=== PATIENT | male | born 1930 | race Caucasian/White ===

== ENCOUNTER → 2016-09-12 | Outpatient (CLI) | payer OTHER ==
[~2016-09-12] MED LIST: ALBU1AER9 INH; AMLO2.5T PO; AMOX500C3 PO; ASPI81TA28 PO; ATV/1 PO; AZEL30SP NAE; CILO100T PO; COLE1TAB PO; CRS10 PO; DOCU100C31 PO; ESCI10TA17 PO; FERR1TAB13 PO; FINA5TAB PO; FLUT0.15 NAE; FRRG PO; FURO-85 PO; GABA-113 PO; GABA1CAP4 PO; GUAI1TAB69 PO; GUAI1TAB75 PO; HYDR-5688 PO; INSDGI SC; ISOS120T5 PO; LACTCAP3 PO; LOSA1TAB PO; LOSA50TA6 PO; METO50TA7 PO; MONT1TAB3 PO; NRN300 PO; NTRGSL/4 UT; NVLGI SC; NXM/40 PO; NYSS/ PO; NYST100098 TOP; OMEG10007 PO; OXYC-57 PO; PANC6000 PO; PANT40TA PO; PLV75 PO; POLY335019 PO; POTA10CA28 PO; PSYL55.43 PO; RIVA1DIS4 TOP; RNXER500 PO; ROSU40TA PO; RQP25 PO; RXC5 PO; SENN-61 PO; SILO4CAP PO; TACR0.1O18 TOP; TAMS0.4C38 PO; TIOT1AER INH; ZNT150 PO
--- NOTE | 2016-09-13 06:18 | PAP/PSG TECHNICIAN REPORT ---
[facility] Filtering Machine Tender Polysomnogram Report Study name: None Report date: 09/13/2016 Study date: 09/12/2016 Referring Physician: Beto MEDINA M.D. Name: CODIE BENJAMIN Interpreting Physician: Bernadine Medina M.D. Date of : 1930 Filtering Machine Tender: Eris Cox RPSGT. Sex: Male Age: 85 StudyType: PSG PAP Weight: 211 lbs Height: 85 years, Height 5' 7" BMI: 33.04 Medications: LEXAPRO 10 MG, LANTUS SOLOSTAR 100 UNIT/ML, LASIX 20 MG, POTASSIUM CHLORIDE ER 10 MEQ, PLAVIX 75 MG, NORVASC 2.5 MG, PROTOPIC, CREON 90091 UNITS, REQUIP 0.25 MG, FLOMAX 0.4 MG, SINGULAIR 10 MG, ISOSORBIDE MONOITRATE ER 120 MG, TOPROL XL 50 MG, PROVENTIL HFA 108 90 BASE, MIRALAX, BIOTIN 5000 MCG, NEXIUM 40 MG, NEURONTIN 300 MG, EXELON, ASTELIN, NOVOLOG, PLETAL 100 MG, CRESTOR 40 MG, PROSCAR 5 MG, NYSTATIN 370906, NITROSTAT 0.4MG, NASONEX 50 MCG, Patient History PATIENT RECENTLY HAD A SLEEP STUDY DONE IN 2014 AND WAS TREATED WITH BIPAP AT 28/07. CURRENTLY, THE PATIENT FEELS FATIGUE AND NEEDS TO TAKE NAPS DURING THE DAY. HE STATES THAT HE HASN'T WORN OXYGEN IN A COUPLE OF YEARS. HE IS HERE TODAY FOR AN UPDATE ON HIS PRESSURE. ESS = 15 RM 7 Parameters Monitored NPSG: E1-M2, E2-M1, Fp1-M2, Fp2-M1, F3-M2, F4-M2, F4-M1, C3-M2, C4-M2, C4-M1, O1-M2, O2-M2, O2-M1, T3-M2, T4-M1, P3-M2, P4-M1, CHIN1, CHIN2, HR, EKG, Legs, PFLOW, SNOR, FLOW, CFLOW, Tidal Volume, THOR, ABDO, SpO2, PLTH, CPRESS, ETCO2 Wave, ETCO2, pH Sleep Architecture Sleep Stages Time at Lights Off 10:26:50 PM STAGES Time (min.) TST (%) Time at Lights On 5:30:20 AM Wake 35.0 -- Total Recording Time (TRT) 424.00 min. N1 19.5 5 Total Sleep Period (TSP) 421.0 min. N2 276.0 71 Total Sleep Time (TST) 388.5min. N3 25.0 6 Awake Time 35.0 min. REM 68.0 18 Wake after Sleep Onset 32.5 min. Sleep Efficiency (SE) 92 % Sleep Onset Latency (ELIZ) 2.5 min. Number of Stage 1 Shifts None Awakenings 22 Stage Changes 92 Number of REM periods 3 REM 68.0 18 REM Latency 128.0 min. NREM 320.5 82 Body Position Analysis Supine Right Left Side Prone Vertical Total Sleep Time (min.) 375.9 0.0 38.3 38.29 0.0 0.0 Total Sleep Time (%) 90% 0% 10% 10 0% N/A% Total Sleep Time REM (min.) 68.0 0.0 0.0 None 0.0 0.0 Total Sleep Time NREM (min.) 282.2 0.0 38.3 None 0.0 0.0 Intermittent Wake (min.) 25.7 0.0 9.3 None 0.0 0.0 Total Sleep Period (%) 89% None None None None None Arousals Myoclonus (PLM) * Events Count Index Events Count Index Spontaneous 22 3 Events Awake (PLMW) 75 128.6 Respiratory 2 0.3 Events Asleep w/ Arousal (PLMA) 38 5.9 PLM 36 6 Events Asleep w/o Arousal (PLMS) 719 111.0 Snoring 7 1 Total Asleep 757 116.9 Total 66 10 Total 832 118 Respiratory Analysis * CA OA MA CH H RERA Total Count 16 0 0 0 18 1 34 Index 2.5 0.0 0.0 0 2.8 0 5.4 Mean Duration 19.2 0.0 0.0 0.00 23.2 18.9 21.2 Longest Duration 23.3 0.0 0.0 0.00 0.0 18.9 33.5 Respiratory Event Summary Total Supine ~Supine Right Left Prone REM NREM Apneas Count 16 16 0 N/A 0 N/A 0 16 Index 2.5 3 0 N/A 0.0 N/A 0 3 Hypopneas (4% Desat) Count 18 18 0 N/A 0 N/A 0 18 Index 2.8 3.1 0 N/A 0.0 N/A 0.0 3.4 Apneas & All Hypopneas Count 34 34 0 N/A 0 N/A 0 34 Index 5.3 6 0 N/A 0 N/A 0.0 6.4 Respiratory Events (Roof Fitter+All Hyp+RERA) Count 34 35 0 N/A 0 N/A 0 34 Index 5.4 6 0 N/A 0.0 N/A 0.0 6.6 Respiratory Related Arousal Count 2 35 0 N/A 0 N/A 0 2 Index 0.3 0 0 N/A 0 N/A 0 0 Snoring Analysis Supine Right Left Prone REM NREM Total Snore duration 15.4 min Snores count 284 N/A 94 N/A 32 346 378 Snore mean duration 2.5 Sec Snores index 49 N/A 147 N/A 28.2 64.8 58.4 TST with snoring (%) 4.0% Desaturation Event Summary: Minimum %SpO2 Event Count Mean/Min/Max Duration(sec.) Desaturation Index % Time In Bed > 90 30 26.1 / 13.3 / 49.0 4.3 99.6 86 - 90 0 N/A 0.0 0.2 81 - 85 0 N/A 0.0 0.2 76 - 80 0 N/A 0.0 0.0 71 - 75 0 N/A 0.0 0.0 66 - 70 0 N/A 0.0 0.0 61 - 65 0 N/A 0.0 0.0 56 - 60 0 N/A 0.0 0.0 51 - 55 0 N/A 0.0 0.0 < 50 0 N/A 0.0 0.0 Total REM NREM Awake <50% 0.0 min. 0.0 min. 0.0 min. 0.0 min. 51 - 60% 0.0 min. 0.0 min. 0.0 min. 0.0 min. 61 - 70% 0.0 min. 0.0 min. 0.0 min. 0.0 min. 71 - 80% 0.0 min. 0.0 min. 0.0 min. 0.0 min. 81 - 90% 1.6 min. 0.0 min. 0.8 min. 0.8 min. 91 - 100% 417.4 min. 67.8 min. 318.0 min. 31.7 min. Average 95 94 95 95 Minimum SpO2 82 91 82 85 Desaturation Event Index 4.3 0.0 5.6 0.0 # Desat. Events below 89% N/A N/A N/A N/A Time(%) with Saturation below 89% 0.3 0.0 0.2 0.1 Time(min.) with Saturation below 89% 1.2 0.0 0.8 0.4 Time (mins) REM (mins) NREM (mins) % of TST SpO2 Below 90% N/A N/A NN/A 0.2 SpO2 Below 88% 0 0 0 0 Heart Rate Analysis Min (bpm) Max (bpm) Average (bpm) Awake 49 127 61 NREM 45 73 54 REM 49 60 54 Overall 45 73 54 Supplemental O2 Values Minimum O2 level: None Value Start Time End Time Filtering Machine Tender Comments Mr. Benjamin slept in the supine and left positions. PVC's and PAC's noted. Leg movements noted. No bruxism noted. PAP initiated at an IPAP of +17 CMH2O and an EPAP of +12 CMH2O up-titrated to an optimal level of: IPAP +19 CMH2O, EPAP + [id number] with a rate of 12 BPM, which nearly eliminated all respiratory events and snoring. A Resmed Mirage FX nasal mask was used during titration Mr. Benjamin awoke to use the restroom 0 times during the night. Mr. Benjamin stated I did not sleep as well as I do when I am in my own bed. At 2:49 am, I started a rate of 12 due to continued central apneas seen in stage 2 sleep. The final report will be interpreted and signed by a sleep physician. The completed physician report will then be placed in the patient medical record. Therapy Event: Therapy (cm H20) 28/07 Total Time at Pressure (min.) 270.8 11.8 140.9 TST at Pressure (min.) 245.8 10.8 131.9 # Periods 1 1 1 Sleep Onset (min.) 2.5 0.0 0.0 REM Onset (min.) 130.5 N/A N/A Sleep Efficiency % 90 91 93 Wakefulness (%) 9.2 8.5 6.4 Wakefulness (min.) 25.0 1.0 9.0 NREM 1 (%) 4.7 2.5 4.6 NREM 1 (min.) 12.8 0.3 6.4 NREM 2 (%) 57.2 29.7 83.4 NREM 2 (min.) 155.0 3.5 117.5 NREM 3 (%) 3.7 59.4 5.7 NREM 3 (min.) 10.0 7.0 8.0 REM (%) 25.1 0.0 0.0 REM (min.) 68.0 0.0 0.0 # Arousals 41 2 23 Arousal Index 10.0 11.1 10.5 # Snore 264 2 112 Snore Index 64.5 11.1 50.9 AHI 5.9 50.0 0.5 AHI Supine 6.9 50.0 0.5 AHI Non-Supine 0.0 N/A N/A NREM AHI 8.1 50.0 0.5 REM AHI 0.0 N/A N/A RDI 5.9 50.0 0.9 # Obstructive 0 0 0 # Central Ap 16 0 0 # Mixed 0 0 0 # Hypopneas 8 9 1 RERAS 0 0 1 Total Respiratory Events 24 9 2 Time Below SpO2 89.00% (min.) 0.0 0.0 0.8 Mean NREM SpO2 (%) 95 96 95 Mean REM SpO2 (%) 94 N/A N/A Mean Sleep SpO2 (%) 94 96 95 Min NREM SpO2 (%) 92 92 82 Min REM SpO2 (%) 91 N/A N/A Position Supine (min.) 207.5 10.8 131.9 Position Non-supine (min.) 38.3 0.0 0.0 LM Index Sleep 138.4 33.4 83.7 LM Index NREM 158.6 33.4 83.7 LM Index REM 85.6 N/A N/A Mean Heart Rate (bpm) 56 51 51 Min Heart Rate (bpm) 45 48 47
--- NOTE | 2016-09-18 08:33 | POLYSOMNOGRAPH REPORT ---
CPAP TITRATION STUDY REFERRING PERSON: Dr. Frankie Medina. PUBLIC WELFARE WORKER: Eris Cox. Mr. Benjamin has been using BiPAP at 17 at home. He feels fatigued despite this and needs to take naps during the day. He is sent to the sleep lab to determine his pressure needs for 2017. [place] Sleepiness Scale score on the evening of this study is 15, BMI is 33.04. Following the technical and digital specifications of the [place] [employer] (AASM) a standard diagnostic polysomnogram was performed monitoring EEG, EOG, EMG (chin and leg deviations), oxygen saturation, body position, digital video, respiratory effort and airflow. The sleep Stage and event scoring was based on the AASM Manual for the Scoring of Sleep and Associated Events 2007 edition. Apneas are defined as a drop in the peak thermal sensor excursion by >90% of baseline for at least 10 seconds. Hypopneas were scored using the 4% oxygen desaturation rule (4A-Medicare) and a decrease in the nasal pressure excursions by >30% of baseline for at least 10 seconds. Respiratory effort-related arousal (RERA's) is defined as a sequence of breaths lasting at least 10 seconds characterized by increasing respiratory effort or flattening of the nasal pressure waveform leading to an arousal from sleep when the sequence of breaths does not meet criteria for an apnea or hypopnea. Apnea Hypopnea index (AHI) is defined as the number of apneas and hypopneas occurring in an hour of sleep. Respiratory disturbance index (RDI) is defined as the number of apneas, hypopneas, and RERA's occurring in an hour of sleep. Mr. Goncalves total sleep period time was 421 minutes. Total sleep time was 388.5 minutes. Sleep efficiency was 92%. Latency to sleep onset was short at 2.5 minutes and wake after sleep onset was 32.5 minutes. Total non-REM sleep time was 320.5 minutes. He spent 5% of that time in N1 sleep, 71% in N2 sleep and 6% in N3 sleep. REM latency was 128 minutes. Total REM sleep time was 68 minutes or 18% of total sleep time. There were 66 cortical arousals from sleep. 22 of these arousals were spontaneous, 2 were due to respiratory events, 36 due to periodic limb movements, and 7 were due to snoring. There were 757 periodic limb movements noted on this test. Limb movement index was 116.9. Limb movement with arousal index was 5.9. There were 16 central apneas, no obstructive and no mixed apneas on this test. There were 18 hypopnea and 1 RERA. Apnea-hypopnea index was 5.3. 378 snoring events were recorded. Total sleep time with snoring was 4%. Mean saturation was 95% with desaturations less than 89% for only 1.2 minutes during this titration. PVCs and PACs were noted on EKG monitoring. Heart rates ranged from a low of 45 beats per minute to a high of 73 beats per minute during sleep. As stated above, this was a titration study. He used a ResMed Mirage FX nasal mask for his titration. This titration was started on his home pressure of 17/12. Around 2:00 a.m., this patient began to have central apneas in N2 sleep. These abated with the addition of a backup rate of 12. However, hypopneas continued, and inspiratory and expiratory pressures were slightly increased over the remainder of the night. He was observed on BiPAP S/T at 19/13 with a backup rate of 12 for 131.9 minutes of sleep time. AHI and RDI on this pressure were 0.5 and 0.9 respectively. Saturations were less than 89% for 0.8 minutes of sleep time. All sleep time on this pressure was spent supine. IMPRESSION AND PLAN: Mr. 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 He does well on BiPAP S/T at 19/13 with a backup rate of 12.
== END | disposition home or self-care (01) ==
LOC: C.NEUR 20:00
PROVIDERS: ATTEND Family Medicine
DX: G47.34 Idiopathic sleep related nonobstructive alveolar hypoventilation (principal); G47.10 Hypersomnia, unspecified

== ENCOUNTER 2016-11-13 06:56 | Day surgery (SDC) | payer OTHER ==
[2016-10-26 11:09] VITALS: BMI 33.0
--- NOTE | 2016-10-26 11:50 | PAT Medication Instructions ---
Service Date Oct 26, 2016. Current Home Medication List Albuterol Sulfate (Proair Hfa), 2 PUFFS INH Q4H PRN for Wheezing Amlodipine (Norvasc), 2.5 MG PO HS Amoxicillin (Amoxil), 500 MG PO HS Aspirin (Aspirin Ec), 81 MG PO QPM Azelastine Hcl-Fluticasone Pro (Dymista), 1 SPRY BRANDIE QAM Cilostazol (Pletal), 100 MG PO BID Clopidogrel Bisulfate (Clopidogrel), 75 MG PO QPM Docusate Sodium (Docusate Sodium), 100 MG PO BID PRN for Constipation Escitalopram (Lexapro), 10 MG PO QAM Esomeprazole Magnesium (Nexium), 1 CAP PO QAM Ferrous Sulfate (Kp Ferrous Sulfate), 1 TAB PO 3XWEEK Fish Oil ([place]-3), 1 CAP PO BID Furosemide (Lasix), 20 MG PO QAM Gabapentin (Neurontin), 300 MG PO TID Guaifenesin (Mucinex Maximum Strength), 1 TAB PO HS Insulin Aspart (Novolog), 11 UNITS SC TIDM Insulin Glargine (Lantus), 56 UNITS SC HS Isosorbide Mononitrate Ext Rel (Imdur Ext Rel), 120 MG PO QAM Losartan Potassium (Cozaar), 25 MG PO QAM Metoprolol Succ (Toprol Xl) (Toprol-Xl), 75 MG PO BID Montelukast Sodium (Singulair), 1 TAB PO HS Nitroglycerin (Nitrostat), 0.4 MG UT UD PRN for Chest Pain Nystatin (Nystatin Suspension), 1 DOSE PO QID PRN for THRUSH Pancrelipase (Lipase-Protease- (Creon), 1 CAP PO TID Polyethylene Glycol 3350 (Miralax), 17 GM PO BID PRN for Constipation Potassium Chloride (Micro-K Ext Rel), 10 MEQ PO M,T,W,TH,F Rivastigmine (Rivastigmine Transdermal), 9.5 MG TOP QAM Ropinirole HCl (Ropinirole HCl), 0.25 MG PO HS Rosuvastatin Calcium (Crestor), 40 MG PO HS Tacrolimus (Topical) (Protopic), 1 APPLN TOP BID PRN for LEGS Tamsulosin Hcl (Flomax), 0.4 MG PO HS Tiotropium Eros-Olodaterol (Stiolto Respimat 2.5-2.5 Mcg/Act), 2 PUFFS INH BID Medication Instructions For Your Scheduled Surgery -Continue as directed: Nitroglycerin (Nitrostat), 0.4 MG UT UD PRN for Chest Pain Rivastigmine (Rivastigmine Transdermal), 9.5 MG TOP QAM - Hold the following medications 2 weeks prior to surgery : Fish Oil ([place]-3), 1 CAP PO BID - Hold the following medications 5 days prior to surgery per surgeon's instructions: Clopidogrel Bisulfate (Plavix), 75 MG PO QPM - Hold the following medications 24 hours prior to surgery: Ropinirole HCl (Ropinirole HCl), 0.25 MG PO HS Tacrolimus (Topical) (Protopic), 1 APPLN TOP BID PRN for LEGS - Hold the following medications the morning of surgery: Docusate Sodium (Docusate Sodium), 100 MG PO BID PRN for Constipation Furosemide (Lasix), 20 MG PO QAM Insulin Aspart (Novolog), 11 UNITS SC TIDM Losartan Potassium (Cozaar), 25 MG PO QAM Potassium Chloride (Micro-K Ext Rel), 10 MEQ PO M,T,W,TH,F Polyethylene Glycol 3350 (Miralax), 17 GM PO BID PRN Pancrelipase (Lipase-Protease- (Creon), 1 CAP PO TID Nystatin (Nystatin Suspension), 1 DOSE PO QID PRN for THRUSH Ferrous Sulfate (Kp Ferrous Sulfate), 1 TAB PO 3XWEEK - Take the following medications the morning of surgery with a sip of water OTHERWISE NOTHING TO EAT OR DRINK AFTER MIDNIGHT: Albuterol Sulfate (Proair Hfa), 2 PUFFS INH Q4H PRN for Wheezing (use if needed ; BRING TO HOSPITAL) Cilostazol (Pletal), 100 MG PO BID (okay to continue per surgeon) Gabapentin (Neurontin), 300 MG PO TID Metoprolol Succ (Toprol Xl) (Toprol-Xl), 75 MG PO BID Isosorbide Mononitrate Ext Rel (Imdur Ext Rel), 120 MG PO QAM Tiotropium Eros-Olodaterol (Stiolto Respimat 2.5-2.5 Mcg/Act), 2 PUFFS INH BID Escitalopram (Lexapro), 10 MG PO QAM Esomeprazole Magnesium (Nexium), 1 CAP PO QAM - Take the following medications as scheduled the night before surgery: Albuterol Sulfate (Proair Hfa), 2 PUFFS INH Q4H PRN for Wheezing Amlodipine (Norvasc), 2.5 MG PO HS Amoxicillin (Amoxil), 500 MG PO HS Aspirin (Aspirin Ec), 81 MG PO QPM (okay to continue per surgeon) Cilostazol (Pletal), 100 MG PO BID (okay to continue per surgeon) Azelastine Hcl-Fluticasone Pro (Dymista), 1 SPRY BRANDIE QAM Docusate Sodium (Docusate Sodium), 100 MG PO BID PRN for Constipation Insulin Glargine (Lantus), 56 UNITS SC HS Gabapentin (Neurontin), 300 MG PO TID Insulin Aspart (Novolog), 11 UNITS SC TIDM Tamsulosin Hcl (Flomax), 0.4 MG PO HS Rosuvastatin Calcium (Crestor), 40 MG PO HS Montelukast Sodium (Singulair), 1 TAB PO HS Metoprolol Succ (Toprol Xl) (Toprol-Xl), 75 MG PO BID Guaifenesin (Mucinex Maximum Strength), 1 TAB PO HS Polyethylene Glycol 3350 (Miralax), 17 GM PO BID PRN Pancrelipase (Lipase-Protease- (Creon), 1 CAP PO TID Nystatin (Nystatin Suspension), 1 DOSE PO QID PRN for THRUSH Tiotropium Eros-Olodaterol (Stiolto Respimat 2.5-2.5 Mcg/Act), 2 PUFFS INH BID If you have any questions please call us at [phone] or [phone] or [phone]
[2016-10-26 12:19] LABS: HEMATOCRIT 39.3 % (42-52); MEAN CELL VOLUME 86.2 fL (80-100); MEAN CORPUSCULAR HEMOGLOBIN 29.8 pg (25-34); MEAN CORPUSCULAR HGB CONC 34.6 g/dl (32-36); MEAN PLATELET VOLUME 9.8 fL (7.4-10.4); PLATELET COUNT 239 K/uL (130-400); RED BLOOD COUNT 4.56 M/uL (4.7-6.1); WHITE BLOOD COUNT 6.14 K/uL (4.8-10.8)
[2016-10-26 12:46] LABS: BUN/CREATININE RATIO 12.8 (10-20); CALCIUM 8.6 mg/dl (8.5-10.1); CREATININE 1.2 mg/dl (0.60-1.40); POTASSIUM 4.2 mmol/L (3.5-5.1)
[~2016-11-13] VITALS: Ht 170.2 cm; Wt 95.7 kg
[~2016-11-13 06:56] MED LIST changes: -ATV/1 PO; +CEFAZOLIN 2000 MG/60 ML D5W IV SCH; +CLINDAMYCIN 600 MG/54 ML D5W IV SCH; -COLE1TAB PO; -CRS10 PO; -FINA5TAB PO; -FLUT0.15 NAE; -FRRG PO; -GABA1CAP4 PO; -GUAI1TAB75 PO; -HYDR-5688 PO; +LACTATED RINGER'S 1000ML 1,000 ML IV SCH; -LACTCAP3 PO; -LOSA50TA6 PO; -NRN300 PO; -NYST100098 TOP; -OXYC-57 PO; -PANT40TA PO; -PSYL55.43 PO; -RNXER500 PO; -RXC5 PO; -SENN-61 PO; -SILO4CAP PO; +TACR0.1O TOP; -TACR0.1O18 TOP; -ZNT150 PO; +[UNRECOGNIZED DRUG - REMARK] SCH
[2016-11-13] MEDS ORDERED: NEOSTIGMINE METHYLSULFATE 5 MG/5 ML SYR ONE ×2 (06:59→07:45)
[2016-11-13 07:38] VITALS: BP 109/59; PULSE 77; TEMP 36.8; O2SAT 94; Ht 170.2 cm; Wt 95.7 kg
[2016-11-13] MEDS ORDERED: FENTANYL CITRATE INJ 50 MCG/1 ML 2 ML VIAL ONE ×2 (07:45→09:02)
[2016-11-13] MEDS ORDERED: ONDANSETRON INJ 2 MG/ML 2 ML VIAL ONE (07:45)
[2016-11-13] MEDS ORDERED: ROCURONIUM BROMIDE 10 MG/ML 5 ML VIAL ONE (07:45)
[2016-11-13] MEDS ORDERED: DEXAMETHASONE SOD INJ 4 MG/ML VIAL ONE (07:45)
[2016-11-13] MEDS ORDERED: PROPOFOL IV EMULSION 10 MG/ML 20 ML VIAL IV ONE (07:45)
[2016-11-13] MEDS ORDERED: GLYCOPYRROLATE INJ 0.2 MG/ML VIAL ONE (07:45)
[2016-11-13] MEDS ORDERED: LIDOCAINE HCL 2% 2 ML VIAL (20MG/ML) ONE (07:45)
--- NOTE | 2016-11-13 08:05 | History & Physical Bridge Note ---
H&P Re-Evaluation Bridge Note: I have examined the patient, reviewed the History & Physical and in the interval since the performance of the History & Physical I have noted the following changes of clinical significance: No changes noted
[2016-11-13] MEDS ORDERED: HYDROmorphone INJ 1 MG/ML SYR IV PRN (08:15)
[2016-11-13] MEDS ORDERED: ATROPINE SULFATE 0.1 MG/ML 5ML SYR IV PRN (08:15)
[2016-11-13] MEDS ORDERED: ALBUT/IPRATROP 3MG/0.5MG NEB 3 ML VIAL INH PRN (08:15)
[2016-11-13] MEDS ORDERED: ONDANSETRON INJ 2 MG/ML 2 ML VIAL IV PRN (08:15)
[2016-11-13] MEDS ORDERED: FENTANYL CITRATE INJ 50 MCG/1 ML 2 ML VIAL IV PRN (08:15)
[2016-11-13] MEDS ORDERED: EpHEDrine SULFATE INJ 50 MG/ML AMP IV PRN (08:15)
[2016-11-13] MEDS ORDERED: MEPERIDINE HCL 25 MG/ML CARP IV PRN (08:15)
[2016-11-13] MEDS ORDERED: LIDOCAINE HCL 1% 20 ML VIAL ONE (08:16)
[2016-11-13] MEDS ORDERED: BACITRACIN OINT 15 GM TUBE ONE (08:16)
[2016-11-13] MEDS ORDERED: BUPIVACAINE 0.5 % 5 MG/1 ML MPF 30ML VIAL ONE (08:16)
[2016-11-13] MEDS ORDERED: EpHEDrine SULFATE 50MG/5ML SYR ONE (09:32)
[2016-11-13] MEDS ORDERED: PHENYLEPHRINE 100MCG/ML 5ML SYR ONE (09:32)
--- NOTE | 2016-11-13 09:47 | [facility] Post Operative Brief Note ---
Immediate Operative Summary Operative Date Nov 13, 2016. Pre-Operative Diagnosis chronic cholelithiasis Post-Operative Diagnosis same as preop Procedure(s) Performed laproscopic cholecystectomy Surgeon Dr. Lee Branch Account Manager Surgeon(s) Diane Weeks PA-C Estimated Blood Loss 20 ml Findings chronic cholecystitis Specimens A: gallbladder Drains none Anesthesia general Complication(s) None Disposition Recovery Room / PACU
[2016-11-13] MEDS ORDERED: OXYC-57 PO (10:04)
--- NOTE | 2016-11-13 10:08 | Discharge Instructions ---
Discharge Instructions Date of Service Nov 13, 2016. Admission Reason for Admission: Symptomatic Cholelithiasis Discharge Discharge Diagnosis / Problem: Status post laparoscopic cholecystectomy Discharge Goals Goal(s): Decrease discomfort Activity Recommendations Activity Limitations: as noted below No heavy lifting over 20 pounds for 2-3 weeks Walking is encouraged to prevent blood clots No driving while taking narcotic pain medication No strenuous activity until cleared by surgeon . Instructions / Follow-Up Instructions / Follow-Up You may remove dressing in 3 days and then shower, sponge bath in meantime You do not need to keep incision covered, steri strips may be removed in 7 days , if they fall off before that is okay No submerging incisions underwater for 2 weeks Follow-up with Dr. Lee in 1 week, call office at [phone] to make an appointment if you do not already have one Current Hospital Diet Patient's current hospital diet: Discharge Diet Recommended Diet: Regular Diet Procedures Procedures Performed: laproscopic cholecystectomy Pending Studies Studies pending at discharge: no Medical Emergencies . Who to Call and When: Medical Emergencies: If at any time you feel your situation is an emergency, please call 911 immediately. . Non-Emergent Contact Non-Emergency issues call your: Primary Care Provider, Surgeon Call Non-Emergent contact if: you have a fever, temperature is above 101.5, your pain is not controlled, your pain is worsening, wound has increased drainage, wound has increased redness, wound has increased pain . "Provider Documentation" section prepared by Diane Weeks. VTE Core Measure Inpt VTE Proph given/why not?: SCD's [place] Drug Monitoring Program Search Results: patient reviewed within database, no issues identified
[2016-11-13] MEDS ORDERED: NURSING VERBAL MED ORDER ONE ×2 (11:15→11:30)
--- NOTE | 2016-11-13 11:43 | Anesthesiology Progress Note ---
Anesthesia Post Op Note Date & Time Nov 13, 2016 at 11:43 Vital Signs Pain Intensity: 0 Vital Signs Past 12 Hours Date Time Temp Pulse Resp B/P Pulse Ox O2 Delivery O2 Flow Rate FiO2 11/13/16 11:40 72 16 101/64 95 Nasal Cannula 3 11/13/16 11:35 68 16 107/71 96 Nasal Cannula 3 11/13/16 11:30 71 16 93/63 96 Nasal Cannula 3 11/13/16 11:25 68 16 104/65 96 Nasal Cannula 3 11/13/16 11:20 36.4 68 16 94/66 96 Nasal Cannula 3 11/13/16 11:10 70 16 95/55 95 Nasal Cannula 3 11/13/16 11:00 73 16 93/56 95 Nasal Cannula 3 11/13/16 10:50 73 16 91/50 96 Nasal Cannula 3 11/13/16 10:40 74 16 90/53 96 Nasal Cannula 3 11/13/16 10:30 76 16 96/52 96 Mask 5 Arterial Line 11/13/16 10:20 77 16 104/55 96 Mask 10 11/13/16 10:10 82 16 119/54 96 Mask 10 11/13/16 10:05 36.0 88 16 134/51 97 Mask 10 NIBP 11/13/16 07:38 36.8 77 20 109/59 94 Room Air Notes Mental Status: alert / awake / arousable, participated in evaluation Pt Amnestic to Procedure: Yes Nausea / Vomiting: adequately controlled Pain: adequately controlled Airway Patency, RR, SpO2: stable & adequate BP & HR: stable & adequate Hydration State: stable & adequate Anesthetic Complications: no major complications apparent mild hypotn postop resopnsive to IVF bolus [id number]. Back to baseline BP. Sent to ASU1 post.
[2016-11-13 11:55] VITALS: BP 93/51; PULSE 70; TEMP 36.4; O2SAT 93
[2016-11-13] MEDS ORDERED: LACTATED RINGER'S 1000ML 250 ML IV SCH (12:00)
--- NOTE | 2016-11-13 12:16 | OPERATIVE REPORT ---
DATE OF OPERATION: 11/13/2016 PREOPERATIVE DIAGNOSIS: Chronic cholecystitis. POSTOPERATIVE DIAGNOSIS: Same. PROCEDURE: Laparoscopic cholecystectomy. SURGEON: Pollo Lee M.D. DEMURRAGE AGENT: Diane Weeks PA-C. ANESTHESIA: General. ESTIMATED BLOOD LOSS: About 20 mL. FINDINGS: Chronic cholecystitis. COMPLICATIONS: None. IV FLUIDS: 1 liter, 1,000 mL. INDICATIONS FOR THE PROCEDURE: This is an 86-year-old gentleman who presents with chronic cholecystitis. The patient will be required to do laparoscopic cholecystectomy. I did talk to the patient about the benefit and risk, alternate procedure. I indicated the risks may include but not limited such as bleeding, infection, injury to common bile duct, injury to bowel, may need ERCP, myocardial infarction, stroke, DVT, even . The patient understands. He signed informed consent and I answered all questions. DETAILS OF PROCEDURE: We brought the patient to the OR, put the patient in the supine position. The patient received SCD on bilateral legs to prevent DVT. Also, the patient received 600 mg of clindamycin IV for prophylactic antibiotic. The patient received general anesthesia without difficulty. Also, the patient had A-line monitor blood pressure by the anesthesiology. Then, the patient's abdomen was prepped and draped in the routine sterile fashion. After a timeout, I injected local anesthesia by using 1% lidocaine mixed with 0.25% Marcaine just above umbilical, made a small incision, opened fascia, opened peritoneum under direct vision. I put a Ghislaine trocar in, connected to CO2 to create pneumoperitoneum. Flow rate 6 liter per minute. Pressure not more than 14 mmHg. Once we got a nice pneumoperitoneum then I put a 10 mm camera in to take look at abdomen shows no more findings on the stomach, small bowel, large bowel and liver. However, there was some omentum covering the gallbladder showing chronic cholecystitis. The gallbladder with some thickening. Then, we put another 3.5 mm trocar on the right upper quadrant and put grasper in to hold the base of the gallbladder, put direction to the diaphragm and put another grasper in to hold the pouch over the gallbladder, put latter to expose the triangle of Calot. The cystic duct was identified and mobilized. Then I put two 5 mm metal clips on the proximal cystic duct, 1 on the distal cystic duct then I used scissor transection the cystic duct. Then the cystic artery was identified and mobilized. Then I put two 5 mm metal clips on the proximal cystic artery, 1 on the distal cystic artery. Then I used scissor to transection the cystic artery. Then I used Bovie to take down the gallbladder through the liver bed. Rechecked no active bleeding, no bile leak. Then we pulled out the gallbladder through the catch bag then I reinserted Ghislaine trocar in, connect to CO2 to create pneumoperitoneum. Again to look around the abdomen showing no more finding, no active bleeding, no bile leak on the liver bed and no injury to bowel. Then we removed all trocars under direct vision. No active bleeding from trocar sites. Then, the pneumoperitoneum was released. Then I closed the umbilical fascial layer by using #1 Vicryl [id number] x2, closed subcutaneous layer by using 2-0 Vicryl interrupted and closed skin by using 4-0 Vicryl. Another 3.5 mm trocar site closed skin by using 4-0 Vicryl only. Then, we put the dressing on. The patient tolerated the procedure well. After procedure I did talk to the patient family member about the OR finding and procedure we did, they understand. All the instrument, needle and sponge count correct x2 at the end of case. The patient transferred to recovery room in stable condition. I attest to the content of the Intraoperative Record and any orders documented therein. Any exceptions are noted below. JOSEPH
[2016-11-13 12:25] VITALS: BP 96/56; PULSE 60; O2SAT 98
[2016-11-13 13:15] VITALS: BP 98/47; PULSE 64; O2SAT 92
[2016-11-14] MEDS ORDERED: CLINDAMYCIN 600 MG/54 ML D5W IV ONE (06:00)
[2017-04-14] MEDS ORDERED: PANT40TA PO (11:47)
[2017-04-14] MEDS ORDERED: ZNT150 PO (11:47)
[2017-04-14] MEDS ORDERED: RNXER500 PO (11:47)
== END 2016-11-13 14:00 | disposition home or self-care (01) ==
LOC: C.ACU 06:56
PROVIDERS: ATTEND Surgery
DX: K80.11 Calculus of gallbladder with chronic cholecystitis with obstruction (principal); K86.1 Other chronic pancreatitis; I70.219 Atherosclerosis of native arteries of extremities with intermittent claudication, unspecified extremity; E78.5 Hyperlipidemia, unspecified; J44.9 Chronic obstructive pulmonary disease, unspecified; E11.42 Type 2 diabetes mellitus with diabetic polyneuropathy; N40.0 Benign prostatic hyperplasia without lower urinary tract symptoms; G47.30 Sleep apnea, unspecified

== ENCOUNTER 2017-04-12 21:58 | Inpatient (IN) | payer OTHER ==
[~2017-04-12] VITALS: Ht 170.2 cm; Wt 95.7 kg
[~2017-04-12 21:58] MED LIST changes: -CEFAZOLIN 2000 MG/60 ML D5W IV SCH; -CLINDAMYCIN 600 MG/54 ML D5W IV SCH; -LACTATED RINGER'S 1000ML 1,000 ML IV SCH; +OXYC-57 PO; -RIVA1DIS4 TOP; -TACR0.1O TOP; +TACR0.1O18 TOP; -[UNRECOGNIZED DRUG - REMARK] SCH
[2017-04-12] MEDS ORDERED: SILO4CAP PO (22:17)
[2017-04-12] MEDS ORDERED: COLE1TAB PO (22:17)
[2017-04-12] MEDS ORDERED: PANT40TA PO (22:17)
[2017-04-12] MEDS ORDERED: ASPIRIN 81 MG CHEW PO STA (22:20)
--- NOTE | 2017-04-12 22:45 | DIAGNOSTIC IMAGING REPORT ---
CHEST ONE VIEW PORTABLE HISTORY: Atypical Chest Pain COMPARISON: Chest 05/13/2016. FINDINGS: Cervical spinal fusion hardware is again noted. The lungs are clear. The heart is top normal in size. No pleural effusions. No pneumothorax. IMPRESSION: No acute process. Electronically signed by: Navid Mota M.D. 04/12/2017 10:43 PM Dictated Date/Time: 04/12/2017 10:42 PM
[2017-04-12 23:05] LABS: BASO % 0.2 %; BASO ABS # 0.02 K/uL (0-0.2); COMPLETE YES; EOS % 0.2 %; IG% 0.3 %; LYMPH % 16.2 %; LYMPH ABS # 1.67 K/uL (1.2-3.4); MEAN CELL VOLUME 90.3 fL (80-100); MEAN CORPUSCULAR HEMOGLOBIN 30.9 pg (25-34); MEAN CORPUSCULAR HGB CONC 34.3 g/dl (32-36); MEAN PLATELET VOLUME 10.1 fL (7.4-10.4); MONO % 7.4 %; NEUT % 75.7 %; PLATELET COUNT 272 K/uL (130-400); RED BLOOD COUNT 4.43 M/uL (4.7-6.1); WHITE BLOOD COUNT 10.32 K/uL (4.8-10.8)
--- NOTE | 2017-04-12 23:31 | EMERGENCY ROOM VISIT NOTE ---
History Report prepared by Mariannaibmary: Sarina Topete Under the Supervision of: Dr. Son Elise D.O. First contact with patient: 22:09 Chief Complaint: CHEST PAIN Stated Complaint: CHEST PAIN Nursing Triage Summary: refer to triage note History of Present Illness The patient is an 86 year old male who presents to the Emergency Room with complaints of intermittent chest pain for the past 3 days. The pain radiates into his arms. He reports the pain occurs only at night, and usually 30 minutes after he has eaten dinner. He's been taking Nitro with good relief. He is currently pain free here in the ED. The patient has a history of 3 previous NY' s and has undergone 3 previous cardiac catheterizations. He has 3 cardiac stents and the most recent one was placed in 2004. He states his current symptoms feel like his previous NY's. The patient complains of shortness of breath, but states he is "always" short of breath. He admits to increased "gas and belching". His last BM was this morning and normal. The patient denies headache, change in vision, fevers, nausea, vomiting, diarrhea, pain with urination, and melena. Source of History: patient Onset: 3 days PERINATAL NURSE Position: chest Symptom Intensity: Timing: intermittent Modifying Factors (Worsening): eating Associated Symptoms: + SOB, No fevers, No headache, No nausea, No vomiting, No melena, No diarrhea, No urinary symptoms Review of Systems See HPI for pertinent positives & negatives. A total of 10 systems reviewed and were otherwise negative. Past Medical & Surgical Medical Problems: (1) BPH (benign prostatic hyperplasia) (2) CAD (coronary artery disease) (3) Chest pain (4) Chronic pancreatitis (5) COPD (chronic obstructive pulmonary disease) (6) Depression (7) Diabetes mellitus (8) Diabetic neuropathy (9) DM (diabetes mellitus), type 2, uncontrolled (10) Dyslipidemia (11) HTN (hypertension) (12) Hyperglycemia (13) VIC on CPAP (14) Pancreatitis (15) Peptic ulcer (16) PVD (peripheral vascular disease) (17) Sepsis Surgical Problems: (1) H/O rotator cuff surgery (2) History of carpal tunnel surgery (3) History of fusion of cervical spine (4) S/P right knee arthroscopy (5) S/P tonsillectomy and adenoidectomy (6) S/P TURP Family History Diabetes mellitus Social History Smoking Status: Former Smoker Alcohol Use: none Drug Use: none Marital Status: Housing Status: lives with family Occupation Status: retired Current/Historical Medications Scheduled Amlodipine (Norvasc), 2.5 MG PO HS Amoxicillin (Amoxil), 500 MG PO HS Aspirin (Aspirin Ec), 81 MG PO QPM Azelastine Hcl-Fluticasone Pro (Dymista), 1 SPRY BRANDIE QAM Cilostazol (Pletal), 100 MG PO BID Clopidogrel Bisulfate (Clopidogrel), 75 MG PO QPM Colestipol Hcl (Colestid), 1 GM PO DAILY Escitalopram (Lexapro), 10 MG PO QAM Fish Oil ([place]-3), 1 CAP PO BID Furosemide (Lasix), 20 MG PO QAM Gabapentin (Neurontin), 300 MG PO QID Guaifenesin (Mucinex Maximum Strength), 1 TAB PO HS Insulin Aspart (Novolog), 10 UNITS SC TIDM Insulin Glargine (Lantus), 56 UNITS SC HS Isosorbide Mononitrate Ext Rel (Imdur Ext Rel), 120 MG PO QAM Losartan Potassium (Cozaar), 25 MG PO QAM Metoprolol Succ (Toprol Xl) (Toprol-Xl), 150 MG PO TID Montelukast Sodium (Singulair), 1 TAB PO HS Pancrelipase (Lipase-Protease- (Creon), 1 CAP PO TID Pantoprazole (Protonix), 40 MG PO DAILY Potassium Chloride (Micro-K Ext Rel), 10 MEQ PO M,T,W,TH,F Ropinirole HCl (Ropinirole HCl), 0.25 MG PO HS Rosuvastatin Calcium (Crestor), 40 MG PO HS Silodosin (Rapaflo), 4 MG PO DAILY Tamsulosin Hcl (Flomax), 0.4 MG PO HS Tiotropium Orrick-Olodaterol (Stiolto Respimat 2.5-2.5 Mcg/Act), 2 PUFFS INH BID Scheduled PRN Albuterol Sulfate (Proair Hfa), 2 PUFFS INH Q4H PRN for Wheezing Nitroglycerin (Nitrostat), 0.4 MG UT UD PRN for Chest Pain Nystatin (Nystatin Suspension), 1 DOSE PO QID PRN for THRUSH Oxycodone/Acetaminophen 5MG/325MG (Percocet 5MG/325MG), 1 TABLET PO Q4H PRN for Pain Tacrolimus (Topical) (Protopic), 1 APPLN TOP BID PRN for LEGS Allergies Coded Allergies: Clavulanic Acid (Verified Allergy, Intermediate, HIVES TO "BETA-LACTAMASE INHIBITORS", 04/12/17) Sulbactam (Verified Allergy, Intermediate, HIVES TO "BETA-LACTAMASE INHIBITORS", 04/12/17) Cilastatin (Verified Allergy, Mild, HIVES, 04/12/17) Imipenem (Verified Allergy, Mild, HIVES, 04/12/17) HAS HAD PENICILLIN W/O PROBLEM Adhesives (Verified Allergy, Unknown, BANDAIDS- SORE SKIN, 04/12/17) Cephalosporins (Verified Allergy, Unknown, HIVES, 04/12/17) Lovastatin (Verified Allergy, Unknown, hives, 04/12/17) Penicillins (Verified Allergy, Unknown, hives, 04/12/17) Morphine (Verified Adverse Reaction, Unknown, CONFUSED, 04/12/17) Physical Exam Vital Signs Date Time Temp Pulse Resp B/P (MAP) Pulse Ox O2 Delivery O2 Flow Rate FiO2 04/13/17 00:30 75 18 128/90 93 Room Air 04/12/17 23:30 82 20 141/94 92 Room Air 04/12/17 22:30 79 18 126/86 Room Air 04/12/17 22:12 81 04/12/17 22:08 92 Room Air 04/12/17 22:01 36.9 82 20 148/85 94 Room Air Physical Exam GENERAL: Patient is sitting up in bed, alert, chronically ill appearing, disheveled, no distress, non-toxic EYE EXAM: normal conjunctiva OROPHARYNX: no exudate, no erythema, lips, buccal mucosa, and tongue normal and mucous membranes are moist NECK: supple, no nuchal rigidity, no adenopathy, non-tender LUNGS: Clear to auscultation. Normal chest wall mechanics HEART: no murmurs, S1 normal and S2 normal ABDOMEN: abdomen soft, non-tender, abdomen is distended, normo-active bowel sounds, no masses, no rebound or guarding. BACK: Back is symmetrical on inspection and there is no deformity, no midline tenderness, no CVA tenderness. SKIN: no rashes and no bruising UPPER EXTREMITIES: upper extremities are grossly normal. LOWER EXTREMITIES: No pitting edema. NEURO EXAM: Normal sensorium, cranial nerves II-XII grossly intact, normal speech, no gross weakness of arms, no gross weakness of legs. Gross sensation intact. Medical Decision & Procedures ER Provider Diagnostic Interpretation: Radiology results as stated below per my review and the radiologist's interpretation: CHEST ONE VIEW PORTABLE HISTORY: Atypical Chest Pain COMPARISON: Chest 05/13/2016. FINDINGS: Cervical spinal fusion hardware is again noted. The lungs are clear. The heart is top normal in size. No pleural effusions. No pneumothorax. IMPRESSION: No acute process. Electronically signed by: Navid Mota M.D. 04/12/2017 10:43 PM Laboratory Results 04/12/17 21:32 Red Blood Count 4.43, Mean Corpuscular Volume 90.3, Mean Corpuscular Hemoglobin 30.9, Mean Corpuscular Hemoglobin Concent 34.3, Mean Platelet Volume 10.1, Neutrophils (%) (Auto) 75.7, Lymphocytes (%) (Auto) 16.2, Monocytes (%) (Auto) 7.4, Eosinophils (%) (Auto) 0.2, Basophils (%) (Auto) 0.2, Neutrophils # (Auto) 7.82, Lymphocytes # (Auto) 1.67, Monocytes # (Auto) 0.76, Eosinophils # (Auto) 0.02, Basophils # (Auto) 0.02 04/12/17 21:32 Test 04/12/17 21:32 White Blood Count 10.32 K/uL (4.8-10.8) Red Blood Count 4.43 M/uL (4.7-6.1) Hemoglobin 13.7 g/dL (14.0-18.0) Hematocrit 40.0 % (42-52) Mean Corpuscular Volume 90.3 fL (80-100) Mean Corpuscular Hemoglobin 30.9 pg (25-34) Mean Corpuscular Hemoglobin Concent 34.3 g/dl (32-36) Platelet Count 272 K/uL (130-400) Mean Platelet Volume 10.1 fL (7.4-10.4) Neutrophils (%) (Auto) 75.7 % Lymphocytes (%) (Auto) 16.2 % Monocytes (%) (Auto) 7.4 % Eosinophils (%) (Auto) 0.2 % Basophils (%) (Auto) 0.2 % Neutrophils # (Auto) 7.82 K/uL (1.4-6.5) Lymphocytes # (Auto) 1.67 K/uL (1.2-3.4) Monocytes # (Auto) 0.76 K/uL (0.11-0.59) Eosinophils # (Auto) 0.02 K/uL (0-0.5) Basophils # (Auto) 0.02 K/uL (0-0.2) RDW Standard Deviation 45.6 fL (36.4-46.3) RDW Coefficient of Variation 13.8 % (11.5-14.5) Immature Granulocyte % (Auto) 0.3 % Immature Granulocyte # (Auto) 0.03 K/uL (0.00-0.02) Activated Partial Thromboplast Time 23.6 SECONDS (21.0-31.0) Partial Thromboplastin Ratio 0.9 Anion Gap 7.0 mmol/L (3-11) Est Creatinine Clear Calc Drug Dose 37.5 ml/min Estimated GFR () 44.9 Estimated GFR (Non- 38.7 BUN/Creatinine Ratio 14.3 (10-20) Calcium Level 8.7 mg/dl (8.5-10.1) Magnesium Level 1.7 mg/dl (1.8-2.4) Total Bilirubin 0.4 mg/dl (0.2-1) Direct Bilirubin < 0.1 mg/dl (0-0.2) Aspartate Amino Transf (AST/SGOT) 16 U/L (15-37) Alanine Aminotransferase (ALT/SGPT) 32 U/L (12-78) Alkaline Phosphatase 74 U/L (45-117) Total Creatine Kinase 188 U/L (39-308) Creatine Kinase MB 4.0 ng/ml (0.5-3.6) Creatine Kinase MB Ratio 2.1 (0-3.0) Troponin I < 0.015 ng/ml (0-0.045) Total Protein 7.4 gm/dl (6.4-8.2) Albumin 3.7 gm/dl (3.4-5.0) Lipase 207 U/L (73-393) Beta-Hydroxybutyric Acid 0.89 mg/dL (0.2-2.81) Laboratory results per my review. Medications Administered Medications (Trade) Dose Ordered Sig/Francine Route Start Time Stop Time Status Last Admin Dose Admin Aspirin (Aspirin Chew) 324 mg NOW STAT PO 04/12/17 22:20 04/12/17 22:22 DC 04/12/17 22:36 324 MG Insulin Human Regular (novoLIN-R U-100 PER UNIT) 5 units NOW STAT SC 04/13/17 00:00 04/13/17 00:01 DC 04/13/17 00:26 5 UNITS Insulin Glargine (Lantus Solostar Pen) 40 units ONE STAT SC 04/13/17 00:44 04/13/17 00:45 DC 04/13/17 01:46 40 UNITS ECG Indication: chest pain Rate (beats per minute): 83 Rhythm: sinus rhythm Findings: Q waves (Inferior), no ectopy ED Course ED COURSE: Vital signs were reviewed and showed the patient is hypertensive. The patients medical record was reviewed The above diagnostic studies were performed and reviewed. ED treatments and interventions as stated above. 2213: The patient was evaluated in room A12. A complete history and physical examination was performed. 2220: Aspirin 324 mg PO. 2359: I discussed the patients case with Dr. Javier, [place] Hospitalist. The patient will be further evaluated. 0005: Upon reevaluation, the patient is resting comfortably and feeling well. I discussed my findings with the patient and he understands and agrees with the treatment plan. Based on the patients age, coexisting illnesses, exam and lab findings the decision to treat as an inpatient was made. The patient remained stable while under my care. The patient will be evaluated for further management. Medical Decision Differential diagnoses includes but is not limited to acute coronary syndrome, myocardial infarction, pericarditis, pulmonary embolus, aortic dissection, pneumonia, pneumothorax, musculoskeletal, shingles, esophageal. Patient is an 86-year-old male that presents to the ER for precordial chest tightness/pressure. He notes this feels exactly like his previous MIs. He does have a previous stent placed. Patient notices pain has been relieved on 3 separate occasions with nitroglycerin. He notes this generally occurs following dinner. He notes that this pain in the middle of his chest radiating down to both elbows feels exactly like his previous MIs. CBC BMP was unremarkable with the exception of hyperglycemia. Bilirubin normal with LFTs and troponin was negative. He is given subcutaneous insulin. Patient was pain free while in the ER. He was given aspirin. His minutes internal medicine for a chest pain rule out although I favor this likely GI in nature. Medication Reconcilliation Current Medication List: was personally reviewed by me Blood Pressure Screening Patient's blood pressure: Elevated blood pressure Blood pressure disposition: Elevated BP felt to be situational Consults Time Called: [phone] Consulting Physician: Jeremias Dasilva Hospitalist Returned Call: [phone] I discussed the patients case [facility] The patient will be further evaluated. Impression Primary Impression: Precordial chest pain Additional Impression: Hyperglycemia Scribe Attestation The scribe's documentation has been prepared under my direction and personally reviewed by me in its entirety. I confirm that the note above accurately reflects all work, treatment, procedures, and medical decision making performed by me. Departure Information Dispostion Being Evaluated By Hospitalist Referrals Gen Tavera D.O. (PCP) Patient Instructions My [facility] Problem Qualifiers
[2017-04-12 23:38] LABS: ALKALINE PHOSPHATASE 74 U/L (45-117); ALT/SGPT 32 U/L (12-78); AST/SGOT 16 U/L (15-37); BLOOD UREA NITROGEN 23 mg/dl (7-18); BUN/CREATININE RATIO 14.3 (10-20); CALCIUM 8.7 mg/dl (8.5-10.1); CARBON DIOXIDE 26 mmol/L (21-32); CHLORIDE 103 mmol/L (98-107); CKMB/CK RATIO 2.1 (0-3.0); POTASSIUM 4.2 mmol/L (3.5-5.1); SODIUM 136 mmol/L (136-145)
[2017-04-12 23:56] LABS: GLUCOSE 386 mg/dl (70-99)
[2017-04-13] VITALS (7 sets, daily range): BP systolic 95–162; BP diastolic 58–90; PULSE 51–89; TEMP 36.5–37; O2SAT 94–99; Ht 170.2 cm; Wt 95.7 kg
[2017-04-13] MEDS ORDERED: NovoLIN-R INSULIN PER UNIT CHARGE SC STA
[2017-04-13 00:09] LABS: BETA-HYDROXYBUTYRATE 0.89 mg/dL (0.2-2.81)
[2017-04-13] MEDS ORDERED: SODIUM CHLORIDE 0.9% 1000ML 1,000 ML IV SCH (00:30)
[2017-04-13] MEDS ORDERED: INSULIN GLARGINE SOLOSTAR 100 UNITS/ML 3 ML PEN SC STA (00:44)
[2017-04-13 01:02] LABS: MAGNESIUM 1.7 mg/dl (1.8-2.4)
[2017-04-13] MEDS ORDERED: ACETAMINOPHEN 325 MG TAB PO PRN (02:15)
[2017-04-13] MEDS ORDERED: NITROGLYCERIN 0.4 MG SL PER TAB CHARGE SL PRN (02:15)
[2017-04-13] MEDS ORDERED: GLUCOSE 40% GEL 15 GM TUBE PO PRN (02:15)
[2017-04-13] MEDS ORDERED: OXYCODONE/ACETAMINOPHEN 5-325 TAB PO PRN (02:15)
[2017-04-13] MEDS ORDERED: ONDANSETRON INJ 2 MG/ML 2 ML VIAL IV PRN (02:15)
[2017-04-13] MEDS ORDERED: HYDROmorphone INJ 0.5 MG/0.5 ML SYR IV PRN (02:15)
[2017-04-13] MEDS ORDERED: DEXTROSE 50% 50 ML SYR IV PRN (02:15)
[2017-04-13] MEDS ORDERED: GLUCAGON FOR INJ 1 MG VIAL SQ PRN (02:15)
[2017-04-13] MEDS ORDERED: GLUCOSE 10 TABS/TUBE PO PRN (02:15)
[2017-04-13] MEDS ORDERED: ALBUT/IPRATROP 3MG/0.5MG NEB 3 ML VIAL INH PRN (02:15)
[2017-04-13] MEDS ORDERED: IV FLUIDS COMPLETED PRN (02:30)
[2017-04-13 02:35] LABS: PARTIAL THROMBOPLASTIN RATIO 0.9
[2017-04-13] MEDS ORDERED: CILOSTAZOL 100 MG TAB PO ONE (03:00)
[2017-04-13] MEDS ORDERED: GABAPENTIN 300 MG CAP PO ONE (03:00)
[2017-04-13] MEDS ORDERED: ROPINIROLE HCL 0.25 MG TAB PO ONE (03:00)
[2017-04-13] MEDS ORDERED: MAGNESIUM SULFATE 1GM / D5W 1 GM in PREMIXED IN D5W 100 ML IV ONE (03:00)
[2017-04-13] MEDS ORDERED: AMLODIPINE BESYLATE 5 MG TAB PO ONE (03:00)
[2017-04-13] MEDS ORDERED: SODIUM CHLORIDE 0.9% 1000ML 1,000 ML IV ONE (03:00)
[2017-04-13] MEDS ORDERED: METOPROLOL SUCC 50MG EXT REL TAB PO ONE (03:00)
[2017-04-13] MEDS ORDERED: TAMSULOSIN HCL 0.4 MG CAP PO ONE (03:00)
[2017-04-13] MEDS ORDERED: CLOPIDOGREL BISULFATE 75 MG TAB PO ONE (03:00)
[2017-04-13] MEDS ORDERED: MONTELUKAST SOD 10 MG TAB PO ONE (03:00)
[2017-04-13] MEDS ORDERED: AMOXICILLIN 500 MG CAP PO ONE (03:00)
[2017-04-13] MEDS ORDERED: INSULIN ASPART 100 UNITS/ML 3 ML PEN SC ONE ×2 (03:00→07:22)
[2017-04-13] MEDS ORDERED: [UNRECOGNIZED DRUG - OTHER] PRN (03:30)
[2017-04-13] MEDS: RAPAFLO~ORDER AWAITING ACTION SCH ×3 (03:45→13:44)
[2017-04-13 04:03] LABS: PROTHROMBIN TIME (PATIENT) 10.7 SECONDS (9.0-12.0)
[2017-04-13 05:41] LABS: BASO % 0.2 %; BASO ABS # 0.02 K/uL (0-0.2); COMPLETE YES; EOS % 0.8 %; HEMATOCRIT 39.3 % (42-52); IG% 0.4 %; LYMPH % 20.4 %; LYMPH ABS # 1.82 K/uL (1.2-3.4); MEAN CELL VOLUME 89.9 fL (80-100); MEAN CORPUSCULAR HEMOGLOBIN 29.3 pg (25-34); MEAN CORPUSCULAR HGB CONC 32.6 g/dl (32-36); MEAN PLATELET VOLUME 9.6 fL (7.4-10.4); MONO % 5.4 %; NEUT % 72.8 %; PLATELET COUNT 238 K/uL (130-400); RED BLOOD COUNT 4.37 M/uL (4.7-6.1); WHITE BLOOD COUNT 8.92 K/uL (4.8-10.8)
[2017-04-13] MEDS ORDERED: HEPARIN SOD 5000 UNIT/0.5 ML CARP SQ SCH (06:00)
[2017-04-13 06:28] LABS: BUN/CREATININE RATIO 17.1 (10-20); CALCIUM 8.7 mg/dl (8.5-10.1); CREATININE 1.3 mg/dl (0.60-1.40); MAGNESIUM 2.1 mg/dl (1.8-2.4); POTASSIUM 3.5 mmol/L (3.5-5.1)
[2017-04-13] MEDS ORDERED: HEPARIN IV LOW DOSE NO BOLUS STA (06:48)
[2017-04-13 06:58] LABS: URINE APPEARANCE CLEAR (CLEAR); URINE BILIRUBIN NEG (NEG); URINE COLOR YELLOW; URINE NITRITE NEG (NEG); URINE PH 6.5 (4.5-7.5); URINE SPECIFIC GRAVITY 1.015 (1.000-1.030); UROBILINOGEN NEG (NEG); ZZUR CULT IF INDIC CLEAN CATCH NO
[2017-04-13] MEDS ORDERED: INSULIN ASPART 100 UNITS/ML 3 ML PEN SC SCH (07:00)
[2017-04-13 07:14] LABS: MANUAL MICROSCOPIC REQUIRED? NO; REVIEW REQ? NO
[2017-04-13] MEDS ORDERED: INSULIN GLARGINE SOLOSTAR 100 UNITS/ML 3 ML PEN SC ONE (07:22)
[2017-04-13] MEDS: STIOLTO~ORDER AWAITING ACTION SCH ×2 (07:41→13:44)
--- NOTE | 2017-04-13 07:43 | HISTORY & PHYSICAL EXAMINATION ---
DATE OF ADMISSION: 04/13/2017 PRIMARY CARE DOCTOR: Dr. Vern Helms. CHIEF COMPLAINT: Chest pain. HISTORY OF PRESENT ILLNESS: History obtained from patient and records. 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 He underwent coronary angiography which showed heavy calcified coronary system, obstructive coronary artery disease involving 50% proximal LAD, 40% mid LAD, 100% proximal occluded right RCA, RCA supplied by left to right collaterals, normal LV function, EF 60%. No intervention done. Patient seen at [facility] last 04/08/2017. Recommendations were increase furosemide and potassium daily to aid the mild volume overload. Resting echo in 2018 for followup of aortic valve disease. Patient had a steroid injection in his right shoulder as an outpatient at Orthopedic doctor's office a few days ago. Last few days noted intermittent chest discomfort, indigestion-like, going to both arms, relieved by nitro, similar to anginal attacks in the past. Different from heartburn as per patient. Usual junky cough, SOB on exertion related to COPD as per patient. Patient brought to the Emergency Room. BSG upon arrival at the ER was 386. MEDICAL HISTORY: As above. 2D echo from 09/2016 showed mild concentric LVH, normal LV chamber size, EF 60%, moderate aortic valve stenosis. SURGERIES: Tonsillectomy, neck surgery, sinus surgery, carpal tunnel, cataract surgery, knee surgery, back surgery, cholecystectomy, TURP. HOME MEDICATIONS: Include Amoxil, ProAir, aspirin, azelastine, Norvasc, Pletal, Colestid, Plavix, Lexapro, Lasix, Mucinex, Neurontin, omega, NovoLog, Lantus, Imdur ER, losartan, Singulair, metoprolol, Nitrostat, nystatin, Creon, Protonix, Micro-K, Crestor, ropinirole, Rapaflo, Protopic, Flomax, ALLERGIES: TO ADHESIVE, CLAVULANIC ACID, IMIPENEM, CILASTATIN, LOVASTATIN, SULBACTAM, PENICILLIN. FAMILY HISTORY: Heart disease, diabetes. PERSONAL AND SOCIAL HISTORY: Past tobacco abuse. No chronic intake of alcoholic beverages. 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 REVIEW OF SYSTEMS: As per HPI, all other ROS negative. PHYSICAL EXAMINATION: VITAL SIGNS: Blood pressure was 141/94, pulse rate 82, RR 20, temperature 36.9, sats 94 on room air. GENERAL: Noted to be obese, no respiratory distress. Looks younger for stated age. SKIN: Normal color. HEENT: Pale palpebral conjunctivae, dry mucosa. NECK: Short neck. LUNGS: Decreased breath sounds. HEART: Regular rate and rhythm, systolic murmur. ABDOMEN: Some distention, nontender. EXTREMITIES: Minimal LE edema. No tenderness. NEUROLOGIC: No gross focality except for involuntary movement in the lower extremities from restless legs. LABORATORY DATA: Hemoglobin is 13.7, hematocrit 40, white cell count 10.32, platelets 272. Sodium noted to be 136, potassium 4.2, chloride 103, CO2 of 26, BUN 23, creatinine 1.6, glucose 286. Troponin was noted to be 0.015. Hemoglobin A1c from 03/2017 was 7.7. EKG as per my interpretation, normal sinus rhythm, first-degree AV block, incomplete right bundle-branch block. no ischemia Chest x-ray showed no acute process. ASSESSMENT: 1. Unstable angina history of coronary artery disease status post stenting. 2. Hypertension, slightly elevated. 3. Hyperlipidemia on statin therapy. 4. Valvular heart disease, moderate aortic valve stenosis on recent TTE 09/2016. 5. DM2, insulin requiring. Reasonable control as of recent outpatient hemoglobin A1c Patient notably hyperglycemic following recent outpatient joint steroid injection. 6. Acute renal failure possibly from Lasix recently started as an outpatient for signs of volume overload. 7. Chronic prosthetic joint infection, R knee on chronic Amoxicillin rx as per ID 8. COPD, past tobacco abuse. Usual exertional dyspnea symptoms. PLAN: Observation PCU. Follow cardiac markers. 2D echo if with troponin elevation Continue antiplatelet, beta jane, statin meds; nitro p.r.n. Cardiology consult RE unstable angina, px known to GMG. Basal insulin, ISS BG goal 140-180. add carb count coverage baseline UA, monitor creatinine response to IV fluids Hold home ARB, Lasix until creatinine baseline. DVT prophylaxis, Heparin subcu. Full code. MTDD
[2017-04-13] MEDS ORDERED: PERFLUTREN LIPID MICROSPHERE (DEFINITY) IV ONE (07:46)
[2017-04-13] MEDS: PANCREAZE (LIPASE 10,500U) CAP PO SCH ×3 (07:58→16:53)
[2017-04-13] MEDS: GABAPENTIN 300 MG CAP PO SCH ×3 (07:59→21:09)
[2017-04-13] MEDS: ESCITALOPRAM OXALATE 10 MG TAB PO SCH (07:59)
[2017-04-13] MEDS: COLESTIPOL HCL 1 GM TAB PO SCH (08:00)
[2017-04-13] MEDS: ISOSORBIDE MONONITRATE 60 MG TABCR PO SCH (08:00)
[2017-04-13] MEDS: CILOSTAZOL 100 MG TAB PO SCH ×2 (08:00→21:08)
[2017-04-13 08:18] LABS: PARTIAL THROMBOPLASTIN RATIO 0.9; PROTHROMBIN TIME (PATIENT) 10.8 SECONDS (9.0-12.0)
[2017-04-13] MEDS: HEPARIN 25,000 UNIT/500ML D5W 500 ML IV PRN ×2 (08:26→15:45)
[2017-04-13] MEDS ORDERED: INSULIN GLARGINE SOLOSTAR 100 UNITS/ML 3 ML PEN SC SCH (09:00)
[2017-04-13] MEDS ORDERED: METOPROLOL SUCC 50MG EXT REL TAB PO SCH (09:00)
[2017-04-13] MEDS ORDERED: PANTOprazole SOD 40 MG TAB PO SCH (09:00)
--- NOTE | 2017-04-13 09:06 | ECHOCARDIOGRAM REPORT ---
*NOTICE TO RECEIVING LIBERTARIAN AGENCY This information is strictly Confidential and protected under [place] law. [place] law prohibits you from making any further disclosure of this information unless further disclosure is expressly permitted by the written consent of the person to whom it pertains or is authorized by law. A general authorization for the release of medical or other information is not sufficient for this purpose. Hospital accepts no responsibility if the information is made available to any other person, INCLUDING THE PATIENT. Interpretation Summary * Name: CODIE DUMONT Study Date: 04/13/2017 07:05 AM BP: 144/73 mmHg * Patient Location: C.2T\S\E220\S\1 HR: 72 * : 1930 (M/d/yyyy) Gender: Male Height: 67 in * Age: 86 yrs Ethnicity: CA Weight: 212 lb * Ordering Physician: Olvin Javier * Performed By: Val Mitchell * * Reason For Study: AMI * BSA: 2.1 m2 * -- Conclusions -- * Normal LV chamber size with mild concentric LVH. * Normal LV systolic function, EF 65-70%. * No segmental left ventricular wall motion abnormalities are noted. * Grade I diastolic dysfunction. * Heavily calcified aortic valve with moderate aortic stenosis, no regurgitation. * Mild left atrial enlargement. Procedure Details * A complete two-dimensional transthoracic echocardiogram was performed (2D, M-mode, Doppler and color flow Doppler). * The study was technically difficult. * There were technical limitations due to patient'sinability to cooperate * A contrast injection of Definity was performed to improve assessment of LV function. * Contrast was injected into an intravenous site in the left arm. * One vial of Definity ultrasound contrast was diluted in normal saline to a total volume of 10 ml. A total of '4' ml of solution was administered during imaging. * Lot # [id number] of Definity utilized for procedure. * Expiration date 05/29. * The attending nurse who injected the contrast agent was GIGI HOFFMAN RN. Left Ventricle * The left ventricle is normal in size. * There is mild concentric left ventricular hypertrophy. * Ejection Fraction = 65-70%. * Left ventricular systolic function is normal. * No segmental left ventricular wall motion abnormalities are noted. * The left ventricular wall motion is normal. Right Ventricle * The right ventricular cavity size is normal (basal dimension <4.2 cm in right ventricular apical 4-chamber view). * The right ventricular systolic function is normal as assessed by tricuspid annular plane systolic excursion (TAPSE) (normal >1.5 cm). Atria * The left atrium is mildly dilated. * Right atrial size is normal. * No ASD detected; PFO is not assessed. Mitral Valve * The mitral valve is normal in structure and function. Tricuspid Valve * The tricuspid valve is normal in structure and function. Aortic Valve * Heavily calcified aortic valve with moderate aortic stenosis, no regurgitation. Pulmonic Valve * The pulmonary valve is not well seen, but the Doppler examination is normal without significant regurgitation or stenosis. Great Vessels * The aortic root and proximal ascending aorta are normal sized. Pericardium/Pleural * There is no pericardial effusion. Left Ventricular Diastolic Function * Grade I diastolic dysfunction, (abnormal relaxation pattern). MMode 2D Measurements and Calculations IVSd 1.8 cm IVSs 2.5 cm LVIDd 4.5 cm LVIDs 2.8 cm LVPWd 1.6 cm LVPWs 1.8 cm IVS/LVPW 1.1 FS 37.0 % EDV(Teich) 91.3 ml ESV(Teich) 30.1 ml EF(Teich) 67.1 % EDV(cubed) 89.7 ml ESV(cubed) 22.4 ml EF(cubed) 75.0 % % IVS thick 44.6 % % LVPW thick 15.5 % LV mass(C)d 325.9 grams LV mass(C)dI 157.2 grams/m\S\2 LV mass(C)s 293.7 grams LV mass(C)sI 141.7 grams/m\S\2 CO(Teich) 4.1 l/min CI(Teich) 2.0 l/min/m\S\2 SV(Teich) 61.3 ml SI(Teich) 29.6 ml/m\S\2 CO(cubed) 4.5 l/min CI(cubed) 2.2 l/min/m\S\2 SV(cubed) 67.3 ml SI(cubed) 32.5 ml/m\S\2 ACS 0.71 cm LA dimension 4.5 cm asc Aorta Diam 3.1 cm LVOT diam 2.0 cm LVOT area 3.0 cm\S\2 LVAd ap4 25.0 cm\S\2 LVLd ap4 7.8 cm EDV(MOD-sp4) 65.3 ml LVAs ap4 11.8 cm\S\2 LVLs ap4 6.3 cm ESV(MOD-sp4) 19.8 ml EF(MOD-sp4) 69.7 % LVAd ap2 23.1 cm\S\2 LVLd ap2 7.7 cm EDV(MOD-sp2) 58.3 ml LVAs ap2 12.1 cm\S\2 LVLs ap2 6.8 cm ESV(MOD-sp2) 18.5 ml EF(MOD-sp2) 68.3 % CO(MOD-sp4) 3.0 l/min CI(MOD-sp4) 1.5 l/min/m\S\2 SV(MOD-sp4) 45.5 ml SI(MOD-sp4) 22.0 ml/m\S\2 CO(MOD-sp2) 2.7 l/min CI(MOD-sp2) 1.3 l/min/m\S\2 SV(MOD-sp2) 39.8 ml SI(MOD-sp2) 19.2 ml/m\S\2 Doppler Measurements and Calculations MV E max live 87.8 cm/sec MV A max live 101.4 cm/sec MV E/A 0.87 MV dec time 0.21 sec Ao V2 max 300.8 cm/sec Ao max PG 36.2 mmHg Ao max PG (full) 34.2 mmHg Ao V2 mean 225.5 cm/sec Ao mean PG 21.9 mmHg Ao V2 VTI 77.0 cm GABINO(V,A) 0.72 cm\S\2 GABINO(V,D) 0.72 cm\S\2 LV V1 max PG 2.1 mmHg LV V1 max 71.8 cm/sec MR max live 378.9 cm/sec MR max PG 57.4 mmHg PA V2 max 88.3 cm/sec PA max PG 3.1 mmHg
[2017-04-13] MEDS ORDERED: RANITIDINE HCL 150 MG TAB PO ONE (10:00)
[2017-04-13] MEDS: RANOLAZINE 500 MG ER TAB PO SCH ×2 (11:08→21:08)
[2017-04-13] MEDS: METOPROLOL SUCC 50MG EXT REL TAB PO SCH (11:09)
[2017-04-13] MEDS: INSULIN ASPART 100 UNITS/ML 3 ML PEN SC SCH ×3 (11:55→21:00)
[2017-04-13 14:47] LABS: PARTIAL THROMBOPLASTIN RATIO 1.1
--- NOTE | 2017-04-13 15:05 | Progress Note ---
Subjective Date of Service: Apr 13, 2017. Subjective Pt evaluation today including: conversation w/ patient, physical exam, lab review, review of studies, review of inpatient medication list Saw/examined the patient in room 220 Chest pain improving today; states that it was an epigastric pain that radiating to both arms Problem List Medical Problems: (1) Bacteremia Status: Acute (2) Cellulitis Status: Acute (3) Constipation Status: Acute (4) Hyponatremia Status: Acute (5) Knee pain Status: Acute (6) Precordial chest pain Status: Acute (7) Septic joint Status: Acute Review of Systems Constitutional: No fever, No chills Respiratory: No cough, No sputum, No shortness of breath (resolved) Cardiac: + chest pain (improved), No edema, No palpitations Abdomen: No pain, No nausea, No vomiting, No diarrhea Medications Current Inpatient Medications Medications (Trade) Dose Ordered Sig/Francine Route Start Time Stop Time Status Last Admin Dose Admin Sodium Chloride 1,000 ml @ 75 mls/hr [id number] ONCE IV 04/13/17 03:00 04/13/17 16:19 04/13/17 03:14 75 MLS/HR Acetaminophen (Tylenol Tab) 650 mg Q4H PRN PO 04/13/17 02:15 05/13/17 02:14 Nitroglycerin (Nitrostat Tab) 0.4 mg UD PRN SL 04/13/17 02:15 05/13/17 02:14 Glucose (Glucose 40% Gel) 15-30 GRAMS 15 GRAMS... UD PRN PO 04/13/17 02:15 05/13/17 02:14 Glucose (Glucose Chew Tab) 4-8 Tablets 4 Tabl... UD PRN PO 04/13/17 02:15 05/13/17 02:14 Dextrose (Dextrose 50% 50ML Syringe) 25-50ML OF 50% DW IV FOR... UD PRN IV 04/13/17 02:15 05/13/17 02:14 Glucagon (Glucagon Inj) 1 mg UD PRN SQ 04/13/17 02:15 05/13/17 02:14 Hydromorphone HCl (Dilaudid Inj) 0.5 mg Q3H PRN IV 04/13/17 02:15 04/27/17 02:14 Ondansetron HCl (Zofran Inj) 4 mg Q6H PRN IV 04/13/17 02:15 05/13/17 02:14 Amlodipine Besylate (Norvasc Tab) 2.5 mg HS PO 04/13/17 21:00 05/13/17 20:59 Aspirin (Ecotrin Tab) 81 mg QPM PO 04/13/17 21:00 05/13/17 20:59 Cilostazol (Pletal Tab) 100 mg BID PO 04/13/17 09:00 05/13/17 08:59 04/13/17 08:00 100 MG Clopidogrel Bisulfate (plAVix TAB) 75 mg QPM PO 04/13/17 21:00 05/13/17 20:59 Colestipol HCl (Colestid Tab) 1 gm DAILY PO 04/13/17 09:00 05/13/17 08:59 04/13/17 08:00 1 GM Escitalopram Oxalate (Lexapro Tab) 10 mg QAM PO 04/13/17 09:00 05/13/17 08:59 04/13/17 07:59 10 MG Gabapentin (Neurontin Cap) 300 mg TID PO 04/13/17 09:00 05/13/17 08:59 04/13/17 13:43 300 MG Isosorbide Mononitrate (Imdur Ext Rel Tab) 120 mg QAM PO 04/13/17 09:00 05/13/17 08:59 04/13/17 08:00 120 MG Montelukast Sodium (Singulair Tab) 10 mg HS PO 04/13/17 21:00 05/13/17 20:59 Oxycodone/ Acetaminophen (Percocet 5-325mg Tab) 1 tab Q4H PRN PO 04/13/17 02:15 04/27/17 02:14 Ropinirole HCl (Requip Tab) 0.25 mg HS PO 04/13/17 21:00 05/13/17 20:59 Rosuvastatin Calcium (Crestor Tab) 40 mg HS PO 04/13/17 21:00 05/13/17 20:59 Tamsulosin HCl (Flomax Cap) 0.4 mg HS PO 04/13/17 21:00 05/13/17 20:59 Guaifenesin (Mucinex Contr Rel Tab) 1,200 mg HS PO 04/13/17 21:00 05/13/17 20:59 Amylase/Lipase/ Protease (Pancreaze (Lipase 10,500U) Cap) 2 cap TIDM PO 04/13/17 07:30 05/13/17 07:29 04/13/17 11:55 2 CAP Miscellaneous Information (Order Awaiting Action) 1 ea QS N/A 04/13/17 03:45 05/13/17 03:44 Miscellaneous Information (Order Awaiting Action) 1 ea QS N/A 04/13/17 08:00 05/13/17 07:59 Miscellaneous Information (Order Awaiting Action) 1 ea QS N/A 04/13/17 08:00 05/13/17 07:59 Albuterol/ Ipratropium (Duoneb) 3 ml Q2H PRN INH 04/13/17 02:15 05/13/17 02:14 Miscellaneous (Iv Fluids Completed) 1 ea PRN PRN N/A 04/13/17 02:30 04/13/18 02:29 Metoprolol Succinate (Toprol Xl Tab) 150 mg DAILY PO 04/13/17 09:00 05/13/17 08:59 04/13/17 11:09 150 MG Miscellaneous Information 1 ea UD PRN N/A 04/13/17 03:30 05/13/17 03:29 Amoxicillin (Amoxil Cap) 500 mg HS PO 04/13/17 21:00 05/13/17 20:59 Heparin Sodium/ Dextrose 500 ml @ 19 mls/hr Q24H PRN IV 04/13/17 07:15 05/13/17 07:14 04/13/17 08:26 19 MLS/HR Insulin Aspart (novoLOG ASPART) SLIDING SCALE If C... ACHS SC 04/13/17 11:00 05/13/17 06:59 04/13/17 11:55 3 UNITS Insulin Glargine (Lantus Solostar Pen) 30 units BID SC 04/13/17 21:00 05/13/17 08:59 Pantoprazole Sodium (Protonix Tab) 40 mg BID PO 04/13/17 21:00 05/13/17 08:59 Ranolazine (Ranexa ER Tab) 500 mg BID PO 04/13/17 10:15 05/13/17 10:14 04/13/17 11:08 500 MG Ranitidine HCl (zANTac TAB) 150 mg BID PO 04/13/17 21:00 05/13/17 20:59 Objective Vital Signs Date Time Temp Pulse Resp B/P (MAP) Pulse Ox O2 Delivery O2 Flow Rate FiO2 04/13/17 12:00 Room Air 04/13/17 11:16 37.0 89 18 131/68 (89) 99 04/13/17 08:19 36.9 88 18 138/67 (90) 95 04/13/17 08:00 Room Air 04/13/17 04:31 72 95 04/13/17 04:00 Room Air 04/13/17 03:43 36.6 84 18 144/73 (96) 95 Room Air 04/13/17 02:30 Room Air 04/13/17 02:30 36.5 60 20 162/90 94 Room Air 04/13/17 02:00 157 20 157/88 92 Room Air 04/13/17 00:30 75 18 128/90 93 Room Air 04/12/17 23:30 82 20 141/94 92 Room Air 04/12/17 22:30 79 18 126/86 Room Air 04/12/17 22:12 81 04/12/17 22:08 92 Room Air 04/12/17 22:01 36.9 82 20 148/85 94 Room Air Physical Exam General Appearance: no apparent distress Respiratory/Chest: chest non-tender, lungs clear, normal breath sounds, no respiratory distress, no accessory muscle use Cardiovascular: regular rate, rhythm, no edema, + systolic murmur Abdomen: normal bowel sounds, non tender, soft Extremities: normal inspection, no pedal edema Laboratory Results Last 24 Hours Test 04/12/17 21:32 04/12/17 22:59 04/13/17 01:39 04/13/17 02:46 White Blood Count 10.32 K/uL Red Blood Count 4.43 M/uL Hemoglobin 13.7 g/dL Hematocrit 40.0 % Mean Corpuscular Volume 90.3 fL Mean Corpuscular Hemoglobin 30.9 pg Mean Corpuscular Hemoglobin Concent 34.3 g/dl Platelet Count 272 K/uL Mean Platelet Volume 10.1 fL Neutrophils (%) (Auto) 75.7 % Lymphocytes (%) (Auto) 16.2 % Monocytes (%) (Auto) 7.4 % Eosinophils (%) (Auto) 0.2 % Basophils (%) (Auto) 0.2 % Neutrophils # (Auto) 7.82 K/uL Lymphocytes # (Auto) 1.67 K/uL Monocytes # (Auto) 0.76 K/uL Eosinophils # (Auto) 0.02 K/uL Basophils # (Auto) 0.02 K/uL RDW Standard Deviation 45.6 fL RDW Coefficient of Variation 13.8 % Immature Granulocyte % (Auto) 0.3 % Immature Granulocyte # (Auto) 0.03 K/uL Activated Partial Thromboplast Time 23.6 SECONDS Partial Thromboplastin Ratio 0.9 Sodium Level 136 mmol/L Potassium Level 4.2 mmol/L Chloride Level 103 mmol/L Carbon Dioxide Level 26 mmol/L Anion Gap 7.0 mmol/L Blood Urea Nitrogen 23 mg/dl Creatinine 1.60 mg/dl Est Creatinine Clear Calc Drug Dose 37.5 ml/min Estimated GFR () 44.9 Estimated GFR (Non- 38.7 BUN/Creatinine Ratio 14.3 Random Glucose 386 mg/dl Calcium Level 8.7 mg/dl Magnesium Level 1.7 mg/dl Total Bilirubin 0.4 mg/dl Direct Bilirubin < 0.1 mg/dl Aspartate Amino Transf (AST/SGOT) 16 U/L Alanine Aminotransferase (ALT/SGPT) 32 U/L Alkaline Phosphatase 74 U/L Total Creatine Kinase 188 U/L Creatine Kinase MB 4.0 ng/ml Creatine Kinase MB Ratio 2.1 Troponin I < 0.015 ng/ml Total Protein 7.4 gm/dl Albumin 3.7 gm/dl Lipase 207 U/L Beta-Hydroxybutyric Acid 0.89 mg/dL Prothrombin Time 10.7 SECONDS Prothromb Time International Ratio 1.0 Bedside Glucose 301 mg/dl 242 mg/dl Test 04/13/17 05:21 04/13/17 05:45 04/13/17 06:37 04/13/17 07:49 White Blood Count 8.92 K/uL Red Blood Count 4.37 M/uL Hemoglobin 12.8 g/dL Hematocrit 39.3 % Mean Corpuscular Volume 89.9 fL Mean Corpuscular Hemoglobin 29.3 pg Mean Corpuscular Hemoglobin Concent 32.6 g/dl Platelet Count 238 K/uL Mean Platelet Volume 9.6 fL Neutrophils (%) (Auto) 72.8 % Lymphocytes (%) (Auto) 20.4 % Monocytes (%) (Auto) 5.4 % Eosinophils (%) (Auto) 0.8 % Basophils (%) (Auto) 0.2 % Neutrophils # (Auto) 6.49 K/uL Lymphocytes # (Auto) 1.82 K/uL Monocytes # (Auto) 0.48 K/uL Eosinophils # (Auto) 0.07 K/uL Basophils # (Auto) 0.02 K/uL RDW Standard Deviation 45.4 fL RDW Coefficient of Variation 13.8 % Immature Granulocyte % (Auto) 0.4 % Immature Granulocyte # (Auto) 0.04 K/uL Sodium Level 138 mmol/L Potassium Level 3.5 mmol/L Chloride Level 104 mmol/L Carbon Dioxide Level 28 mmol/L Anion Gap 6.0 mmol/L Blood Urea Nitrogen 22 mg/dl Creatinine 1.30 mg/dl Est Creatinine Clear Calc Drug Dose 46.0 ml/min Estimated GFR () 57.7 Estimated GFR (Non- 49.8 BUN/Creatinine Ratio 17.1 Random Glucose 274 mg/dl Calcium Level 8.7 mg/dl Magnesium Level 2.1 mg/dl Troponin I 0.060 ng/ml Urine Color YELLOW Urine Appearance CLEAR Urine pH 6.5 Urine Specific [place] 1.015 Urine Protein NEG Urine Glucose (UA) 2+ Urine Ketones NEG Urine Occult Blood NEG Urine Nitrite NEG Urine Bilirubin NEG Urine Urobilinogen NEG Urine Leukocyte Esterase NEG Bedside Glucose 244 mg/dl Prothrombin Time 10.8 SECONDS Prothromb Time International Ratio 1.0 Activated Partial Thromboplast Time 23.8 SECONDS Partial Thromboplastin Ratio 0.9 Test 04/13/17 10:51 04/13/17 12:00 04/13/17 14:30 Bedside Glucose 193 mg/dl Troponin I 0.076 ng/ml Activated Partial Thromboplast Time 28.3 SECONDS Partial Thromboplastin Ratio 1.1 Assessment and Plan This is an 86 year old male with a PMH of CAD s/p stenting, HTN, HLD, COPD, chronic osteomyelitis of the R knee on chronic antibiotics, insulin dependent DM2 presents for chest pain/shortness of breath Chest Pain r/o ACS in the setting of CAD patient is coronary artery disease; has a stent put in [place] [facility] [place] showed some blockage: 50% proximal LAD, 40% mid LAD, 100%, proximal occluded right RCA, RCA supplied by left to right collaterals - no intervention done at that time recently had Lasix dose increased mild elevation of troponin; started on IV heparin appreciate cardiology input; started on Protonix and Zantac for possible GERD related chest pain continue aspirin, Plavix, statin, Imdur, and b-jane Ranexa added for anginal pain Chronic Osteomyelitis of R Knee continue amoxicillin HTN continue b-jane and amlodipine dose Insulin Dependent DM2 continue Lantus continue sliding scale BSGs improving COPD Singulair and duonebs PRN DVT ppx IV heparin FULL CODE
[2017-04-13] MEDS ORDERED: HEPARIN IV BOLUS 4,500 UNIT in SYRINGE 0 ML IV ONE ×2 (15:15→23:45)
[2017-04-13] MEDS ORDERED: MONTELUKAST SOD 10 MG TAB PO SCH (21:00)
[2017-04-13] MEDS ORDERED: GUAIFENESIN 600 MG TABCR PO SCH (21:00)
[2017-04-13] MEDS ORDERED: AMLODIPINE BESYLATE 5 MG TAB PO SCH (21:00)
[2017-04-13] MEDS ORDERED: AMOXICILLIN 500 MG CAP PO SCH (21:00)
[2017-04-13] MEDS ORDERED: TAMSULOSIN HCL 0.4 MG CAP PO SCH (21:00)
[2017-04-13] MEDS ORDERED: CLOPIDOGREL BISULFATE 75 MG TAB PO SCH (21:00)
[2017-04-13] MEDS ORDERED: ROSUVASTATIN CALCIUM 20 MG TAB PO SCH (21:00)
[2017-04-13] MEDS ORDERED: ROPINIROLE HCL 0.25 MG TAB PO SCH (21:00)
[2017-04-13] MEDS ORDERED: ASPIRIN 81 MG ECTAB PO SCH (21:00)
[2017-04-13] MEDS: PANTOprazole SOD 40 MG TAB PO SCH (21:09)
[2017-04-13] MEDS: RANITIDINE HCL 150 MG TAB PO SCH (21:09)
[2017-04-13] MEDS: INSULIN GLARGINE SOLOSTAR 100 UNITS/ML 3 ML PEN SC SCH (21:22)
[2017-04-13 22:53] LABS: PARTIAL THROMBOPLASTIN RATIO 1.3
[2017-04-14] VITALS: BP 113/65; PULSE 60; TEMP 36.7; O2SAT 95
--- NOTE | 2017-04-14 00:05 | CARDIOLOGY CONSULTATION ---
DATE OF CONSULTATION: 04/13/2017 CONSULTATION REQUESTED BY: Dr. Javier. REASON FOR CONSULTATION: Chest pain. HISTORY OF PRESENT ILLNESS: Mr. Benjamin is a very pleasant 86-year-old gentleman who normally follows with Karsten Martinez of our cardiology practice. He presented to [facility] on late evening of 04/12/2017 with a complaint of chest pain. The patient states that for the last 3 days every night after dinner, he developed some substernal chest pressure. He described the pain as a substernal pressure sensation with radiation across his precordium and down both arms to the elbow. He states that this is exactly similar to the pain he had prior to his coronary interventions in the past. However, upon further questioning, again he states that was happened about a half hour after he would finish eating and it would be associated with significant belching and his discomfort would be relieved with belching. He has been taking nitroglycerin with some benefit over the last 3 days, but the pain would not always be completely resolved with it. He has not tried taking any antacids or any other medications either. Around the same time, he has noticed for the last few days that he has been a little bit more dyspneic than normal, stating that whenever he would walk out to the mailbox, he knows himself become a little bit more short of breath than he normally would, but he did deny any exertional chest discomfort. On the evening of 04/12/2017, again after eating dinner, he developed the discomfort and came into the Emergency Department. Upon presentation, his EKG was unremarkable as were his initial troponins and he was admitted to telemetry. A second troponin was slightly elevated and heparin was started. The patient states that since admission he has been feeling okay, has not had any recurrences of the chest discomfort. PAST SURGICAL HISTORY: 1. PCI with proximal LAD stenosis in 2005. 2. Repeat cardiac catheterization May 2016, which showed moderate nonobstructive coronary artery disease including 50% distal circumflex lesion, 30% proximal LAD stenosis, 60% mid LAD stenosis after the takeoff of the second diagonal and known 100% proximal RCA total occlusion with left to left collaterals. 3. Knee incision and drainage. 4. Knee arthroplasty. 5. Multiple colonoscopies. 6. Upper endoscopies. 7. Cataract surgery. 8. Lumbar spinal fusion. 9. TURP. 10. Cholecystectomy. 11. Tonsillectomy. MEDICAL ILLNESSES: 1. Coronary artery disease. 2. History of septic joint. 3. Peripheral vascular disease with bilateral mid superficial femoral artery occlusions with good PFA collateralization. 4. Carotid occlusive disease. 5. Diabetes. 6. Chronic pancreatitis. 7. Peptic ulcer disease. 8. COPD. 9. Severe obstructive sleep apnea, nocturnal CPAP. 10. Hypertension. 11. Hyperlipidemia. FAMILY HISTORY: Noncontributory. SOCIAL HISTORY: The patient is a previous heavy smoker, quit in 1982; prior heavy alcohol consumption, now only occasional. 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 He is and lives at home with his . REVIEW OF SYSTEMS: As per HPI, all other review of systems reviewed and negative at this time. ALLERGIES: 1. CEPHALOSPORIN. 2. MEVACOR. MEDICATIONS AN OUTPATIENT: 1. Imdur 120 mg daily. 2. Toprol-XL 150 mg daily. 3. Pletal 100 mg b.i.d. 4. Plavix 75 mg daily. 5. Requip 0.25 mg daily. 6. Losartan 25 mg daily. 7. Amlodipine 2.5 mg daily. 8. Aspirin 81 mg daily. 9. Crestor 40 mg daily. 10. Insulin as directed. 11. Flomax 3 days a week. 12. Lexapro daily. 13. Protonix 40 mg daily. 14. Lasix and potassium 5 days a week. PHYSICAL EXAMINATION: VITALS: Temperature 37, pulse 89, respiratory rate 12, blood pressure 131/68. GENERAL: Awake, alert, oriented x3 in no acute distress. HEENT: Normocephalic, atraumatic. Pupils equal, round, and reactive to light and accommodation. Extraocular muscles intact. Anicteric sclerae. Moist mucous membranes. NECK: No JVD, no bruit. CARDIOVASCULAR: Regular. Positive S4. Normal S1 and S2, no S3. A harsh 4/6 mid to late systolic ejection murmur greatest at the right sternal border second intercostal space with radiation to the bilateral carotids. No rubs. PULMONARY: Clear to auscultation bilaterally. No rales, rhonchi, or wheezing. ABDOMEN: Bowel sounds x4, soft. No rebound, guarding, tenderness. No organomegaly. EXTREMITIES: No clubbing, cyanosis or edema. +2 pedal pulses bilaterally. SKIN: Warm and dry. TEST RESULTS: 2D echocardiogram was read as normal LV chamber size with mild concentric LVH, normal LV systolic function, EF 65-70%, no segmental left ventricular wall motion abnormalities were noted, grade 1 diastolic dysfunction, heavily calcified aortic valve with moderate aortic stenosis, no regurgitation, mild left atrial enlargement. EKG upon presentation in the Emergency Department independently reviewed at this time shows sinus rhythm at 83 beats per minute with first degree AV block, incomplete right bundle branch block, no signs of active ischemia. IMPRESSION: 1. Chronic stable angina. 2. Worsening gastroesophageal reflux disease. 3. Diffuse underlying coronary artery disease, mostly nonobstructive by cardiac catheterization, May 2016. 4. Peripheral vascular disease. RECOMMENDATIONS: It was my pleasure to see Mr. Benjamin in consultation today. At this point, I believe he is suffering from a combination of both chronic stable angina and active GERD symptoms. ____ for his chronic stable angina, he is already on Toprol-XL 150 mg daily, amlodipine daily, max dose Imdur daily. So, I believe the only option left for chronic stable angina at this point will be adding Ranexa 500 mg b.i.d. At the same time, I have no doubt that there is a component of GERD here, so I will increase the Protonix to 40 mg b.i.d., start him on ranitidine 150 mg b.i.d. as well and would recommend possible GI evaluation. Otherwise, his troponin to be trended and once starts to trend down, his heparin can be discontinued. I would like to monitor him overnight to see how he responds to the above medications. Thank you very much for allowing me to participate in the care of your patient.
[2017-04-14 04:00] VITALS: BP 137/65; PULSE 59; TEMP 36.8; O2SAT 96
[2017-04-14 05:56] LABS: BASO % 0.6 %; BASO ABS # 0.05 K/uL (0-0.2); COMPLETE YES; EOS % 2.7 %; HEMATOCRIT 39.8 % (42-52); IG% 0.2 %; LYMPH % 32.3 %; LYMPH ABS # 2.62 K/uL (1.2-3.4); MEAN CORPUSCULAR HEMOGLOBIN 30.4 pg (25-34); MEAN CORPUSCULAR HGB CONC 34.2 g/dl (32-36); MEAN PLATELET VOLUME 9.9 fL (7.4-10.4); NEUT % 53.2 %; PLATELET COUNT 229 K/uL (130-400); RED BLOOD COUNT 4.47 M/uL (4.7-6.1); WHITE BLOOD COUNT 8.11 K/uL (4.8-10.8)
[2017-04-14 06:03] LABS: PARTIAL THROMBOPLASTIN RATIO 1.6
[2017-04-14 06:27] LABS: BUN/CREATININE RATIO 14.4 (10-20); CALCIUM 8.7 mg/dl (8.5-10.1); CREATININE 1.3 mg/dl (0.60-1.40); POTASSIUM 3.6 mmol/L (3.5-5.1)
[2017-04-14] MEDS: INSULIN ASPART 100 UNITS/ML 3 ML PEN SC SCH ×2 (07:00→11:00)
[2017-04-14 07:03] VITALS: BP 168/79; PULSE 65; TEMP 36.6; O2SAT 97
[2017-04-14] MEDS ORDERED: HEPARIN IV BOLUS 3,000 UNIT in SYRINGE 0 ML IV ONE (07:45)
[2017-04-14] MEDS: PANCREAZE (LIPASE 10,500U) CAP PO SCH ×2 (08:22→12:00)
[2017-04-14] MEDS: STIOLTO~ORDER AWAITING ACTION SCH ×2 (08:23)
[2017-04-14] MEDS: RAPAFLO~ORDER AWAITING ACTION SCH ×2 (08:23)
[2017-04-14] MEDS: ISOSORBIDE MONONITRATE 60 MG TABCR PO SCH (08:29)
[2017-04-14] MEDS: COLESTIPOL HCL 1 GM TAB PO SCH (08:29)
[2017-04-14] MEDS: RANOLAZINE 500 MG ER TAB PO SCH (08:30)
[2017-04-14] MEDS: METOPROLOL SUCC 50MG EXT REL TAB PO SCH (08:30)
[2017-04-14] MEDS: GABAPENTIN 300 MG CAP PO SCH (08:30)
[2017-04-14] MEDS: PANTOprazole SOD 40 MG TAB PO SCH (08:30)
[2017-04-14] MEDS: ESCITALOPRAM OXALATE 10 MG TAB PO SCH (08:30)
[2017-04-14] MEDS: CILOSTAZOL 100 MG TAB PO SCH (08:31)
[2017-04-14] MEDS: RANITIDINE HCL 150 MG TAB PO SCH (08:32)
[2017-04-14] MEDS: INSULIN GLARGINE SOLOSTAR 100 UNITS/ML 3 ML PEN SC SCH (08:36)
[2017-04-14] MEDS: HEPARIN 25,000 UNIT/500ML D5W 500 ML IV PRN (08:37)
[2017-04-14] MEDS ORDERED: METOPROLOL SUCC 50MG EXT REL TAB PO SCH (09:00)
--- NOTE | 2017-04-14 10:24 | Progress Note ---
Subjective Date of Service: Apr 14, 2017. Subjective Pt evaluation today including: conversation w/ patient, physical exam, lab review, review of studies, review of inpatient medication list Saw/examined the patient in room 220 He's doing well today; denies chest pain or shortness of breath today Seated in a chair Eager to go home today Problem List Medical Problems: (1) Bacteremia Status: Acute (2) Cellulitis Status: Acute (3) Constipation Status: Acute (4) Hyponatremia Status: Acute (5) Knee pain Status: Acute (6) Precordial chest pain Status: Acute (7) Septic joint Status: Acute Review of Systems Constitutional: No fever, No chills Respiratory: No shortness of breath Cardiac: No chest pain Abdomen: No pain, No nausea, No vomiting, No diarrhea Heme: No abnormal bleeding/bruising Medications Current Inpatient Medications Medications (Trade) Dose Ordered Sig/Francine Route Start Time Stop Time Status Last Admin Dose Admin Acetaminophen (Tylenol Tab) 650 mg Q4H PRN PO 04/13/17 02:15 05/13/17 02:14 Nitroglycerin (Nitrostat Tab) 0.4 mg UD PRN SL 04/13/17 02:15 05/13/17 02:14 Glucose (Glucose 40% Gel) 15-30 GRAMS 15 GRAMS... UD PRN PO 04/13/17 02:15 05/13/17 02:14 Glucose (Glucose Chew Tab) 4-8 Tablets 4 Tabl... UD PRN PO 04/13/17 02:15 05/13/17 02:14 Dextrose (Dextrose 50% 50ML Syringe) 25-50ML OF 50% DW IV FOR... UD PRN IV 04/13/17 02:15 05/13/17 02:14 Glucagon (Glucagon Inj) 1 mg UD PRN SQ 04/13/17 02:15 05/13/17 02:14 Hydromorphone HCl (Dilaudid Inj) 0.5 mg Q3H PRN IV 04/13/17 02:15 04/27/17 02:14 Ondansetron HCl (Zofran Inj) 4 mg Q6H PRN IV 04/13/17 02:15 05/13/17 02:14 Amlodipine Besylate (Norvasc Tab) 2.5 mg HS PO 04/13/17 21:00 05/13/17 20:59 04/13/17 21:10 2.5 MG Aspirin (Ecotrin Tab) 81 mg QPM PO 04/13/17 21:00 05/13/17 20:59 04/13/17 21:10 81 MG Cilostazol (Pletal Tab) 100 mg BID PO 04/13/17 09:00 05/13/17 08:59 04/14/17 08:31 100 MG Clopidogrel Bisulfate (plAVix TAB) 75 mg QPM PO 04/13/17 21:00 05/13/17 20:59 04/13/17 21:10 75 MG Colestipol HCl (Colestid Tab) 1 gm DAILY PO 04/13/17 09:00 05/13/17 08:59 04/14/17 08:29 1 GM Escitalopram Oxalate (Lexapro Tab) 10 mg QAM PO 04/13/17 09:00 05/13/17 08:59 04/14/17 08:30 10 MG Gabapentin (Neurontin Cap) 300 mg TID PO 04/13/17 09:00 05/13/17 08:59 04/14/17 08:30 300 MG Isosorbide Mononitrate (Imdur Ext Rel Tab) 120 mg QAM PO 04/13/17 09:00 05/13/17 08:59 04/14/17 08:29 120 MG Montelukast Sodium (Singulair Tab) 10 mg HS PO 04/13/17 21:00 05/13/17 20:59 04/13/17 21:11 10 MG Oxycodone/ Acetaminophen (Percocet 5-325mg Tab) 1 tab Q4H PRN PO 04/13/17 02:15 04/27/17 02:14 Ropinirole HCl (Requip Tab) 0.25 mg HS PO 04/13/17 21:00 05/13/17 20:59 04/13/17 21:07 0.25 MG Rosuvastatin Calcium (Crestor Tab) 40 mg HS PO 04/13/17 21:00 05/13/17 20:59 04/13/17 21:08 40 MG Tamsulosin HCl (Flomax Cap) 0.4 mg HS PO 04/13/17 21:00 05/13/17 20:59 04/13/17 21:09 0.4 MG Guaifenesin (Mucinex Contr Rel Tab) 1,200 mg HS PO 04/13/17 21:00 05/13/17 20:59 04/13/17 21:11 1,200 MG Amylase/Lipase/ Protease (Pancreaze (Lipase 10,500U) Cap) 2 cap TIDM PO 04/13/17 07:30 05/13/17 07:29 04/14/17 08:22 2 CAP Miscellaneous Information (Order Awaiting Action) 1 ea QS N/A 04/13/17 03:45 05/13/17 03:44 04/14/17 08:23 1 EA Miscellaneous Information (Order Awaiting Action) 1 ea QS N/A 04/13/17 08:00 05/13/17 07:59 04/14/17 08:23 1 EA Miscellaneous Information (Order Awaiting Action) 1 ea QS N/A 04/13/17 08:00 05/13/17 07:59 04/14/17 08:23 1 EA Albuterol/ Ipratropium (Duoneb) 3 ml Q2H PRN INH 04/13/17 02:15 05/13/17 02:14 Miscellaneous (Iv Fluids Completed) 1 ea PRN PRN N/A 04/13/17 02:30 04/13/18 02:29 Metoprolol Succinate (Toprol Xl Tab) 150 mg DAILY PO 04/13/17 09:00 05/13/17 08:59 04/14/17 08:30 150 MG Miscellaneous Information 1 ea UD PRN N/A 04/13/17 03:30 05/13/17 03:29 Amoxicillin (Amoxil Cap) 500 mg HS PO 04/13/17 21:00 05/13/17 20:59 04/13/17 21:07 500 MG Heparin Sodium/ Dextrose 500 ml @ 27 mls/hr [id number] PRN IV 04/13/17 07:15 05/13/17 07:14 04/14/17 08:37 27 MLS/HR Insulin Aspart (novoLOG ASPART) SLIDING SCALE If C... ACHS SC 04/13/17 11:00 05/13/17 06:59 04/13/17 16:57 3 UNITS Insulin Glargine (Lantus Solostar Pen) 30 units BID SC 04/13/17 21:00 05/13/17 08:59 04/14/17 08:36 30 UNITS Pantoprazole Sodium (Protonix Tab) 40 mg BID PO 04/13/17 21:00 05/13/17 08:59 04/14/17 08:30 40 MG Ranolazine (Ranexa ER Tab) 500 mg BID PO 04/13/17 10:15 05/13/17 10:14 04/14/17 08:30 500 MG Ranitidine HCl (zANTac TAB) 150 mg BID PO 04/13/17 21:00 05/13/17 20:59 04/14/17 08:32 150 MG Objective Vital Signs Date Time Temp Pulse Resp B/P (MAP) Pulse Ox O2 Delivery O2 Flow Rate FiO2 04/14/17 07:03 36.6 65 18 168/79 (108) 97 Room Air 04/14/17 04:00 Room Air 04/14/17 04:00 36.8 59 17 137/65 (89) 96 Room Air 04/14/17 00:00 36.7 60 18 113/65 (81) 95 Room Air 04/13/17 23:59 Room Air 04/13/17 20:00 Room Air 04/13/17 19:30 36.5 57 22 119/70 (86) 96 Room Air 04/13/17 16:14 36.6 51 20 95/58 (70) 95 Room Air 04/13/17 16:00 Room Air 04/13/17 12:00 Room Air 04/13/17 11:16 37.0 89 18 131/68 (89) 99 Physical Exam General Appearance: no apparent distress Respiratory/Chest: lungs clear, normal breath sounds, no respiratory distress, no accessory muscle use Cardiovascular: regular rate, rhythm, + systolic murmur Extremities: normal inspection, no pedal edema Neurologic/Psychiatric: no motor/sensory deficits, alert, normal mood/affect Laboratory Results Last 24 Hours Test 04/13/17 10:51 04/13/17 12:00 04/13/17 14:30 04/13/17 16:28 Bedside Glucose 193 mg/dl 154 mg/dl Troponin I 0.076 ng/ml Activated Partial Thromboplast Time 28.3 SECONDS Partial Thromboplastin Ratio 1.1 Test 04/13/17 20:35 04/13/17 22:12 04/14/17 05:29 04/14/17 08:00 Bedside Glucose 151 mg/dl Activated Partial Thromboplast Time 33.9 SECONDS 41.4 SECONDS Partial Thromboplastin Ratio 1.3 1.6 White Blood Count 8.11 K/uL Red Blood Count 4.47 M/uL Hemoglobin 13.6 g/dL Hematocrit 39.8 % Mean Corpuscular Volume 89.0 fL Mean Corpuscular Hemoglobin 30.4 pg Mean Corpuscular Hemoglobin Concent 34.2 g/dl Platelet Count 229 K/uL Mean Platelet Volume 9.9 fL Neutrophils (%) (Auto) 53.2 % Lymphocytes (%) (Auto) 32.3 % Monocytes (%) (Auto) 11.0 % Eosinophils (%) (Auto) 2.7 % Basophils (%) (Auto) 0.6 % Neutrophils # (Auto) 4.31 K/uL Lymphocytes # (Auto) 2.62 K/uL Monocytes # (Auto) 0.89 K/uL Eosinophils # (Auto) 0.22 K/uL Basophils # (Auto) 0.05 K/uL RDW Standard Deviation 45.5 fL RDW Coefficient of Variation 13.9 % Immature Granulocyte % (Auto) 0.2 % Immature Granulocyte # (Auto) 0.02 K/uL Sodium Level 140 mmol/L Potassium Level 3.6 mmol/L Chloride Level 109 mmol/L Carbon Dioxide Level 28 mmol/L Anion Gap 3.0 mmol/L Blood Urea Nitrogen 19 mg/dl Creatinine 1.30 mg/dl Est Creatinine Clear Calc Drug Dose 45.8 ml/min Estimated GFR () 57.7 Estimated GFR (Non- 49.8 BUN/Creatinine Ratio 14.4 Random Glucose 83 mg/dl Calcium Level 8.7 mg/dl Total Creatine Kinase 102 U/L Creatine Kinase MB 3.1 ng/ml Creatine Kinase MB Ratio 3.0 Troponin I 0.030 ng/ml Test 04/14/17 08:03 Bedside Glucose 125 mg/dl Assessment and Plan This is an 86 year old male with a PMH of CAD s/p stenting, HTN, HLD, COPD, chronic osteomyelitis of the R knee on chronic antibiotics, insulin dependent DM2 presents for chest pain/shortness of breath Chest Pain r/o ACS in the setting of CAD 04/14 stopped IV heparin as troponin trending down pain much improved Ranexa started, continue Imdur, b-jane, aspirin, Plavix, statin continue Zantac and twice daily dosing of Protonix as it seems to have helped his pain 04/13 patient is coronary artery disease; has a stent put in had a cardiac catheterization in 2015 at [facility] [place]; showed some blockage: 50% proximal LAD, 40% mid LAD, 100%, proximal occluded right RCA, RCA supplied by left to right collaterals - no intervention done at that time recently had Lasix dose increased mild elevation of troponin; started on IV heparin appreciate cardiology input; started on Protonix and Zantac for possible GERD related chest pain continue aspirin, Plavix, statin, Imdur, and b-jane Ranexa added for anginal pain Chronic Osteomyelitis of R Knee continue amoxicillin HTN continue b-jane and amlodipine dose Insulin Dependent DM2 continue Lantus continue sliding scale BSGs improving COPD Singulair and duonebs PRN DVT ppx IV heparin FULL CODE
--- NOTE | 2017-04-14 10:29 | Cardiology Follow-Up ---
Subjective Subjective Date of Service: Apr 14, 2017. Pt evaluation today including: conversation w/ patient, physical exam, chart review, lab review, review of studies, review of inpatient medication list Additional Details: Pt seen and examined, states that he feels great. Has not had any recurrence of pain since being started on new meds yesterday. Denies sob, palpitations, lightheadedness or dizziness. Tele reviewed: sinus rhythm/destini, no arrhythmias or significant ectopy. Problem List Medical Problems: (1) Bacteremia Status: Acute (2) Cellulitis Status: Acute (3) Constipation Status: Acute (4) Hyponatremia Status: Acute (5) Knee pain Status: Acute (6) Precordial chest pain Status: Acute (7) Septic joint Status: Acute Review of Systems Constitutional: No fever, No chills Respiratory: No cough, No sputum, No shortness of breath (resolved) Cardiac: + chest pain (improved), No see HPI, No orthopnea, No PND, No edema, No claudication, No palpitations, No problem reported Abdomen: No pain, No nausea, No vomiting, No diarrhea Objective Vital Signs Last Vital Signs Documentation Date Time Temp Pulse Resp B/P (MAP) Pulse Ox O2 Delivery O2 Flow Rate FiO2 04/14/17 07:30 Room Air 04/14/17 07:03 36.6 65 18 168/79 (108) 97 Physical Exam: General Appearance: WD/WN, no apparent distress Eyes: bilateral eyes normal inspection, bilateral eyes PERRL, bilateral eyes EOMI ENT: normal ENT inspection, hearing grossly normal, pharynx normal Neck: supple, no adenopathy, thyroid normal, no JVD, no carotid bruits, trachea midline Respiratory/Chest: chest non-tender, lungs clear, normal breath sounds, no respiratory distress, no accessory muscle use Cardiovascular: regular rate, rhythm, no edema, no JVD, + systolic murmur, + gallop/S4 Abdomen: normal bowel sounds, non tender, soft, no organomegaly Extremities: normal range of motion, non-tender, normal inspection, no pedal edema, no calf tenderness Neurologic/Psychiatric: metal sorter II-XII nml as tested, no motor/sensory deficits, alert, normal mood/affect, oriented x 3 Skin: normal color, warm/dry, no rash Lymphatic: no adenopathy Assessment and Plan 1. chest pain unclear stable angina vs. gerd started on treatment for both now pain free cardiac titus would d/c to home on ranexa 500mg bid in addition to all previous meds; metoprolol, imdur, asa, amlodipine, etc will need cardiac f/u with Karsten Martinez PA-C in 1-2 weeks would also recommend outpatient GI eval ok to d/c to home from cardiac standpoint
[2017-04-14 11:30] VITALS: BP 130/72; PULSE 54; TEMP 36.6; O2SAT 96
[2017-04-14] MEDS ORDERED: ZNT150 PO (11:47)
[2017-04-14] MEDS ORDERED: RNXER500 PO (11:47)
[2017-04-14] MEDS ORDERED: PANT40TA PO (11:47)
--- NOTE | 2017-04-14 11:50 | Discharge Instructions ---
Discharge Instructions Date of Service Apr 14, 2017. Admission Reason for Admission: Chest Pain Discharge Discharge Diagnosis / Problem: Chest pain, chronic angina, GERD (reflux) Discharge Goals Goal(s): Decrease discomfort, Improve function, Diagnostic testing, Therapeutic intervention Activity Recommendations Activity Limitations: resume your previous activity . Instructions / Follow-Up Instructions / Follow-Up Please follow-up with Dr. Tavera - you will get a call with a date/time Please follow-up with Karsten Martinez in 1-2 weeks You will be on Ranexa twice daily, Protonix twice a day and Zantac twice daily Current Hospital Diet Patient's current hospital diet: Diabetes Type 2 Diet, AHA Diet (Heart Healthy) Discharge Diet Recommended Diet: AHA Diet (Heart Healthy), Diabetes Type 2 Diet Pending Studies Studies pending at discharge: no Medical Emergencies . Who to Call and When: Medical Emergencies: If at any time you feel your situation is an emergency, please call 911 immediately. . Non-Emergent Contact Non-Emergency issues call your: Primary Care Provider, Cloth Sander . . "Provider Documentation" section prepared by Vern Helms. . VTE Core Measure Inpt VTE Proph given/why not?: Other Anticoagulation (IV heparin)
--- NOTE | 2017-04-14 11:55 | Discharge Summary ---
Discharge Summary Date of Service Apr 14, 2017. Discharge Summary Admission Date: Apr 13, 2017 at 06:51 Discharge Date: Apr 14, 2017 Discharge Disposition: Home Principal Diagnosis: CAD Chronic Angina GERD Medication Reconciliation New Medications: Ranitidine HCl (Ranitidine HCl) 150 Mg Tab 150 MG PO BID for 15 Days, #30 TAB Ranolazine (Ranexa) 500 Mg Tabcr 500 MG PO BID for 30 Days, #60 TAB Changed Medications: Pantoprazole (Protonix) 40 Mg Tab 40 MG PO BID for 30 Days, #60 TAB (Changed from: DAILY; 30) Continued Medications: Albuterol Sulfate (Proair Hfa) 108 Mcg/ Aer 2 PUFFS INH Q4H PRN for Wheezing Amlodipine (Norvasc) 2.5 Mg Tab 2.5 MG PO HS, TAB Amoxicillin (Amoxil) 500 Mg Cap 500 MG PO HS for 42 Days, CAP COMPLEX CARE NURSE PRACTITIONER DUE TO INFECTION IN KNEE Aspirin (Aspirin Ec) 81 Mg Tab 81 MG PO QPM Azelastine Hcl-Fluticasone Pro (Dymista) 1 Spr Spr 1 SPRY BRANDIE QAM, #23 GM 3 Refills Cilostazol (Pletal) 100 Mg Tab 100 MG PO BID Clopidogrel Bisulfate (Clopidogrel) 75 Mg Tab 75 MG PO QPM Colestipol Hcl (Colestid) 1 Gm Tab 1 GM PO DAILY, TAB Escitalopram (Lexapro) 10 Mg Tab 10 MG PO QAM Fish Oil (Easley-3) 1 Ea Cap 1 CAP PO BID, CAP Furosemide (Lasix) 20 Mg Tab 20 MG PO QAM, TAB Gabapentin (Neurontin) 300 Mg Cap 300 MG PO QID, CAP TAKE 300 MG WITH BREAKFAST AND SUPPER AND BEDTIME Guaifenesin (Mucinex Maximum Strength) 1,200 Mg Tab 1 TAB PO HS, TAB Insulin Aspart (Novolog) Inj 10 UNITS SC TIDM, BTL Insulin Glargine (Lantus) Vial 56 UNITS SC HS Isosorbide Mononitrate Ext Rel (Imdur Ext Rel) 120 Mg Ertab 120 MG PO QAM, TAB Losartan Potassium (Cozaar) 25 Mg Tab 25 MG PO QAM, TAB Metoprolol Succ (Toprol Xl) (Toprol-Xl) 50 Mg Tabcr 150 MG PO TID, #30 TAB Montelukast Sodium (Singulair) 10 Mg Tab 1 TAB PO HS for 90 Days, TAB 1 Refill Nitroglycerin (Nitrostat) 0.4 Mg Tab 0.4 MG UT UD PRN for Chest Pain For pancreatitis symptoms Nystatin (Nystatin Suspension) 1 Ml Susp 1 DOSE PO QID PRN for THRUSH Oxycodone/Acetaminophen 5MG/325MG (Percocet 5MG/325MG) Tab 1 TABLET PO Q4H PRN for Pain, #18 TAB Pancrelipase (Lipase-Protease- (Creon) 1 Cap Cap 1 CAP PO TID TAKE ONE CAP THREE TIMES A DAY WITH BREAKFAST AND SUPPER AND ONE CAP AT BEDTIME Potassium Chloride (Micro-K Ext Rel) 10 Meq Capcr 10 MEQ PO M,T,W,TH,F, CAP Ropinirole HCl (Ropinirole HCl) 0.25 Mg Tab 0.25 MG PO HS Rosuvastatin Calcium (Crestor) 40 Mg Tab 40 MG PO HS, TAB Silodosin (Rapaflo) 4 Mg Cap 4 MG PO DAILY Tacrolimus (Topical) (Protopic) 0.1 % Oin 1 APPLN TOP BID PRN for LEGS for 30 Days, #60 GM Tamsulosin Hcl (Flomax) 0.4 Mg Cap 0.4 MG PO HS, CAP Tiotropium [place]-Olodaterol (Stiolto Respimat 2.5-2.5 Mcg/Act) 1 Aer Aer 2 PUFFS INH BID Admission Information Physical Exam (per Admitting): DATE OF ADMISSION: 04/13/2017 PRIMARY CARE DOCTOR: Dr. Vern Helms. CHIEF COMPLAINT: Chest pain. HISTORY OF PRESENT ILLNESS: History obtained from patient and records. 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 He underwent coronary angiography which showed heavy calcified coronary system, obstructive coronary artery disease involving 50% proximal LAD, 40% mid LAD, 100% proximal occluded right RCA, RCA supplied by left to right collaterals, normal LV function, EF 60%. No intervention done. Patient seen at [facility] Cardiology office last 04/08/2017. Recommendations were increase furosemide and potassium daily to aid the mild volume overload. Resting echo in 2018 for followup of aortic valve disease. Patient had a steroid injection in his right shoulder as an outpatient at Orthopedic doctor's office a few days ago. Last few days noted intermittent chest discomfort, indigestion-like, going to both arms, relieved by nitro, similar to anginal attacks in the past. Different from heartburn as per patient. Usual junky cough, SOB on exertion related to COPD as per patient. Patient brought to the Emergency Room. BSG upon arrival at the ER was 386. MEDICAL HISTORY: As above. 2D echo from 09/2016 showed mild concentric LVH, normal LV chamber size, EF 60%, moderate aortic valve stenosis. SURGERIES: Tonsillectomy, neck surgery, sinus surgery, carpal tunnel, cataract surgery, knee surgery, back surgery, cholecystectomy, TURP. HOME MEDICATIONS: Include Amoxil, ProAir, aspirin, azelastine, Norvasc, Pletal, Colestid, Plavix, Lexapro, Lasix, Mucinex, Neurontin, omega, NovoLog, Lantus, Imdur ER, losartan, Singulair, metoprolol, Nitrostat, nystatin, Creon, Protonix, Micro-K, Crestor, ropinirole, Rapaflo, Protopic, Flomax, ALLERGIES: TO ADHESIVE, CLAVULANIC ACID, IMIPENEM, CILASTATIN, LOVASTATIN, SULBACTAM, PENICILLIN. FAMILY HISTORY: Heart disease, diabetes. PERSONAL AND SOCIAL HISTORY: Past tobacco abuse. No chronic intake of alcoholic beverages. 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 REVIEW OF SYSTEMS: As per HPI, all other ROS negative. PHYSICAL EXAMINATION: VITAL SIGNS: Blood pressure was 141/94, pulse rate 82, RR 20, temperature 36.9, sats 94 on room air. GENERAL: Noted to be obese, no respiratory distress. Looks younger for stated age. SKIN: Normal color. HEENT: Pale palpebral conjunctivae, dry mucosa. NECK: Short neck. LUNGS: Decreased breath sounds. HEART: Regular rate and rhythm, systolic murmur. ABDOMEN: Some distention, nontender. EXTREMITIES: Minimal LE edema. No tenderness. NEUROLOGIC: No gross focality except for involuntary movement in the lower extremities from restless legs. LABORATORY DATA: Hemoglobin is 13.7, hematocrit 40, white cell count 10.32, platelets 272. Sodium noted to be 136, potassium 4.2, chloride 103, CO2 of 26, BUN 23, creatinine 1.6, glucose 286. Troponin was noted to be 0.015. Hemoglobin A1c from 03/2017 was 7.7. EKG as per my interpretation, normal sinus rhythm, first-degree AV block, incomplete right bundle-branch block. no ischemia Chest x-ray showed no acute process. ASSESSMENT: 1. Unstable angina history of coronary artery disease status post stenting. 2. Hypertension, slightly elevated. 3. Hyperlipidemia on statin therapy. 4. Valvular heart disease, moderate aortic valve stenosis on recent TTE 09/2016. 5. DM2, insulin requiring. Reasonable control as of recent outpatient hemoglobin A1c Patient notably hyperglycemic following recent outpatient joint steroid injection. 6. Acute renal failure possibly from Lasix recently started as an outpatient for signs of volume overload. 7. Chronic prosthetic joint infection, R knee on chronic Amoxicillin rx as per ID 8. COPD, past tobacco abuse. Usual exertional dyspnea symptoms. PLAN: Observation PCU. Follow cardiac markers. 2D echo if with troponin elevation Continue antiplatelet, beta jane, statin meds; nitro p.r.n. Cardiology consult RE unstable angina, px known to [facility]. Basal insulin, ISS BG goal 140-180. add carb count coverage baseline UA, monitor creatinine response to IV fluids Hold home ARB, Lasix until creatinine baseline. DVT prophylaxis, Heparin subcu. Full code. Hospital Course This is an 86 year old male with a PMH of CAD s/p stenting, HTN, HLD, COPD, chronic osteomyelitis of the R knee on chronic antibiotics, insulin dependent DM2 presents for chest pain/shortness of breath Chest Pain r/o ACS in the setting of CAD 04/14 stopped IV heparin as troponin trending down pain much improved Ranexa started, continue Imdur, b-jane, aspirin, Plavix, statin continue Zantac and twice daily dosing of Protonix as it seems to have helped his pain 04/13 patient is coronary artery disease; has a stent put in had a cardiac catheterization in 2016 at [facility] [place]; showed some blockage: 50% proximal LAD, 40% mid LAD, 100%, proximal occluded right RCA, RCA supplied by left to right collaterals - no intervention done at that time recently had Lasix dose increased mild elevation of troponin; started on IV heparin appreciate cardiology input; started on Protonix and Zantac for possible GERD related chest pain continue aspirin, Plavix, statin, Imdur, and b-jane Ranexa added for anginal pain Chronic Osteomyelitis of R Knee continue amoxicillin HTN continue b-jane and amlodipine dose Insulin Dependent DM2 continue Lantus continue sliding scale BSGs improving COPD Singulair and duonebs PRN DVT ppx IV heparin FULL CODE Total time spent on discharge = 35 minutes This includes examination of the patient, discharge planning, medication reconciliation, and communication with other providers. Discharge Instructions Please follow-up with Dr. Tavera - you will get a call with a date/time Please follow-up with Karsten Martinez in 1-2 weeks You will be on Ranexa twice daily, Protonix twice a day and Zantac twice daily
[2017-04-14 12:15] VITALS: BP 130/72; PULSE 54; TEMP 36.6; O2SAT 96
== END 2017-04-14 13:12 | disposition home or self-care (01) | DRG 303 ==
LOC: EDBD 21:58 → C.EDA 21:59 → C.2T 04-13 01:51 → ENRESERV 04-13 02:06 → CMPBEDREQ 04-13 02:41 → OBSVTOIN 04-13 06:51
PROVIDERS: ADMIT Family Medicine; ATTEND Family Medicine
DX: I25.119 Atherosclerotic heart disease of native coronary artery with unspecified angina pectoris (principal); K86.1 Other chronic pancreatitis; M86.68 Other chronic osteomyelitis, other site; K21.9 Gastro-esophageal reflux disease without esophagitis; E11.65 Type 2 diabetes mellitus with hyperglycemia; I25.2 Old myocardial infarction; G47.33 Obstructive sleep apnea (adult) (pediatric); E11.40 Type 2 diabetes mellitus with diabetic neuropathy, unspecified; I35.0 Nonrheumatic aortic (valve) stenosis; J44.9 Chronic obstructive pulmonary disease, unspecified; N40.0 Benign prostatic hyperplasia without lower urinary tract symptoms; E78.5 Hyperlipidemia, unspecified; I11.9 Hypertensive heart disease without heart failure; F32.9 Major depressive disorder, single episode, unspecified; E66.9 Obesity, unspecified; Z51.81 Encounter for therapeutic drug level monitoring; Z79.899 Other long term (current) drug therapy; Z79.4 Long term (current) use of insulin; Z79.82 Long term (current) use of aspirin; Z95.5 Presence of coronary angioplasty implant and graft; Z96.651 Presence of right artificial knee joint; Z68.33 Body mass index [BMI] 33.0-33.9, adult; Z87.891 Personal history of nicotine dependence; Z83.3 Family history of diabetes mellitus

== ENCOUNTER → 2017-07-01 | Outpatient (CLI) | payer OTHER ==
[~2017-07-01] MED LIST changes: +COLE1TAB PO; -DOCU100C31 PO; -FERR1TAB13 PO; -NXM/40 PO; -OXYC-57 PO; +PANT40TA PO; -POLY335019 PO; +RNXER500 PO; +SILO4CAP PO; +TACR0.1O TOP; -TACR0.1O18 TOP; +ZNT150 PO
[2017-07-01 12:11] LABS: BASO % 1.3 %; BASO ABS # 0.08 K/uL (0-0.2); COMPLETE YES; EOS % 5.2 %; HEMATOCRIT 39.6 % (42-52); IG% 0.2 %; LYMPH % 33.8 %; LYMPH ABS # 2.08 K/uL (1.2-3.4); MEAN CELL VOLUME 88.8 fL (80-100); MEAN CORPUSCULAR HGB CONC 33.8 g/dl (32-36); MEAN PLATELET VOLUME 9.9 fL (7.4-10.4); MONO % 8.6 %; NEUT % 50.9 %; PLATELET COUNT 247 K/uL (130-400); RED BLOOD COUNT 4.46 M/uL (4.7-6.1); WHITE BLOOD COUNT 6.16 K/uL (4.8-10.8)
[2017-07-01 12:31] LABS: GLUCOSE 166 mg/dl (70-99)
[2017-07-01 12:32] LABS: ALB/GLOB RATIO 0.9 (0.9-2); ALKALINE PHOSPHATASE 74 U/L (45-117); ALT/SGPT 26 U/L (12-78); AST/SGOT 19 U/L (15-37); BLOOD UREA NITROGEN 16 mg/dl (7-18); BUN/CREATININE RATIO 12.1 (10-20); C-REACTIVE PROTEIN 0.38 mg/dl (0-0.29); CALCIUM 8.8 mg/dl (8.5-10.1); CARBON DIOXIDE 24 mmol/L (21-32); CHLORIDE 104 mmol/L (98-107); CREATININE 1.36 mg/dl (0.60-1.40); POTASSIUM 3.5 mmol/L (3.5-5.1); SODIUM 137 mmol/L (136-145)
== END | disposition home or self-care (01) ==
LOC: C.LAB1850 10:29
PROVIDERS: ATTEND Internal Medicine Infectious Disease
DX: M00.261 Other streptococcal arthritis, right knee (principal)

== ENCOUNTER → 2017-10-14 | Outpatient (CLI) | payer OTHER ==
[~2017-10-14] MED LIST changes: -METO50TA7 PO; +METO50TA8 PO
[2017-10-14 12:19] LABS: BASO % 0.7 %; BASO ABS # 0.05 K/uL (0-0.2); EOS % 5.4 %; EOS ABS # 0.37 K/uL (0-0.5); HEMATOCRIT 40.6 % (42-52); HEMOGLOBIN 14.1 g/dL (14.0-18.0); IG# 0.02 K/uL (0.00-0.02); LYMPH % 23.1 %; LYMPH ABS # 1.59 K/uL (1.2-3.4); MEAN CELL VOLUME 87.7 fL (80-100); MEAN CORPUSCULAR HEMOGLOBIN 30.5 pg (25-34); MEAN CORPUSCULAR HGB CONC 34.7 g/dl (32-36); MONO % 8.9 %; MONO ABS # 0.61 K/uL (0.11-0.59); NEUT % 61.6 %; NEUT ABS # 4.23 K/uL (1.4-6.5); PLATELET COUNT 192 K/uL (130-400); RED CELL DISTRIBUTION WIDTH CV 14.7 % (11.5-14.5); RED CELL DISTRIBUTION WIDTH SD 47.3 fL (36.4-46.3); WHITE BLOOD COUNT 6.87 K/uL (4.8-10.8)
== END | disposition home or self-care (01) ==
LOC: C.LAB 10:52
PROVIDERS: ATTEND Internal Medicine Infectious Disease
DX: M00.261 Other streptococcal arthritis, right knee (principal)

== ENCOUNTER → 2017-11-22 | Outpatient (CLI) | payer OTHER ==
[~2017-11-22] MED LIST changes: +CYCL0.052 OP; +EXLP95 TOP; +FINA5TAB PO; +NVLGI/PEN INJ; +OPTIRAY 320 IV PRN; +OXYC-57 PO; +RANO500T PO; +VNTHFA/IN INH
--- NOTE | 2017-11-22 13:31 | DIAGNOSTIC IMAGING REPORT ---
CT SCAN OF THE NECK WITH IV CONTRAST CLINICAL HISTORY: Neck and jaw swelling. COMPARISON STUDY: Radiographs of the cervical spine dated 10/10/2014. TECHNIQUE: Following the IV administration of 94 cc of Optiray 320, CT scan of the soft tissues of the neck was performed from the skull base to the upper chest. Images are reviewed in the axial, sagittal, and coronal planes. IV contrast was administered without complication. A dose lowering technique was utilized adhering to the principles of ALARA. CT DOSE: 471.54 mGycm FINDINGS: Pharynx: The nasopharynx, oropharynx, and laryngeal pharynx are normal in appearance. The pharyngeal airway is widely patent. There is no evidence of mass lesion. The vocal cords are symmetric. The parapharyngeal fat is well maintained. The prevertebral/retropharyngeal soft tissues are within normal limits. The epiglottis is normal. Lymphadenopathy: There is bulky mediastinal lymphadenopathy. Mediastinal nodes measure up to 2.4 x 1.9 cm. There are enlarged left subpectoral lymph nodes. These measure up to 2.3 x 1.3 cm. Bilateral cervical and submandibular adenopathy is identified. The largest node is seen on image #120 and measures 2.3 x 1.5 cm. A node in the right lower cervical chain on image #149 measuring 1.2 cm and a right axillary node on image #244 appear to be centrally necrotic. Thyroid: Normal in size and attenuation. Salivary glands: Intraparotid lymph nodes measure up to 1.9 x 1.3 cm. The parotid and submandibular glands are otherwise normal in appearance. Brain parenchyma: The visualized brain parenchyma at the skull base is normal in appearance. Vascular structures: The carotid arteries and jugular veins are patent. Atherosclerotic plaque is noted in the carotid bulbs. Skeletal structures: The skeletal structures are osteopenic. Imaged portions of the calvarium at the skull base are within normal limits. The cervical spine appears intact noting spondylotic and postoperative change. No lytic or blastic lesion is seen. Sinuses and mastoids: There is mild mucosal thickening and air-fluid level seen in the left maxillary antrum. Trace mucosal thickening is seen in the frontal sinuses. There is evidence of previous paranasal sinus surgery. The mastoid air cells are well pneumatized. Orbits: The bony orbits appear intact. Orbital contents are normal as visualized noting bilateral ocular lens implants. Lung apices: Visualized apical lung parenchyma is clear. IMPRESSION: 1. No acute abnormality is identified. 2. There is bulky cervical, mediastinal, and left subpectoral lymphadenopathy. At least 2 of the nodes appear to be centrally necrotic. The appearance is highly concerning for a lymphoproliferative disorder. Neoplasm is the diagnosis of exclusion. Electronically signed by: Axel Grider M.D. 11/22/2017 1:29 PM Dictated Date/Time: 11/22/2017 1:06 PM
== END | disposition home or self-care (01) ==
LOC: C.CTS 12:23
PROVIDERS: ATTEND Nurse Practitioner
DX: R59.1 Generalized enlarged lymph nodes (principal)

== ENCOUNTER → 2017-12-03 | Day surgery (SDC) | payer OTHER ==
[2017-11-28 13:27] VITALS: Ht 170.2 cm; Wt 95.9 kg
[~2017-12-03] VITALS: Ht 170.2 cm; Wt 95.9 kg
[~2017-12-03] MED LIST changes: -ALBU1AER9 INH; +ATROPINE SULFATE 0.1 MG/ML 5ML SYR IV PRN; +BACITRACIN OINT 15 GM TUBE ONE; +BUPIVACAINE 0.5 % 5 MG/1 ML MPF 30ML VIAL ONE; +CLINDAMYCIN 600 MG/54 ML D5W IV SCH; +CLINDAMYCIN IV 600 MG in DEXTROSE 5% 50ML 50 ML IV ONE; +EpHEDrine SULFATE INJ 50 MG/ML AMP IV PRN; +FENTANYL CITRATE INJ 50 MCG/1 ML 2 ML VIAL ONE; +LACTATED RINGER'S 1000ML 1,000 ML IV SCH; +LIDOCAINE HCL 1% 20 ML VIAL ONE; +LIDOCAINE HCL 2% 2 ML VIAL (20MG/ML) ONE; +MIDAZOLAM HCL 1 MG/ML 2ML VIAL ONE; -NVLGI SC; -OMEG10007 PO; +ONDANSETRON INJ 2 MG/ML 2 ML VIAL IV PRN; -OPTIRAY 320 IV PRN; +OXYCODONE/ACETAMINOPHEN 5-325 TAB PO PRN; +PROPOFOL IV EMULSION 10 MG/ML 20 ML VIAL IV ONE; -RNXER500 PO; +SODIUM CHLORIDE 0.9% 1000ML 1,000 ML IV SCH; -ZNT150 PO
[2017-12-03 10:47] VITALS: BP 113/68; PULSE 78; TEMP 36.7; O2SAT 97
--- NOTE | 2017-12-03 12:42 | [facility] Post Operative Brief Note ---
Immediate Operative Summary Operative Date Dec 03, 2017. Pre-Operative Diagnosis Enlarged lymph node, right neck Post-Operative Diagnosis Enlarged lymph node, right neck Procedure(s) Performed Biopsy Right Neck Lymph Node Under Sedation and Local Anesthesia Surgeon Dr. Pollo Lee Line Out Man Surgeon(s) None Estimated Blood Loss 5ml Findings Consistent with Post-Op Diagnosis Fluids (cc crystalloids) 700ml Specimens Fresh specimens A: Right side neck lymph node Anesthesia Type MAC Complication(s) none Disposition Accompanied Pt To Recover: yes Disposition: Recovery Room / PACU
[2017-12-03 13:24] VITALS: BP 95/50; PULSE 67; TEMP 36.9; O2SAT 92
--- NOTE | 2017-12-03 13:53 | Anesthesiology Progress Note ---
Anesthesia Post Op Note Date & Time Dec 03, 2017 at 13:53 Vital Signs Pain Intensity: 0 Vital Signs Past 12 Hours Date Time Temp Pulse Resp B/P (MAP) Pulse Ox O2 Delivery O2 Flow Rate FiO2 12/03/17 13:15 70 18 96/55 93 Room Air 12/03/17 13:05 36.4 69 13 102/63 94 Room Air 12/03/17 12:55 74 12 108/58 95 Oxymask 10 12/03/17 12:45 36.5 76 16 110/65 97 Oxymask 10 12/03/17 10:47 36.7 78 20 113/68 (83) 97 Room Air Notes Mental Status: alert / awake / arousable, participated in evaluation Pt Amnestic to Procedure: Yes Nausea / Vomiting: adequately controlled Pain: adequately controlled Airway Patency, RR, SpO2: stable & adequate BP & HR: stable & adequate Hydration State: stable & adequate Anesthetic Complications: no major complications apparent
[2017-12-03 13:54] VITALS: BP 95/48; PULSE 65; TEMP 36.9; O2SAT 93
--- NOTE | 2017-12-03 14:05 | Discharge Instructions ---
Discharge Instructions Date of Service Dec 03, 2017. Visit Reason for Visit: Lymphadenopathy Discharge Discharge Diagnosis / Problem: S/P biopsy lymph node on right neck Discharge Goals Goal(s): Decrease discomfort, Improve function Activity Recommendations Activity Limitations: per Instructions/Follow-up section Lifting Limitations: none Exercise/Sports Limitations: rest today May Resume Sexual Activity: when tolerated Shower/Bathe: may shower/bathe in 3 days Driving or Machine Use: resume 3 days after discharge Anesthesia . Post Anesthesia Instructions: If you have had General Anesthesia or IV Sedation: * Do not drive today. * Resume driving when surgeon permits. * Do not make important decisions or sign legal documents today. * Call surgeon for: 1. Temperature elevations greater than 101 degrees F. 2. Uncontrollable pain. 3. Excessive bleeding. 4. Persistent nausea and vomiting. 5. Medication intolerance (nausea, vomiting or rash). * For nausea and vomiting use only clear liquids such as: tea, soda, bouillon until nausea subsides, then gradually increase diet as tolerated. * If you have any concerns or questions, call your surgeon's office. If physician is unavailable and it is an emergency, call 911 or go to the nearest emergency room. . Instructions / Follow-Up Instructions / Follow-Up keep the dresssing on for 4 days, he can take a shower on 12/07/17, no driving while taking pain medicine, follow up me in 1 week, Diet Recommendations Recommended Home Diet: resume previous diet Procedures Procedures Performed: Biopsy Right Neck Lymph Node Under Sedation and Local Anesthesia Pending Studies Studies pending at discharge: no Medical Emergencies . Who to Call and When: Medical Emergencies: If at any time you feel your situation is an emergency, please call 911 immediately. . Non-Emergent Contact Non-Emergency issues call your: Surgeon Call Non-Emergent contact if: you have a fever, temperature is above 100.5, your pain is not controlled, your pain is worsening, wound has increased drainage, wound has increased redness . . "Provider Documentation" section prepared by Pollo Lee. . [place] Drug Monitoring Program Search Results: no issues identified
[2017-12-03 14:24] VITALS: BP 103/54; PULSE 60; TEMP 36.9; O2SAT 94
--- NOTE | 2017-12-03 14:28 | OPERATIVE REPORT ---
DATE OF OPERATION: 12/03/2017 PREOPERATIVE DIAGNOSIS: Enlarged lymph node on the right neck. POSTOPERATIVE DIAGNOSIS: Same. OPERATION: Biopsy lymph node on the right neck. SURGEON: Dr. Pollo Lee. ANESTHESIA: Conscious sedation plus local. ESTIMATED BLOOD LOSS: About 5 mL. FINDINGS: Enlarged lymph node. COMPLICATIONS: None. INDICATIONS FOR THE PROCEDURE: This is an 87-year-old gentleman who presented with enlarged lymph node on the right side neck and the patient will be required to do a biopsy of lymph node on the right side neck. I did talk to the patient and the patient's family member about the benefit, the risk, alternate procedure. I indicated the risks may include but not limited such as bleeding, infection, injury to other organs tissue, they understand. The patient signed informed consent and I answered all questions. DETAILS OF PROCEDURE: We brought the patient to the OR, put the patient in the supine position. The patient received SCD on bilateral legs to prevent DVT. Also, the patient received 600 mg clindamycin IV for prophylactic antibiotics. The patient received conscious sedation by the anesthesiology. The patient's right side neck was prepped and draped in routine sterile fashion. After timeout, I injected the local anesthesia by using 1% lidocaine mixed with 0.5% Marcaine on the right side of neck, then made about 2 cm incision on the right side of neck and dissection deep to the fascial layer in open fashion. There was 1 enlarged lymph node, size about 1 x 1 cm and we removed the lymph node. Hemostasis obtained. By using 3-0 Vicryl, closed the fascial layer and used 2-0 Vicryl to close subcutaneous layer, interrupted and closed skin by using 4-0 Vicryl x continuous running. We put the dressing on. The patient tolerated the procedure well. All the instrument, needle, and sponge count were correct x2 at the end of case. The specimens fresh sent to pathology. After procedure, I did talk to the patient and family member about the OR finding and procedure we did, they understand that. I attest to the content of the Intraoperative Record and any orders documented therein. Any exception s are noted below.
== END | disposition home or self-care (01) ==
LOC: C.ACU 09:55
PROVIDERS: ATTEND Surgery
DX: R59.0 Localized enlarged lymph nodes (principal); I25.10 Atherosclerotic heart disease of native coronary artery without angina pectoris; I10 Essential (primary) hypertension; I25.2 Old myocardial infarction; J41.1 Mucopurulent chronic bronchitis; E11.42 Type 2 diabetes mellitus with diabetic polyneuropathy; N40.0 Benign prostatic hyperplasia without lower urinary tract symptoms; I70.219 Atherosclerosis of native arteries of extremities with intermittent claudication, unspecified extremity; E78.5 Hyperlipidemia, unspecified; G47.30 Sleep apnea, unspecified; M19.90 Unspecified osteoarthritis, unspecified site; J31.0 Chronic rhinitis; F32.9 Major depressive disorder, single episode, unspecified; M15.9 Polyosteoarthritis, unspecified; M81.0 Age-related osteoporosis without current pathological fracture; E66.9 Obesity, unspecified; I12.9 Hypertensive chronic kidney disease with stage 1 through stage 4 chronic kidney disease, or unspecified chronic kidney disease; N18.3 Chronic kidney disease, stage 3 (moderate); E11.22 Type 2 diabetes mellitus with diabetic chronic kidney disease; Z79.4 Long term (current) use of insulin; Z96.651 Presence of right artificial knee joint; Z95.5 Presence of coronary angioplasty implant and graft; Z82.49 Family history of ischemic heart disease and other diseases of the circulatory system; Z87.891 Personal history of nicotine dependence; Z79.82 Long term (current) use of aspirin; Z88.1 Allergy status to other antibiotic agents

== ENCOUNTER 2017-12-17 21:40 | Inpatient (IN) | payer OTHER ==
[~2017-12-17] VITALS: Ht 170.2 cm; Wt 88.0 kg
[~2017-12-17 21:40] MED LIST changes: -ATROPINE SULFATE 0.1 MG/ML 5ML SYR IV PRN; -BACITRACIN OINT 15 GM TUBE ONE; -BUPIVACAINE 0.5 % 5 MG/1 ML MPF 30ML VIAL ONE; -CLINDAMYCIN 600 MG/54 ML D5W IV SCH; -CLINDAMYCIN IV 600 MG in DEXTROSE 5% 50ML 50 ML IV ONE; -EpHEDrine SULFATE INJ 50 MG/ML AMP IV PRN; -FENTANYL CITRATE INJ 50 MCG/1 ML 2 ML VIAL ONE; -LACTATED RINGER'S 1000ML 1,000 ML IV SCH; -LIDOCAINE HCL 1% 20 ML VIAL ONE; -LIDOCAINE HCL 2% 2 ML VIAL (20MG/ML) ONE; -MIDAZOLAM HCL 1 MG/ML 2ML VIAL ONE; -ONDANSETRON INJ 2 MG/ML 2 ML VIAL IV PRN; -OXYC-57 PO; -OXYCODONE/ACETAMINOPHEN 5-325 TAB PO PRN; -PROPOFOL IV EMULSION 10 MG/ML 20 ML VIAL IV ONE; -SODIUM CHLORIDE 0.9% 1000ML 1,000 ML IV SCH
[2017-12-17] MEDS ORDERED: NITROGLYCERIN 2% OINTMENT 30GM TUBE EXT ONE ×2 (22:00)
[2017-12-17 22:10] LABS: HEMATOCRIT 38.3 % (42-52); HEMOGLOBIN 12.9 g/dL (14.0-18.0); MEAN CELL VOLUME 88.5 fL (80-100); MEAN CORPUSCULAR HEMOGLOBIN 29.8 pg (25-34); MEAN CORPUSCULAR HGB CONC 33.7 g/dl (32-36); MEAN PLATELET VOLUME 9.9 fL (7.4-10.4); PLATELET COUNT 150 K/uL (130-400); RED CELL DISTRIBUTION WIDTH CV 15.4 % (11.5-14.5); RED CELL DISTRIBUTION WIDTH SD 49.9 fL (36.4-46.3); WHITE BLOOD COUNT 6.11 K/uL (4.8-10.8)
[2017-12-17 22:17] LABS: INR 1.3 (0.9-1.1); PTT PATIENT 35.7 SECONDS (21.0-31.0)
[2017-12-17] MEDS ORDERED: METOPROLOL TARTRATE 1 MG/ML VIAL IV STA ×2 (22:19→22:38)
[2017-12-17] MEDS ORDERED: METOPROLOL TARTRATE 1 MG/ML VIAL ONE (22:21)
[2017-12-17] MEDS ORDERED: NITROGLYCERIN 0.4 MG SL PER TAB CHARGE SL STA (22:31)
--- NOTE | 2017-12-17 22:40 | DIAGNOSTIC IMAGING REPORT ---
CHEST ONE VIEW PORTABLE CLINICAL HISTORY: Atypical chest pain COMPARISON STUDY: 04/12/2017 FINDINGS: The heart remains enlarged. There is mediastinal widening. There is no lobar consolidation. Mild pulmonary vascular congestion is suspected. There are no significant pleural effusions. There are postsurgical changes within the cervical spine.[ IMPRESSION: 1. Mild cardiomegaly 2. Mediastinal widening suspicious for adenopathy 3. No evidence of focal pulmonary consolidation 4. Suspected mild pulmonary vascular congestion Electronically signed by: Gonzalo Rivera M.D. 12/17/2017 10:39 PM Dictated Date/Time: 12/17/2017 10:33 PM
[2017-12-17 22:47] LABS: ALBUMIN 3.3 gm/dl (3.4-5.0); ALKALINE PHOSPHATASE 80 U/L (45-117); ALT/SGPT 20 U/L (12-78); AST/SGOT 29 U/L (15-37); BLOOD UREA NITROGEN 19 mg/dl (7-18); CALCIUM 8.7 mg/dl (8.5-10.1); CARBON DIOXIDE 23 mmol/L (21-32); CREATININE 1.39 mg/dl (0.60-1.40); SODIUM 134 mmol/L (136-145); TOTAL PROTEIN 7.5 gm/dl (6.4-8.2)
[2017-12-17 22:51] LABS: GLUCOSE 345 mg/dl (70-99)
[2017-12-17] MEDS ORDERED: MIDAZOLAM HCL 1 MG/ML 2ML VIAL ONE ×2 (22:52→23:33)
[2017-12-17] MEDS ORDERED: NITROGLYCERIN/D5W 100MCG/ML 20ML SYR ONE (22:53)
[2017-12-17] MEDS ORDERED: HEPARIN SOD (PORCINE) 1000 UNIT/ML 10 ML VIAL ONE (22:53)
[2017-12-17] MEDS ORDERED: FENTANYL CITRATE INJ 50 MCG/1 ML 2 ML VIAL ONE ×2 (22:53→23:33)
[2017-12-17] MEDS ORDERED: NiCARDipine HCL INJ 2.5 MG/ML 10 ML AMP ONE (22:53)
[2017-12-17] MEDS ORDERED: SILO8CAP PO (23:13)
[2017-12-17 23:15] LABS: ISTAT CREATININE 1.2 mg/dl (0.6-1.3); ISTAT IONIZED CALCIUM 1.12 mmol/l (1.12-1.32); ISTAT POTASSIUM 4.1 mEq/L (3.3-5.0)
[2017-12-17] MEDS ORDERED: SPIR25TA PO (23:15)
[2017-12-17] MEDS ORDERED: CYCL0.052 OP (23:18)
--- NOTE | 2017-12-17 23:44 | EMERGENCY ROOM VISIT NOTE ---
History Report prepared by [place]: Jose Galvez Under the Supervision of: Dr. Axel Moreno M.D. First contact with patient: 21:50 Chief Complaint: CHEST PAIN Stated Complaint: CHEST PAIN History of Present Illness The patient is an 87 year old male who presents to the Emergency Room with complaints of worsening shortness of breath beginning 6 weeks ago. The patient states his symptoms started 6 weeks ago and activity worsens his shortness of breath. He reports he has been using his inhalers, and they have not been working. The patient notes his symptoms worsened 3 weeks ago, and today was the worst of the three weeks. He states today he could not walk 25 feet without being extremely short of breath. The patient reports during this episode he experienced 10/10 chest pain in severity, and it spread down his arms. He notes he took four nitroglycerin tablets within 20 minutes, and it relieved his symptoms for about five minutes. The patient states this episode happened four hours ago, and he did not take more nitroglycerin until the ambulance arrived. The patient notes he was given four baby aspirin and one spray of nitroglycerin on his tongue when the ambulance arrived. The patient reports he has a history of 4 MIs and one stent placement. He notes he follow up with [facility]. The patient states he was evaluated by his consultant teacher last week and told he had to go to [facility] for aortic valve surgery. The patient notes he wears BIPAP at home to sleep. 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 The patient denies fevers, congestion, nausea, vomiting, and diarrhea. Source of History: patient Onset: 6 weeks ago Symptom Intensity: 10/10 Quality: other (SOB) Timing: worsening Modifying Factors (Worsening): other (activity) Modifying Factors (Relieving): other (nitroglycerin) Associated Symptoms: + chest pain, No fevers, No nausea, No vomiting, No diarrhea Note: Associated symptoms: arm pain, sweating, abdominal gas Denies: congestion Review of Systems See HPI for pertinent positives & negatives. A total of 10 systems reviewed and were otherwise negative. Past Medical & Surgical Medical Problems: (1) ACS (acute coronary syndrome) (2) BPH (benign prostatic hyperplasia) (3) CAD (coronary artery disease) (4) Chest pain (5) Chronic pancreatitis (6) COPD (chronic obstructive pulmonary disease) (7) Depression (8) Diabetes mellitus (9) Diabetic neuropathy (10) DM (diabetes mellitus), type 2, uncontrolled (11) Dyslipidemia (12) HTN (hypertension) (13) Hyperglycemia (14) VIC on CPAP (15) Pancreatitis (16) Peptic ulcer (17) PVD (peripheral vascular disease) (18) Sepsis Surgical Problems: (1) H/O rotator cuff surgery (2) History of carpal tunnel surgery (3) History of fusion of cervical spine (4) S/P right knee arthroscopy (5) S/P tonsillectomy and adenoidectomy (6) S/P TURP Family History Diabetes mellitus Social History Smoking Status: Former Smoker Alcohol Use: none Drug Use: none Marital Status: Housing Status: lives with family Occupation Status: retired Current/Historical Medications Scheduled Amlodipine (Norvasc), 2.5 MG PO HS Amoxicillin (Amoxil), 500 MG PO HS Aspirin (Aspirin Ec), 81 MG PO QPM Azelastine Hcl-Fluticasone Pro (Dymista), 1 SPRY BRANDIE QAM Cilostazol (Pletal), 100 MG PO BID Clopidogrel Bisulfate (Clopidogrel), 75 MG PO QPM Colestipol Hcl (Colestid), 1 GM PO QAM Cyclosporine (Ophth) (Restasis), 1 DROPS OP BID Escitalopram (Lexapro), 10 MG PO QAM Finasteride (Proscar), 5 MG PO QPM Furosemide (Lasix), 20 MG PO QAM Gabapentin (Neurontin), 300 MG PO QID Insulin Aspart (Novolog Flexpen), INJ TIDM Insulin Glargine (Lantus), 56 UNITS SC HS Isosorbide Mononitrate Ext Rel (Imdur Ext Rel), 120 MG PO QAM Losartan Potassium (Cozaar), 25 MG PO QAM Metoprolol Succ (Toprol Xl) (Toprol-Xl), 75 MG PO QPM Montelukast Sodium (Singulair), 1 TAB PO HS Pancrelipase (Lipase-Protease- (Creon), 1 CAP PO TID Pantoprazole (Protonix), 40 MG PO QAM Potassium Chloride (Micro-K Ext Rel), 10 MEQ PO QPM Ranolazine (Ranexa), 1 TAB PO BID Rivastigmine Tartrate (Exelon), 1 PATCH TOP QAM Ropinirole HCl (Ropinirole HCl), 0.25 MG PO HS Rosuvastatin Calcium (Crestor), 40 MG PO HS Silodosin (Rapaflo), 4 MG PO QPM Spironolactone (Aldactone), 25 MG PO DAILY Tamsulosin Hcl (Flomax), 0.4 MG PO 3XWEEK Tiotropium Allen-Olodaterol (Stiolto Respimat 2.5-2.5 Mcg/Act), 2 PUFFS INH QAM Scheduled PRN Albuterol Hfa (Ventolin Hfa), 2 PUFFS INH Q6H PRN for PRN Nitroglycerin (Nitrostat), 0.4 MG UT UD PRN for Chest Pain Tacrolimus (Topical) (Protopic), 1 APPLN TOP BID PRN for LEGS Allergies Coded Allergies: Clavulanic Acid (Verified Allergy, Intermediate, HIVES TO "BETA-LACTAMASE INHIBITORS", 12/17/17) Sulbactam (Verified Allergy, Intermediate, HIVES TO "BETA-LACTAMASE INHIBITORS", 12/17/17) Cilastatin (Verified Allergy, Mild, HIVES, 12/17/17) Imipenem (Verified Allergy, Mild, HIVES, 12/17/17) HAS HAD PENICILLIN W/O PROBLEM Adhesives (Verified Allergy, Unknown, BANDAIDS- SORE SKIN, 12/17/17) Cephalosporins (Verified Allergy, Unknown, HIVES, 12/17/17) Lovastatin (Verified Allergy, Unknown, hives, 12/17/17) Penicillins (Verified Allergy, Unknown, hives, 12/17/17) Morphine (Verified Adverse Reaction, Unknown, CONFUSED, 12/17/17) Physical Exam Vital Signs Date Time Temp Pulse Resp B/P (MAP) Pulse Ox O2 Delivery O2 Flow Rate FiO2 12/17/17 22:55 125/69 96 Room Air 12/17/17 22:50 118/73 12/17/17 22:46 139/75 12/17/17 22:45 97 26 95 Room Air 12/17/17 22:38 98 151/83 12/17/17 22:19 101 135/73 12/17/17 21:58 94 Room Air 12/17/17 21:55 103 12/17/17 21:51 94 Room Air 12/17/17 21:51 36.8 103 25 135/73 94 Room Air Physical Exam GENERAL: Patient is in no acute distress. HEENT: No acute trauma, normocephalic atraumatic, mucous membranes moist, no nasal congestion, no scleral icterus. NECK: No stridor, no adenopathy, no meningismus, trachea is midline. LUNGS: Clear to auscultation bilaterally, no wheeze, no rhonchi, breath sounds equal. HEART: 3/6 systolic murmur with a mildly tachycardic rate and regular rhythm. ABDOMEN: Soft, nontender, bowel sounds positive, no hernias, no peritonitis. EXTREMITIES: No cyanosis. Moderate bilateral pedal edema, full range of motion of all the joints without pain or difficulty, no signs for acute trauma. NEUROLOGIC: Oriented x 3, no acute motor or sensory deficits, no focal weakness. SKIN: No rash, no jaundice, no diaphoresis. Medical Decision & Procedures ER Provider Diagnostic Interpretation: X-ray results as stated below per interpretation by me and the radiologist: CHEST ONE VIEW PORTABLE CLINICAL HISTORY: Atypical chest pain COMPARISON STUDY: 04/12/2017 FINDINGS: The heart remains enlarged. There is mediastinal widening. There is no lobar consolidation. Mild pulmonary vascular congestion is suspected. There are no significant pleural effusions. There are postsurgical changes within the cervical spine.[ IMPRESSION: 1. Mild cardiomegaly 2. Mediastinal widening suspicious for adenopathy 3. No evidence of focal pulmonary consolidation 4. Suspected mild pulmonary vascular congestion Electronically signed by: Gonzalo Rivera M.D. 12/17/2017 10:39 PM Dictated Date/Time: 12/17/2017 10:33 PM Laboratory Results 12/17/17 21:50 12/17/17 21:50 Test 12/17/17 21:50 12/17/17 23:04 Red Blood Count 4.33 M/uL (4.7-6.1) Mean Corpuscular Volume 88.5 fL (80-100) Mean Corpuscular Hemoglobin 29.8 pg (25-34) Mean Corpuscular Hemoglobin Concent 33.7 g/dl (32-36) RDW Standard Deviation 49.9 fL (36.4-46.3) RDW Coefficient of Variation 15.4 % (11.5-14.5) Mean Platelet Volume 9.9 fL (7.4-10.4) Prothrombin Time 13.9 SECONDS (9.0-12.0) Prothromb Time International Ratio 1.3 (0.9-1.1) Activated Partial Thromboplast Time 35.7 SECONDS (21.0-31.0) Partial Thromboplastin Ratio 1.4 Est Creatinine Clear Calc Drug Dose 42.7 ml/min Estimated GFR () 52.8 Estimated GFR (Non- 45.6 BUN/Creatinine Ratio 13.7 (10-20) Calcium Level 8.7 mg/dl (8.5-10.1) Magnesium Level 1.7 mg/dl (1.8-2.4) Total Bilirubin 0.6 mg/dl (0.2-1) Aspartate Amino Transf (AST/SGOT) 29 U/L (15-37) Alanine Aminotransferase (ALT/SGPT) 20 U/L (12-78) Alkaline Phosphatase 80 U/L (45-117) Troponin I < 0.015 ng/ml (0-0.045) Total Protein 7.5 gm/dl (6.4-8.2) Albumin 3.3 gm/dl (3.4-5.0) Globulin 4.2 gm/dl (2.5-4.0) Albumin/Globulin Ratio 0.8 (0.9-2) Beta-Hydroxybutyric Acid 2.02 mg/dL (0.2-2.81) Bedside Hemoglobin 11.9 g/dl (14.0-18.0) Bedside Hematocrit 35 % (42-52) Bedside Sodium 137 mEq/L (135-144) Bedside Potassium 4.1 mEq/L (3.3-5.0) Bedside Chloride 100 mEq/L (101-112) Bedside Total CO2 22 mEq/l (24-31) Anion Gap 20.0 mmol/L (16-25) Bedside Blood Urea Nitrogen 22 mg/dl (7-18) Bedside Creatinine 1.2 mg/dl (0.6-1.3) Bedside Glucose (other) 391 mg/dl (70-99) Bedside Ionized Calcium (Roger) 1.12 mmol/l (1.12-1.32) Laboratory results reviewed by me. Medications Administered Medications (Trade) Dose Ordered Sig/Francine Route Start Time Stop Time Status Last Admin Dose Admin Nitroglycerin (Nitroglycerin 2% Oint) 2 inch NOW ONCE EXT 12/17/17 22:00 12/17/17 22:01 DC 12/17/17 22:04 2 INCH Metoprolol Tartrate (Lopressor Iv) 5 mg NOW STAT IV 12/17/17 22:19 12/17/17 22:20 DC 12/17/17 22:19 5 MG Nitroglycerin (Nitrostat Tab) 0.4 mg 2231 STAT SL 12/17/17 22:31 12/17/17 22:32 DC 12/17/17 22:31 0.4 MG Metoprolol Tartrate (Lopressor Iv) 2.5 mg NOW STAT IV 12/17/17 22:38 12/17/17 22:39 DC 12/17/17 22:38 2.5 MG Midazolam HCl (Versed Inj) 2 mg STK-MED ONCE .ROUTE 12/17/17 22:52 12/17/17 22:53 DC 12/17/17 22:52 3 MG Fentanyl Citrate (Fentanyl Inj) 100 mcg STK-MED ONCE .ROUTE 12/17/17 22:53 12/17/17 22:54 DC 12/17/17 22:53 125 MCG Heparin Sodium (Porcine) (Heparin Iv Bolus) 10,000 unit STK-MED ONCE .ROUTE 12/17/17 22:53 12/17/17 22:54 DC 12/17/17 22:53 8,000 UNIT Naloxone HCl (Narcan Inj) 0.4 mg STK-MED ONCE .ROUTE 12/17/17 23:45 12/17/17 23:46 DC 12/17/17 23:45 0.4 MG Furosemide (Lasix Inj) 40 mg STK-MED ONCE .ROUTE 12/17/17 23:47 12/17/17 23:48 DC 12/17/17 23:47 40 MG Nitroglycerin/ Dextrose (Nitroglycerin/ D5w 100 Mcg/Ml) 25 mg STK-MED ONCE .ROUTE 12/17/17 23:50 12/17/17 23:51 DC 12/17/17 23:50 25 MG ECG Per My Interpretation Indication: chest pain Rate (beats per minute): 103 Findings: ST depression (Primarily in the Lateral leads), other (No ST elevation or PVCs.) Comparison ECG Date: 04/13/17 Change: Change when compared to previous: ST depression is new and the rate has increased. Repeat EKG in the same visit because the patient was complaining of chest pain: Sinus tachycardia with a rate of 101. The ST depression in the lateral leads is slightly worse than the previous EKG this visit. No ST elevation or PVCs noted. ED Course 2151: The patient was evaluated in room C05. A complete history and physical exam was performed. 2199: Ordered Nitroglycerin 2 inch EXT 221: I received a call from the nurse. The patient was complaining of more chest pain. Another EKG was obtained. 2218: Ordered Lopressor 5mg IV 222: I discussed the patient's case with Dr. Otero, Cardiology. He states he will evaluate the patient and requested I call a HEART alert. 2226: A HEART alert was called. 2230: Ordered Nitroglycerin 0.4mg SL 223: Ordered Lopressor 2.5mg IV 2250: Dr. Otero is here and evaluating the patient. 230: The patient is on his way to the catheterization lab. 2305: I [facility] the [facility] The patient will be evaluated for further management and care. Medical Decision The patient is an 87 year old male who presents to the ED with complaints of worsening shortness of breath. Differential diagnoses considered include valvular heart disease, angina, IN, anemia, electrolyte imbalance, dysrhythmia, pneumonia or CHF. There is no leukocytosis. A mild anemia was noted. Renal panel testing shows a somewhat low magnesium at 1.7. No kidney failure. Sugar was elevated at around 350-this may be a stress reaction. No worrisome coagulopathy. Chest film showed some mediastinal fullness thought secondary to adenopathy. No pneumonia seen, no pneumothorax. EKG showed a sinus tachycardia with ST depressions laterally which were new. No evidence for acute ST elevation. A second EKG performed during the patient's stay showed worsening of the ST depression. Cardiac troponin did return normal, this was somewhat reassuring. As I was talking with the patient, he began developing worsening chest pain. He was given Nitropaste, 2 inches. He received IV Lopressor 5 mg and then 2.5 mg IV. He was eventually given a nitroglycerin sublingual. With the above treatment, his pain began to subside and he was feeling better. I discussed the case with the on-call consultant teacher. A heart alert was then called. Dr. Otero did evaluate the patient at the bedside. I discussed my findings and concerns with the family. I did speak with case management. [facility] Patient is on his way to the cardiac catheterization laboratory. He is suffering from an acute coronary syndrome. Medication Reconcilliation Current Medication List: was personally reviewed by me Blood Pressure Screening Patient's blood pressure: Elevated blood pressure Monitored by hospitalist. Consults Time Called: 2223 Consulting Physician: Dr. Otero, Cardiology Returned Call: 2225 I discussed the patient's case with Dr. Otero, Cardiology. He states he will evaluate the patient and requested I call a HEART alert. Additional Consults: Time Called: 2300 [facility] Return[facility] Call: [phone] Additional Comments: I discussed the patient's case with Jeremias Newsome. The patient will be evaluated for further management and care. Impression Primary Impression: ACS (acute coronary syndrome) Additional Impression: Precordial chest pain Critical Care I have personally spent greater than 45 minutes of critical care time in the direct management of this patient. This includes bedside care, interpretation of diagnostic studies, and testing, discussion with consultants, patient, and family members, and other required patient management activities. This 45 minutes is in excess of all separately billable procedures. Scribe Attestation The scribe's documentation has been prepared under my direction and personally reviewed by me in its entirety. I confirm that the note above accurately reflects all work, treatment, procedures, and medical decision making performed by me. Departure Information Dispostion Being Evaluated By Hospitalist Patient Instructions My [facility] Problem Qualifiers
[2017-12-17] MEDS ORDERED: NALOXONE HCL 0.4 MG/1 ML VIAL/CARP ONE (23:45)
[2017-12-17] MEDS ORDERED: FUROSEMIDE 40 MG/4 ML VIAL ONE (23:47)
[2017-12-17] MEDS ORDERED: NITROGLYCERIN/D5W 100 MCG/ML BTL ONE (23:50)
[2017-12-18] VITALS (35 sets, daily range): BP systolic 73–120; BP diastolic 47–69; PULSE 74–103; TEMP 36.3–36.8; O2SAT 88–98; Ht 170.2 cm; Wt 88.0 kg
[2017-12-18] MEDS ORDERED: NITROGLYCERIN/D5W 100 MCG/ML 250 ML IV SCH (00:15)
[2017-12-18] MEDS ORDERED: ICU PROTOCOL FOR HYPERGLYCEMIA PRN (00:15)
--- NOTE | 2017-12-18 00:21 | Critical Care Consultation ---
Critical Care Consultation Date of Consultation: December 18, 2017. Attending Physician: Dr. sAh Reason for Consultation: S/P Cardiac Catheterization History of Present Illness Sukh Benjamin is an 87yo male with significant past medical hx including COPD, CAD 1 DARYL to LAD, DM2 on insulin, recent diagnosis with Large B Cell Lymphoma with plans to tx with Rituxan and chemo. Pt presents to the hospital today secondary to acute worsening of shortness of breath and 10 out of 10 chest pain that radiated down both arms. Patient did attempt both his breathing regimen as well as for nitroglycerin. His chest pain resolved after about 5 minutes however shortness of breath has not improved. Patient arrived approximately 4 hours after this episode to the emergency department. He states that for the past 6 weeks his shortness of breath has been worsening and his COPD regimen has not relieved symptoms. Symptoms have worsened over the last 3 weeks. Patient was treated by his PCP 12/17 with azithromycin and prednisone taper. Patient was brought in via EMS at which point he did take 4 baby aspirin and nitroglycerin spray. Upon examination in the emergency room patient was found to have lateral lead ST depression with a negative troponin and was taken to the cardiac Feed Research Technician. Per discussion with Dr. Otero patient did have 2 lesions with approximately 80- 90% occlusion (prox circumflex and OM2) however; he felt that both vessels had good flow and no intervention was made. His findings were consistent with possible heart failure exacerbation. In addition to this patient did not tolerate the procedure laying flat and began to have increasing trouble breathing secondary to probable fluid overload. Hypoxia was noted with a saturation of 80% and was placed on 15 L of oxygen. Patient did receive IV Lasix, Narcan, IV nitroglycerin which did demonstrate improvement of oxygenation. Patient did undergo a right radial approach TR band remains in place. Oncology: Patient underwent lymph node biopsy on December 03 with diagnosis of stage III large B-cell lymphoma. He is currently following with Dr. Libia Ashley. Routine testing in preparation for Rituxan and chemotherapy came back with abnormalities to the hepatitis a and B panel. At this time further evaluation is outstanding to rule out active versus old infection. 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 He is thought to have a prior exposure to hep B and has developed immunity. Patient also appears to have immunity to hepatitis A without active infection. Multiple hepatitis serologies are still outstanding. Cardiology: Patient is followed by [facility] cardiology and typically sees Karsten Martinze. 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 In April 2006 he underwent stenting of the left anterior descending artery. Patient is also followed for hypertension and dyslipidemia. During his most recent appointment on 12/13 patient's Lasix was increased from 20 mg to 40 mg daily. Potassium chloride was discontinued and in its place patient was placed on a low dose spironolactone. Patient is thought to suffer from severe aortic valvular stenosis with prior echocardiogram demonstrating calcification. Cardiology had planned for patient to be seen by [facility] interventional list for consideration of transcatheter aortic valvular replacement. However there are concerns whether he is a candidate based on prosthetic joint infection requiring chronic antibiotic suppression. There is also future concern for whether the patient will continue to tolerate dual antiplatelet therapy during treatment for B-cell lymphoma. Most recent echocardiogram results are not available however echocardiography on April 13, 2017 showed normal LV chamber size with mild concentric LVH. LV systolic function was normal, EF 65 to 70%. There were no segmental left ventricular wall motion abnormalities. The aortic valve was described as heavily calcified with moderate aortic stenosis, without aortic regurgitation. Left atrium was noted to be mildly dilated. There was grade 1 diastolic dysfunction. Musculoskeletal/vascular: Patient was diagnosed in March 2016 here at [facility] with a septic right knee prosthetic. Since that point he has been on chronic suppressive therapy with amoxicillin. Patient also suffers from peripheral arterial disease with bilateral mid superficial femoral artery occlusion with good collateralization. Neurology Patient is followed by Whit Awan for mild Alzheimer's disease. Taking Requip and Exelon patch. She reports that he has difficulty with short-term memory and word finding. Last appointment was January 2017. The patient denies weight loss, fever, dizziness, headache, muscle weakness, numbness, change in vision, sore throat, chest pain, palpitations, awareness of tachyarrhythmias, shortness of breath, cough, nausea, vomiting, bloody stools, diarrhea, constipation, abdominal pain, other changes in urine or bowel habits. Past Medical/Surgical History Medical Problems: (1) ACS (acute coronary syndrome) (2) BPH (benign prostatic hyperplasia) (3) CAD (coronary artery disease) (4) Chest pain (5) Chronic pancreatitis (6) COPD (chronic obstructive pulmonary disease) (7) Depression (8) Diabetes mellitus (9) Diabetic neuropathy (10) DM (diabetes mellitus), type 2, uncontrolled (11) Dyslipidemia (12) HTN (hypertension) (13) Hyperglycemia (14) VIC on CPAP (15) Pancreatitis (16) Peptic ulcer (17) PVD (peripheral vascular disease) (18) Sepsis Surgical Problems: (1) H/O rotator cuff surgery (2) History of carpal tunnel surgery (3) History of fusion of cervical spine (4) S/P right knee arthroscopy (5) S/P tonsillectomy and adenoidectomy (6) S/P TURP Family History Diabetes mellitus Social History Smoking Status: Former Smoker (Spelled 4 packs per day for 30-40 years. Quit 1982) Alcohol Use: occasionally (Per patient prior heavy alcohol use one younger, now only occasional beer) Drug Use: none Marital Status: Housing Status: lives with family Occupation Status: retired Allergies Coded Allergies: Clavulanic Acid (Verified Allergy, Intermediate, HIVES TO "BETA-LACTAMASE INHIBITORS", 12/17/17) Sulbactam (Verified Allergy, Intermediate, HIVES TO "BETA-LACTAMASE INHIBITORS", 12/17/17) Cilastatin (Verified Allergy, Mild, HIVES, 12/17/17) Imipenem (Verified Allergy, Mild, HIVES, 12/17/17) HAS HAD PENICILLIN W/O PROBLEM Adhesives (Verified Allergy, Unknown, BANDAIDS- SORE SKIN, 12/17/17) Cephalosporins (Verified Allergy, Unknown, HIVES, 12/17/17) Lovastatin (Verified Allergy, Unknown, hives, 12/17/17) Penicillins (Verified Allergy, Unknown, hives, 12/17/17) Morphine (Verified Adverse Reaction, Unknown, CONFUSED, 12/17/17) Home Medications Scheduled Amlodipine (Norvasc), 2.5 MG PO HS Amoxicillin (Amoxil), 500 MG PO HS Aspirin (Aspirin Ec), 81 MG PO QPM Azelastine Hcl-Fluticasone Pro (Dymista), 1 SPRY BRANDIE QAM Cilostazol (Pletal), 100 MG PO BID Clopidogrel Bisulfate (Clopidogrel), 75 MG PO QPM Colestipol Hcl (Colestid), 1 GM PO QAM Cyclosporine (Ophth) (Restasis), 1 DROPS OP BID Escitalopram (Lexapro), 10 MG PO QAM Finasteride (Proscar), 5 MG PO QPM Furosemide (Lasix), 20 MG PO QAM Gabapentin (Neurontin), 300 MG PO QID Insulin Aspart (Novolog Flexpen), INJ TIDM Insulin Glargine (Lantus), 56 UNITS SC HS Isosorbide Mononitrate Ext Rel (Imdur Ext Rel), 120 MG PO QAM Losartan Potassium (Cozaar), 25 MG PO QAM Metoprolol Succ (Toprol Xl) (Toprol-Xl), 75 MG PO QPM Montelukast Sodium (Singulair), 1 TAB PO HS Pancrelipase (Lipase-Protease- (Creon), 1 CAP PO TID Pantoprazole (Protonix), 40 MG PO QAM Potassium Chloride (Micro-K Ext Rel), 10 MEQ PO QPM Ranolazine (Ranexa), 1 TAB PO BID Rivastigmine Tartrate (Exelon), 1 PATCH TOP QAM Ropinirole HCl (Ropinirole HCl), 0.25 MG PO HS Rosuvastatin Calcium (Crestor), 40 MG PO HS Silodosin (Rapaflo), 4 MG PO QPM Spironolactone (Aldactone), 25 MG PO DAILY Tamsulosin Hcl (Flomax), 0.4 MG PO 3XWEEK Tiotropium [place]-Olodaterol (Stiolto Respimat 2.5-2.5 Mcg/Act), 2 PUFFS INH QAM Scheduled PRN Albuterol Hfa (Ventolin Hfa), 2 PUFFS INH Q6H PRN for PRN Nitroglycerin (Nitrostat), 0.4 MG UT UD PRN for Chest Pain Tacrolimus (Topical) (Protopic), 1 APPLN TOP BID PRN for LEGS Review of Systems 12 systems reviewed and negative other than previously mentioned in the HPI. Physical Exam Date Time Temp Pulse Resp B/P (MAP) Pulse Ox O2 Delivery O2 Flow Rate FiO2 12/17/17 22:55 125/69 96 Room Air 12/17/17 22:50 118/73 12/17/17 22:46 139/75 12/17/17 22:45 97 26 95 Room Air 12/17/17 22:38 98 151/83 12/17/17 22:19 101 135/73 12/17/17 21:58 94 Room Air 12/17/17 21:55 103 12/17/17 21:51 94 Room Air 12/17/17 21:51 36.8 103 25 135/73 94 Room Air Vital Signs - as noted Laboratory Data - as noted Physical Exam: General - NAD, Bipap in place Eyes - PERRL, EOMI No icterus, gaze conjugate ENT - Mucosa dry, no lesions or candidiasis, dentures in place Neck - Supple, trachea midline, no masses or lymphadenopathy, no JVD Lungs - No paradoxical chest wall movement, Coarse bilaterally with diffuse rales, no wheezes or rhonchi Heart - Reg rate and rhythm, No murmur, rubs, clicks, or gallops appreciated Abdomen - BS present, no bruits noted, tympanic to percussion, soft, nontender, nondistended, no organomegaly Extremities -bilateral lower extremity edema right greater than left, pedal pulses intact Neuro - A&O x 4 Strength extremities equal and appropriate bilaterally Reflexes: Bicep, brachioradialis, patellar, and plantar normal and equal CN:PERRL, EOMI, no facial asymmetry, uvula/tongue midline Laboratory Results Last 24 Hours Test 12/17/17 21:50 12/17/17 23:04 White Blood Count 6.11 K/uL Red Blood Count 4.33 M/uL Hemoglobin 12.9 g/dL Hematocrit 38.3 % Mean Corpuscular Volume 88.5 fL Mean Corpuscular Hemoglobin 29.8 pg Mean Corpuscular Hemoglobin Concent 33.7 g/dl RDW Standard Deviation 49.9 fL RDW Coefficient of Variation 15.4 % Platelet Count 150 K/uL Mean Platelet Volume 9.9 fL Prothrombin Time 13.9 SECONDS Prothromb Time International Ratio 1.3 Activated Partial Thromboplast Time 35.7 SECONDS Partial Thromboplastin Ratio 1.4 Sodium Level 134 mmol/L Potassium Level 4.0 mmol/L Chloride Level 102 mmol/L Carbon Dioxide Level 23 mmol/L Anion Gap 9.0 mmol/L 20.0 mmol/L Blood Urea Nitrogen 19 mg/dl Creatinine 1.39 mg/dl Est Creatinine Clear Calc Drug Dose 42.7 ml/min Estimated GFR () 52.8 Estimated GFR (Non- 45.6 BUN/Creatinine Ratio 13.7 Random Glucose 345 mg/dl Calcium Level 8.7 mg/dl Magnesium Level 1.7 mg/dl Total Bilirubin 0.6 mg/dl Aspartate Amino Transf (AST/SGOT) 29 U/L Alanine Aminotransferase (ALT/SGPT) 20 U/L Alkaline Phosphatase 80 U/L Troponin I < 0.015 ng/ml Total Protein 7.5 gm/dl Albumin 3.3 gm/dl Globulin 4.2 gm/dl Albumin/Globulin Ratio 0.8 Beta-Hydroxybutyric Acid 2.02 mg/dL Bedside Hemoglobin 11.9 g/dl Bedside Hematocrit 35 % Bedside Sodium 137 mEq/L Bedside Potassium 4.1 mEq/L Bedside Chloride 100 mEq/L Bedside Total CO2 22 mEq/l Bedside Blood Urea Nitrogen 22 mg/dl Bedside Creatinine 1.2 mg/dl Bedside Glucose (other) 391 mg/dl Bedside Ionized Calcium (Roger) 1.12 mmol/l Diagnostic Results CHEST ONE VIEW PORTABLE CLINICAL HISTORY: Atypical chest pain COMPARISON STUDY: 04/12/2017 FINDINGS: The heart remains enlarged. There is mediastinal widening. There is no lobar consolidation. Mild pulmonary vascular congestion is suspected. There are no significant pleural effusions. There are postsurgical changes within the cervical spine.[ IMPRESSION: 1. Mild cardiomegaly 2. Mediastinal widening suspicious for adenopathy 3. No evidence of focal pulmonary consolidation 4. Suspected mild pulmonary vascular congestion Electronically signed by: Gonzalo Rivera M.D. 12/17/2017 10:39 PM Dictated Date/Time: 12/17/2017 10:33 PM Assessment & Plan (1) Chest pain (2) DM (diabetes mellitus), type 2, uncontrolled (3) Hyperglycemia (4) ACS (acute coronary syndrome) (5) COPD (chronic obstructive pulmonary disease) (6) Peptic ulcer (7) Diabetic neuropathy (8) BPH (benign prostatic hyperplasia) (9) Dyslipidemia (10) Chronic pancreatitis (11) HTN (hypertension) (12) Depression (13) PVD (peripheral vascular disease) (14) VIC on CPAP (15) CAD (coronary artery disease) PLAN: Neuro: * Dementia/mild Alzheimer's * Continue home medications * Disease stable per Neuro * Diabetic neuropathy * Continue gabapentin * Depression * Continue Lexapro * Patient may utilize his Exelon patches 1 patch daily Resp: * Respiratory insufficiency noted secondary to presumed acute heart failure * Patient currently on BiPAP settings 10/5 & 40% * COPD patient: Goal saturation greater than 88% * Respiratory regimen: DuoNeb order in place * Attempt to titrate off BiPAP * Chest x-ray if not tolerated * VIC: CPAP at home; encouraged to bring in home nasal CPAP CV: * Heart failure versus CAD * Will need to obtain echocardiogram results from earlier in the week * Continue on CPAP: Pressures of 8 * Continue home Lasix with increased dosage of 40 mg in addition to spironolactone * Will check cardiac enzymes including BNP * Trend troponin until it peaks * Titrate nitro glycerin infusion per contractor field hauling's recommendations * Adult weight-based heparin infusion when TR band is removed * Continue home medications including statin, Toprol XL, losartan, dual antiplatelet therapy (as blood pressure allows) * Monitor on telemetry * Full code in event of cardiac arrest Fluids/Renal: * Chronic kidney disease stage III * Creatinine currently appears to be at baseline * Daily PRP * Diez in place with adequate urinary output * Recent lasix administration * BPH * Continue home regimen ID: * Currently no indication for broad-spectrum antibiotics * Continue suppressive amoxicillin as documented in HPI for prior right knee septic prosthetic * Patient is afebrile, without leukocytosis, negative lactic acid and negative pro-calcitonin. * Monitor for signs of infection GI/Nutrition: * Chronic pancreatitis * Continue home regimen * Reviewed gastroenterology notes from December 23, 2009, was on Creon at that time , unclear of specific etiology of chronic pancreatitis however this appears to be long-standing * Gastric ulcers * Continue home Protonix * Recent abnormal hepatitis serologies * Appear to demonstrate immunity not active infection * Encourage patient to follow up on pending serologies Heme: * H&H: 12.9/38.3 * Check with daily labs * Coags per heparin infusion protocol * DVT prophylaxis: On heparin infusion Endocrine: * Type 2 diabetes on outpatient insulin hyperglycemic with glucose greater than 399 * Insulin infusion started * A1c pending * Per hospitalist note last A1c 7.5 * Check TSH with a.m. labs * Added random cortisol * , Report of recent steroid use however we cannot find conclusive evidence of this in the patient's medical record or prescription history Lymphoma: * Patient currently followed with Dr. Ahsley * No active treatment at this moment * Patient is concerned missing scheduled outpatient PET scan that is at 8:30 AM this morning. * We have contacted the cancer care center, patient will need to reschedule PET scan, placed routine consult for Dr. Ashley Access: Maintain at a minimum 2 peripheral IVs CCT: 80 Minutes; this includes chart review, discussion with providers, family and patient. This time is exclusive of all separately billable procedures. Thank you for involving us in the care of this patient. Please refer to Dr. Dougherty addendum for further recommendations. I have personally evaluated and examined this patient. I agree with assessment and plan of Marianela Smyth PA-C. Additions made to chart above, patient critically ill due acute exacerbation of ischemic heart disease with new lesion found on coronary angiography. Patient was discussed on multidisciplinary rounds as well as coordinating care with Dr. oRman of cardiology I have personally spent 30 minutes of critical care time in the direct management of this patient. This is a life/limb threatening event. This includes time spent evaluating patient, direct bedside care, chart review, placing orders, interpretation of diagnostic studies, discussion with consultants, patient, and/or family members regarding treatment decisions, as well as other required patient management activities. This time is exclusive of all separately billable procedures, and teaching time and separate from and in addition to any other critical care service time.
--- NOTE | 2017-12-18 00:21 | Pre Sedation Assessment ---
Pre Sedation Assessment General Date of Sedation: December 18, 2017. Vital Signs Past 12 Hours Date Time Temp Pulse Resp B/P (MAP) Pulse Ox O2 Delivery O2 Flow Rate FiO2 12/17/17 22:55 125/69 96 Room Air 12/17/17 22:50 118/73 12/17/17 22:46 139/75 12/17/17 22:45 97 26 95 Room Air 12/17/17 22:38 98 151/83 12/17/17 22:19 101 135/73 12/17/17 21:58 94 Room Air 12/17/17 21:55 103 12/17/17 21:51 94 Room Air 12/17/17 21:51 36.8 103 25 135/73 94 Room Air Review Cardiovascular: regular rate, rhythm, no edema Pre-Sedation Airway Assessment Smoking Status: Former Smoker Hx of Sleep Apnea: No Hx of difficult intubation: No Short Thick Neck: No Thyro-mental Distance: > 3 Finger Breadths Oral Cavity: WNL Mallampati Classification: Class III ASA Classification: Class IV Procedure Planning Contraindications for Sedation: None Current Medications Reviewed: Yes Notes The planned sedation has been discussed with the patient. Informed Consent was obtained. I have identified the patient, determined the appropriateness of sedation and have assessed the patient immediately prior to the procedure. All medicine(s) and interventions are by my order.
--- NOTE | 2017-12-18 00:21 | Post Sedation Assessment ---
Post Sedation Assessment General Date of Sedation December 18, 2017. Vital Signs: Vital Signs Past 12 Hours Date Time Temp Pulse Resp B/P (MAP) Pulse Ox O2 Delivery O2 Flow Rate FiO2 12/17/17 22:55 125/69 96 Room Air 12/17/17 22:50 118/73 12/17/17 22:46 139/75 12/17/17 22:45 97 26 95 Room Air 12/17/17 22:38 98 151/83 12/17/17 22:19 101 135/73 12/17/17 21:58 94 Room Air 12/17/17 21:55 103 12/17/17 21:51 94 Room Air 12/17/17 21:51 36.8 103 25 135/73 94 Room Air Post Procedure Recovery Score Activity: (2) Moves 4 extremities * Respiration: (2) Deep breath/cough Circulation: (2) +/-20% PreAnes Value Consciousness: (2) Fully Awake Oxygen Saturation: (2) > 92% On Room Air Post Anesthesia Score: 10 Discharge Sedation Level of Care: Fast Track Phase II Post Sedation Plan On clinical assessment, the patient appears to have tolerated the sedation without complications. Patient is recovering as anticipated. Patient will continue to be monitored by nursing and may be discharged when sedation discharge criteria are met per below protocol. Upon Completions of procedure and additional 15 minutes continue every 5 minute vital signs and the P.A.R. score; then discharge to a Phase I or Fast Track to Phase II per the following guidelines: * Discharge Patient to appropriate Phase II area if PAR is 8 or greater or return to pre- procedure baseline. The post - procedure orders will be as directed. * If PAR score is less than 8 or not return to pre-procedure baseline then patient will follow Phase I monitoring till PAR is reached for Phase II. The Phase I may be done in procedure room or may call to secure a Phase I area. * If naloxone or flumazenil are used for reversal, hold in Phase I for an additional 60 -120 minutes before discharge to Phase II. Please call the Sedation Physician to re-evaluate and complete post-note for discharge to Phase II area. Do NOT discharge from procedure sedation or Phase 1 until post- sedation evaluation note is complete by procedure /sedation MD Sedation Discharge Instructions to be given to the patient at discharge to home.
--- NOTE | 2017-12-18 00:30 | [facility] Post Operative Brief Note ---
Preliminary Procedure Note Procedure Date December 18, 2017. Pre-Procedure Diagnosis Acute Coronary Syndrome AUC Score 7 Post-Procedure Diagnosis Severe CAD, Elevated Intracardiac Pressures Procedure(s) Performed Coronary Angiography, Left Heart Cath Disease Case Manager Branden Desk Operator(s) Glunt Estimated Blood Loss 10 Medication(s) Fentanyl, Heparin, Nicardipine, Nitroglycerin, Versed, Adenosine Lasix, Narcan Preliminary Findings RCA FIRE SUPPRESSION CAPTAIN LAD moderate to severe disease Circumflex 80-90% proximal stenosis; 80% mid OM2 Elevated LVEDP 31 Peak to peak AV gradient 25 mmHg. Recommendations Medical therapy and/or Counseling Specimens None Drains None Anesthesia Moderate Procedural Complication(s) Respiratory failure requiring diuretics, nitro drip, narcan Disposition ICU
--- NOTE | 2017-12-18 01:02 | Cardiac Catheterization ---
Procedure Note Procedure Date December 18, 2017. Pre-Procedure Diagnosis Acute Coronary Syndrome AUC Score 8 Post-Procedure Diagnosis Severe CAD, Elevated Intracardiac Pressures Procedure(s) Performed Coronary Angiography, Left Heart Cath [employer] Branden Renal Social Worker(s) tomast Estimated Blood Loss 15 Medication(s) Fentanyl, Heparin, Nicardipine, Nitroglycerin, Versed, Lidocaine 1% Lasix, Narcan Summary of Findings Indication: Mr. Benjamin is an 87-year-old man with known coronary artery disease including chronically occluded RCA, prior stent to LAD in 2005 nonobstructive moderate disease in LAD/circumflex in 2016, moderate to severe aortic stenosis with weeks of progressive exertional dyspnea. Today developed persistent substernal chest pain for approximately 4 hours prior to presentation not relieved with sublingual nitroglycerin. Treated in the ED with topical nitrates, beta- blockers with continued to stuttering chest pain and new lateral ST depressions for which heart alert was activated. Access: 6 FR right radial artery Catheters: Jovanny, Bruno; JL 3 5 guide Findings: LM - short, calcified, 20-30 percent diffuse disease LAD - calcified, 30 percent ostial, 40 percent diffuse proximal disease, 50-60 percent focal mid segment disease, distal luminal irregularities as wraps around apex. Very small 1st diagonal with 90 percent proximal disease. Small 2nd diagonal with 70 percent ostial disease Circumflex - moderate caliber vessel, calcified, 80 90 percent focal proximal stenosis prior to takeoff of small diffusely diseased OM 1, 30 percent diffuse mid segment disease, moderate caliber OM2 with hazy 80 percent stenosis RCA - known to be occluded; fills to distal RCA via [id number] collaterals LVEDP - 31 Aortic valve peak to peak gradient 25 mmHg Arterial Closure: TR band Intra procedure patient became increasingly agitated requiring increasing sedation. Eventually became increasingly hypoxic with O2 sats in the low 80s on 15 liters of O2 and appeared to be an acute heart failure. Treated with IV Lasix, IV nitroglycerin, Narcan with improvement in oxygenation. Summary: 1. Severe multivessel coronary artery disease - LCX 80-90 percent proximal, 80 percent OM2 - LAD 50-60 percent mid - RCA with chronic total occlusion and distal vessel filling via left to right collaterals 2. Elevated intracardiac filling pressure. LVEDP 31 3. Moderate aortic stenosis. Aortic valve peak to peak gradient 25 mmHg Recommendations: Patient with severe new circumflex disease in comparison to previously described disease from cardiac catheterization in 2016. At present has CARLYN 3 flow in both LAD and circumflex, chest pain free and no indication for emergent PCI. In the setting of acute heart failure along with patient's complex medical history and comorbidities recommend medical management at this time. PCI of circumflex could be considered later in hospitalization when better compensated from a heart failure standpoint. For now patient to be transferred to ICU for continued monitoring. Trend troponin until peaks. Echo obtained as an outpatient earlier this week. Continue IV diuresis, IV nitroglycerin and BiPAP as needed for respiratory insufficiency Resume heparin infusion following removal of TR band Continue home aspirin/Plavix, antihypertensives and statin Further cardiac recommendations per [employer] cardiology in the a.m.. Hemodynamics Rest Ao: 117/64/89 Final Ao: 106/71/88 LV: 134/31 Recommendations Medical therapy and/or Counseling Specimens None Radiation Exposure (mGy) 812 Contrast (mls) 90 Fluids (cc crystalloids) 47 Drains None Anesthesia Moderate Procedural Complication(s) Respiratory failure requiring diuretics, nitro drip, narcan Disposition ICU ACC Data Cardiac Status Clinical evaluation leading to the procedure CAD Presntation: Non STEMI Anginal Classification: CCS IV Heart Failure: Yes, NYHA Class: CCS IV Cardiogenic Shock w/in 24Hrs: No Cardiac Arrest w/in 24Hrs: No Imaging studies past 6 months: Yes Stress studies past 6 months: No Closure Device Percutaneous Entry Location: Radial Closure Device: Radial Band Recommendations: Medical therapy and/or Counseling Intraprocedure Events Significant Dissection: No Perforation: No
[2017-12-18] MEDS ORDERED: INSULIN IV INFUSION PROTOCOL STA (01:32)
[2017-12-18 01:39] LABS: BLOOD UREA NITROGEN 22 mg/dl (7-18); CALCIUM 8.1 mg/dl (8.5-10.1); CARBON DIOXIDE 23 mmol/L (21-32); CREATININE 1.42 mg/dl (0.60-1.40); GLUCOSE 394 mg/dl (70-99); POTASSIUM 4.3 mmol/L (3.5-5.1); SODIUM 134 mmol/L (136-145)
[2017-12-18] MEDS ORDERED: INSULIN PROTOCOL GOAL RANGE ONE (01:45)
[2017-12-18] MEDS ORDERED: CARBOHYDRATES FOR HYPOGLYCEMIA PO PRN (01:45)
[2017-12-18] MEDS ORDERED: GLUCAGON FOR INJ 1 MG VIAL IM PRN (01:45)
[2017-12-18] MEDS ORDERED: DEXTROSE 50% 50 ML SYR IV PRN (01:45)
[2017-12-18] MEDS ORDERED: GLUCOSE 10 TABS/TUBE PO PRN (01:45)
[2017-12-18] MEDS ORDERED: GLUCOSE 40% GEL 15 GM TUBE PO PRN (01:45)
[2017-12-18] MEDS ORDERED: MODERATE STRESS LEVEL ONE (01:45)
[2017-12-18] MEDS ORDERED: ALBUTEROL HFA 8 GM INHALER INH PRN (02:00)
[2017-12-18] MEDS ORDERED: INSULIN REGULAR 250 UNITS in SODIUM CHLORIDE 0.9% 250ML 250 ML IV SCH (02:00)
[2017-12-18] MEDS ORDERED: NovoLIN R BOLUS FROM BAG IV ONE (02:00)
[2017-12-18 02:07] LABS: CKMB 6.8 ng/ml (0.5-3.6)
[2017-12-18] MEDS: HEPARIN 25,000 UNIT/500ML D5W 500 ML IV SCH ×2 (02:09→20:00)
--- NOTE | 2017-12-18 02:28 | History and Physical ---
History & Physical Date & Time of Service: December 18, 2017 at 01:15 Chief Complaint: ACS Primary Care Physician: Gen Tavera D.O. History of Present Illness Source: patient, family, clinic records, hospital records 87 year old male with PMH CAD, Dyslipidemia, type 2 DM, CKD stage 3, Aortic Valve stenosis, COPD, BPH, Stage 3 lymphoma presents to the Emergency Room with complaints of with substernal chest pain. Pt said that chest pain started few hours before coming to the ER. Described pain as a pressure like, 10/10 on severity and radiating to both shoulder. Received nitro in the ER with minimal help. Pt saw at his PCP office today for persistent cough associated with exertional SOB yesterday. He was given Azithromax and prednisone. He saw cardiology last week for worsening SOB. EKG in the ER showed new lateral ST depression. Heart alert was called and had urgent cardiac cath by Dr. Otero. During cardiac cath pt SOB got worst and was placed on 15L oxygen and lasix was given. Currently pt is in the ICU and denies any chest pain, palpitation, dizziness, fever. Past Medical/Surgical History Medical Problems: (1) ACS (acute coronary syndrome) (2) Bacteremia (3) BPH (benign prostatic hyperplasia) (4) CAD (coronary artery disease) (5) Cellulitis (6) Chest pain (7) Chronic pancreatitis (8) Constipation (9) COPD (chronic obstructive pulmonary disease) (10) Depression (11) Diabetes mellitus (12) Diabetic neuropathy (13) DM (diabetes mellitus), type 2, uncontrolled (14) Dyslipidemia (15) HTN (hypertension) (16) Hyperglycemia (17) Hyponatremia (18) Knee pain (19) VIC on CPAP (20) Pancreatitis (21) Peptic ulcer (22) Precordial chest pain (23) PVD (peripheral vascular disease) (24) Sepsis (25) Septic joint Surgical Problems: (1) H/O rotator cuff surgery (2) History of carpal tunnel surgery (3) History of fusion of cervical spine (4) S/P right knee arthroscopy (5) S/P tonsillectomy and adenoidectomy (6) S/P TURP Family History Diabetes mellitus Social History Smoking Status: Former Smoker Drug Use: none Marital Status: Housing status: lives with family Occupational Status: retired Immunizations History of Influenza Vaccine: Yes History of Tetanus Vaccine?: Yes History of Pneumococcal: Yes History of Hepatitis B Vaccine: No Allergies Coded Allergies: Clavulanic Acid (Verified Allergy, Intermediate, HIVES TO "BETA-LACTAMASE INHIBITORS", 12/17/17) Sulbactam (Verified Allergy, Intermediate, HIVES TO "BETA-LACTAMASE INHIBITORS", 12/17/17) Cilastatin (Verified Allergy, Mild, HIVES, 12/17/17) Imipenem (Verified Allergy, Mild, HIVES, 12/17/17) HAS HAD PENICILLIN W/O PROBLEM Adhesives (Verified Allergy, Unknown, BANDAIDS- SORE SKIN, 12/17/17) Cephalosporins (Verified Allergy, Unknown, HIVES, 12/17/17) Lovastatin (Verified Allergy, Unknown, hives, 12/17/17) Penicillins (Verified Allergy, Unknown, hives, 12/17/17) Morphine (Verified Adverse Reaction, Unknown, CONFUSED, 12/17/17) Home Medications Scheduled Amlodipine (Norvasc), 2.5 MG PO HS Amoxicillin (Amoxil), 500 MG PO HS Aspirin (Aspirin Ec), 81 MG PO QPM Azelastine Hcl-Fluticasone Pro (Dymista), 1 SPRY BRANDIE QAM Cilostazol (Pletal), 100 MG PO BID Clopidogrel Bisulfate (Clopidogrel), 75 MG PO QPM Colestipol Hcl (Colestid), 1 GM PO QAM Cyclosporine (Ophth) (Restasis), 1 DROPS OP BID Escitalopram (Lexapro), 10 MG PO QAM Finasteride (Proscar), 5 MG PO QPM Furosemide (Lasix), 20 MG PO QAM Gabapentin (Neurontin), 300 MG PO QID Insulin Aspart (Novolog Flexpen), INJ TIDM Insulin Glargine (Lantus), 56 UNITS SC HS Isosorbide Mononitrate Ext Rel (Imdur Ext Rel), 120 MG PO QAM Losartan Potassium (Cozaar), 25 MG PO QAM Metoprolol Succ (Toprol Xl) (Toprol-Xl), 75 MG PO QPM Montelukast Sodium (Singulair), 1 TAB PO HS Pancrelipase (Lipase-Protease- (Creon), 1 CAP PO TID Pantoprazole (Protonix), 40 MG PO QAM Potassium Chloride (Micro-K Ext Rel), 10 MEQ PO QPM Ranolazine (Ranexa), 1 TAB PO BID Rivastigmine Tartrate (Exelon), 1 PATCH TOP QAM Ropinirole HCl (Ropinirole HCl), 0.25 MG PO HS Rosuvastatin Calcium (Crestor), 40 MG PO HS Silodosin (Rapaflo), 4 MG PO QPM Spironolactone (Aldactone), 25 MG PO DAILY Tamsulosin Hcl (Flomax), 0.4 MG PO 3XWEEK Tiotropium Silas-Olodaterol (Stiolto Respimat 2.5-2.5 Mcg/Act), 2 PUFFS INH QAM Scheduled PRN Albuterol Hfa (Ventolin Hfa), 2 PUFFS INH Q6H PRN for PRN Nitroglycerin (Nitrostat), 0.4 MG UT UD PRN for Chest Pain Tacrolimus (Topical) (Protopic), 1 APPLN TOP BID PRN for LEGS Review of Systems Constitutional: No fever, No chills Eyes: No eye pain, No discharge ENT: No sore throat, No trouble swallowing Respiratory: + cough, + dyspnea on exertion Cardiovascular: + chest pain, No claudication, No palpitations Abdomen: No pain, No vomiting, No diarrhea Musculoskeletal: No calf pain Genitourinary - Male: + urinary retention Neurologic: No memory loss, No vertigo Psychiatric: No substance abuse Endocrine: No excessive thirst Hematologic / Lymphatic: No abnormal bleeding/bruising Integumentary: No rash, No itch Physical Exam Vital Signs Date Time Temp Pulse Resp B/P (MAP) Pulse Ox O2 Delivery O2 Flow Rate FiO2 12/18/17 00:40 102 94 40 12/17/17 23:55 99 20 120/67 (84) 93 Oxymask 10 12/17/17 23:50 101 20 137/79 (98) 91 Oxymask 15 12/17/17 23:45 106 20 112/63 (79) 91 Oxymask 15 12/17/17 22:55 125/69 96 Room Air 12/17/17 22:50 118/73 12/17/17 22:46 139/75 12/17/17 22:45 97 26 95 Room Air 12/17/17 22:38 98 151/83 12/17/17 22:19 101 135/73 12/17/17 21:58 94 Room Air 12/17/17 21:55 103 12/17/17 21:51 94 Room Air 12/17/17 21:51 36.8 103 25 135/73 94 Room Air General Appearance: + mild distress Head: normocephalic, atraumatic Eyes: normal inspection, EOMI ENT: hearing grossly normal Neck: no JVD, trachea midline Respiratory/Chest: no accessory muscle use, + pertinent finding (coarse BS) Cardiovascular: regular rate, rhythm, no JVD, + systolic murmur Abdomen/GI: normal bowel sounds, non tender Back: no CVA tenderness Extremities/Musculoskelatal: no calf tenderness, + swelling Neurologic/Psych: alert, normal mood/affect, oriented x 3 Skin: no rash Diagnostics Laboratory Results Results Past 24 Hours Test 12/17/17 21:50 12/17/17 23:04 12/18/17 00:49 12/18/17 01:01 Range/Units White Blood Count 6.11 4.8-10.8 K/uL Red Blood Count 4.33 4.7-6.1 M/uL Hemoglobin 12.9 14.0-18.0 g/dL Hematocrit 38.3 42-52 % Mean Corpuscular Volume 88.5 80-100 fL Mean Corpuscular Hemoglobin 29.8 25-34 pg Mean Corpuscular Hemoglobin Concent 33.7 32-36 g/dl RDW Standard Deviation 49.9 36.4-46.3 fL RDW Coefficient of Variation 15.4 11.5-14.5 % Platelet Count 150 130-400 K/uL Mean Platelet Volume 9.9 7.4-10.4 fL Prothrombin Time 13.9 9.0-12.0 SECONDS Prothromb Time International Ratio 1.3 0.9-1.1 Activated Partial Thromboplast Time 35.7 21.0-31.0 SECONDS Partial Thromboplastin Ratio 1.4 Sodium Level 134 136-145 mmol/L Potassium Level 4.0 3.5-5.1 mmol/L Chloride Level 102 98-107 mmol/L Carbon Dioxide Level 23 21-32 mmol/L Anion Gap 9.0 20.0 16-25 mmol/L Blood Urea Nitrogen 19 7-18 mg/dl Creatinine 1.39 0.60-1.40 mg/dl Est Creatinine Clear Calc Drug Dose 42.7 ml/min Estimated GFR () 52.8 Estimated GFR (Non- 45.6 BUN/Creatinine Ratio 13.7 10-20 Random Glucose 345 70-99 mg/dl Calcium Level 8.7 8.5-10.1 mg/dl Magnesium Level 1.7 1.8-2.4 mg/dl Total Bilirubin 0.6 0.2-1 mg/dl Aspartate Amino Transf (AST/SGOT) 29 15-37 U/L Alanine Aminotransferase (ALT/SGPT) 20 12-78 U/L Alkaline Phosphatase 80 45-117 U/L Troponin I < 0.015 0-0.045 ng/ml Total Protein 7.5 6.4-8.2 gm/dl Albumin 3.3 3.4-5.0 gm/dl Globulin 4.2 2.5-4.0 gm/dl Albumin/Globulin Ratio 0.8 0.9-2 Beta-Hydroxybutyric Acid 2.02 0.2-2.81 mg/dL Bedside Hemoglobin 11.9 14.0-18.0 g/dl Bedside Hematocrit 35 42-52 % Bedside Sodium 137 135-144 mEq/L Bedside Potassium 4.1 3.3-5.0 mEq/L Bedside Chloride 100 101-112 mEq/L Bedside Total CO2 22 24-31 mEq/l Bedside Blood Urea Nitrogen 22 7-18 mg/dl Bedside Creatinine 1.2 0.6-1.3 mg/dl Bedside Glucose (other) 391 70-99 mg/dl Bedside Ionized Calcium (Roger) 1.12 1.12-1.32 mmol/l Bedside Glucose 405 70-99 mg/dl Diagnostic Radiology CHEST ONE VIEW PORTABLE CLINICAL HISTORY: Atypical chest pain COMPARISON STUDY: 04/12/2017 FINDINGS: The heart remains enlarged. There is mediastinal widening. There is no lobar consolidation. Mild pulmonary vascular congestion is suspected. There are no significant pleural effusions. There are postsurgical changes within the cervical spine.[ IMPRESSION: 1. Mild cardiomegaly 2. Mediastinal widening suspicious for adenopathy 3. No evidence of focal pulmonary consolidation 4. Suspected mild pulmonary vascular congestion Electronically signed by: Gonzalo Rivera M.D. 12/17/2017 10:39 PM Dictated Date/Time: 12/17/2017 10:33 PM Impression Assessment and Plan Chest pain EKG on admission showed ST depression Troponin negative on admission Received IV nitro S/p urgent cardiac cath performed by Dr. Otero No emergent PCI Cardiac cath showed - Severe multivessel coronary artery disease - LCX 80-90 percent proximal, 80 percent OM2 - LAD 50-60 percent mid - RCA with chronic total occlusion and distal vessel filling via left to right collateral Recently had an echo done last week Case discussed with Dr. Otero recommended to continue IV nitro Starting heparin drip after the removal TR band Continue home aspirin/Plavix,, beta jane and statin check troponin and repeat EKG Consult cardiology Continue monitor in the ICU for now ECHO on 12/16/17 The examination is adequate to evaluate the referral indication. The qualitative LV ejection fraction is 6569% (normal). The LV wall thickness is mildly increased (concentric). The left ventricular diastolic function is mildly abnormal (grade I). The aortic valve is moderately calcified. Moderate aortic valve stenosis is present. Mild mitral regurgitation is present. Compared to prior study of 09/30/2017, there is no significant change. Moderate Aortic Stenosis Plan to see interventional cardio at [facility] for eval DM type 2 Most recent Hba1c 7.5 On lantus 56 unit daily at home Will put on insulin sliding scale Monitor BS closely CKD stage 3 Creatine stable BPH Continue flomax and proscar Cough COPD Seen PCP yesterday Was starting on Zithromax and prednisone Will hold prednisone for now due to ACS Will start on duoneb SOB Possible related to acute CHF Received IV lasix Continue lasix for now and Bipap HTN BP in the low side Monitor BP closely If BP stays low, will hold HTN med such as amlodipine and losartan B Cell Lymphoma Recently diagnosed Follow with oncology Dr. Dion Su Continue Lexapro Stable DVT px on Heparin drip CODE Status Full code Disposition Monitor in the ICU Resuscitation Status VTE Prophylaxis Will order VTE Prophylaxis: Yes
[2017-12-18 06:27] LABS: HEMOGLOBIN A1C 7.4 % (4.5-5.6)
[2017-12-18] MEDS: PANCREAZE (LIPASE 10,500U) CAP PO SCH ×3 (07:46→16:33)
[2017-12-18] MEDS: SPIRONOLACTONE 25 MG TAB PO SCH (07:46)
[2017-12-18] MEDS: LOSARTAN POTASSIUM 25 MG TAB PO SCH (07:47)
[2017-12-18] MEDS: ESCITALOPRAM OXALATE 10 MG TAB PO SCH (07:47)
[2017-12-18] MEDS: PANTOprazole SOD 40 MG TAB PO SCH (07:47)
[2017-12-18] MEDS: GABAPENTIN 300 MG CAP PO SCH ×4 (07:47→20:53)
[2017-12-18] MEDS: FUROSEMIDE 40 MG TAB PO SCH (07:47)
[2017-12-18] MEDS: INSULIN ASPART 100 UNITS/ML 3 ML PEN SC SCH ×5 (08:00→23:36)
[2017-12-18] MEDS ORDERED: FUROSEMIDE 20 MG TAB PO SCH (09:00)
[2017-12-18 09:03] LABS: PTT PATIENT 53.8 SECONDS (21.0-31.0)
[2017-12-18] MEDS: COLESTIPOL HCL 1 GM TAB PO SCH (10:15)
[2017-12-18] MEDS ORDERED: PHARMACY GLYCEMIC MGMT CONSULT PRN (10:45)
--- NOTE | 2017-12-18 11:22 | ECHOCARDIOGRAM REPORT ---
*NOTICE TO RECEIVING CONSTITUTION PARTY AGENCY This information is strictly Confidential and protected under [place] law. [place] law prohibits you from making any further disclosure of this information unless further disclosure is expressly permitted by the written consent of the person to whom it pertains or is authorized by law. A general authorization for the release of medical or other information is not sufficient for this purpose. Hospital accepts no responsibility if the information is made available to any other person, INCLUDING THE PATIENT. Interpretation Summary * Name: CODIE DUMONT Study Date: 12/18/2017 09:46 AM BP: 106/58 mmHg * Patient Location: .MSICU\S\E104\S\1 HR: 77 * : 1930 (M/d/yyyy) Gender: Male Height: 67 in * Age: 87 yrs Ethnicity: [place] Weight: 205 lb * Ordering Physician: Raleigh Roman * Referring Physician: Self, Referred * Performed By: Jaqueline Reid [facility] * * Reason For Study: ASSESS WALL FUNCTION * BSA: 2.0 m2 * -- Conclusions -- * No significant change in wall motion or systolic function compared to previous studies. * Normal LV chamber size with moderate concentric LVH. * Normal LV systolic function, EF 60-65%. * No segmental left ventricular wall motion abnormalities are noted. Procedure Details * Limited views were obtained. Left Ventricle * The left ventricle is normal in size. * There is moderate concentric left ventricular hypertrophy. * Left ventricular systolic function is normal. * No segmental left ventricular wall motion abnormalities are noted. * Ejection Fraction = 60-65%. MMode 2D Measurements and Calculations IVSd 1.5 cm IVSs 1.7 cm LVIDd 4.4 cm LVIDs 3.4 cm LVPWd 1.5 cm LVPWs 1.7 cm IVS/LVPW 1.0 FS 23.3 % EDV(Teich) 87.1 ml ESV(Teich) 46.3 ml EF(Teich) 46.8 % EDV(cubed) 84.4 ml ESV(cubed) 38.2 ml EF(cubed) 54.8 % % IVS thick 12.3 % % LVPW thick 16.0 % LV mass(C)d 258.1 grams LV mass(C)dI 126.3 grams/m\S\2 LV mass(C)s 222.0 grams LV mass(C)sI 108.7 grams/m\S\2 SV(Teich) 40.8 ml SI(Teich) 19.9 ml/m\S\2 SV(cubed) 46.3 ml SI(cubed) 22.6 ml/m\S\2 LA dimension 3.5 cm LVOT diam 2.0 cm LVOT area 3.1 cm\S\2
[2017-12-18] MEDS ORDERED: INSULIN GLARGINE SOLOSTAR 100 UNITS/ML 3 ML PEN SC ONE ×3 (11:30→21:00)
--- NOTE | 2017-12-18 11:45 | Pharmacy Progress Note ---
Glycemic Control Intl Consult Date of Service December 18, 2017. Scope Glycemic Pharmacist consulted by Dr Dougherty on 12/18 for glycemic control and to write orders per [facility] inpatient glycemic control protocol Objective Weight (Kilograms): 93.000 Accuchecks BSG (last 24hrs): Test 12/17/17 21:50 12/18/17 00:49 12/18/17 01:01 12/18/17 03:02 Random Glucose 345 mg/dl (70-99) 394 mg/dl (70-99) Bedside Glucose 405 mg/dl (70-99) 345 mg/dl (70-99) Test 12/18/17 03:57 12/18/17 05:16 12/18/17 05:56 12/18/17 06:56 Bedside Glucose 326 mg/dl (70-99) 317 mg/dl (70-99) 284 mg/dl (70-99) 274 mg/dl (70-99) Test 12/18/17 07:53 12/18/17 09:02 12/18/17 10:01 Bedside Glucose 222 mg/dl (70-99) 228 mg/dl (70-99) 186 mg/dl (70-99) Laboratory Data (last 24hrs) Test 12/17/17 21:50 12/17/17 23:04 12/18/17 01:01 12/18/17 04:10 Anion Gap 9.0 mmol/L 20.0 mmol/L 8.0 mmol/L BUN/Creatinine Ratio 13.7 15.8 Blood Urea Nitrogen 19 mg/dl 22 mg/dl Creatinine 1.39 mg/dl 1.42 mg/dl Potassium Level 4.0 mmol/L 4.3 mmol/L Sodium Level 134 mmol/L 134 mmol/L White Blood Count 6.11 K/uL Hemoglobin A1c 7.4 % HbA1c Test 12/18/17 04:10 Hemoglobin A1c 7.4 % (4.5-5.6) H Recent Pertinent Medications Outpatient Anti-diabetic Regimen: * Lantus 56 units SC HS * Novolog TIDM (per patient, takes 11 units with meals and does not count CHO) * A1c = 7.4 % on 12/18/17 The patient is currently receiving: * Insulin drip - was titrating up since initiation last night 2.8, 3.1, 4.1, 5.9 , 7.1, then 9.9 units/hr. BSG's now responded, last ~120 mg/dL. Holding x30 minutes per protocol. Risk Factors for Insulin Resistance: * Infection: chronic knee infection (?prophylaxis) - on amoxicillin as outpatient * Recent Surgery: Cardiac catheterization overnight 12/17 to 12/18 * Diet: T2DM Assessment & Plan ASSESSMENT: * 87 yo M admitted 2nd ACS s/p cardiac cath overnight last night, currently in ICU. * Insulin drip initiated last night for BSG > 400 mg/dL. BSG's have trended down, but insulin drip was most recently running at 9.9 units/hr. Anticipate insulin sensitivity to increase and do not anticipate drip will remain at close to 10 units/hr (especially as plan to increase goal range) * Spoke with patient while family present - confirmed home dose of Lantus was 56 units HS. Patient also reports he takes Novolog 11 units TIDM (does not CHO count). He notes he did not take his PM Lantus yesterday before arrival * Lantus dose: moderate stress of total daily outpatient dose recommended 58 units Lantus. However, will increase this dose 2nd the following: * This dose is only 2 units above outpatient dose (and patient with increased physiologic stress) * Missed Lantus dose last night thus increased basal deficiency * Insulin drip most recently running at 9.9 units/hr (prior was 5.9 units/hr) * Selected Lantus dose of 70 units (this is 14 units less than severe stress of total daily outpatient dose which is appropriate for a patient not on steroids) * Unclear if this dose of Lantus will be enough to transition patient off of insulin drip * Parameters for discontinuation of insulin drip * Minimum of 4 hour overlap * Drip running at less than 2 units/hr * BSG less than 180 mg/dL x2 * Anticipate insulin drip will likely be able to be discontinued later today as rates have been trending down nicely after Lantus administration * Will initiate Novolog at slightly tighter than weight-based stress of 2 ( slightly tighter 2nd significant outpatient insulin doses), and add in 2 overnight BSG checks PLAN FOR INPATIENT GLYCEMIC CONTROL: * Continue IV insulin infusion per moderate/severe stress protocol - likely to discontinue today by 1600 * Increase Goal Range 120 - 180 mg/dl * In the critical care setting, continuous IV insulin infusion has been shown to be the best method for achieving glycemic targets. * Basal insulin with LANTUS 70 units SQ x1 (administered at 1115) then * Additional 10 units tonight for BSG 140-180 mg/dL or 15 units for BSG greater than 180 mg/dL * Ongoing Lantus to be determined based on trend in BSG's overnight * NOVOLOG ACHS with 2 overnight checks, starting @ 1600 tonight (assuming insulin drip has been stopped) * Goal range 120-160 mg/dL * Correction factor: 20 mg/dL/unit * Carb ratio: 1 unit for every 7 g CHO consumed * Please note that the plan above was derived based on current level of insulin resistance and hospital stress. These recommendations are appropriate for inpatient admission only. Plan of care upon discharge will need to be reassessed to avoid potential outpatient hypo/hyperglycemia. Thank you.
--- NOTE | 2017-12-18 12:22 | CARDIOLOGY CONSULTATION ---
DATE OF CONSULTATION: 12/18/2017 CONSULTATION REQUESTED BY: Dr. Ash REASON FOR CONSULTATION: Non-ST segment elevation myocardial infarction. HISTORY OF PRESENT ILLNESS: Mr. Benjamin is a very pleasant, yet very medically complex, 87-year-old gentleman who normally follows with [facility] practice including myself, Dr. Lemus, and Karsten Martinez PA-C. He presented to [facility] late in the evening of 12/17/2017 with a complaint of chest pain and shortness of breath. The patient states he was in his normal state of health yesterday and had dinner around 6:00 at night. Afterwards, he went to the restroom as per his usual routine. He do not have a bowel movement, but he notes that when he was sitting on the toilet, he became very lightheaded and became short of breath at rest. He then walked from the restroom to his recliner and was significantly short of breath and once he sat down, he noticed he was developing chest discomfort. He described it as a severe pressure sensation that started in his mid substernal area and radiated across his precordium and down both arms to both elbows. He notes that these are the exact same symptoms he had prior to his LAD stent several years ago. At that time, he took 2 sublingual nitroglycerin with some benefit. He notes that the chest discomfort improved, but the shortness of breath was unchanged. Then after several moments more, the chest discomfort came back, he took 2 more nitro, and again had the same reaction. He then states that he just sat there until approximately 9:00 at night, trying to tough out his symptoms, however at that point, he was unable to tolerate them anymore and EMS was called. He was given nitro and 4 baby aspirin en route. Upon arrival to the Emergency Department, he was found to have significant lateral ST segment depressions. The case was discussed with Dr. Otero of interventional cardiology, a heart alert was called. The patient received IV Lopressor totalling 7.5 mg IV in the ER and he was taken to the cardiac catheterization lab. In the laboratory worker, the patient was found to have a new circumflex and OM2 lesion. Unfortunately, during the catheterization, the patient also became significantly short of breath and developed respiratory distress. He was given nitro and Lasix. His symptoms resolved, but intervention was aborted and was transported to the intensive care unit. The patient states that since arriving to the intensive care unit, he has been feeling great. He has had no more chest discomfort, no more shortness of breath, and actually slept well last night. Currently, he is resting without complaint. Of note, the patient's recent clinical course includes being diagnosed with B-cell lymphoma for which he was seen by oncology and treatment was initiated. He has also been seen closely in our office and was seen by Dr. Lemus on 12/13/2017, at which time his most recent echocardiogram was reviewed and deemed that his aortic stenosis was likely severe and that correlated with the symptoms he was having of ongoing dyspnea with exertion. At that time, a plan was placed to refer him to our valve clinic for possible TAVR evaluation, but obviously that evaluation has not taken place yet. PAST SURGICAL HISTORY: 1. PCI to the LAD in 2005. 2. Most recent cardiac catheterization in May 2016 in the setting of chest discomfort and non-ST segment elevation MA, revealed moderate nonobstructive CAD including 50% circumflex, 50-60% mid LAD, and chronic 100% proximal RCA. Medical management was undertaken at that time. 3. 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 4. Prostate biopsy. 5. Colonoscopy. 6. Upper endoscopy. 7. TURP. 8. Lumbar spinal fusion. 9. Cholecystectomy. 10. Carpal tunnel surgery. 11. Cataract surgery. 12. Sinus surgery. MEDICAL ILLNESSES: 1. Coronary artery disease. 2. Diastolic dysfunction with normal LV systolic function. 3. Possibly severe aortic stenosis. 4. Recently diagnosed B-cell lymphoma. 5. Peripheral arterial disease with bilateral mid superficial femoral artery occlusions with good collateralizations, on conservative management. 6. Carotid occlusive disease. 7. Severe obstructive sleep apnea, on nocturnal BiPAP. 8. Hypertension. 9. Diabetes. 10. Diabetic neuropathy. 11. Stage III chronic kidney disease. 12. COPD. 13. Alzheimer's-type dementia. FAMILY HISTORY: Noncontributory. SOCIAL HISTORY: The patient has a remote tobacco use history, quit in 1982. Denies any alcohol or recreational drug use. He is and lives at home with his . 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 REVIEW OF SYSTEMS: As per HPI. All review of systems reviewed and negative at this time. ALLERGIES: 1. CEPHALOSPORINS. 2. MEVACOR. MEDICATIONS AN OUTPATIENT: 1. Aspirin 81 mg daily. 2. Plavix 75 mg daily. 3. Pletal 100 mg b.i.d. 4. Lasix 40 mg daily. 5. Imdur 120 mg daily. 6. Losartan 25 mg daily. 7. Ranexa 500 mg daily. 8. Toprol-XL 150 mg daily. 9. Flomax Saturday, Saturday, Fridays. 10. Spironolactone 12.5 mg daily. 11. Crestor 40 mg daily. 12. Requip daily. 13. Recent prescription for prednisone. 14. Recent prescription for azithromycin. 15. Amoxicillin 500 mg daily. 16. Lexapro daily. 17. Exelon patch. 18. Neurontin. 19. Insulin as directed. PHYSICAL EXAMINATION: VITALS: Temperature 36.5, pulse 82, respiratory rate 12, blood pressure 106/58, currently saturating 92% on 4 L nasal cannula. GENERAL: Awake, alert, oriented x3, in no acute distress. HEENT: Normocephalic, atraumatic. Pupils equal, round, reactive to light and accommodation. Extraocular muscles intact. Anicteric sclerae. Moist mucous membranes. NECK: No JVD, no bruit. CARDIOVASCULAR: Regular. Positive S4. Normal S1, S2 is not present. Soft 3/6 mid to late systolic ejection murmur at the right sternal border, second intercostal space with radiation to bilateral carotids. Unable to appreciate any left apex musical murmurs, no rubs. PULMONARY: Diffuse rhonchi. No rales or wheezing. ABDOMEN: Bowel sounds x4, soft. No rebound, guarding, or tenderness. No organomegaly. EXTREMITIES: No clubbing, cyanosis, or edema. +2 pedal pulses bilaterally. SKIN: Warm and dry. TEST RESULTS: Cardiac catheterization showed severe multivessel coronary artery disease with the circumflex 80-90% proximal lesion and 80% OM2 lesion, LAD 50-60%, mid RCA with chronic total occlusion and distal filling via left to right collaterals, elevated intracardiac filling pressure with an LVEDP of 31, moderate aortic stenosis with an aortic valve [id number] gradient of 25 mmHg. Chest x-ray performed on 12/17/2017 read as mild cardiomegaly and mediastinal widening, suspicious for adenopathy, no evidence of focal pulmonary consolidation, suspected mild pulmonary vascular congestion. LABORATORY STUDIES OF SIGNIFICANCE: Sodium 134, potassium 4.3, BUN 22, creatinine 1.4, random glucose of 394. Troponin initially negative. A repeat at 4:00 a.m. was 3.1. IMPRESSION: 1. Non-ST segment elevation myocardial infarction including de sharri lesions of the circumflex and OM2. 2. Chronic coronary artery disease including [employer] of the RCA filled via collaterals and a mid 50-60% LAD lesion. 3. Aortic stenosis. 4. Recently diagnosed B-cell lymphoma, initiating treatment. 5. Diastolic dysfunction with normal LV systolic function. 6. Stage III chronic kidney disease. RECOMMENDATIONS: It was my pleasure to see Mr. Benjamin in consultation today. Given the current clinical context, I believe the most immediate issue is the patient's new lesions of his circumflex and possibly OM2. Given the acute symptoms that the patient experienced along with his new EKG changes and troponin elevation, I do believe that our primary goal should be intervention to these lesions and then we can continue further workup of his chronic condition including his lymphoma and aortic stenosis down the road. So at this time, the patient has already been started on heparin drip. His aspirin, Plavix, and all other outpatient medications have been continued, which I agree with and we will try to hold his losartan to follow his renal function. He has been given p.o. Lasix this morning, and I will reevaluate him clinically this afternoon to see if another dose is necessary in order to medically optimize him for possible planned intervention tomorrow. The above plan was discussed with the patient at great lengths. He states he understands and agrees with the plan and wishes to proceed. Further discussion will be had with his family once they are available at the bedside. The patient will remain in the intensive care unit.
--- NOTE | 2017-12-18 12:24 | Progress Note ---
Internal Med Progress Note Date of Service: December 18, 2017. Provider Documentation: SUBJECTIVE: Seen and examined at bedside Chest pain resolved Currently off NTG ggt, BP better Reports dry cough Dyspnea is improving Also denies dizziness, nausea, abd pain OBJECTIVE: Vital Signs-as noted below Physical Exam: Vitals signs as noted above General Appearance:Moderately built and nourished, no apparent distress Head: normocephalic, Atraumatic Eyes: normal inspection, EOMI, PERRL Neck: supple, Trachea midline Respiratory/Chest: coarse breath sounds, +Rhonchi Cardiovascular: S1, S2, +systolic murmur Abdomen/GI:Soft, Non tender, Bowel sounds present Extremities/Musculoskelatal:normal inspection, Trace b/l pedal edema Neurologic/Psych:AAOX3, grossly no focal neurological deficits Skin: normal color, warm Lab data as noted below. ASSESSMENT & PLAN: NSTEMI: Moderate Aortic Stenosis: S/P cardiac cath: Severe multivessel disease Plan for possible PCI of lesions of the circumflex and OM2. Off Nitro ggt Continue Heparin ggt Continue Aspirin, Plavix, Statins, Metoprolol, Imdur Appreciate Cardiology Input ECHO as below Diuretics as able for pulmonary vascular congestion DM II Most recent Hba1c 7.5 Continue Insulin ggt Monitor BGs Pharmacy consulted for Glycemic management CKD III: hold Losartan monitor renal function Avoid Nephrotoxic agents as able BPH Continue flomax, proscar COPD Cough likely secondary to pulmonary vascular congestion CXR: no signs of consolidation Hold Zithromax and prednisone started by PCP recently DuoNeb, diuretics as able monitor HTN stable continue current meds monitor B Cell Lymphoma Recently diagnosed Follow with oncology Dr. Ashley Depression Continue Lexapro Stable DVT px: on Heparin drip CODE Status: Full code Disposition Monitor in the ICU PROCEDURES: ECHO: No significant change in wall motion or systolic function compared to previous studies. * Normal LV chamber size with moderate concentric LVH. * Normal LV systolic function, EF 60-65%. * No segmental left ventricular wall motion abnormalities are noted. Cardiac Cath: Summary: 1. Severe multivessel coronary artery disease - LCX 80-90 percent proximal, 80 percent OM2 - LAD 50-60 percent mid - RCA with chronic total occlusion and distal vessel filling via left to right collaterals 2. Elevated intracardiac filling pressure. LVEDP 31 3. Moderate aortic stenosis. Aortic valve peak to peak gradient 25 mmHg Recommendations: Patient with severe new circumflex disease in comparison to previously described disease from cardiac catheterization in 2016. At present has CARLYN 3 flow in both LAD and circumflex, chest pain free and no indication for emergent PCI. In the setting of acute heart failure along with patient's complex medical history and comorbidities recommend medical management at this time. PCI of circumflex could be considered later in hospitalization when better compensated from a heart failure standpoint. For now patient to be transferred to ICU for continued monitoring. Trend troponin until peaks. Echo obtained as an outpatient earlier this week. Continue IV diuresis, IV nitroglycerin and BiPAP as needed for respiratory insufficiency Resume heparin infusion following removal of TR band Continue home aspirin/Plavix, antihypertensives and statin Vital Signs: Date Time Temp Pulse Resp B/P (MAP) Pulse Ox O2 Delivery O2 Flow Rate FiO2 12/19/17 06:00 73 19 100/53 (69) 93 12/19/17 05:00 69 19 107/66 (83) 92 12/19/17 04:00 64 21 106/56 (75) 94 12/19/17 04:00 92 CPAP 4.0 12/19/17 04:00 36.4 12/19/17 03:01 69 17 96/47 (64) 92 12/19/17 02:00 68 20 98/56 (78) 95 12/19/17 01:00 73 21 97/54 (73) 92 12/19/17 00:01 36.9 12/19/17 00:00 75 21 101/49 (59) 91 12/18/17 23:59 91 CPAP 4.0 12/18/17 23:03 85 21 92/58 (72) 88 12/18/17 22:05 80 24 89/48 (61) 88 12/18/17 21:00 85 18 98/54 (71) 92 12/18/17 20:00 93 Nasal Cannula 3.0 Humidified Oxygen 12/18/17 20:00 36.8 12/18/17 20:00 87 23 112/54 (60) 93 12/18/17 19:27 85 20 117/67 (80) 92 12/18/17 19:06 83 19 107/65 (79) 98 12/18/17 18:00 85 18 105/47 (66) 95 Nasal Cannula 4.0 12/18/17 16:00 93 Nasal Cannula 4.0 12/18/17 16:00 36.7 74 20 106/55 (72) 93 Nasal Cannula 4.0 12/18/17 14:00 78 20 91/52 (65) 95 Nasal Cannula 4.0 12/18/17 12:00 36.5 75 18 87/50 (62) 95 Nasal Cannula 4.0 12/18/17 12:00 95 Nasal Cannula 4.0 12/18/17 10:00 80 18 89/59 (69) 93 Nasal Cannula 4.0 Lab Results: Results Past 24 Hours Test 12/18/17 09:02 12/18/17 10:01 12/18/17 10:45 12/18/17 10:57 Range/Units Bedside Glucose 228 186 126 70-99 mg/dl Random Cortisol 8.88 mcg/dl Test 12/18/17 11:58 12/18/17 12:55 12/18/17 13:59 12/18/17 15:04 Range/Units Bedside Glucose 102 208 152 157 70-99 mg/dl Test 12/18/17 15:49 12/18/17 16:03 12/18/17 20:47 12/18/17 23:33 Range/Units Bedside Glucose 142 123 138 70-99 mg/dl Troponin I 1.470 0-0.045 ng/ml Test 12/19/17 03:36 12/19/17 04:06 12/19/17 06:37 Range/Units Bedside Glucose 99 97 70-99 mg/dl White Blood Count 9.68 4.8-10.8 K/uL Red Blood Count 4.07 4.7-6.1 M/uL Hemoglobin 11.7 14.0-18.0 g/dL Hematocrit 35.5 42-52 % Mean Corpuscular Volume 87.2 80-100 fL Mean Corpuscular Hemoglobin 28.7 25-34 pg Mean Corpuscular Hemoglobin Concent 33.0 32-36 g/dl Platelet Count 142 130-400 K/uL Mean Platelet Volume 10.1 7.4-10.4 fL Neutrophils (%) (Auto) 69.6 % Lymphocytes (%) (Auto) 19.7 % Monocytes (%) (Auto) 7.6 % Eosinophils (%) (Auto) 2.3 % Basophils (%) (Auto) 0.5 % Neutrophils # (Auto) 6.73 1.4-6.5 K/uL Lymphocytes # (Auto) 1.91 1.2-3.4 K/uL Monocytes # (Auto) 0.74 0.11-0.59 K/uL Eosinophils # (Auto) 0.22 0-0.5 K/uL Basophils # (Auto) 0.05 0-0.2 K/uL RDW Standard Deviation 48.5 36.4-46.3 fL RDW Coefficient of Variation 15.2 11.5-14.5 % Immature Granulocyte % (Auto) 0.3 % Immature Granulocyte # (Auto) 0.03 0.00-0.02 K/uL Activated Partial Thromboplast Time 49.9 21.0-31.0 SECONDS Partial Thromboplastin Ratio 1.9 Sodium Level 139 136-145 mmol/L Potassium Level 3.5 3.5-5.1 mmol/L Chloride Level 106 98-107 mmol/L Carbon Dioxide Level 26 21-32 mmol/L Anion Gap 7.0 3-11 mmol/L Blood Urea Nitrogen 19 7-18 mg/dl Creatinine 1.27 0.60-1.40 mg/dl Est Creatinine Clear Calc Drug Dose 45.4 ml/min Estimated GFR () 58.9 Estimated GFR (Non- 50.8 BUN/Creatinine Ratio 14.9 10-20 Random Glucose 99 70-99 mg/dl Calcium Level 7.9 8.5-10.1 mg/dl Phosphorus Level 3.2 2.5-4.9 mg/dl Magnesium Level 1.8 1.8-2.4 mg/dl
--- NOTE | 2017-12-18 12:56 | Medical Consult ---
Consultation Date of Consultation: December 18, 2017. Attending Physician: Kwabena Murphy MD Reason for Consultation: New diagnosis of DLBCL and patient was due for PET CT today, now hospitalized with NSTEMI History of Present Illness Mr. Benjamin is known to the consulting Hematology service, he recently established care with Dr. Ashley in outpatient setting. He had a right posterior cervical biopsy on 12/03/17 that was c/w DLBCL. Initially,a CT of the neck was was obtained for cervical adenopathy noted by patient which revealed bilateral cervical and partially imaged mediastinal adenopathy. A CT of the chest/abdomen/ pelvis was obtained on 11/25/17 which revealed diffuse adenopathy above and below the diaphragm. Patient met with Dr. Ashley last week on 12/12. She had recommended staging PET CT which was ordered for today. She also ordered echocardiogram in preparation for chemotherapy on 12/16/17. Moderate aortic valve stenosis seen, LVEF preserved. He came to the ER last evening for sudden onset of dyspnea. Cardiac work up ensued when ST segment depressions were noted. Initial troponins were negative. He had emergent cardiac catheterization last evening by Dr. Otero, no stents placed. He was placed on heparin and NTG gtts. [facility] cardiology saw the patient today- patient diagnosed with "Non-ST segment elevation myocardial infarction including de sharri lesions of the circumflex and OM2. Chronic coronary artery disease including PUBLIC DEFENDER of the RCA filled via collaterals and a mid 50-60% LAD lesion." Repeat cardiac catheterization is planned for tomorrow. Additional history obtained from the patient at bedside. He states he feels mildly short of breath at rest on supplemental O2 today, no further chest pain. He states his neck adenopathy continues to fluctuate and thinks has decreased in relation to his lymphoma. He denies fever, sweats. He states his adenopathy started about 4-5 weeks prior to diagnosis. He states his appetite is somewhat decreased but no weight loss. He denies N/V, abdominal pain. Past Medical/Surgical History Medical Problems: (1) Bacteremia Status: Acute (2) Cellulitis Status: Acute (3) Constipation Status: Acute (4) Hyponatremia Status: Acute (5) Knee pain Status: Acute (6) Precordial chest pain Status: Acute (7) Precordial chest pain Status: Acute (8) Septic joint Status: Acute Family History Diabetes mellitus Social History Smoking Status: Former Smoker (Spelled 4 packs per day for 30-40 years. Quit 1982) Alcohol Use: occasionally (Per patient prior heavy alcohol use one younger, now only occasional beer) Drug Use: none Marital Status: Housing Status: lives with family Occupation Status: retired Allergies Coded Allergies: Clavulanic Acid (Verified Allergy, Intermediate, HIVES TO "BETA-LACTAMASE INHIBITORS", 12/17/17) Sulbactam (Verified Allergy, Intermediate, HIVES TO "BETA-LACTAMASE INHIBITORS", 12/17/17) Cilastatin (Verified Allergy, Mild, HIVES, 12/17/17) Imipenem (Verified Allergy, Mild, HIVES, 12/17/17) HAS HAD PENICILLIN W/O PROBLEM Adhesives (Verified Allergy, Unknown, BANDAIDS- SORE SKIN, 12/17/17) Cephalosporins (Verified Allergy, Unknown, HIVES, 12/17/17) Lovastatin (Verified Allergy, Unknown, hives, 12/17/17) Penicillins (Verified Allergy, Unknown, hives, 12/17/17) Morphine (Verified Adverse Reaction, Unknown, CONFUSED, 12/17/17) Current Inpatient Medications Current Inpatient Medications Medications (Trade) Dose Ordered Sig/Francine Route Start Time Stop Time Status Last Admin Dose Admin Nitroglycerin/ Dextrose 250 ml @ 0 mls/hr Q0M IV 12/18/17 00:15 01/17/18 00:14 Insulin Aspart (novoLOG ASPART) [facility] 12/18/17 08:00 01/17/18 07:59 12/18/17 12:04 9 UNITS Insulin Human Regular 250 units/ Sodium Chloride 252.5 ml @ 0 mls/hr Q24H IV 12/18/17 02:00 01/17/18 01:59 12/18/17 02:01 2.3 MLS/HR Glucose (Glucose 40% Gel) 15-30 GRAMS 15 GRAMS... UD PRN PO 12/18/17 01:45 01/17/18 01:44 Glucose (Glucose Chew Tab) 4-8 Tablets 4 Tabl... UD PRN PO 12/18/17 01:45 01/17/18 01:44 Dextrose (Dextrose 50% 50ML Syringe) 25-50ML 25ML FOR ... UD PRN IV 5/9/18 01:45 01/17/18 01:44 Glucagon (Glucagon Inj) 1 mg UD PRN IM 12/18/17 01:45 01/17/18 01:44 Carbohydrates (Carbohydrates For Hypoglycemia) 15-30 GRAMS 15 grams if BSG 54-69... UD PRN PO 12/18/17 01:45 01/17/18 01:44 Heparin Sodium/ Dextrose 500 ml @ 28 mls/hr [id number] IV 12/18/17 02:00 01/17/18 01:59 12/18/17 02:09 28 MLS/HR Albuterol (Ventolin Hfa Inhaler) 2 puffs Q6H PRN INH 12/18/17 02:00 01/17/18 01:59 Amlodipine Besylate (Norvasc Tab) 2.5 mg HS PO 12/18/17 21:00 01/17/18 20:59 Aspirin (Ecotrin Tab) 81 mg QPM PO 12/18/17 21:00 01/17/18 20:59 Clopidogrel Bisulfate (plAVix TAB) 75 mg QPM PO 12/18/17 21:00 01/17/18 20:59 Colestipol HCl (Colestid Tab) 1 gm DAILY@1000 PO 12/18/17 10:00 01/17/18 09:59 12/18/17 10:15 1 GM Escitalopram Oxalate (Lexapro Tab) 10 mg QAM PO 12/18/17 09:00 01/17/18 08:59 12/18/17 07:47 10 MG Finasteride (Proscar Tab) 5 mg QPM PO 12/18/17 21:00 01/17/18 20:59 Gabapentin (Neurontin Cap) 300 mg QID PO 12/18/17 09:00 01/17/18 08:59 12/18/17 12:25 300 MG Losartan Potassium (coZAAR TAB) 25 mg QAM PO 12/18/17 09:00 01/17/18 08:59 Future Hold 12/18/17 07:47 25 MG Metoprolol Succinate (Toprol Xl Tab) 75 mg QPM PO 12/18/17 21:00 01/17/18 20:59 Pantoprazole Sodium (Protonix Tab) 40 mg QAM PO 12/18/17 09:00 01/17/18 08:59 12/18/17 07:47 40 MG Potassium Chloride (Klor-Con M10) 10 meq QPM PO 12/18/17 21:00 01/17/18 20:59 Ropinirole HCl (Requip Tab) 0.25 mg HS PO 12/18/17 21:00 01/17/18 20:59 Rosuvastatin Calcium (Crestor Tab) 40 mg HS PO 12/18/17 21:00 01/17/18 20:59 Spironolactone (Aldactone Tab) 25 mg DAILY PO 12/18/17 09:00 01/17/18 08:59 12/18/17 07:46 25 MG Tamsulosin HCl (Flomax Cap) 0.4 mg MoWeFr@2100 PO 12/18/17 21:00 01/17/18 20:59 Amylase/Lipase/ Protease (Pancreaze (Lipase 10,500U) Cap) 2 cap TIDM PO 12/18/17 07:15 01/17/18 07:14 12/18/17 11:13 2 CAP Amoxicillin (Amoxil Cap) 500 mg HS PO 12/18/17 21:00 01/29/18 20:59 Furosemide (Lasix Tab) 40 mg QAM PO 12/18/17 09:00 01/17/18 08:59 12/18/17 07:47 40 MG Miscellaneous Information (Order Awaiting Action) 1 ea QS N/A 12/18/17 10:37 01/17/18 10:36 12/18/17 11:03 1 EA Miscellaneous Information (Consult Glycemic Management Pharmacy) 1 ea UD PRN N/A 12/18/17 10:45 01/17/18 10:44 Review of Systems Constitutional: + fatigue, No fever, No chills Respiratory: + shortness of breath, No cough Cardiovascular: No chest pain Abdomen: No pain, No nausea, No vomiting Hematologic / Lymphatic: + swollen lymph nodes Physical Exam Date Time Temp Pulse Resp B/P (MAP) Pulse Ox O2 Delivery O2 Flow Rate FiO2 12/18/17 12:00 36.5 75 18 87/50 (62) 95 Nasal Cannula 4.0 12/18/17 12:00 95 Nasal Cannula 4.0 12/18/17 10:00 80 18 89/59 (69) 93 Nasal Cannula 4.0 12/18/17 08:00 91 Nasal Cannula 4.0 12/18/17 08:00 36.5 82 18 106/58 (74) 91 Nasal Cannula 4.0 12/18/17 08:00 Nasal Cannula BiPAP 12/18/17 06:00 78 99/60 (73) 94 BiPAP 40 12/18/17 05:45 83 120/63 (82) 96 12/18/17 05:30 79 102/62 (75) 92 BiPAP 40 12/18/17 05:22 77 94 40 12/18/17 05:15 81 115/69 (84) 95 BiPAP 40 12/18/17 05:00 78 94/56 (69) 94 BiPAP 40 12/18/17 04:45 80 90/57 (68) 94 BiPAP 40 12/18/17 04:30 81 90/57 (68) 94 BiPAP 40 12/18/17 04:00 36.3 87 95/49 (64) 95 BiPAP 40 12/18/17 04:00 95 BiPAP 10.0 40 12/18/17 03:30 84 88/61 (70) 93 BiPAP 40 12/18/17 03:00 84 95/56 (69) 92 BiPAP 40 12/18/17 02:30 91 88/52 (64) 94 BiPAP 40 12/18/17 02:15 94 93/57 (69) 94 BiPAP 40 12/18/17 02:00 96 83/59 (67) 93 BiPAP 40 12/18/17 01:46 96 73/58 (63) 95 BiPAP 40 12/18/17 01:42 95 96 40 12/18/17 01:30 98 105/63 (77) 94 BiPAP 40 12/18/17 01:24 92/63 (73) 96 BiPAP 12/18/17 01:00 103 85/64 (71) 91 12/18/17 00:43 36.7 101 22 94/60 BiPAP 12/18/17 00:40 102 94 40 12/18/17 00:28 20 94/60 (71) 90 Oxymask 12/17/17 23:55 99 20 120/67 (84) 93 Oxymask 10 12/17/17 23:50 101 20 137/79 (98) 91 Oxymask 15 12/17/17 23:45 106 20 112/63 (79) 91 Oxymask 15 12/17/17 22:55 125/69 96 Room Air 12/17/17 22:50 118/73 12/17/17 22:46 139/75 12/17/17 22:45 97 26 95 Room Air 12/17/17 22:38 98 151/83 12/17/17 22:19 101 135/73 12/17/17 21:58 94 Room Air 12/17/17 21:55 103 12/17/17 21:51 94 Room Air 12/17/17 21:51 36.8 103 25 135/73 94 Room Air General Appearance: WD/WN, no apparent distress ENT: hearing grossly normal Neck: supple, + adenopathy present (shotty bilateral) Respiratory/Chest: lungs clear, no respiratory distress Cardiovascular: + pertinent finding (distant heart tones) Abdomen/GI: normal bowel sounds, soft, no organomegaly Neurologic/Psych: alert, oriented x 3 Lymphatic: + axillary node abnormality (left sided) Laboratory Results 12/17/17 21:50 12/17/17 21:50 12/18/17 01:01 Test 12/17/17 21:50 12/17/17 23:04 12/18/17 00:49 12/18/17 01:01 Red Blood Count 4.33 M/uL (4.7-6.1) Mean Corpuscular Volume 88.5 fL (80-100) Mean Corpuscular Hemoglobin 29.8 pg (25-34) Mean Corpuscular Hemoglobin Concent 33.7 g/dl (32-36) RDW Standard Deviation 49.9 fL (36.4-46.3) RDW Coefficient of Variation 15.4 % (11.5-14.5) Mean Platelet Volume 9.9 fL (7.4-10.4) Prothrombin Time 13.9 SECONDS (9.0-12.0) Prothromb Time International Ratio 1.3 (0.9-1.1) Activated Partial Thromboplast Time 35.7 SECONDS (21.0-31.0) Partial Thromboplastin Ratio 1.4 Anion Gap 9.0 mmol/L (3-11) 20.0 mmol/L (16-25) 8.0 mmol/L (3-11) Est Creatinine Clear Calc Drug Dose 42.7 ml/min 40.6 ml/min Estimated GFR () 52.8 51.5 Estimated GFR (Non- 45.6 44.4 BUN/Creatinine Ratio 13.7 (10-20) 15.8 (10-20) Calcium Level 8.7 mg/dl (8.5-10.1) 8.1 mg/dl (8.5-10.1) Magnesium Level 1.7 mg/dl (1.8-2.4) 1.8 mg/dl (1.8-2.4) Total Bilirubin 0.6 mg/dl (0.2-1) Aspartate Amino Transf (AST/SGOT) 29 U/L (15-37) Alanine Aminotransferase (ALT/SGPT) 20 U/L (12-78) Alkaline Phosphatase 80 U/L (45-117) Troponin I < 0.015 ng/ml (0-0.045) Total Protein 7.5 gm/dl (6.4-8.2) Albumin 3.3 gm/dl (3.4-5.0) Globulin 4.2 gm/dl (2.5-4.0) Albumin/Globulin Ratio 0.8 (0.9-2) Beta-Hydroxybutyric Acid 2.02 mg/dL (0.2-2.81) 2.01 mg/dL (0.2-2.81) Bedside Hemoglobin 11.9 g/dl (14.0-18.0) Bedside Hematocrit 35 % (42-52) Bedside Sodium 137 mEq/L (135-144) Bedside Potassium 4.1 mEq/L (3.3-5.0) Bedside Chloride 100 mEq/L (101-112) Bedside Total CO2 22 mEq/l (24-31) Bedside Blood Urea Nitrogen 22 mg/dl (7-18) Bedside Creatinine 1.2 mg/dl (0.6-1.3) Bedside Glucose (other) 391 mg/dl (70-99) Bedside Ionized Calcium (Roger) 1.12 mmol/l (1.12-1.32) Bedside Glucose 405 mg/dl (70-99) Lactic Acid Level 1.6 mmol/L (0.4-2.0) Creatine Kinase MB 6.8 ng/ml (0.5-3.6) Creatine Kinase MB Ratio (0-3.0) Pro-B-Type Natriuretic Peptide 440 pg/ml (0-1800) Procalcitonin < 0.05 ng/ml (0-0.5) Test 12/18/17 03:02 12/18/17 03:57 12/18/17 04:10 12/18/17 05:16 Bedside Glucose 345 mg/dl (70-99) 326 mg/dl (70-99) 317 mg/dl (70-99) Estimated Average Glucose 166 mg/dl Hemoglobin A1c 7.4 % (4.5-5.6) Troponin I 3.130 ng/ml (0-0.045) Thyroid Stimulating Hormone (TSH) 0.741 uIu/ml (0.300-4.500) Test 12/18/17 05:56 12/18/17 06:56 12/18/17 07:53 12/18/17 08:22 Bedside Glucose 284 mg/dl (70-99) 274 mg/dl (70-99) 222 mg/dl (70-99) Activated Partial Thromboplast Time 53.8 SECONDS (21.0-31.0) Partial Thromboplastin Ratio 2.1 Test 12/18/17 08:23 12/18/17 09:02 12/18/17 10:01 12/18/17 10:45 Troponin I 3.000 ng/ml (0-0.045) Bedside Glucose 228 mg/dl (70-99) 186 mg/dl (70-99) Random Cortisol 8.88 mcg/dl Test 12/18/17 10:57 Bedside Glucose 126 mg/dl (70-99) Date/Time Source Procedure Growth Status 12/18/17 00:00 Nasal MRSA DNA Surveillance Screen - Final Specimen Negative for MRSA by DNA Probe Complete CXR from 12/17/17: 1. Mild cardiomegaly 2. Mediastinal widening suspicious for adenopathy 3. No evidence of focal pulmonary consolidation 4. Suspected mild pulmonary vascular congestion Assessment & Plan 1. Acute NSTEMI with significant CAD 2. DLBCL, at least Stage III 3. History of Hep B infection, no active per GI * Advised the patient that he needs to undergo all necessary testing and procedures in relation to his [place] and CAD, this needs to be stabilized * His lymphoma will be staged in the outpatient setting, counseled PET CT would not be appropriate to obtain given his acute issues and PET CT are not covered when ordered inpatient, no further staging evaluation necessary for lymphoma during hospitalization Thanks for the consult. Hematology to sign off at this time. Please see attending MD addendum. Attending note I discussed the patient and management with Gladys Sandoval PA-C and agree with the note Patient seen and examined and I confirmed the findings on the history and exam Patient admitted with chest pain and dyspnea and admitted with acute NSTEMI He had an outpatient Hep B screen that is suggestive of past exposure I discussed with the patient and he understands that his current acute cardiac issue and poor performance status (current 3 to 4) precludes safe administration of the necessary intensive chemotherapy required for DLBCL. PET- CT scan can be obtained outpatient and follow up outpatient to discuss any further treatment for lymphoma after cardiac issues have improved and when he is ambulatory. Also discussed with him that since rituxan can cause reactivation of hep B he will need to follow up with GI Patient verbalized understanding and agrees with the above follow up in the office upon discharge will sign off please call us as needed
[2017-12-18] MEDS ORDERED: INSULIN DRIP STOP ORDER ONE ×2 (15:00→16:00)
[2017-12-18] MEDS: NITROGLYCERIN 0.4 MG SL PER TAB CHARGE SL PRN (20:00)
[2017-12-18] MEDS: METOPROLOL SUCC 25MG EXT REL TAB PO SCH (20:52)
[2017-12-18] MEDS: TAMSULOSIN HCL 0.4 MG CAP PO SCH (20:53)
[2017-12-18] MEDS: ROPINIROLE HCL 0.25 MG TAB PO SCH (20:53)
[2017-12-18] MEDS: FINASTERIDE 5 MG TAB PO SCH (20:53)
[2017-12-18] MEDS: CLOPIDOGREL BISULFATE 75 MG TAB PO SCH (20:53)
[2017-12-18] MEDS: ASPIRIN 81 MG ECTAB PO SCH (20:54)
[2017-12-18] MEDS: ROSUVASTATIN CALCIUM 20 MG TAB PO SCH (20:54)
[2017-12-18] MEDS: AMOXICILLIN 500 MG CAP PO SCH (20:54)
[2017-12-18] MEDS: POTASSIUM CHLORIDE 10 MEQ TABCR PO SCH (20:54)
[2017-12-18] MEDS ORDERED: AMLODIPINE BESYLATE 5 MG TAB PO SCH (21:00)
[2017-12-19] VITALS (37 sets, daily range): BP systolic 84–132; BP diastolic 44–77; PULSE 64–99; TEMP 36.4–37.8; O2SAT 80–100
[2017-12-19] MEDS: INSULIN ASPART 100 UNITS/ML 3 ML PEN SC SCH ×6 (03:51→23:56)
[2017-12-19 04:35] LABS: BASO % 0.5 %; BASO ABS # 0.05 K/uL (0-0.2); EOS % 2.3 %; EOS ABS # 0.22 K/uL (0-0.5); HEMATOCRIT 35.5 % (42-52); HEMOGLOBIN 11.7 g/dL (14.0-18.0); IG# 0.03 K/uL (0.00-0.02); LYMPH % 19.7 %; LYMPH ABS # 1.91 K/uL (1.2-3.4); MEAN CELL VOLUME 87.2 fL (80-100); MEAN CORPUSCULAR HEMOGLOBIN 28.7 pg (25-34); MEAN PLATELET VOLUME 10.1 fL (7.4-10.4); MONO % 7.6 %; MONO ABS # 0.74 K/uL (0.11-0.59); NEUT % 69.6 %; NEUT ABS # 6.73 K/uL (1.4-6.5); PLATELET COUNT 142 K/uL (130-400); RED CELL DISTRIBUTION WIDTH CV 15.2 % (11.5-14.5); RED CELL DISTRIBUTION WIDTH SD 48.5 fL (36.4-46.3); WHITE BLOOD COUNT 9.68 K/uL (4.8-10.8)
[2017-12-19 05:03] LABS: CALCIUM 7.9 mg/dl (8.5-10.1); CREATININE 1.27 mg/dl (0.60-1.40); PHOSPHORUS 3.2 mg/dl (2.5-4.9); POTASSIUM 3.5 mmol/L (3.5-5.1)
[2017-12-19 05:05] LABS: PTT PATIENT 49.9 SECONDS (21.0-31.0)
[2017-12-19] MEDS ORDERED: POTASSIUM CHLORIDE 20 MEQ TABCR PO STA (06:02)
[2017-12-19] MEDS: MAGNESIUM OXIDE 400 MG TAB PO SCH ×2 (06:29→10:33)
[2017-12-19] MEDS: PANCREAZE (LIPASE 10,500U) CAP PO SCH ×3 (06:58→17:21)
--- NOTE | 2017-12-19 07:27 | Clinical Documentation Query ---
CLINICAL DOCUMENTATION QUERY QUERY 1 OF 2 87 yo male admitted for NSTEMI. Echo showed moderate left ventricular hypertrophy and EF = 60-65%. Patient was treated with IV Lasix and takes PO Lasix at home. In your clinical opinion is this patient being managed for: ( ) Acute on chronic diastolic CHF ( X) Not Agree ( ) Other explanation of clinical findings (Please Explain; If no explanation given, this is considered a no response.) ( ) Unable to determine ( ) Need to Discuss (Please call CDS via extension or [employer]. If no interaction occurs, this is considered a no response.) The medical record reflects the following clinical findings, treatment, and risk factors. Clinical Indicators: As above Treatment: As above, echo, Cardiology consult, O2 Risk Factors: CKD, HTN, NSTEMI QUERY 2 OF 2 Patient is documented as having an episode of hypoxic O2 sat of 80% and difficulty breathing during catheterization and is on CPAP at home. Patient has a history of COPD, CHF, and MIs. In your clinical opinion is this patient being managed for: ( X) Acute and chronic respiratory failure with hypoxia ( ) Not Agree ( ) Other explanation of clinical findings (Please Explain; If no explanation given, this is considered a no response.) ( ) Unable to determine ( ) Need to Discuss (Please call CDS via extension or [employer]. If no interaction occurs, this is considered a no response.) The medical record reflects the following clinical findings, treatment, and risk factors. Clinical Indicators: As above Treatment: O2 via NRB, BiPAP, IV Lasix, telemetry Risk Factors: NSTEMI, hx [place], COPD, CHF Please clarify and document your clinical opinion in the progress notes and discharge summary. Terms such as "probable", "suspected", "likely", "questionable", "possible", or "still to be ruled out" are acceptable. IF IN AGREEMENT, YOU MUST DOCUMENT ABOVE DIAGNOSTIC STATEMENT IN DAILY PROGRESS NOTES AND DISCHARGE SUMMARY. This document is not part of the patient's record. Thank You, Mandy Llamas RN [phone]
[2017-12-19] MEDS: GABAPENTIN 300 MG CAP PO SCH ×4 (08:19→21:37)
[2017-12-19] MEDS: ESCITALOPRAM OXALATE 10 MG TAB PO SCH (08:20)
[2017-12-19] MEDS: PANTOprazole SOD 40 MG TAB PO SCH (08:20)
[2017-12-19] MEDS: SPIRONOLACTONE 25 MG TAB PO SCH (08:20)
[2017-12-19] MEDS: FUROSEMIDE 40 MG TAB PO SCH (08:26)
--- NOTE | 2017-12-19 08:27 | Progress Note ---
Internal Med Progress Note Date of Service: December 19, 2017. Provider Documentation: SUBJECTIVE: Seen and examined at bedside Feels better today Denies chest pain, dizziness, nausea, abd pain Reports hemoptysis intermittently Dyspnea better Planned for PCI today On Heparin ggt OBJECTIVE: Vital Signs-as noted below Physical Exam: Vitals signs as noted above General Appearance:Moderately built and nourished, no apparent distress Head: normocephalic, Atraumatic Eyes: normal inspection, EOMI, PERRL Neck: supple, Trachea midline Respiratory/Chest: coarse breath sounds, minimal rales Cardiovascular: S1, S2, +systolic murmur Abdomen/GI:Soft, Non tender, Bowel sounds present Extremities/Musculoskelatal:normal inspection, Trace b/l pedal edema Neurologic/Psych:AAOX3, grossly no focal neurological deficits Skin: normal color, warm Lab data as noted below. ASSESSMENT & PLAN: NSTEMI: Moderate Aortic Stenosis: S/P cardiac cath: Severe multivessel disease Plan for possible PCI of lesions of the circumflex and OM2 today Off Nitro ggt On Heparin ggt Continue Aspirin, Plavix, Statins, Metoprolol, Imdur Appreciate Cardiology Input ECHO as below Continue diuretics: Lasix increased to 40mg, spironolactone Cardiology, Traveling Secretary following Hemoptysis: On Aspirin, plavix, Heparin ggt Monitor Hb May need CT chest for further evaluation DM II Most recent Hba1c 7.5 Continue ISS, basal Insulin Monitor BGs Pharmacy consulted for Glycemic management CKD III: hold Losartan Cr at baseline monitor renal function Avoid Nephrotoxic agents as able BPH Continue flomax, proscar Acute on Chronic respiratory failure COPD Cough likely secondary to pulmonary vascular congestion CXR: no signs of consolidation Hold Zithromax and prednisone which were started by PCP recently DuoNeb, diuretics as able BiPAP PRN monitor HTN stable continue current meds monitor B Cell Lymphoma Recently diagnosed Follow with oncology Dr. Ashley further work up as outpatient Appreciate Oncology Input Depression Continue Lexapro Stable VIC: CPAP QHS DVT px: on Heparin drip CODE Status: Full code Disposition Monitor in the ICU PROCEDURES: ECHO: No significant change in wall motion or systolic function compared to previous studies. * Normal LV chamber size with moderate concentric LVH. * Normal LV systolic function, EF 60-65%. * No segmental left ventricular wall motion abnormalities are noted. Cardiac Cath: Summary: 1. Severe multivessel coronary artery disease - LCX 80-90 percent proximal, 80 percent OM2 - LAD 50-60 percent mid - RCA with chronic total occlusion and distal vessel filling via left to right collaterals 2. Elevated intracardiac filling pressure. LVEDP 31 3. Moderate aortic stenosis. Aortic valve peak to peak gradient 25 mmHg Recommendations: Patient with severe new circumflex disease in comparison to previously described disease from cardiac catheterization in 2016. At present has CARLYN 3 flow in both LAD and circumflex, chest pain free and no indication for emergent PCI. In the setting of acute heart failure along with patient's complex medical history and comorbidities recommend medical management at this time. PCI of circumflex could be considered later in hospitalization when better compensated from a heart failure standpoint. For now patient to be transferred to ICU for continued monitoring. Trend troponin until peaks. Echo obtained as an outpatient earlier this week. Continue IV diuresis, IV nitroglycerin and BiPAP as needed for respiratory insufficiency Resume heparin infusion following removal of TR band Continue home aspirin/Plavix, antihypertensives and statin Vital Signs: Date Time Temp Pulse Resp B/P (MAP) Pulse Ox O2 Delivery O2 Flow Rate FiO2 12/19/17 18:00 86 28 93/44 (60) 92 Nasal Cannula 4.0 12/19/17 17:00 92 27 103/60 (74) 93 Nasal Cannula 4.0 12/19/17 16:30 91 26 101/53 (69) 92 Nasal Cannula 4.0 12/19/17 16:00 92 Nasal Cannula 4.0 12/19/17 16:00 37.0 89 27 111/63 (79) 94 BiPAP 40 12/19/17 15:45 87 23 102/59 (73) 94 BiPAP 40 12/19/17 15:30 88 24 110/69 (83) 94 BiPAP 40 12/19/17 15:15 88 22 102/62 (75) 96 BiPAP 12/19/17 15:10 85 95 55 12/19/17 15:00 88 23 108/57 (74) 96 BiPAP 50 12/19/17 14:51 86 20 102/77 (85) 94 60 12/19/17 14:43 86 95 60 12/19/17 14:30 86 40 90/52 (65) 80 BiPAP 60 12/19/17 14:21 86 22 107/71 (83) 99 BiPAP 80 12/19/17 14:06 82 20 99/60 (73) 98 12/19/17 13:51 81 25 131/67 (88) 100 12/19/17 13:36 36.9 83 23 116/70 (85) 96 BiPAP 100 12/19/17 13:35 100 BiPAP 100 12/19/17 12:57 88 18 129/76 (93) 95 BiPAP 15 12/19/17 12:52 90 18 135/75 (95) 93 BiPAP 15 12/19/17 12:47 91 22 126/79 (95) 93 BiPAP 15 12/19/17 12:40 94 22 133/71 (91) 92 BiPAP 15 12/19/17 12:37 103 22 136/75 (95) 92 BiPAP 15 12/19/17 12:34 99 92 100 12/19/17 12:32 114 22 134/80 (98) 92 Non-Rebreather 15 12/19/17 12:27 132 18 112/64 (80) 92 Non-Rebreather 15 12/19/17 10:00 70 20 123/59 (80) 95 Nasal Cannula 2.0 12/19/17 08:00 Nasal Cannula 2.0 12/19/17 08:00 Nasal Cannula BiPAP 12/19/17 08:00 36.8 74 18 114/60 (78) 95 Nasal Cannula 2.0 12/19/17 06:00 73 19 100/53 (69) 93 12/19/17 05:00 69 19 107/66 (83) 92 12/19/17 04:00 64 21 106/56 (75) 94 12/19/17 04:00 92 CPAP 4.0 12/19/17 04:00 36.4 12/19/17 03:01 69 17 96/47 (64) 92 12/19/17 02:00 68 20 98/56 (78) 95 12/19/17 01:00 73 21 97/54 (73) 92 12/19/17 00:01 36.9 12/19/17 00:00 75 21 101/49 (59) 91 12/18/17 23:59 91 CPAP 4.0 12/18/17 23:03 85 21 92/58 (72) 88 12/18/17 22:05 80 24 89/48 (61) 88 12/18/17 21:00 85 18 98/54 (71) 92 12/18/17 20:00 93 Nasal Cannula 3.0 Humidified Oxygen 12/18/17 20:00 36.8 12/18/17 20:00 87 23 112/54 (60) 93 12/18/17 19:27 85 20 117/67 (80) 92 12/18/17 19:06 83 19 107/65 (79) 98 Lab Results: Results Past 24 Hours Test 12/18/17 20:47 12/18/17 23:33 12/19/17 03:36 12/19/17 04:06 Range/Units Bedside Glucose 123 138 99 70-99 mg/dl White Blood Count 9.68 4.8-10.8 K/uL Red Blood Count 4.07 4.7-6.1 M/uL Hemoglobin 11.7 14.0-18.0 g/dL Hematocrit 35.5 42-52 % Mean Corpuscular Volume 87.2 80-100 fL Mean Corpuscular Hemoglobin 28.7 25-34 pg Mean Corpuscular Hemoglobin Concent 33.0 32-36 g/dl Platelet Count 142 130-400 K/uL Mean Platelet Volume 10.1 7.4-10.4 fL Neutrophils (%) (Auto) 69.6 % Lymphocytes (%) (Auto) 19.7 % Monocytes (%) (Auto) 7.6 % Eosinophils (%) (Auto) 2.3 % Basophils (%) (Auto) 0.5 % Neutrophils # (Auto) 6.73 1.4-6.5 K/uL Lymphocytes # (Auto) 1.91 1.2-3.4 K/uL Monocytes # (Auto) 0.74 0.11-0.59 K/uL Eosinophils # (Auto) 0.22 0-0.5 K/uL Basophils # (Auto) 0.05 0-0.2 K/uL RDW Standard Deviation 48.5 36.4-46.3 fL RDW Coefficient of Variation 15.2 11.5-14.5 % Immature Granulocyte % (Auto) 0.3 % Immature Granulocyte # (Auto) 0.03 0.00-0.02 K/uL Activated Partial Thromboplast Time 49.9 21.0-31.0 SECONDS Partial Thromboplastin Ratio 1.9 Sodium Level 139 136-145 mmol/L Potassium Level 3.5 3.5-5.1 mmol/L Chloride Level 106 98-107 mmol/L Carbon Dioxide Level 26 21-32 mmol/L Anion Gap 7.0 3-11 mmol/L Blood Urea Nitrogen 19 7-18 mg/dl Creatinine 1.27 0.60-1.40 mg/dl Est Creatinine Clear Calc Drug Dose 45.4 ml/min Estimated GFR () 58.9 Estimated GFR (Non- 50.8 BUN/Creatinine Ratio 14.9 10-20 Random Glucose 99 70-99 mg/dl Calcium Level 7.9 8.5-10.1 mg/dl Phosphorus Level 3.2 2.5-4.9 mg/dl Magnesium Level 1.8 1.8-2.4 mg/dl Test 12/19/17 06:37 12/19/17 10:55 12/19/17 10:57 12/19/17 11:59 Range/Units Bedside Glucose 97 69 72 65 70-99 mg/dl Test 12/19/17 12:32 12/19/17 12:45 12/19/17 13:29 12/19/17 16:32 Range/Units Bedside Glucose 128 112 98 70-99 mg/dl Bedside Blood Gas pH (LAB) 7.41 7.35-7.45 Bedside Blood Gas pCO2 (LAB) 36 35-46 mmHg Bedside Blood Gas pO2 (LAB) 68 80-95 mmHg Bedside Blood Gas HCO3 (LAB) 22 19-24 meq/L Bedside Blood Gas Total CO2 24 24-31 mEq/l Bedside Blood Gas Base Excess (LAB) -2.0 -9-1.8 meq/L Bedside Blood Gas O2 Saturation 94.0 90-95 %
[2017-12-19] MEDS ORDERED: FUROSEMIDE 40 MG TAB PO ONE (08:30)
[2017-12-19] MEDS ORDERED: INSULIN GLARGINE SOLOSTAR 100 UNITS/ML 3 ML PEN SC ONE ×3 (09:00→21:00)
--- NOTE | 2017-12-19 09:14 | Cardiology Follow-Up ---
Subjective Subjective Date of Service: December 19, 2017. Pt evaluation today including: conversation w/ patient, physical exam, chart review, lab review, review of studies, review of inpatient medication list Additional Details: Pt seen and examined, states that he feels well. Nursing reports an episode of chest discomfort at 1900 resolved with SL nitro x 1, pt reports it to have been gas. Denies sob, palpitations, lightheadedness or dizziness. Still with significant cough and post nasal drip, some blood tinged sputum while on heparin. Tele reviewed: Problem List Medical Problems: (1) Bacteremia Status: Acute (2) Cellulitis Status: Acute (3) Constipation Status: Acute (4) Hyponatremia Status: Acute (5) Knee pain Status: Acute (6) Precordial chest pain Status: Acute (7) Precordial chest pain Status: Acute (8) Septic joint Status: Acute Review of Systems Respiratory: + cough, No see HPI, No sputum, No wheezing, No shortness of breath, No dyspnea on exertion, No dyspnea at rest, No hemoptysis, No problem reported Cardiac: + chest pain, No see HPI, No orthopnea, No PND, No edema, No claudication, No palpitations, No problem reported Objective Vital Signs Last Vital Signs Documentation Date Time Temp Pulse Resp B/P (MAP) Pulse Ox O2 Delivery O2 Flow Rate FiO2 12/19/17 08:00 Nasal Cannula 2.0 12/19/17 08:00 36.8 74 18 114/60 (78) 95 12/18/17 06:00 40 Physical Exam: General Appearance: WD/WN, no apparent distress Eyes: bilateral eyes normal inspection, bilateral eyes PERRL, bilateral eyes EOMI ENT: normal ENT inspection, hearing grossly normal, pharynx normal Neck: supple, no adenopathy, thyroid normal, no JVD, trachea midline Respiratory/Chest: chest non-tender, normal breath sounds, no respiratory distress, no accessory muscle use, + rhonchi Cardiovascular: regular rate, rhythm, no edema, no JVD, + systolic murmur (2/6 mid to late jos, rsb, 2nd ics with radiation to b/l carotids. S2 bearly to inaudible), + gallop/S4 Abdomen: normal bowel sounds, non tender, soft, no organomegaly, no pulsatile mass Extremities: normal range of motion, non-tender, normal inspection, no pedal edema, no calf tenderness Neurologic/Psychiatric: sports medicine trainer II-XII nml as tested, no motor/sensory deficits, alert, normal mood/affect, oriented x 3 Skin: normal color, warm/dry, no rash Lymphatic: no adenopathy Assessment and Plan 1. NSTEMI diffuse underlying CAD including longstanding director talent management of RCA fed by collaterals, 60% mid LAD lesion de nove 90% LCX and OM2 lesions will plan for PCI to LCx and possibly OM2 (small vessel) as well today will attempt to alleviate cough with guafenisin and nebs prior to cath does not examine as volume overloaded cont heparin 2. Borderline severe conflicting reads and interpretations for outpatient TAVR eval 3. CKD stage 3, stable 4. hypokalemia being repleted 5. hypertension rather hypotensive held losartan for anticipated dye load can give amlodipine as needed cont to monitor in ICU
[2017-12-19] MEDS ORDERED: GUAIFENESIN SUGAR FREE 200 MG/10 ML UDC PO ONE (09:30)
--- NOTE | 2017-12-19 10:21 | Critical Care Progress Note ---
Critical Care Progress Note Date of Service December 19, 2017. ICU Day ICU Day Number: [address] Dougherty Subjective Patient is doing well this am. He does describe an occasional cough, with streaks of blood. The patient denies chest pain. He is mildly dyspneic when getting up to go to the bathroom. Otherwise, his ROS was negative--no fevers, n/ v/d. Patient was NPO overnight. Objective Physical Exam: General - NAD, alert orient HEENT - NC/AT, PERRL, EOMI, Supple, trachea midline, no masses or lymphadenopathy, no JVD Lungs-Crackles heard at the lung bases bilaterally, no wheezes or rhonchi Heart - Reg rate and rhythm, No murmur, rubs, clicks, or gallops appreciated Abdomen - BS present, soft, nontender, nondistended, no organomegaly Extremities -bilateral lower extremity edema right greater than left, pedal pulses intact Neuro - A&O x 4, appropriate speech Strength extremities equal and appropriate bilaterally Assessment & Plan 87 year old present with chest pain and acute SOB likely 2/2 to acute on chronic heart failure Assessment; Patient slept well overnight, but he did occasionally desat in the 80's. O2 would come back up after adjusting his CPAP--will order a chin strap to secure device. He does endorse continued cough and rust colored sputum-- likely 2/2 to vascular congestion. Plan; Plan is to go to the freezer laboratory technician today for evaluation and stent placement. Patient is being followed by Dr. Roman. Will continue to follow cough and hemoptysis--likely 2/2 CHF. In the case that the sx are 2/2 to PE, the patient is already being treated accordingly--IV heparin. Neuro: Dementia/mild Alzheimer's -Continue home medications -Disease stable per Neuro -Diabetic neuropathy-Continue gabapentin -Depression: Continue Lexapro Resp: -Respiratory insufficiency noted secondary to presumed acute heart failure -Continue to wean O2 -VIC: continue home CPAP. Desats overnight likely 2/2 device positioning--order chin strap to better secure CV: -CAD--scheduled for cardiac catheterization -ECHO: -No change in wall motion abnormalities when compared to previous studies -Normal LV chamber size with moderate concentric LVH -Normal LV systolic function, EF 60-65%. -CHF--Continue home Lasix with increased dosage of 40 mg in addition to spironolactone -Troponin down trend--3.1--3.0--1.4 Fluids/Renal: -Chronic kidney disease stage III -Creatinine currently appears to be at baseline -Diez in place with adequate urinary output -BPH-Continue home regimen ID -Currently no indication for broad-spectrum antibiotics -Continue suppressive amoxicillin--prior right knee septic prosthetic -Patient is afebrile, without leukocytosis, negative lactic acid and negative pro-calcitonin. -Monitor for signs of infection GI/Nutrition: -Chronic pancreatitis-Cont. enzymes -Gastric ulcers- Continue home Protonix -Recent abnormal hepatitis serologies-demonstrate immunity not active infection- encourage patient to follow up on pending serologies Heme: -H&H: 11.7/35.5 -Check with daily labs -Coags per heparin infusion protocol -DVT prophylaxis: On heparin infusion Endocrine: -Type 2 diabetes--cont. Lantus/novolog -A1C-7.4 Lymphoma: -Patient currently followed with Dr. Ashley -No active treatment at this moment Data Medications: Current Inpatient Medications Medications (Trade) Dose Ordered Sig/Francine Route Start Time Stop Time Status Last Admin Dose Admin Nitroglycerin/ Dextrose 250 ml @ 0 mls/hr Q0M IV 12/18/17 00:15 01/17/18 00:14 Glucose (Glucose 40% Gel) 15-30 GRAMS 15 GRAMS... UD PRN PO 12/18/17 01:45 01/17/18 01:44 Glucose (Glucose Chew Tab) 4-8 Tablets 4 Tabl... UD PRN PO 12/18/17 01:45 01/17/18 01:44 Dextrose (Dextrose 50% 50ML Syringe) 25-50ML 25ML FOR ... UD PRN IV 12/18/17 01:45 01/17/18 01:44 Glucagon (Glucagon Inj) 1 mg UD PRN IM 12/18/17 01:45 01/17/18 01:44 Carbohydrates (Carbohydrates For Hypoglycemia) 15-30 GRAMS 15 grams if BSG 54-69... UD PRN PO 12/18/17 01:45 01/17/18 01:44 Heparin Sodium/ Dextrose 500 ml @ 28 mls/hr [id number] IV 12/18/17 02:00 01/17/18 01:59 12/18/17 20:00 28 MLS/HR Albuterol (Ventolin Hfa Inhaler) 2 puffs Q6H PRN INH 12/18/17 02:00 01/17/18 01:59 Amlodipine Besylate (Norvasc Tab) 2.5 mg HS PO 12/18/17 21:00 01/17/18 20:59 12/18/17 20:53 2.5 MG Aspirin (Ecotrin Tab) 81 mg QPM PO 12/18/17 21:00 01/17/18 20:59 12/18/17 20:54 81 MG Clopidogrel Bisulfate (plAVix TAB) 75 mg QPM PO 12/18/17 21:00 01/17/18 20:59 12/18/17 20:53 75 MG Colestipol HCl (Colestid Tab) 1 gm DAILY@1000 PO 12/18/17 10:00 01/17/18 09:59 12/18/17 10:15 1 GM Escitalopram Oxalate (Lexapro Tab) 10 mg QAM PO 12/18/17 09:00 01/17/18 08:59 12/19/17 08:20 10 MG Finasteride (Proscar Tab) 5 mg QPM PO 12/18/17 21:00 01/17/18 20:59 12/18/17 20:53 5 MG Gabapentin (Neurontin Cap) 300 mg QID PO 12/18/17 09:00 01/17/18 08:59 12/19/17 08:19 300 MG Losartan Potassium (coZAAR TAB) 25 mg QAM PO 12/18/17 09:00 01/17/18 08:59 Future Hold 12/18/17 07:47 25 MG Metoprolol Succinate (Toprol Xl Tab) 75 mg QPM PO 12/18/17 21:00 01/17/18 20:59 12/18/17 20:52 75 MG Pantoprazole Sodium (Protonix Tab) 40 mg QAM PO 12/18/17 09:00 01/17/18 08:59 12/19/17 08:20 40 MG Potassium Chloride (Klor-Con M10) 10 meq QPM PO 12/18/17 21:00 01/17/18 20:59 12/18/17 20:54 10 MEQ Ropinirole HCl (Requip Tab) 0.25 mg HS PO 12/18/17 21:00 01/17/18 20:59 12/18/17 20:53 0.25 MG Rosuvastatin Calcium (Crestor Tab) 40 mg HS PO 12/18/17 21:00 01/17/18 20:59 12/18/17 20:54 40 MG Spironolactone (Aldactone Tab) 25 mg DAILY PO 12/18/17 09:00 01/17/18 08:59 12/19/17 08:20 25 MG Tamsulosin HCl (Flomax Cap) 0.4 mg MoWeFr@2100 PO 12/18/17 21:00 01/17/18 20:59 12/18/17 20:53 0.4 MG Amylase/Lipase/ Protease (Pancreaze (Lipase 10,500U) Cap) 2 cap TIDM PO 12/18/17 07:15 01/17/18 07:14 12/18/17 16:33 2 CAP Amoxicillin (Amoxil Cap) 500 mg HS PO 12/18/17 21:00 01/29/18 20:59 12/18/17 20:54 500 MG Furosemide (Lasix Tab) 40 mg QAM PO 12/18/17 09:00 01/17/18 08:59 12/18/17 07:47 40 MG Miscellaneous Information (Order Awaiting Action) 1 ea QS N/A 12/18/17 10:37 01/17/18 10:36 12/18/17 11:03 1 EA Miscellaneous Information (Consult Glycemic Management Pharmacy) 1 ea UD PRN N/A 12/18/17 10:45 01/17/18 10:44 Insulin Aspart (novoLOG ASPART) SLIDING SCALE ACHS SC 12/18/17 16:00 01/17/18 15:59 12/18/17 16:36 11 UNITS Nitroglycerin (Nitrostat Tab) 0.4 mg PRN PRN SL 12/18/17 19:30 01/17/18 19:29 12/18/17 20:00 0.4 MG Magnesium Oxide (Mag-Ox Tab) 400 mg Q4H PO 12/19/17 06:15 12/19/17 10:16 12/19/17 06:29 400 MG Guaifenesin (Robitussin Sugar Free Syrup) 200 mg Q6H PRN PO 12/19/17 09:15 01/18/18 09:14 Vital Signs: Date Time Temp Pulse Resp B/P (MAP) Pulse Ox O2 Delivery O2 Flow Rate FiO2 12/19/17 08:00 Nasal Cannula 2.0 12/19/17 08:00 36.8 74 18 114/60 (78) 95 Nasal Cannula 2.0 12/19/17 06:00 73 19 100/53 (69) 93 12/19/17 05:00 69 19 107/66 (83) 92 12/19/17 04:00 64 21 106/56 (75) 94 12/19/17 04:00 92 CPAP 4.0 12/19/17 04:00 36.4 12/19/17 03:01 69 17 96/47 (64) 92 12/19/17 02:00 68 20 98/56 (78) 95 12/19/17 01:00 73 21 97/54 (73) 92 12/19/17 00:01 36.9 12/19/17 00:00 75 21 101/49 (59) 91 12/18/17 23:59 91 CPAP 4.0 12/18/17 23:03 85 21 92/58 (72) 88 12/18/17 22:05 80 24 89/48 (61) 88 12/18/17 21:00 85 18 98/54 (71) 92 12/18/17 20:00 93 Nasal Cannula 3.0 Humidified Oxygen 12/18/17 20:00 36.8 12/18/17 20:00 87 23 112/54 (60) 93 12/18/17 19:27 85 20 117/67 (80) 92 12/18/17 19:06 83 19 107/65 (79) 98 12/18/17 18:00 85 18 105/47 (66) 95 Nasal Cannula 4.0 12/18/17 16:00 93 Nasal Cannula 4.0 12/18/17 16:00 36.7 74 20 106/55 (72) 93 Nasal Cannula 4.0 12/18/17 14:00 78 20 91/52 (65) 95 Nasal Cannula 4.0 12/18/17 12:00 36.5 75 18 87/50 (62) 95 Nasal Cannula 4.0 12/18/17 12:00 95 Nasal Cannula 4.0 Laboratory Results: Last 24 Hours Test 12/18/17 10:01 5/9/18 10:45 12/18/17 10:57 12/18/17 11:58 Bedside Glucose 186 mg/dl 126 mg/dl 102 mg/dl Random Cortisol 8.88 mcg/dl Test 12/18/17 12:55 12/18/17 13:59 12/18/17 15:04 12/18/17 15:49 Bedside Glucose 208 mg/dl 152 mg/dl 157 mg/dl 142 mg/dl Test 12/18/17 16:03 12/18/17 20:47 12/18/17 23:33 12/19/17 03:36 Troponin I 1.470 ng/ml Bedside Glucose 123 mg/dl 138 mg/dl 99 mg/dl Test 12/19/17 04:06 12/19/17 06:37 White Blood Count 9.68 K/uL Red Blood Count 4.07 M/uL Hemoglobin 11.7 g/dL Hematocrit 35.5 % Mean Corpuscular Volume 87.2 fL Mean Corpuscular Hemoglobin 28.7 pg Mean Corpuscular Hemoglobin Concent 33.0 g/dl Platelet Count 142 K/uL Mean Platelet Volume 10.1 fL Neutrophils (%) (Auto) 69.6 % Lymphocytes (%) (Auto) 19.7 % Monocytes (%) (Auto) 7.6 % Eosinophils (%) (Auto) 2.3 % Basophils (%) (Auto) 0.5 % Neutrophils # (Auto) 6.73 K/uL Lymphocytes # (Auto) 1.91 K/uL Monocytes # (Auto) 0.74 K/uL Eosinophils # (Auto) 0.22 K/uL Basophils # (Auto) 0.05 K/uL RDW Standard Deviation 48.5 fL RDW Coefficient of Variation 15.2 % Immature Granulocyte % (Auto) 0.3 % Immature Granulocyte # (Auto) 0.03 K/uL Activated Partial Thromboplast Time 49.9 SECONDS Partial Thromboplastin Ratio 1.9 Sodium Level 139 mmol/L Potassium Level 3.5 mmol/L Chloride Level 106 mmol/L Carbon Dioxide Level 26 mmol/L Anion Gap 7.0 mmol/L Blood Urea Nitrogen 19 mg/dl Creatinine 1.27 mg/dl Est Creatinine Clear Calc Drug Dose 45.4 ml/min Estimated GFR () 58.9 Estimated GFR (Non- 50.8 BUN/Creatinine Ratio 14.9 Random Glucose 99 mg/dl Calcium Level 7.9 mg/dl Phosphorus Level 3.2 mg/dl Magnesium Level 1.8 mg/dl Bedside Glucose 97 mg/dl
[2017-12-19] MEDS: COLESTIPOL HCL 1 GM TAB PO SCH (10:34)
--- NOTE | 2017-12-19 11:04 | Pharmacy Progress Note ---
Glycemic Control Progress Note Date of Service December 19, 2017. Scope Glycemic Pharmacist consulted for glycemic control to write orders per [facility] inpatient glycemic control protocol. Objective Accuchecks BSG (last 24hrs): Test 12/18/17 10:57 12/18/17 11:58 12/18/17 12:55 12/18/17 13:59 Bedside Glucose 126 mg/dl (70-99) 102 mg/dl (70-99) 208 mg/dl (70-99) 152 mg/dl (70-99) Test 12/18/17 15:04 12/18/17 15:49 12/18/17 20:47 12/18/17 23:33 Bedside Glucose 157 mg/dl (70-99) 142 mg/dl (70-99) 123 mg/dl (70-99) 138 mg/dl (70-99) Test 12/19/17 03:36 12/19/17 04:06 12/19/17 06:37 Bedside Glucose 99 mg/dl (70-99) 97 mg/dl (70-99) Random Glucose 99 mg/dl (70-99) HbA1c: Test 12/18/17 04:10 Hemoglobin A1c 7.4 % (4.5-5.6) H Recent Pertinent Medications Outpatient Anti-diabetic Regimen: * Lantus 56 units SC HS * Novolog TIDM (per patient, takes 11 units with meals and does not count CHO) * A1c = 7.4 % on 12/18/17 The patient is currently receiving: * Lantus 70 units SC 12/18 AM * Novolog ACHS with 2 overnight checks last night * Goal range 120-160 mg/dL * Correction factor: 20 mg/dL/unit * Carb ratio: 1 unit for every 7 g CHO consumed Risk Factors for Insulin Resistance: * Infection: chronic knee infection (?prophylaxis) - on amoxicillin as outpatient * Recent Surgery: Cardiac catheterization overnight 12/17 to 12/18. Repeat cardiac cath planned for today * Diet: T2DM changed to NPO this AM (per ICU rounds) in anticipation of procedure Assessment & Plan ASSESSMENT: 12/18/17 * 87 yo M admitted 2nd ACS s/p cardiac cath overnight last night, currently in ICU. * Insulin drip initiated last night for BSG > 400 mg/dL. BSG's have trended down, but insulin drip was most recently running at 9.9 units/hr. Anticipate insulin sensitivity to increase and do not anticipate drip will remain at close to 10 units/hr (especially as plan to increase goal range) * Spoke with patient while family present - confirmed home dose of Lantus was 56 units HS. Patient also reports he takes Novolog 11 units TIDM (does not CHO count). He notes he did not take his PM Lantus yesterday before arrival * Lantus dose: moderate stress of total daily outpatient dose recommended 58 units Lantus. However, will increase this dose 2nd the following: * This dose is only 2 units above outpatient dose (and patient with increased physiologic stress) * Missed Lantus dose last night thus increased basal deficiency * Insulin drip most recently running at 9.9 units/hr (prior was 5.9 units/hr) * Selected Lantus dose of 70 units (this is 14 units less than severe stress of total daily outpatient dose which is appropriate for a patient not on steroids) * Unclear if this dose of Lantus will be enough to transition patient off of insulin drip * Parameters for discontinuation of insulin drip * Minimum of 4 hour overlap * Drip running at less than 2 units/hr * BSG less than 180 mg/dL x2 * Anticipate insulin drip will likely be able to be discontinued later today as rates have been trending down nicely after Lantus administration * Will initiate Novolog at slightly tighter than weight-based stress of 2 ( slightly tighter 2nd significant outpatient insulin doses), and add in 2 overnight BSG checks 12/19/17 * Successfully transitioned off insulin drip yesterday with BSG's ranging 97- 142 mg/dL since transition * Will change the patient to BID Lantus while in house - would normally split dose yesterday in 2 equal doses as this seemed to be appropriate. However, will slightly decrease this AM 2nd NPO status and 2nd anticipated procedure. * No change to Novolog. Will keep 2 overnight checks again tonight 2nd possible increased physiologic stress from procedure anticipated today * Mild hyperglycemia to 69 mg/dL noted prior to procedure - given glucose tabs. BSG post-procedure 112 mg/dL per stenographer secretary - will decrease total daily Lantus dose so patient does not receive more than 60 units total today (70 units administered yesterday) PLAN FOR INPATIENT GLYCEMIC CONTROL: * Decrease Basal insulin with LANTUS 25 units SQ x1. PM dose starting tonight based on BSG as follows: * 10 units for BSG less than 120 mg/dL * 25 units for BSG 120-180 mg/dL * 35 units for BSG greater than 180 mg/dL * Ongoing Lantus to be determined based on trend in BSG's overnight * NOVOLOG ACHS with 2 overnight checks * Goal range 120-160 mg/dL * Correction factor: 20 mg/dL/unit * Carb ratio: 1 unit for every 7 g CHO consumed * Please note that the plan above was derived based on current level of insulin resistance and hospital stress. These recommendations are appropriate for inpatient admission only. Plan of care upon discharge will need to be reassessed to avoid potential outpatient hypo/hyperglycemia. Thank you.
[2017-12-19] MEDS ORDERED: FENTANYL CITRATE INJ 50 MCG/1 ML 2 ML VIAL ONE (11:05)
[2017-12-19] MEDS ORDERED: MIDAZOLAM HCL 1 MG/ML 2ML VIAL ONE (11:05)
[2017-12-19] MEDS ORDERED: HEPARIN SOD (PORCINE) 1000 UNIT/ML 10 ML VIAL ONE (11:05)
[2017-12-19] MEDS ORDERED: NiCARDipine HCL INJ 2.5 MG/ML 10 ML AMP ONE (11:05)
[2017-12-19] MEDS ORDERED: NITROGLYCERIN/D5W 100MCG/ML 20ML SYR ONE (11:06)
[2017-12-19] MEDS ORDERED: DOPamine 400MG / 250ML D5W ONE (11:56)
[2017-12-19] MEDS ORDERED: DEXTROSE 50% 50 ML SYR ONE (12:00)
[2017-12-19] MEDS ORDERED: FUROSEMIDE 40 MG/4 ML VIAL ONE (12:09)
[2017-12-19] MEDS ORDERED: NOREPINEPHRINE BITARTRATE 1 MG/ML 4 ML VIAL IV ONE (12:18)
--- NOTE | 2017-12-19 13:20 | Post Sedation Assessment ---
Post Sedation Assessment General Date of Sedation December 19, 2017. Vital Signs: Vital Signs Past 12 Hours Date Time Temp Pulse Resp B/P (MAP) Pulse Ox O2 Delivery O2 Flow Rate FiO2 12/19/17 10:00 70 20 123/59 (80) 95 Nasal Cannula 2.0 12/19/17 08:00 Nasal Cannula 2.0 12/19/17 08:00 Nasal Cannula BiPAP 12/19/17 08:00 36.8 74 18 114/60 (78) 95 Nasal Cannula 2.0 12/19/17 06:00 73 19 100/53 (69) 93 12/19/17 05:00 69 19 107/66 (83) 92 12/19/17 04:00 64 21 106/56 (75) 94 12/19/17 04:00 92 CPAP 4.0 12/19/17 04:00 36.4 12/19/17 03:01 69 17 96/47 (64) 92 12/19/17 02:00 68 20 98/56 (78) 95 Post Procedure Recovery Score Activity: (2) Moves 4 extremities * Respiration: (2) Deep breath/cough Circulation: (2) +/-20% PreAnes Value Consciousness: (2) Fully Awake Oxygen Saturation: (2) > 92% On Room Air Post Anesthesia Score: 10 Discharge Sedation Level of Care: Fast Track Phase II Post Sedation Plan On clinical assessment, the patient appears to have tolerated the sedation without complications. Patient is recovering as anticipated. Patient will continue to be monitored by nursing and may be discharged when sedation discharge criteria are met per below protocol. Upon Completions of procedure and additional 15 minutes continue every 5 minute vital signs and the P.A.R. score; then discharge to a Phase I or Fast Track to Phase II per the following guidelines: * Discharge Patient to appropriate Phase II area if PAR is 8 or greater or return to pre- procedure baseline. The post - procedure orders will be as directed. * If PAR score is less than 8 or not return to pre-procedure baseline then patient will follow Phase I monitoring till PAR is reached for Phase II. The Phase I may be done in procedure room or may call to secure a Phase I area. * If naloxone or flumazenil are used for reversal, hold in Phase I for an additional 60 -120 minutes before discharge to Phase II. Please call the Sedation Physician to re-evaluate and complete post-note for discharge to Phase II area. Do NOT discharge from procedure sedation or Phase 1 until post- sedation evaluation note is complete by procedure /sedation MD Sedation Discharge Instructions to be given to the patient at discharge to home.
--- NOTE | 2017-12-19 13:20 | Pre Sedation Assessment ---
Pre Sedation Assessment General Date of Sedation: December 19, 2017. Vital Signs Past 12 Hours Date Time Temp Pulse Resp B/P (MAP) Pulse Ox O2 Delivery O2 Flow Rate FiO2 12/19/17 10:00 70 20 123/59 (80) 95 Nasal Cannula 2.0 12/19/17 08:00 Nasal Cannula 2.0 12/19/17 08:00 Nasal Cannula BiPAP 12/19/17 08:00 36.8 74 18 114/60 (78) 95 Nasal Cannula 2.0 12/19/17 06:00 73 19 100/53 (69) 93 12/19/17 05:00 69 19 107/66 (83) 92 12/19/17 04:00 64 21 106/56 (75) 94 12/19/17 04:00 92 CPAP 4.0 12/19/17 04:00 36.4 12/19/17 03:01 69 17 96/47 (64) 92 12/19/17 02:00 68 20 98/56 (78) 95 Review Cardiovascular: regular rate, rhythm, no edema Lungs: chest non-tender, lungs clear Pre-Sedation Airway Assessment Smoking Status: Former Smoker (Spelled 4 packs per day for 30-40 years. Quit 1982) Hx of Sleep Apnea: No Hx of difficult intubation: No Short Thick Neck: No Thyro-mental Distance: > 3 Finger Breadths Oral Cavity: WNL Mallampati Classification: Class III ASA Classification: Class IV Procedure Planning Contraindications for Sedation: None Current Medications Reviewed: Yes Notes The planned sedation has been discussed with the patient. Informed Consent was obtained. I have identified the patient, determined the appropriateness of sedation and have assessed the patient immediately prior to the procedure. All medicine(s) and interventions are by my order.
--- NOTE | 2017-12-19 13:30 | Progress Note ---
Progress Note Date of Service December 19, 2017. Progress Note I was present during cardiac cath. Excellent results from poba and pci with good revascularization some transient hypotension during procedure, initially placed on dopamine then Levophed, dopamine d/c'ed transient hypoxia; given lasix 40mg IV and bipap started procedure completed and patient stabilized, family updated on clinical progress transferred back to ICU on Bipap / as per recommendations Levophed running with stable bp and hr pt currently only complaint is back pain from lying on cath table. Immediate plan: titrate off bipap and Levophed my assumption is that once bipap is discontinued, patient's preload will increase and will no longer require pressor support cont asa and plavix will give percocet now for pain greatly appreciate efforts of Dr. Otero and entire analyst microbiology lab team
--- NOTE | 2017-12-19 13:34 | Cardiac Catheterization ---
Procedure Note Procedure Date December 19, 2017. Pre-Procedure Diagnosis Acute Coronary Syndrome AUC Score 8 Post-Procedure Diagnosis Severe CAD, Successful PCI Procedure(s) Performed Drug Eluting Stent, Femoral Artery Angiography Appian Bpm Developer Branden Singing Messenger(s) Alessiot Estimated Blood Loss 20 Medication(s) Dopamine, Fentanyl, Heparin, Nitroglycerin, Norepinephrine, Versed, Lidocaine 1% Lasix Summary of Findings Indication: NSTEMI; staged PCI Access: 6Fr right radial artery; 6Fr right HEALTHCARE SALES REPRESENTATIVE Catheters: EBU 3.5 guide; JL4 guide Findings: For full details of patients coronary angiography please see cath report from 12/17/2017. -- PCI -- Antithrombotic therapy: Heparin, Clopidogrel Procedure: LM cannulated with EBU 3.5 guide Relay Associate 50 wire passed across lesion into distal vessel OM2 and proximal circumflex lesion predilated with 2.0 balloon. 2.75 x 15 [place] DARYL delivered with aid of guideliner Stent post-dilated with stent balloon. Intraprocedure became hypotensive requiring dopamine and norepi Increasingly hypoxic requiring lasix and Bipap Attempted to confirm no coronary complications and initial guide became kinked/ twisted and had to be removed. 2nd access obtained via right HEALTHCARE SALES REPRESENTATIVE under fluoroscopic guidance. LM re-cannulated with JL4 guide Post procedure CARLYN 3 flow, stent well expanded with minimal residual stenosis and no apparent cardiac complications. Arterial Closure: TR band; Angioseal Summary: 1.Successful PCI of proximal circumflex with 2.75 x 15 [place] DARYL - POBA of proximal OM2 with 2.0 balloon. Recommendations: To ICU for continued monitoring on norepinephrine and Bipap Continue dual-antiplatelet therapy with ASA/Clopidogrel indefinitely Continued cardiac care per Dr. Roman Hemodynamics Rest Ao: 98/41/59 Final Ao: 135/70/99 LV: -- Recommendations PCI without planned CABG Specimens None Radiation Exposure (mGy) 3612 Contrast (mls) 145 Fluids (cc crystalloids) 265 Drains None Anesthesia Moderate Procedural Complication(s) Cardiogenic shock, Respiratory failure requiring diuretics, Bipap and vasopressors Disposition ICU ACC Data Cardiac Status Clinical evaluation leading to the procedure CAD Presntation: Non STEMI Anginal Classification: CCS IV Heart Failure: No, NYHA Class: CCS I Cardiogenic Shock w/in 24Hrs: Yes Cardiac Arrest w/in 24Hrs: No Imaging studies past 6 months: Yes Stress studies past 6 months: No Closure Device Percutaneous Entry Location: Radial Closure Device: Radial Band Recommendations: PCI without planned CABG PCI Indication: PCI for high risk Non-STEMI Intraprocedure Events Significant Dissection: No Perforation: No
[2017-12-19] MEDS ORDERED: OXYCODONE/ACETAMINOPHEN 5-325 TAB PO PRN (13:45)
[2017-12-19] MEDS ORDERED: NURSING VERBAL MED ORDER ONE (13:45)
--- NOTE | 2017-12-19 15:24 | Palliative Care Progress Note ---
Palliative Care Progress Note Date of Service December 19, 2017. Subjective Pt evaluation today including: conversation w/ patient, physical exam, chart review, lab review, review of studies, conversation w/ senior environmental consultant, review of inpatient medication list Pain: none PO Intake: fair Voiding: bettencourt catheter in place Asked to see patient by Dr. Dougherty to determine goals of care. Patient seen in ICU, not at bedside. Called patient's home number and left a message for the to call back so that we can meet and have her present. Briefly, patient is an 87-year-old male who was admitted on 12/17 for a history of shortness of breath 6 weeks, shortness of breath had been increasing and was associated with 10/10 chest pain. Patient has a history of FL 4 in the past, moderate to severe , BPH, chronic pancreatitis, depression, diabetes, hypertension, HLD, PVD. Patient taken to the Financial Systems Administrator on 12/18 he was found to have severe multivessel disease and moderate left ear. Patient went for PTCA today. Patient with multiple comorbidities including VIC, stage III lymphoma, chronic pancreatitis, diabetes, PVD. Full consult to follow after meeting with patient and to discuss CODE STATUS and goals of care. Review of Systems Constitutional: + fatigue ENT: No hearing loss Respiratory: + shortness of breath, + dyspnea at rest, + problem reported ( Wearing BiPAP) Cardiac: No chest pain Abdomen: No pain Male : + problem reported (Bettencourt in place) Neurologic: + weakness ROS limited due to patient on BiPAP Objective Physical Exam General Appearance: + mild distress (BiPAP on) Eyes: EOMI ENT: hearing grossly normal Neck: + pertinent finding (Breath sounds equal, no rash) Cardiovascular: regular rate, rhythm, no edema Abdomen: non tender Extremities: no pedal edema Neurologic/Psychiatric: alert Laboratory Results Last 24 Hours Test 12/18/17 15:49 12/18/17 16:03 12/18/17 20:47 12/18/17 23:33 Bedside Glucose 142 mg/dl 123 mg/dl 138 mg/dl Troponin I 1.470 ng/ml Test 12/19/17 03:36 12/19/17 04:06 12/19/17 06:37 12/19/17 11:59 Bedside Glucose 99 mg/dl 97 mg/dl 65 mg/dl White Blood Count 9.68 K/uL Red Blood Count 4.07 M/uL Hemoglobin 11.7 g/dL Hematocrit 35.5 % Mean Corpuscular Volume 87.2 fL Mean Corpuscular Hemoglobin 28.7 pg Mean Corpuscular Hemoglobin Concent 33.0 g/dl Platelet Count 142 K/uL Mean Platelet Volume 10.1 fL Neutrophils (%) (Auto) 69.6 % Lymphocytes (%) (Auto) 19.7 % Monocytes (%) (Auto) 7.6 % Eosinophils (%) (Auto) 2.3 % Basophils (%) (Auto) 0.5 % Neutrophils # (Auto) 6.73 K/uL Lymphocytes # (Auto) 1.91 K/uL Monocytes # (Auto) 0.74 K/uL Eosinophils # (Auto) 0.22 K/uL Basophils # (Auto) 0.05 K/uL RDW Standard Deviation 48.5 fL RDW Coefficient of Variation 15.2 % Immature Granulocyte % (Auto) 0.3 % Immature Granulocyte # (Auto) 0.03 K/uL Activated Partial Thromboplast Time 49.9 SECONDS Partial Thromboplastin Ratio 1.9 Sodium Level 139 mmol/L Potassium Level 3.5 mmol/L Chloride Level 106 mmol/L Carbon Dioxide Level 26 mmol/L Anion Gap 7.0 mmol/L Blood Urea Nitrogen 19 mg/dl Creatinine 1.27 mg/dl Est Creatinine Clear Calc Drug Dose 45.4 ml/min Estimated GFR () 58.9 Estimated GFR (Non- 50.8 BUN/Creatinine Ratio 14.9 Random Glucose 99 mg/dl Calcium Level 7.9 mg/dl Phosphorus Level 3.2 mg/dl Magnesium Level 1.8 mg/dl Test 12/19/17 12:32 12/19/17 12:45 Bedside Glucose 128 mg/dl Bedside Blood Gas pH (LAB) 7.41 Bedside Blood Gas pCO2 (LAB) 36 mmHg Bedside Blood Gas pO2 (LAB) 68 mmHg Bedside Blood Gas HCO3 (LAB) 22 meq/L Bedside Blood Gas Total CO2 24 mEq/l Bedside Blood Gas Base Excess (LAB) -2.0 meq/L Bedside Blood Gas O2 Saturation 94.0 % Assessment and Plan Spoke briefly with patient regarding goals of care, will need to return when his is present to to full consult.
--- NOTE | 2017-12-19 20:52 | DIAGNOSTIC IMAGING REPORT ---
CHEST 2 VIEWS ROUTINE HISTORY: 87 years-old Male sob acute shortness of breath COMPARISON: Chest radiograph 12/17/2017 TECHNIQUE: PA and lateral views of the chest FINDINGS: Cardiac silhouette is again mildly enlarged. Atherosclerosis of the aorta with unchanged mild mediastinal widening. No pneumothorax or large pleural effusion. Blunting of the costophrenic angles suggests trace pleural effusions. There are progressively worsened bilateral interstitial opacities within a perihilar predominant distribution, left greater than right with mild pulmonary vascular congestion. Degenerative changes of the shoulders and spine with fusion hardware of the lower cervical spine. IMPRESSION: 1. Cardiomegaly with pulmonary vascular congestion and slightly progressive interstitial opacities, left greater then right suggesting asymmetric pulmonary edema. 2. Suspected trace pleural effusions. The above report was generated using voice recognition software. It may contain grammatical, syntax or spelling errors. Electronically signed by: Vaibhav Guthrie M.D. 12/19/2017 8:51 PM Dictated Date/Time: 12/19/2017 8:49 PM
[2017-12-19] MEDS: CLOPIDOGREL BISULFATE 75 MG TAB PO SCH (21:37)
[2017-12-19] MEDS: ROSUVASTATIN CALCIUM 20 MG TAB PO SCH (21:37)
[2017-12-19] MEDS: AMOXICILLIN 500 MG CAP PO SCH (21:37)
[2017-12-19] MEDS: FINASTERIDE 5 MG TAB PO SCH (21:37)
[2017-12-19] MEDS: ASPIRIN 81 MG ECTAB PO SCH (21:37)
[2017-12-19] MEDS: ROPINIROLE HCL 0.25 MG TAB PO SCH (21:37)
[2017-12-19] MEDS: METOPROLOL SUCC 25MG EXT REL TAB PO SCH (21:37)
[2017-12-19] MEDS: GUAIFENESIN SUGAR FREE 200 MG/10 ML UDC PO PRN (21:37)
[2017-12-19] MEDS: POTASSIUM CHLORIDE 10 MEQ TABCR PO SCH (21:39)
[2017-12-20] VITALS (13 sets, daily range): BP systolic 82–115; BP diastolic 41–69; PULSE 60–90; TEMP 36.4–37.3; O2SAT 91–97
[2017-12-20] MEDS: INSULIN ASPART 100 UNITS/ML 3 ML PEN SC SCH ×5 (03:35→21:00)
[2017-12-20 04:31] LABS: BASO % 0.3 %; BASO ABS # 0.02 K/uL (0-0.2); EOS % 1.9 %; EOS ABS # 0.15 K/uL (0-0.5); HEMATOCRIT 36.2 % (42-52); HEMOGLOBIN 12.7 g/dL (14.0-18.0); IG# 0.03 K/uL (0.00-0.02); LYMPH % 23.6 %; LYMPH ABS # 1.83 K/uL (1.2-3.4); MEAN CELL VOLUME 87.4 fL (80-100); MEAN CORPUSCULAR HEMOGLOBIN 30.7 pg (25-34); MEAN CORPUSCULAR HGB CONC 35.1 g/dl (32-36); MEAN PLATELET VOLUME 9.3 fL (7.4-10.4); MONO ABS # 0.93 K/uL (0.11-0.59); NEUT % 61.8 %; NEUT ABS # 4.81 K/uL (1.4-6.5); PLATELET COUNT 140 K/uL (130-400); RED CELL DISTRIBUTION WIDTH CV 15.2 % (11.5-14.5); RED CELL DISTRIBUTION WIDTH SD 49.2 fL (36.4-46.3); WHITE BLOOD COUNT 7.77 K/uL (4.8-10.8)
[2017-12-20 04:51] LABS: CALCIUM 8.2 mg/dl (8.5-10.1); CREATININE 1.33 mg/dl (0.60-1.40); POTASSIUM 3.6 mmol/L (3.5-5.1)
[2017-12-20 04:56] LABS: PTT PATIENT 35.8 SECONDS (21.0-31.0)
[2017-12-20] MEDS ORDERED: POTASSIUM CHLORIDE 20 MEQ TABCR PO STA (06:11)
[2017-12-20] MEDS: PANCREAZE (LIPASE 10,500U) CAP PO SCH ×3 (07:39→16:15)
[2017-12-20] MEDS: GABAPENTIN 300 MG CAP PO SCH ×4 (07:40→20:01)
[2017-12-20] MEDS: ESCITALOPRAM OXALATE 10 MG TAB PO SCH (07:41)
[2017-12-20] MEDS: FUROSEMIDE 40 MG TAB PO SCH (07:41)
[2017-12-20] MEDS: PANTOprazole SOD 40 MG TAB PO SCH (07:41)
[2017-12-20] MEDS: RIVASTIGMINE TARTRATE 9.5 MG PATCH TD SCH (07:42)
[2017-12-20] MEDS: SPIRONOLACTONE 25 MG TAB PO SCH (07:45)
[2017-12-20] MEDS: COLESTIPOL HCL 1 GM TAB PO SCH (09:27)
[2017-12-20] MEDS ORDERED: INSULIN GLARGINE SOLOSTAR 100 UNITS/ML 3 ML PEN SC ONE (09:30)
--- NOTE | 2017-12-20 09:54 | Pharmacy Progress Note ---
Glycemic Control Progress Note Date of Service December 20, 2017. Scope Glycemic Pharmacist consulted for glycemic control to write orders per [facility] inpatient glycemic control protocol. Objective Accuchecks BSG (last 24hrs): Test 12/19/17 10:55 12/19/17 10:57 12/19/17 11:59 12/19/17 12:32 Bedside Glucose 69 mg/dl (70-99) 72 mg/dl (70-99) 65 mg/dl (70-99) 128 mg/dl (70-99) Test 12/19/17 13:29 12/19/17 16:32 12/19/17 21:33 12/19/17 23:53 Bedside Glucose 112 mg/dl (70-99) 98 mg/dl (70-99) 119 mg/dl (70-99) 233 mg/dl (70-99) Test 12/19/17 23:54 12/20/17 03:34 12/20/17 04:23 12/20/17 06:37 Bedside Glucose 227 mg/dl (70-99) 123 mg/dl (70-99) 100 mg/dl (70-99) Random Glucose 109 mg/dl (70-99) HbA1c: Test 12/18/17 04:10 Hemoglobin A1c 7.4 % (4.5-5.6) H Recent Pertinent Medications Outpatient Anti-diabetic Regimen: * Lantus 56 units SC HS * Novolog TIDM (per patient, takes 11 units with meals and does not count CHO) * A1c = 7.4 % on 12/18/17 The patient is currently receiving: * Lantus 25 units SC 5/10 AM, 10 units SC 5/10 PM * Novolog ACHS with 2 overnight checks last night * Goal range 120-160 mg/dL * Correction factor: 20 mg/dL/unit * Carb ratio: 1 unit for every 7 g CHO consumed Risk Factors for Insulin Resistance: * Infection: chronic knee infection (?prophylaxis) - on amoxicillin as outpatient * Recent Surgery: POD 1 s/p repeat cardiac cath * Diet: T2DM Assessment & Plan ASSESSMENT: 12/19/17 * Successfully transitioned off insulin drip yesterday with BSG's ranging 97- 142 mg/dL since transition * Will change the patient to BID Lantus while in house - would normally split dose yesterday in 2 equal doses as this seemed to be appropriate. However, will slightly decrease this AM 2nd NPO status and 2nd anticipated procedure. * No change to Novolog. Will keep 2 overnight checks again tonight 2nd possible increased physiologic stress from procedure anticipated today * Mild hyperglycemia to 69 mg/dL noted prior to procedure - given glucose tabs. BSG post-procedure 112 mg/dL per education paraprofessional - will decrease total daily Lantus dose so patient does not receive more than 60 units total today (70 units administered yesterday) 12/20/17 * BSg's ranging 98-123 mg/dL since surgery yesterday (with the exception of a BSG of 227 mg/dL overnight which was drawn after the patient consumed a chocolate milkshake and crackers without Novolog CHO coverage) * Suspect BSG to 69 mg/dL yesterday afternoon prior to surgery was not 2nd AM Lantus administered on 12/19, but was 2nd significant Lantus dose administered @ 1115 on 12/18 * Lantus 35 units total administered yesterday - AM fasting BSG today good at 100 mg/dL. However, will decrease AM Lantus dose today as stressors are decreasing (further from surgery) and would like to try to transition patient back to home once-daily Lantus administration time of HS * Ongoing Lantus scheduled qPM based on BSG * Will slightly loosen correction factor and carb ratio to weight-based moderate stress estimate as would like to decrease the goal range post-op PLAN FOR INPATIENT GLYCEMIC CONTROL: * Adjust Basal insulin with LANTUS 10 units SQ x1. Then ongoing qPM based on BSG as follows: * 10 units for BSG less than 120 mg/dL * 20 units for BSG 120-180 mg/dL * 25 units for BSG greater than 180 mg/dL * NOVOLOG ACHS * Decrease Goal range 110-140 mg/dL * Loosen Correction factor: 25 mg/dL/unit * Loosen Carb ratio: 1 unit for every 8 g CHO consumed * Please note that the plan above was derived based on current level of insulin resistance and hospital stress. These recommendations are appropriate for inpatient admission only. Plan of care upon discharge will need to be reassessed to avoid potential outpatient hypo/hyperglycemia. Thank you.
--- NOTE | 2017-12-20 09:56 | Critical Care Progress Note ---
Critical Care Progress Note Date of Service December 20, 2017. ICU Day ICU Day Number: [address] Dougherty Subjective The patient was up in his chair eating breakfast this am. He says that he slept well last night and is feeling better. He does still endorse some SOB with exertion and a persistent cough. He denies chest pain or swelling in legs. Objective Physical Exam: General - NAD, alert orient HEENT - NC/AT, PERRL, EOMI, Supple, trachea midline, no masses or lymphadenopathy, no JVD Lungs-Diffused crackles heard heard throughout both lung rangel, no wheezes or rhonchi Heart - Reg rate and rhythm, No murmur, rubs, clicks, or gallops appreciated Abdomen - BS present, soft, nontender, nondistended, no organomegaly Extremities -bilateral lower extremity edema right greater than left, pedal pulses intact Neuro - A&O x 4, appropriate speech Strength extremities equal and appropriate bilaterally Assessment & Plan 87 year old present with chest pain and acute SOB likely 2/2 to acute on chronic heart failure Assessment; Patient had cardiac catheterization and stent placement yesterday. During the procedure the patient's pressure dropped and he became acutely SOB while lying on the table-- the patient was subsequently given fluid, pressors and Lasix. Recanalization and stent placement of prox. circumflex were completed without complication and the patient was transferred back to the ICU. Levophed was withdrawn in the ICU and the patient maintained adequate pressures overnight. Patient still has a significant cough and his chest xray shows progressive interstitial opacities concerning for worsening heart failure. Plan; Patient has been stable in the ICU and will be transferred today to telemetry. Cardiology is following the patient--will likely require 72 hours of monitoring on telemetry prior to discharge. Today, we are starting SQ heparin, cont. dual antiplatelet therapy, Lasix and home meds. In addition, Palliative has been consulted to review code status and offer guidance in light of worsening heart failure with poor prognosis. Neuro: -Dementia/mild Alzheimer's-Continue home medications -Diabetic neuropathy-Continue gabapentin -Depression: Continue Lexapro Resp: -Respiratory insufficiency secondary to worsening heart failure -CXR demonstrates progressive interstitial opacities/pulmonary edema -Hemoptysis--patient continue to have a cough with rust colored sputum likely 2/ 2 pulmonary congestion--cont. to follwo -Continue to wean O2--patient sating well this am on 2L -VIC: continue home CPAP. Desats overnight likely 2/2 device positioning--use chin strap for better securing CV: -Siginificant history of STEMI and multiple stent placement--patient admitted with chest pain and elevated troponin -NSTEMI--cardiac catheterization and stent placement yesterday in the proximal circumflex -ECHO: -No change in wall motion abnormalities when compared to previous studies -Normal LV chamber size with moderate concentric LVH -Normal LV systolic function, EF 60-65%. -CHF--Continue home Lasix with increased dosage of 40 mg in addition to spironolactone -Troponin down trend--3.1--3.0--1.4 -Cont. ASA, clopidogrel, metoprolol Fluids/Renal: -History of chronic kidney disease stage III -Creatinine currently appears to be at baseline -Diez in place with adequate urinary output -BPH-Continue home regimen ID -Currently no indication for broad-spectrum antibiotics -Continue suppressive amoxicillin--prior right knee septic prosthetic -Patient is afebrile, without leukocytosis, negative lactic acid and negative pro-calcitonin. -Monitor for signs of infection GI/Nutrition: -History of chronic pancreatitis-Cont. enzymes -Gastric ulcers- Continue home Protonix -Recent abnormal hepatitis serologies-demonstrate immunity not active infection- encourage patient to follow up on pending serologies -Cont. AHA diet, fluid restrictions Heme: -H&H: 12.7/36.2 -Check with daily labs -DVT prophylaxis:SQ heparin 5,000 TID Endocrine: -History of type 2 diabetes--cont. Lantus/novolog -A1C-7.4 Lymphoma: -Patient currently followed with Dr. Ashley -No active treatment at this moment Dr. Whittington was resident physician during care of patient. I separately evaluated patient and did history and exam. I discussed the case with the resident and generally agree with the findings and plan. Patient was discussed on multidisciplinary rounds Patient remains chest pain-free, hemodynamically stable, able to downgrade to telemetry status today. Data Medications: Current Inpatient Medications Medications (Trade) Dose Ordered Sig/Francine Route Start Time Stop Time Status Last Admin Dose Admin Glucose (Glucose 40% Gel) 15-30 GRAMS 15 GRAMS... UD PRN PO 12/18/17 01:45 01/17/18 01:44 Glucose (Glucose Chew Tab) 4-8 Tablets 4 Tabl... UD PRN PO 12/18/17 01:45 01/17/18 01:44 12/19/17 11:00 4 TABS Dextrose (Dextrose 50% 50ML Syringe) 25-50ML 25ML FOR ... UD PRN IV 12/18/17 01:45 01/17/18 01:44 Glucagon (Glucagon Inj) 1 mg UD PRN IM 12/18/17 01:45 01/17/18 01:44 Carbohydrates (Carbohydrates For Hypoglycemia) 15-30 GRAMS 15 grams if BSG 54-69... UD PRN PO 12/18/17 01:45 01/17/18 01:44 Albuterol (Ventolin Hfa Inhaler) 2 puffs Q6H PRN INH 12/18/17 02:00 01/17/18 01:59 Amlodipine Besylate (Norvasc Tab) 2.5 mg HS PO 12/18/17 21:00 01/17/18 20:59 Future Hold 12/18/17 20:53 2.5 MG Aspirin (Ecotrin Tab) 81 mg QPM PO 12/18/17 21:00 01/17/18 20:59 12/19/17 21:37 81 MG Clopidogrel Bisulfate (plAVix TAB) 75 mg QPM PO 12/18/17 21:00 01/17/18 20:59 12/19/17 21:37 75 MG Colestipol HCl (Colestid Tab) 1 gm DAILY@1000 PO 12/18/17 10:00 01/17/18 09:59 12/19/17 10:34 1 GM Escitalopram Oxalate (Lexapro Tab) 10 mg QAM PO 12/18/17 09:00 01/17/18 08:59 12/20/17 07:41 10 MG Finasteride (Proscar Tab) 5 mg QPM PO 12/18/17 21:00 01/17/18 20:59 12/19/17 21:37 5 MG Gabapentin (Neurontin Cap) 300 mg QID PO 12/18/17 09:00 01/17/18 08:59 12/20/17 07:40 300 MG Losartan Potassium (coZAAR TAB) 25 mg QAM PO 12/18/17 09:00 01/17/18 08:59 Future Hold 12/18/17 07:47 25 MG Metoprolol Succinate (Toprol Xl Tab) 75 mg QPM PO 12/18/17 21:00 01/17/18 20:59 12/19/17 21:37 75 MG Pantoprazole Sodium (Protonix Tab) 40 mg QAM PO 12/18/17 09:00 01/17/18 08:59 12/20/17 07:41 40 MG Potassium Chloride (Klor-Con M10) 10 meq QPM PO 12/18/17 21:00 01/17/18 20:59 12/19/17 21:39 10 MEQ Ropinirole HCl (Requip Tab) 0.25 mg HS PO 12/18/17 21:00 01/17/18 20:59 12/19/17 21:37 0.25 MG Rosuvastatin Calcium (Crestor Tab) 40 mg HS PO 12/18/17 21:00 01/17/18 20:59 12/19/17 21:37 40 MG Spironolactone (Aldactone Tab) 25 mg DAILY PO 12/18/17 09:00 01/17/18 08:59 12/20/17 07:45 25 MG Tamsulosin HCl (Flomax Cap) 0.4 mg MoWeFr@2100 PO 12/18/17 21:00 01/17/18 20:59 12/18/17 20:53 0.4 MG Amylase/Lipase/ Protease (Pancreaze (Lipase 10,500U) Cap) 2 cap TIDM PO 12/18/17 07:15 01/17/18 07:14 12/20/17 07:39 2 CAP Amoxicillin (Amoxil Cap) 500 mg HS PO 12/18/17 21:00 01/29/18 20:59 12/19/17 21:37 500 MG Furosemide (Lasix Tab) 40 mg QAM PO 12/18/17 09:00 01/17/18 08:59 12/20/17 07:41 40 MG Miscellaneous Information (Consult Glycemic Management Pharmacy) 1 ea UD PRN N/A 12/18/17 10:45 01/17/18 10:44 Insulin Aspart (novoLOG ASPART) SLIDING SCALE ACHS SC 12/18/17 16:00 01/17/18 15:59 12/20/17 07:57 6 UNITS Nitroglycerin (Nitrostat Tab) 0.4 mg PRN PRN SL 12/18/17 19:30 01/17/18 19:29 12/18/17 20:00 0.4 MG Guaifenesin (Robitussin Sugar Free Syrup) 200 mg Q6H PRN PO 12/19/17 09:15 01/18/18 09:14 12/19/17 21:37 200 MG Oxycodone/ Acetaminophen (Percocet 5-325mg Tab) 1 tab Q4H PRN PO 12/19/17 13:45 01/02/18 13:44 Rivastigmine Tartrate (Exelon Patch 9.5MG/24 Hr) 9.5 mg DAILY TD 12/20/17 09:00 01/19/18 08:59 12/20/17 07:42 9.5 MG Miscellaneous (Remove Patch) 1 ea DAILY@0859 N/A 12/20/17 08:59 01/19/18 08:58 12/20/17 07:45 1 EA Heparin Sodium (Porcine) (Heparin Sq 5000 Unit/0.5ml) 5,000 unit Q8 SQ 12/20/17 14:00 01/19/18 13:59 Insulin Glargine (Lantus Solostar Pen) 10 units NOW ONCE SC 12/20/17 09:30 12/20/17 09:31 Vital Signs: Date Time Temp Pulse Resp B/P (MAP) Pulse Ox O2 Delivery O2 Flow Rate FiO2 12/20/17 08:00 37.3 84 19 98/61 (73) 93 Nasal Cannula 2.0 12/20/17 08:00 93 Nasal Cannula 2.0 12/20/17 08:00 Nasal Cannula BiPAP 12/20/17 06:00 73 21 112/63 (81) 92 12/20/17 05:00 77 22 114/56 (80) 93 12/20/17 04:00 36.4 12/20/17 04:00 74 23 111/57 (80) 95 12/20/17 04:00 91 CPAP 4.0 12/20/17 03:01 76 23 93/41 (75) 91 12/20/17 02:01 74 23 105/64 (84) 94 12/20/17 01:00 79 23 92/48 (53) 91 12/20/17 00:01 80 24 82/63 (72) 95 12/20/17 00:01 37.0 12/19/17 23:59 95 CPAP 4.0 12/19/17 23:01 86 24 100/52 (57) 93 12/19/17 22:01 86 21 126/63 (84) 92 12/19/17 21:33 92 28 132/71 (93) 92 12/19/17 21:00 88 26 104/52 (75) 90 12/19/17 20:19 87 26 98/59 (76) 91 12/19/17 20:00 87 27 98/59 (72) 92 Nasal Cannula 4.0 Humidified Oxygen 12/19/17 20:00 92 Nasal Cannula 4.0 Humidified Oxygen 12/19/17 20:00 37.8 12/19/17 19:01 89 20 84/58 (72) 92 12/19/17 19:00 86 28 93/44 (60) 92 Nasal Cannula 4.0 Humidified Oxygen 12/19/17 18:00 86 28 93/44 (60) 92 Nasal Cannula 4.0 12/19/17 17:00 92 27 103/60 (74) 93 Nasal Cannula 4.0 12/19/17 16:30 91 26 101/53 (69) 92 Nasal Cannula 4.0 12/19/17 16:00 92 Nasal Cannula 4.0 12/19/17 16:00 37.0 89 27 111/63 (79) 94 BiPAP 40 12/19/17 15:45 87 23 102/59 (73) 94 BiPAP 40 12/19/17 15:30 88 24 110/69 (83) 94 BiPAP 40 12/19/17 15:15 88 22 102/62 (75) 96 BiPAP 12/19/17 15:10 85 95 55 12/19/17 15:00 88 23 108/57 (74) 96 BiPAP 50 12/19/17 14:51 86 20 102/77 (85) 94 60 12/19/17 14:43 86 95 60 12/19/17 14:30 86 40 90/52 (65) 80 BiPAP 60 12/19/17 14:21 86 22 107/71 (83) 99 BiPAP 80 12/19/17 14:06 82 20 99/60 (73) 98 12/19/17 13:51 81 25 131/67 (88) 100 12/19/17 13:36 36.9 83 23 116/70 (85) 96 BiPAP 100 12/19/17 13:35 100 BiPAP 100 12/19/17 12:57 88 18 129/76 (93) 95 BiPAP 15 12/19/17 12:52 90 18 135/75 (95) 93 BiPAP 15 12/19/17 12:47 91 22 126/79 (95) 93 BiPAP 15 12/19/17 12:40 94 22 133/71 (91) 92 BiPAP 15 12/19/17 12:37 103 22 136/75 (95) 92 BiPAP 15 12/19/17 12:34 99 92 100 12/19/17 12:32 114 22 134/80 (98) 92 Non-Rebreather 15 12/19/17 12:27 132 18 112/64 (80) 92 Non-Rebreather 15 12/19/17 10:00 70 20 123/59 (80) 95 Nasal Cannula 2.0 Laboratory Results: Last 24 Hours Test 12/19/17 10:55 12/19/17 10:57 12/19/17 11:59 12/19/17 12:32 Bedside Glucose 69 mg/dl 72 mg/dl 65 mg/dl 128 mg/dl Test 12/19/17 12:45 12/19/17 13:29 12/19/17 16:32 12/19/17 21:33 Bedside Blood Gas pH (LAB) 7.41 Bedside Blood Gas pCO2 (LAB) 36 mmHg Bedside Blood Gas pO2 (LAB) 68 mmHg Bedside Blood Gas HCO3 (LAB) 22 meq/L Bedside Blood Gas Total CO2 24 mEq/l Bedside Blood Gas Base Excess (LAB) -2.0 meq/L Bedside Blood Gas O2 Saturation 94.0 % Bedside Glucose 112 mg/dl 98 mg/dl 119 mg/dl Test 12/19/17 23:53 12/19/17 23:54 12/20/17 03:34 12/20/17 04:23 Bedside Glucose 233 mg/dl 227 mg/dl 123 mg/dl White Blood Count 7.77 K/uL Red Blood Count 4.14 M/uL Hemoglobin 12.7 g/dL Hematocrit 36.2 % Mean Corpuscular Volume 87.4 fL Mean Corpuscular Hemoglobin 30.7 pg Mean Corpuscular Hemoglobin Concent 35.1 g/dl Platelet Count 140 K/uL Mean Platelet Volume 9.3 fL Neutrophils (%) (Auto) 61.8 % Lymphocytes (%) (Auto) 23.6 % Monocytes (%) (Auto) 12.0 % Eosinophils (%) (Auto) 1.9 % Basophils (%) (Auto) 0.3 % Neutrophils # (Auto) 4.81 K/uL Lymphocytes # (Auto) 1.83 K/uL Monocytes # (Auto) 0.93 K/uL Eosinophils # (Auto) 0.15 K/uL Basophils # (Auto) 0.02 K/uL RDW Standard Deviation 49.2 fL RDW Coefficient of Variation 15.2 % Immature Granulocyte % (Auto) 0.4 % Immature Granulocyte # (Auto) 0.03 K/uL Activated Partial Thromboplast Time 35.8 SECONDS Partial Thromboplastin Ratio 1.4 Sodium Level 136 mmol/L Potassium Level 3.6 mmol/L Chloride Level 101 mmol/L Carbon Dioxide Level 28 mmol/L Anion Gap 7.0 mmol/L Blood Urea Nitrogen 19 mg/dl Creatinine 1.33 mg/dl Est Creatinine Clear Calc Drug Dose 43.2 ml/min Estimated GFR () 55.7 Estimated GFR (Non- 48.1 BUN/Creatinine Ratio 14.3 Random Glucose 109 mg/dl Calcium Level 8.2 mg/dl Phosphorus Level 4.0 mg/dl Magnesium Level 1.9 mg/dl Test 12/20/17 06:37 Bedside Glucose 100 mg/dl
--- NOTE | 2017-12-20 10:10 | Progress Note ---
Internal Med Progress Note Date of Service: December 20, 2017. Provider Documentation: SUBJECTIVE: Seen and examined at bedside Doing well today Continues to have hemoptysis per patient Denies chest pain, dizziness, nausea, abd pain Dyspnea much improved Family at bedside No other complaints OBJECTIVE: Vital Signs-as noted below Physical Exam: Vitals signs as noted above General Appearance:Moderately built and nourished, no apparent distress Head: normocephalic, Atraumatic Eyes: normal inspection, EOMI, PERRL Neck: supple, Trachea midline Respiratory/Chest: coarse breath sounds, CTA Cardiovascular: S1, S2, +systolic murmur Abdomen/GI:Soft, Non tender, Bowel sounds present Extremities/Musculoskelatal:normal inspection, Trace b/l pedal edema Neurologic/Psych:AAOX3, grossly no focal neurological deficits Skin: normal color, warm Lab data as noted below. ASSESSMENT & PLAN: NSTEMI: Moderate Aortic Stenosis: S/P cardiac cath: Severe multivessel disease S/P PCI DARYL to proximal circumflex Off Nitro ggt, Heparin ggt Continue Aspirin, Plavix, Statins, Losartan, Metoprolol, Imdur Appreciate Cardiology and Pocket Closer Input ECHO as below Continue Lasix increased to 40mg, spironolactone Hemoptysis: On Aspirin, plavix Monitor Hb May need CT chest for further evaluation Will consult Pulmonology for further Input DM II Most recent Hba1c 7.5 Continue ISS, basal Insulin Monitor BGs Pharmacy consulted for Glycemic management CKD III: Cr at baseline monitor renal function Avoid Nephrotoxic agents as able BPH Continue flomax, proscar Acute on Chronic respiratory failure COPD Cough likely secondary to pulmonary vascular congestion CXR: no signs of consolidation Hold Zithromax and prednisone which were started by PCP recently DuoNeb, diuretics as able BiPAP PRN monitor HTN stable continue current meds monitor B Cell Lymphoma Recently diagnosed Follow with oncology Dr. Ashley further work up as outpatient Appreciate Oncology Input Depression Continue Lexapro Stable VIC: CPAP QHS DVT px: on Heparin drip CODE Status: Full code Disposition Monitor in Tele PROCEDURES: ECHO: No significant change in wall motion or systolic function compared to previous studies. * Normal LV chamber size with moderate concentric LVH. * Normal LV systolic function, EF 60-65%. * No segmental left ventricular wall motion abnormalities are noted. Cardiac Cath: Summary: 1. Severe multivessel coronary artery disease - LCX 80-90 percent proximal, 80 percent OM2 - LAD 50-60 percent mid - RCA with chronic total occlusion and distal vessel filling via left to right collaterals 2. Elevated intracardiac filling pressure. LVEDP 31 3. Moderate aortic stenosis. Aortic valve peak to peak gradient 25 mmHg Recommendations: Patient with severe new circumflex disease in comparison to previously described disease from cardiac catheterization in 2016. At present has CARLYN 3 flow in both LAD and circumflex, chest pain free and no indication for emergent PCI. In the setting of acute heart failure along with patient's complex medical history and comorbidities recommend medical management at this time. PCI of circumflex could be considered later in hospitalization when better compensated from a heart failure standpoint. For now patient to be transferred to ICU for continued monitoring. Trend troponin until peaks. Echo obtained as an outpatient earlier this week. Continue IV diuresis, IV nitroglycerin and BiPAP as needed for respiratory insufficiency Resume heparin infusion following removal of TR band Continue home aspirin/Plavix, antihypertensives and statin Vital Signs: Date Time Temp Pulse Resp B/P (MAP) Pulse Ox O2 Delivery O2 Flow Rate FiO2 12/20/17 08:00 37.3 84 19 98/61 (73) 93 Nasal Cannula 2.0 12/20/17 08:00 93 Nasal Cannula 2.0 12/20/17 08:00 Nasal Cannula BiPAP 12/20/17 06:00 73 21 112/63 (81) 92 12/20/17 05:00 77 22 114/56 (80) 93 12/20/17 04:00 36.4 12/20/17 04:00 74 23 111/57 (80) 95 12/20/17 04:00 91 CPAP 4.0 12/20/17 03:01 76 23 93/41 (75) 91 12/20/17 02:01 74 23 105/64 (84) 94 12/20/17 01:00 79 23 92/48 (53) 91 12/20/17 00:01 80 24 82/63 (72) 95 12/20/17 00:01 37.0 12/19/17 23:59 95 CPAP 4.0 12/19/17 23:01 86 24 100/52 (57) 93 12/19/17 22:01 86 21 126/63 (84) 92 12/19/17 21:33 92 28 132/71 (93) 92 12/19/17 21:00 88 26 104/52 (75) 90 12/19/17 20:19 87 26 98/59 (76) 91 12/19/17 20:00 87 27 98/59 (72) 92 Nasal Cannula 4.0 Humidified Oxygen 12/19/17 20:00 92 Nasal Cannula 4.0 Humidified Oxygen 12/19/17 20:00 37.8 12/19/17 19:01 89 20 84/58 (72) 92 12/19/17 19:00 86 28 93/44 (60) 92 Nasal Cannula 4.0 Humidified Oxygen 12/19/17 18:00 86 28 93/44 (60) 92 Nasal Cannula 4.0 12/19/17 17:00 92 27 103/60 (74) 93 Nasal Cannula 4.0 12/19/17 16:30 91 26 101/53 (69) 92 Nasal Cannula 4.0 12/19/17 16:00 92 Nasal Cannula 4.0 12/19/17 16:00 37.0 89 27 111/63 (79) 94 BiPAP 40 12/19/17 15:45 87 23 102/59 (73) 94 BiPAP 40 12/19/17 15:30 88 24 110/69 (83) 94 BiPAP 40 12/19/17 15:15 88 22 102/62 (75) 96 BiPAP 12/19/17 15:10 85 95 55 12/19/17 15:00 88 23 108/57 (74) 96 BiPAP 50 12/19/17 14:51 86 20 102/77 (85) 94 60 12/19/17 14:43 86 95 60 12/19/17 14:30 86 40 90/52 (65) 80 BiPAP 60 12/19/17 14:21 86 22 107/71 (83) 99 BiPAP 80 12/19/17 14:06 82 20 99/60 (73) 98 12/19/17 13:51 81 25 131/67 (88) 100 12/19/17 13:36 36.9 83 23 116/70 (85) 96 BiPAP 100 12/19/17 13:35 100 BiPAP 100 12/19/17 12:57 88 18 129/76 (93) 95 BiPAP 15 12/19/17 12:52 90 18 135/75 (95) 93 BiPAP 15 12/19/17 12:47 91 22 126/79 (95) 93 BiPAP 15 12/19/17 12:40 94 22 133/71 (91) 92 BiPAP 15 12/19/17 12:37 103 22 136/75 (95) 92 BiPAP 15 12/19/17 12:34 99 92 100 12/19/17 12:32 114 22 134/80 (98) 92 Non-Rebreather 15 12/19/17 12:27 132 18 112/64 (80) 92 Non-Rebreather 15 Lab Results: Results Past 24 Hours Test 12/19/17 10:55 12/19/17 10:57 12/19/17 11:59 12/19/17 12:32 Range/Units Bedside Glucose 69 72 65 128 70-99 mg/dl Test 12/19/17 12:45 12/19/17 13:29 12/19/17 16:32 12/19/17 21:33 Range/Units Bedside Blood Gas pH (LAB) 7.41 7.35-7.45 Bedside Blood Gas pCO2 (LAB) 36 35-46 mmHg Bedside Blood Gas pO2 (LAB) 68 80-95 mmHg Bedside Blood Gas HCO3 (LAB) 22 19-24 meq/L Bedside Blood Gas Total CO2 24 24-31 mEq/l Bedside Blood Gas Base Excess (LAB) -2.0 -9-1.8 meq/L Bedside Blood Gas O2 Saturation 94.0 90-95 % Bedside Glucose 112 98 119 70-99 mg/dl Test 12/19/17 23:54 12/20/17 03:34 12/20/17 04:23 12/20/17 06:37 Range/Units Bedside Glucose 227 123 100 70-99 mg/dl White Blood Count 7.77 4.8-10.8 K/uL Red Blood Count 4.14 4.7-6.1 M/uL Hemoglobin 12.7 14.0-18.0 g/dL Hematocrit 36.2 42-52 % Mean Corpuscular Volume 87.4 80-100 fL Mean Corpuscular Hemoglobin 30.7 25-34 pg Mean Corpuscular Hemoglobin Concent 35.1 32-36 g/dl Platelet Count 140 130-400 K/uL Mean Platelet Volume 9.3 7.4-10.4 fL Neutrophils (%) (Auto) 61.8 % Lymphocytes (%) (Auto) 23.6 % Monocytes (%) (Auto) 12.0 % Eosinophils (%) (Auto) 1.9 % Basophils (%) (Auto) 0.3 % Neutrophils # (Auto) 4.81 1.4-6.5 K/uL Lymphocytes # (Auto) 1.83 1.2-3.4 K/uL Monocytes # (Auto) 0.93 0.11-0.59 K/uL Eosinophils # (Auto) 0.15 0-0.5 K/uL Basophils # (Auto) 0.02 0-0.2 K/uL RDW Standard Deviation 49.2 36.4-46.3 fL RDW Coefficient of Variation 15.2 11.5-14.5 % Immature Granulocyte % (Auto) 0.4 % Immature Granulocyte # (Auto) 0.03 0.00-0.02 K/uL Activated Partial Thromboplast Time 35.8 21.0-31.0 SECONDS Partial Thromboplastin Ratio 1.4 Sodium Level 136 136-145 mmol/L Potassium Level 3.6 3.5-5.1 mmol/L Chloride Level 101 98-107 mmol/L Carbon Dioxide Level 28 21-32 mmol/L Anion Gap 7.0 3-11 mmol/L Blood Urea Nitrogen 19 7-18 mg/dl Creatinine 1.33 0.60-1.40 mg/dl Est Creatinine Clear Calc Drug Dose 43.2 ml/min Estimated GFR () 55.7 Estimated GFR (Non- 48.1 BUN/Creatinine Ratio 14.3 10-20 Random Glucose 109 70-99 mg/dl Calcium Level 8.2 8.5-10.1 mg/dl Phosphorus Level 4.0 2.5-4.9 mg/dl Magnesium Level 1.9 1.8-2.4 mg/dl
[2017-12-20] MEDS: RANOLAZINE 500 MG ER TAB PO SCH ×2 (12:24→20:03)
--- NOTE | 2017-12-20 12:30 | Cardiology Follow-Up ---
Subjective Subjective Date of Service: December 20, 2017. Pt evaluation today including: conversation w/ patient, physical exam, chart review, lab review, review of studies, review of inpatient medication list Additional Details: Pt seen and examined, states that he feels well except for cough with bloody sputum production. States that he had very slight blood tinged sputum prior to hospitalization but has significantly worsened since admission. Otherwise, denies cp, sob, palpitations, lightheadedness or dizziness. Tele reviewed: sinus rhythm without arrhythmia or significant ectopy. Problem List Medical Problems: (1) Bacteremia Status: Acute (2) Cellulitis Status: Acute (3) Constipation Status: Acute (4) Hyponatremia Status: Acute (5) Knee pain Status: Acute (6) Precordial chest pain Status: Acute (7) Precordial chest pain Status: Acute (8) Septic joint Status: Acute Review of Systems Constitutional: + fatigue ENT: No hearing loss Respiratory: + shortness of breath, + dyspnea at rest, + problem reported ( Wearing BiPAP) Cardiac: No chest pain Abdomen: No pain Male : + problem reported (Diez in place) Neurologic: + weakness Objective Vital Signs Last Vital Signs Documentation Date Time Temp Pulse Resp B/P (MAP) Pulse Ox O2 Delivery O2 Flow Rate FiO2 12/20/17 08:00 37.3 84 19 98/61 (73) 93 Nasal Cannula 2.0 12/19/17 16:00 40 Physical Exam: General Appearance: WD/WN, no apparent distress Eyes: bilateral eyes normal inspection, bilateral eyes PERRL, bilateral eyes EOMI ENT: normal ENT inspection, hearing grossly normal, pharynx normal Neck: supple, no adenopathy, thyroid normal, no JVD Respiratory/Chest: chest non-tender, normal breath sounds, no respiratory distress, no accessory muscle use, + rhonchi Cardiovascular: regular rate, rhythm, no edema, no JVD, + systolic murmur, + gallop/S4 Abdomen: normal bowel sounds, non tender, soft, no organomegaly, no pulsatile mass Extremities: normal inspection, no pedal edema, no calf tenderness Neurologic/Psychiatric: pharmacy innovation assistant II-XII nml as tested, no motor/sensory deficits, alert, normal mood/affect, oriented x 3 Skin: normal color, warm/dry, no rash Lymphatic: no adenopathy Assessment and Plan 1. 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 Borderline severe conflicting reads and interpretations for outpatient TAVR eval most recently cardiac cath showed only moderate stenosis 3. CKD stage 3, stable 4. 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 hypertension rather low metoprolol succinate restarted would like to see how he is feeling off of imdur and Ranexa (not ideal agents for aortic stenosis) for now but can restart with any symptoms can restart losartan once bp improves, renal function has remained stable agree with transfer to tele also agree with palliative care consult to determine goals of treatment.
[2017-12-20] MEDS: LOSARTAN POTASSIUM 25 MG TAB PO SCH (13:01)
--- NOTE | 2017-12-20 14:46 | DIAGNOSTIC IMAGING REPORT ---
(CHEST) THORAX WITHOUT CLINICAL HISTORY: Hemoptysis, B cell lymphoma, mediastinal lymphadenopathy. COMPARISON STUDY: 03/19/2016 CT DOSE: 1031.14 mGy.cm TECHNIQUE: CT of the thorax was performed from the thoracic inlet to the lung bases. Images are reviewed in the axial, sagittal, and coronal planes. IV contrast was not administered for this examination. A dose lowering technique was utilized adhering to the principles of ALARA. FINDINGS: Thyroid: Imaged portions of the thyroid gland are normal in appearance. Thoracic aorta: The thoracic aorta is normal in course and caliber, noting standard 3 vessel arch anatomy. Heart: There are coronary artery calcifications present. Lungs and pleural spaces: There is pulmonary emphysema. There are groundglass opacities within both upper lobes. There is a focal groundglass opacity within the right lower lobe. There is dense consolidation within the left lower lobe with air bronchograms. There are no significant pleural effusions. Mediastinum: There is significant interval progression in the mediastinal lymphadenopathy. An index precarinal lymph node measures 19 mm. This previously measured 8 mm. There is a 28 mm subcarinal lymph node. This producing measured 10 mm. Cynthia: There is bilateral hilar lymphadenopathy Axilla: There is bilateral axillary lymphadenopathy Upper abdomen: There is mild splenomegaly, there is mild retroperitoneal lymphadenopathy. Skeletal structures: There are no lytic or blastic osseous lesions. IMPRESSION: 1. Progressive mediastinal hilar and axillary lymphadenopathy 2. Mild splenomegaly 3. Left lower lobe point consolidation with air bronchograms suspicious for pneumonia 4. Groundglass opacities within both upper lobes and the right lower lobe. Diagnostic considerations include infectious processes, acute alveolar disease, chronic interstitial disease, or drug reaction. Electronically signed by: Gonzalo Rivera M.D. 12/20/2017 2:45 PM Dictated Date/Time: 12/20/2017 2:36 PM
[2017-12-20] MEDS: HEPARIN SOD 5000 UNIT/0.5 ML CARP SQ SCH ×2 (16:18→21:26)
--- NOTE | 2017-12-20 16:36 | CONSULTATION REPORT ---
DATE OF CONSULTATION: 12/20/2017 Pulmonary consultation note. REASON FOR CONSULTATION: Hemoptysis. HISTORY OF PRESENT ILLNESS: Patient is an 87-year-old male who has been hospitalized at [facility] since 12/17/2017 with past medical history including COPD, coronary artery disease with history of 1 drug-eluting stent placed, this was placed to the LAD; diabetes mellitus type 2 on insulin, a recent diagnosis of large B cell lymphoma who presented on 12/18/2017 to [facility] for increasing shortness of breath and 10/10 chest pain that radiated down both arms. Patient did have urgent cardiac catheterization by Dr. Otero in the drawer in stitch bonding machine of 12/18/2017 with results showing a new circumflex disease, severe multivessel coronary artery disease and an RCA with chronic total occlusion with left to right collaterals. He also was found to have an elevated intracardiac filling pressure with a left ventricular end diastolic pressure of 31 mmHg. Due to patient's other comorbidities including acute heart failure and complex medical history, initially recommended was medical management with notation that a PCI to circumflex could be considered later when the patient becomes better compensated. Patient then subsequently underwent a repeat catheterization which point patient became hypotensive during the procedure requiring dopamine and norepinephrine, also became hypoxic and was given Lasix and started on BiPAP. He was also started on 15 liters of oxygen, stent was successfully placed in the proximal circumflex with recommendation for continuation of dual antiplatelet therapy with aspirin and clopidogrel indefinitely. Patient is also on IV heparin during this time. When I saw the patient today, patient reported that he was actually feeling well. He has had no further chest pain. He has had no further shortness of breath. He, as stated earlier, is complaining of persistent hemoptysis. He states that he will cough and he is getting what he calls blood clots to have when he coughs. He states that it does happen if he does have coughing deeply, when he does not cough deeply it is just more clear mucus; however, when he does cough deeply he does get a fair amount of bloody mucus up. Patient actually kept tissues with the mucus and at my evaluation, it was clear mucus with a fair amount of blood streaking throughout. When asking him about this, he reports that he did not start having hemoptysis until he was admitted to the hospital and had the IV medications started, now he attributed it to the IV for his diuresis in the form of Lasix; however, he had IV diuresis and IV heparin started at the same time. He reports that he did not have any hemoptysis at home, although he states that the amount of blood in the mucus is staying about the same. Has not really progressed at all or gotten any worse. He has not had any epistaxis during his hospitalization, although he does report that he did have a severe nosebleed out of the left side about 3-4 days prior to coming in to the hospital. He has not had any since. He states that about 3 days prior to hospitalization also he started with a very harsh cough. He states he did have some discomfort in his chest with the coughing. He states that since having the procedures done, he has had no further shortness of breath. He states that the shortness of breath, he had prior to coming to the hospital, has resolved completely. He states when he does move, he will get a little bit winded and get a little bit anxious because he is feeling the shortness of breath, it comes back but then it goes away. He states he feels well otherwise. He is not having any pleuritic chest pain, although he states that he cannot take a deep breath without coughing. He has not had any wheezing that he is aware of. He states that he does see pulmonary at outside of the hospital, but clinically does not remember who it is. He states that he does have a regimen of inhalers that he uses according to his medication list. He is on Stiolto 2 puffs in the morning. He also has a Ventolin HFA to use as needed. Otherwise, his pulmonary regimen, there is nothing else that he uses. He was not on oxygen prior to admission. He reports that he is currently not having any chest pain. He states that the chest pain has resolved completely. He denies any GI difficulties. He is not having any nausea or vomiting. His appetite is normal. He states his bowels are moving. He has not had any blood in his stool that he is aware of. He states that he is voiding without difficulty. He states that with the water pill or water medicines they are giving him that he is not having any swelling in his legs at all. At this time, he denies any numbness, tingling or weakness. He does have some memory issues, was diagnosed with mild dementia and is followed by Dr. Whit Awan. He is currently on Requip and Exelon patch for this. He recently had a mass on his neck. He had been having a CT done which showed lymphadenopathy in the cervical chain as well as mediastinal adenopathy. This was biopsied on 12/03/[address] Lee, which patient tolerated without difficulty. 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 Further workup has not been done yet. Apparently, a PET scan had been planned for 12/19/2017 or 12/20/2017, but unfortunately patient was hospitalized. His oncologist is Dr. Libia Ashley with [facility]. PAST MEDICAL HISTORY: Includes acute coronary syndrome, BPH, coronary artery disease, chronic pancreatitis, COPD, although he will have PFTs for severity, depression, diabetes mellitus, diabetic neuropathy, hyperlipidemia, hypertension, sleep apnea for which he is on CPAP, peptic ulcer disease, peripheral vascular disease, history of sepsis. PAST SURGICAL HISTORY: Includes history of rotator cuff surgery, carpal tunnel surgery, C-spine fusion, right knee arthropathy, tonsillectomy, adenoidectomy, TURP, cardiac catheterization with stent placement, cervical node biopsy. FAMILY HISTORY: Diabetes mellitus. SOCIAL HISTORY: Patient had a 4-pack-year smoking history for 30-40 years. He had quit in 1982. Alcohol: Patient does have a history of heavy alcohol use when he was younger, now he just occasionally has a beer. He is and lives with his family. He is retired. ALLERGIES: CLAVULANIC ACID, SULBACTAM, CILASTATIN, IMIPENEM, ADHESIVES, CEPHALOSPORINS, LOVASTATIN, PENICILLINS AND MORPHINE. CURRENT HOSPITAL MEDICATIONS: Include Lantus, heparin 5,000 units subQ q. 8 hours, Ranexa extended release 500 mg b.i.d., Exelon patch 9.5 mg applied daily, Percocet 5/325 q. 4 hours p.r.n., guaifenesin q. 6 hours as needed, aspirin 81 mg nightly, Plavix 75 mg nightly, Proscar 5 mg nightly, metoprolol 75 mg nightly, potassium chloride 10 mEq daily, Requip 0.25 mg at hour of sleep, Crestor 40 mg nightly; Flomax 0.4 mg on Saturday, Saturday, and Saturday; amoxicillin 500 mg nightly, Nitrostat tablet 0.4 mg q. 5 minutes p.r.n. chest pain as per protocol, insulin sliding scale as directed, Colestid 1 gram daily, Lexapro 10 mg daily, gabapentin 300 mg q.i.d., Cozaar 25 mg daily, Protonix 40 mg daily, Aldactone 25 mg daily, Lasix 40 mg daily, pancreatic lipase 2 capsules t.i.d., Ventolin 2 puffs q. 6 hours p.r.n., glucose per protocol. REVIEW OF SYSTEMS: As above, otherwise unremarkable. PHYSICAL EXAMINATION: GENERAL: Patient is an 87-year-old male, in no acute distress, sitting in bed. He is alert and oriented to person, place and time. Does have short-term memory loss, is able to complete sentences without respiratory distress, does have a harsh cough. As stated earlier, did show tissues with blood-streaked mucus. VITAL SIGNS: Temp 37.3, pulse 84, respiration 19, blood pressure is 98/61, pulse ox 93% on 2 liters. HEENT: Normocephalic, atraumatic. Pupils equal, round and reactive to light and accommodation. Extraocular movements are intact. Nasal passages, patient has a small area which appeared to have blood previously on the left naris, otherwise no significant bleeding noted. Oropharyngeal, patient has upper and lower dentures. No evidence of any bleeding in the mouth. No evidence of any blood in the oropharyngeal area. No evidence of any postnasal drainage. NECK: Short, supple. No mass, no adenopathy, no bruit. CHEST: He does have coarse rhonchi throughout. CARDIOVASCULAR: Regular rate and rhythm. Difficult to ascertain, but does appear to have a systolic ejection murmur. ABDOMEN: Bowel sounds present. Abdomen soft, nontender. No guarding, rigidity or organomegaly. EXTREMITIES: No erythema or edema. NEUROLOGIC: Cranial nerves II through XII are intact. No focal deficits noted. LABORATORY DATA: White count 7.7, H&H 12.7 and 36.2, platelet count 140,000. BUN 19, creatinine 1.3. No new imaging at this time. IMPRESSION: 1. This is an 87-year-old male who recently suffered a [id number] myocardial infarction who has diffuse underlying coronary artery disease and did have a drug-eluting stent successfully placed to the left circumflex, who has been having hemoptysis since admission. In reviewing the notes and discussing with the firer watertender felt that the hemoptysis secondary to acute decompensated heart failure in combination with the anticoagulation that he is needing to have for his cardiac situation, also needs consideration for worsening of his B-cell lymphoma. At this point, will get a CT of the chest to see what the imaging looks like, in regards to that, unfortunately cannot really adjust his anticoagulation due to his cardiac status. He does have antitussive medication which hopefully will help control the cough. He is receiving his home chronic obstructive pulmonary disease medications as well. I did discuss case with Dr. Elkins and Dr. Elkins evaluated the patient. Unfortunately because of patient's cardiac status, there is not really any way to do a bronchoscopic evaluation at this time to look for the origin of the bleeding in a more acute or urgent situation. If the patient were to be intubated, then could possibly be a consideration, but not ideal. During evaluation, did look to see if there is any chance that bleeding was originating from the sinuses or the posterior oropharyngeal area. There is no evidence of blood in these areas at this time. At this point, we will wait and see what the CT of the chest shows: 2. Chronic obstructive pulmonary disease. Patient is asymptomatic aside from his hemoptysis. He is not having any shortness of breath above his baseline. He does have oxygen requirement of 2 liters, which is improved during his hospitalization and anticipate will continue to improve. 3. Sleep apnea. Continue. 4. [id number] myocardial infarction. Patient followed by cardiology. At this point, I am not sure there is a whole lot more to offer. If there is anything else that will be depending on the CAT scan of the chest. We have discussed case with the firer watertender, Dr. Dougherty. Patient was seen and examined. I agree with the plan above. I also spoke to the patient and his family and I have informed them Dr. Robert Torres will be rounding over the weekend. [facility]
--- NOTE | 2017-12-20 17:26 | Palliative Care Consultation ---
Consultation Date of Consultation: December 20, 2017. 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 Met with patient, his , his son, and a granddaughter. Patient able to converse easily today as he is off his BiPAP. Patient tolerating O2 via nasal cannula, alert and oriented 4. Patient has been coughing up large amounts of blood with clots, it was determined it was not from the upper airway however further investigation would require intubation given patient's recent cardiac cath and stent placement. Patient was admitted on 12/17 for a several week increase in shortness of breath and weakness, patient reports he was only able to walk approximately long term across the room before he has to stop and rest. Patient had a cardiac stent placed in the LAD back in 2005, his catheterization on admission showed severe multivessel disease and moderate left ear, on 12/19 he underwent stent placement in the proximal circumflex artery. Patient was recently diagnosed with lymphoma last month when he presented with adenopathy of the head and neck. Patient has not yet undergone any radiation or chemo. reports that patient had a CT of the chest and abdomen and there was lymphoma in both areas. Discussed with patient and family his multiple medical problems including hemoptysis and the continued need for heparin given his recent PTCA and stent placement. Also discussed at length his new diagnosis of lymphoma and how chemotherapy will likely affect his heart function. Patient understands that there are several difficult decisions to make, he reports that he has advanced directives and names his as his healthcare surrogate. Patient also stated that if he had a chance to live longer he would want to take it including intubation, CPR, and other aggressive measures. He also stated that his family knows he would not want to be on life support for any extended period of time. Patient will remain a full code at this time. Social History Smoking Status: Former Smoker (Spelled 4 packs per day for 30-40 years. Quit 1982) History of Alcohol Use: No Drug Use: none Marital Status: Housing Status: lives with family Occupation Status: retired Patient has 3 children his oldest son is present at bedside, he has 2 daughters one that lives in [place] and one that lives in [place] Review of Systems Constitutional: No fever Eyes: No worsening of vision ENT: No hearing loss Respiratory: + cough, + sputum, + shortness of breath (Improved per patient), + hemoptysis Cardiac: No chest pain, No edema Abdomen: No pain Male : + problem reported (Catheter still in place) Neurologic: + memory loss (On Exelon patch), + weakness Psychiatric: + problem reported (History of depression on Lexapro) Endo: + fatigue Allergies Coded Allergies: Clavulanic Acid (Verified Allergy, Intermediate, HIVES TO "BETA-LACTAMASE INHIBITORS", 12/17/17) Sulbactam (Verified Allergy, Intermediate, HIVES TO "BETA-LACTAMASE INHIBITORS", 12/17/17) Cilastatin (Verified Allergy, Mild, HIVES, 12/17/17) Imipenem (Verified Allergy, Mild, HIVES, 12/17/17) HAS HAD PENICILLIN W/O PROBLEM Adhesives (Verified Allergy, Unknown, BANDAIDS- SORE SKIN, 12/17/17) Cephalosporins (Verified Allergy, Unknown, HIVES, 12/17/17) Lovastatin (Verified Allergy, Unknown, hives, 12/17/17) Penicillins (Verified Allergy, Unknown, hives, 12/17/17) Morphine (Verified Adverse Reaction, Unknown, CONFUSED, 12/17/17) Medications Current Inpatient Medications Medications (Trade) Dose Ordered Sig/Francine Route Start Time Stop Time Status Last Admin Dose Admin Glucose (Glucose 40% Gel) 15-30 GRAMS 15 GRAMS... UD PRN PO 12/18/17 01:45 01/17/18 01:44 Glucose (Glucose Chew Tab) 4-8 Tablets 4 Tabl... UD PRN PO 12/18/17 01:45 01/17/18 01:44 12/19/17 11:00 4 TABS Dextrose (Dextrose 50% 50ML Syringe) 25-50ML 25ML FOR ... UD PRN IV 12/18/17 01:45 01/17/18 01:44 Glucagon (Glucagon Inj) 1 mg UD PRN IM 12/18/17 01:45 01/17/18 01:44 Carbohydrates (Carbohydrates For Hypoglycemia) 15-30 GRAMS 15 grams if BSG 54-69... UD PRN PO 12/18/17 01:45 01/17/18 01:44 Albuterol (Ventolin Hfa Inhaler) 2 puffs Q6H PRN INH 12/18/17 02:00 01/17/18 01:59 Amlodipine Besylate (Norvasc Tab) 2.5 mg HS PO 12/18/17 21:00 01/17/18 20:59 Future Hold 12/18/17 20:53 2.5 MG Aspirin (Ecotrin Tab) 81 mg QPM PO 12/18/17 21:00 01/17/18 20:59 12/19/17 21:37 81 MG Clopidogrel Bisulfate (plAVix TAB) 75 mg QPM PO 12/18/17 21:00 01/17/18 20:59 12/19/17 21:37 75 MG Colestipol HCl (Colestid Tab) 1 gm DAILY@1000 PO 12/18/17 10:00 01/17/18 09:59 12/20/17 09:27 1 GM Escitalopram Oxalate (Lexapro Tab) 10 mg QAM PO 12/18/17 09:00 01/17/18 08:59 12/20/17 07:41 10 MG Finasteride (Proscar Tab) 5 mg QPM PO 12/18/17 21:00 01/17/18 20:59 12/19/17 21:37 5 MG Gabapentin (Neurontin Cap) 300 mg QID PO 12/18/17 09:00 01/17/18 08:59 12/20/17 16:58 300 MG Losartan Potassium (coZAAR TAB) 25 mg QAM PO 12/18/17 09:00 01/17/18 08:59 Future hold 12/20/17 13:01 25 MG Metoprolol Succinate (Toprol Xl Tab) 75 mg QPM PO 12/18/17 21:00 01/17/18 20:59 12/19/17 21:37 75 MG Pantoprazole Sodium (Protonix Tab) 40 mg QAM PO 12/18/17 09:00 01/17/18 08:59 12/20/17 07:41 40 MG Potassium Chloride (Klor-Con M10) 10 meq QPM PO 12/18/17 21:00 01/17/18 20:59 12/19/17 21:39 10 MEQ Ropinirole HCl (Requip Tab) 0.25 mg HS PO 12/18/17 21:00 01/17/18 20:59 12/19/17 21:37 0.25 MG Rosuvastatin Calcium (Crestor Tab) 40 mg HS PO 12/18/17 21:00 01/17/18 20:59 12/19/17 21:37 40 MG Spironolactone (Aldactone Tab) 25 mg DAILY PO 12/18/17 09:00 01/17/18 08:59 12/20/17 07:45 25 MG Tamsulosin HCl (Flomax Cap) 0.4 mg MoWeFr@2100 PO 12/18/17 21:00 01/17/18 20:59 12/18/17 20:53 0.4 MG Amylase/Lipase/ Protease (Pancreaze (Lipase 10,500U) Cap) 2 cap TIDM PO 12/18/17 07:15 01/17/18 07:14 12/20/17 16:15 2 CAP Amoxicillin (Amoxil Cap) 500 mg HS PO 12/18/17 21:00 01/29/18 20:59 12/19/17 21:37 500 MG Furosemide (Lasix Tab) 40 mg QAM PO 12/18/17 09:00 01/17/18 08:59 12/20/17 07:41 40 MG Miscellaneous Information (Consult Glycemic Management Pharmacy) 1 ea UD PRN N/A 12/18/17 10:45 01/17/18 10:44 Insulin Aspart (novoLOG ASPART) SLIDING SCALE ACHS SC 12/18/17 16:00 01/17/18 15:59 12/20/17 16:56 9 UNITS Nitroglycerin (Nitrostat Tab) 0.4 mg PRN PRN SL 12/18/17 19:30 01/17/18 19:29 12/18/17 20:00 0.4 MG Guaifenesin (Robitussin Sugar Free Syrup) 200 mg Q6H PRN PO 12/19/17 09:15 01/18/18 09:14 12/19/17 21:37 200 MG Oxycodone/ Acetaminophen (Percocet 5-325mg Tab) 1 tab Q4H PRN PO 12/19/17 13:45 01/02/18 13:44 Rivastigmine Tartrate (Exelon Patch 9.5MG/24 Hr) 9.5 mg DAILY TD 12/20/17 09:00 01/19/18 08:59 12/20/17 07:42 9.5 MG Miscellaneous (Remove Patch) 1 ea DAILY@0859 N/A 12/20/17 08:59 01/19/18 08:58 12/20/17 07:45 1 EA Heparin Sodium (Porcine) (Heparin Sq 5000 Unit/0.5ml) 5,000 unit Q8 SQ 12/20/17 14:00 01/19/18 13:59 12/20/17 16:18 5,000 UNIT Ranolazine (Ranexa ER Tab) 500 mg BID PO 12/20/17 10:30 01/19/18 10:29 12/20/17 12:24 500 MG Insulin Glargine (Lantus Solostar Pen) QPM SC 12/20/17 21:00 01/19/18 20:59 Physical Exam Date Time Temp Pulse Resp B/P (MAP) Pulse Ox O2 Delivery O2 Flow Rate FiO2 12/20/17 16:00 36.6 89 24 108/55 (72) 97 Nasal Cannula 2.0 12/20/17 16:00 Nasal Cannula 2.0 12/20/17 12:00 Nasal Cannula 3.0 12/20/17 12:00 37.0 75 21 103/56 (72) 95 Nasal Cannula 3.0 12/20/17 08:00 37.3 84 19 98/61 (73) 93 Nasal Cannula 2.0 12/20/17 08:00 93 Nasal Cannula 2.0 12/20/17 08:00 Nasal Cannula BiPAP 12/20/17 06:00 73 21 112/63 (81) 92 12/20/17 05:00 77 22 114/56 (80) 93 12/20/17 04:00 36.4 12/20/17 04:00 74 23 111/57 (80) 95 12/20/17 04:00 91 CPAP 4.0 12/20/17 03:01 76 23 93/41 (75) 91 12/20/17 02:01 74 23 105/64 (84) 94 12/20/17 01:00 79 23 92/48 (53) 91 12/20/17 00:01 80 24 82/63 (72) 95 12/20/17 00:01 37.0 12/19/17 23:59 95 CPAP 4.0 12/19/17 23:01 86 24 100/52 (57) 93 12/19/17 22:01 86 21 126/63 (84) 92 12/19/17 21:33 92 28 132/71 (93) 92 12/19/17 21:00 88 26 104/52 (75) 90 12/19/17 20:19 87 26 98/59 (76) 91 12/19/17 20:00 87 27 98/59 (72) 92 Nasal Cannula 4.0 Humidified Oxygen 12/19/17 20:00 92 Nasal Cannula 4.0 Humidified Oxygen 12/19/17 20:00 37.8 12/19/17 19:01 89 20 84/58 (72) 92 12/19/17 19:00 86 28 93/44 (60) 92 Nasal Cannula 4.0 Humidified Oxygen 12/19/17 18:00 86 28 93/44 (60) 92 Nasal Cannula 4.0 General Appearance: + mild distress (Improved shortness of breath with conversation) Eyes: EOMI ENT: hearing grossly normal Neck: supple Respiratory: + decreased breath sounds, + wheezing (On left) Cardiovascular: regular rate, rhythm, no edema Abdomen: non tender, soft Musculoskeletal: normal tone Neurologic/Psychiatric: alert Skin: warm/dry Laboratory Results Last 24 Hours Test 12/19/17 21:33 12/19/17 23:54 12/20/17 03:34 12/20/17 04:23 Bedside Glucose 119 mg/dl 227 mg/dl 123 mg/dl White Blood Count 7.77 K/uL Red Blood Count 4.14 M/uL Hemoglobin 12.7 g/dL Hematocrit 36.2 % Mean Corpuscular Volume 87.4 fL Mean Corpuscular Hemoglobin 30.7 pg Mean Corpuscular Hemoglobin Concent 35.1 g/dl Platelet Count 140 K/uL Mean Platelet Volume 9.3 fL Neutrophils (%) (Auto) 61.8 % Lymphocytes (%) (Auto) 23.6 % Monocytes (%) (Auto) 12.0 % Eosinophils (%) (Auto) 1.9 % Basophils (%) (Auto) 0.3 % Neutrophils # (Auto) 4.81 K/uL Lymphocytes # (Auto) 1.83 K/uL Monocytes # (Auto) 0.93 K/uL Eosinophils # (Auto) 0.15 K/uL Basophils # (Auto) 0.02 K/uL RDW Standard Deviation 49.2 fL RDW Coefficient of Variation 15.2 % Immature Granulocyte % (Auto) 0.4 % Immature Granulocyte # (Auto) 0.03 K/uL Activated Partial Thromboplast Time 35.8 SECONDS Partial Thromboplastin Ratio 1.4 Sodium Level 136 mmol/L Potassium Level 3.6 mmol/L Chloride Level 101 mmol/L Carbon Dioxide Level 28 mmol/L Anion Gap 7.0 mmol/L Blood Urea Nitrogen 19 mg/dl Creatinine 1.33 mg/dl Est Creatinine Clear Calc Drug Dose 43.2 ml/min Estimated GFR () 55.7 Estimated GFR (Non- 48.1 BUN/Creatinine Ratio 14.3 Random Glucose 109 mg/dl Calcium Level 8.2 mg/dl Phosphorus Level 4.0 mg/dl Magnesium Level 1.9 mg/dl Test 12/20/17 06:37 12/20/17 11:10 12/20/17 16:20 Bedside Glucose 100 mg/dl 132 mg/dl 110 mg/dl Assessment & Plan Palliative Performance Scale: 40 % (1) Lymphoma Status: Acute Assessment & Plan: Just diagnosed in November, has not yet started any treatment. Discussed questions he may want to ask oncology regarding treatment for his lymphoma including prognosis, side effects of medications, and ability to tolerate chemo (2) Palliative care encounter Assessment & Plan: Met with patient and family to discuss goals of care and CODE STATUS, patient will remain a full code at this time patient stated he would want aggressive treatment if it would prolong his life, but would not want to be kept on life support for any prolonged length of time (3) CAD (coronary artery disease) Status: Chronic Assessment & Plan: Cardiac stent placed in the LAD in 2005, PTCA with stent placement on 12/19/17 in the proximal circumflex (4) Acute hypoxemic respiratory failure Status: Acute Assessment & Plan: Improving, patient now tolerating O2 via nasal cannula. We will continue to follow closely while patient is inpatient and be available to assist if patient's status changes. Counseling and Coordination Total time spent 70 minutes with greater than 50% of the time spent at bedside discussing patient's multiple medical issues, prognosis, treatment options, goals of care as well as CODE STATUS
[2017-12-20] MEDS: AMOXICILLIN 500 MG CAP PO SCH (19:57)
[2017-12-20] MEDS: TAMSULOSIN HCL 0.4 MG CAP PO SCH (19:58)
[2017-12-20] MEDS: ASPIRIN 81 MG ECTAB PO SCH (19:58)
[2017-12-20] MEDS: ROSUVASTATIN CALCIUM 20 MG TAB PO SCH (19:58)
[2017-12-20] MEDS: CLOPIDOGREL BISULFATE 75 MG TAB PO SCH (20:02)
[2017-12-20] MEDS: FINASTERIDE 5 MG TAB PO SCH (20:02)
[2017-12-20] MEDS: ROPINIROLE HCL 0.25 MG TAB PO SCH (20:03)
[2017-12-20] MEDS: METOPROLOL SUCC 25MG EXT REL TAB PO SCH (20:04)
[2017-12-20] MEDS: POTASSIUM CHLORIDE 10 MEQ TABCR PO SCH (20:50)
[2017-12-20] MEDS ORDERED: INSULIN GLARGINE SOLOSTAR 100 UNITS/ML 3 ML PEN SC SCH (21:00)
[2017-12-21] VITALS (13 sets, daily range): BP systolic 97–115; BP diastolic 56–68; PULSE 75–83; TEMP 36.7–37.2; O2SAT 90–98
[2017-12-21] MEDS: GUAIFENESIN SUGAR FREE 200 MG/10 ML UDC PO PRN (04:15)
[2017-12-21] MEDS: HEPARIN SOD 5000 UNIT/0.5 ML CARP SQ SCH ×3 (05:26→22:09)
[2017-12-21 06:41] LABS: BASO % 0.2 %; BASO ABS # 0.02 K/uL (0-0.2); EOS % 2.8 %; EOS ABS # 0.28 K/uL (0-0.5); HEMATOCRIT 37.4 % (42-52); HEMOGLOBIN 12.5 g/dL (14.0-18.0); IG# 0.04 K/uL (0.00-0.02); LYMPH % 13.7 %; LYMPH ABS # 1.35 K/uL (1.2-3.4); MEAN CELL VOLUME 87.6 fL (80-100); MEAN CORPUSCULAR HEMOGLOBIN 29.3 pg (25-34); MEAN CORPUSCULAR HGB CONC 33.4 g/dl (32-36); MEAN PLATELET VOLUME 10.1 fL (7.4-10.4); MONO % 12.6 %; MONO ABS # 1.24 K/uL (0.11-0.59); NEUT % 70.3 %; NEUT ABS # 6.94 K/uL (1.4-6.5); PLATELET COUNT 161 K/uL (130-400); WHITE BLOOD COUNT 9.87 K/uL (4.8-10.8)
[2017-12-21 06:49] LABS: PTT PATIENT 37.7 SECONDS (21.0-31.0)
[2017-12-21 07:02] LABS: CALCIUM 8.3 mg/dl (8.5-10.1); CREATININE 1.31 mg/dl (0.60-1.40); POTASSIUM 3.9 mmol/L (3.5-5.1)
[2017-12-21] MEDS: LOSARTAN POTASSIUM 25 MG TAB PO SCH (07:58)
[2017-12-21] MEDS: GABAPENTIN 300 MG CAP PO SCH ×4 (07:58→19:41)
[2017-12-21] MEDS: PANTOprazole SOD 40 MG TAB PO SCH (07:58)
[2017-12-21] MEDS: ESCITALOPRAM OXALATE 10 MG TAB PO SCH (07:58)
[2017-12-21] MEDS: PANCREAZE (LIPASE 10,500U) CAP PO SCH ×3 (07:59→16:48)
[2017-12-21] MEDS: RANOLAZINE 500 MG ER TAB PO SCH ×2 (07:59→19:43)
[2017-12-21] MEDS: FUROSEMIDE 40 MG TAB PO SCH (07:59)
[2017-12-21] MEDS: SPIRONOLACTONE 25 MG TAB PO SCH (08:00)
[2017-12-21] MEDS: RIVASTIGMINE TARTRATE 9.5 MG PATCH TD SCH (08:02)
[2017-12-21] MEDS: INSULIN ASPART 100 UNITS/ML 3 ML PEN SC SCH ×4 (08:03→22:08)
[2017-12-21] MEDS: COLESTIPOL HCL 1 GM TAB PO SCH (09:16)
--- NOTE | 2017-12-21 09:52 | Progress Note ---
Internal Med Progress Note Date of Service: December 21, 2017. Provider Documentation: SUBJECTIVE: Seen and examined at bedside Reports cough with minimal hemoptysis Denies chest pain, dizziness, nausea, abd pain Minimal dyspnea on exertion No other complaints OBJECTIVE: Vital Signs-as noted below Physical Exam: Vitals signs as noted above General Appearance:Moderately built and nourished, no apparent distress Head: normocephalic, Atraumatic Eyes: normal inspection, EOMI, PERRL Neck: supple, Trachea midline Respiratory/Chest: coarse breath sounds, CTA Cardiovascular: S1, S2, +systolic murmur Abdomen/GI:Soft, Non tender, Bowel sounds present Extremities/Musculoskelatal:normal inspection, Trace b/l pedal edema Neurologic/Psych:AAOX3, grossly no focal neurological deficits Skin: normal color, warm Lab data as noted below. 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 ECHO as below Continue Lasix increased to 40mg, spironolactone Continue current management Hemoptysis: On Aspirin, Plavix: Can not Interrupt secondary to cardiac issues Monitor Hb: Stable CT chest as below Pulmonology consulted Was on Chronic Amox as per recommendation Await for further recommendations from Pulm DM II Most recent Hba1c 7.5 Continue ISS, basal Insulin Monitor BGs Pharmacy consulted for Glycemic management CKD III: Cr at baseline monitor renal function Avoid Nephrotoxic agents as able BPH Continue flomax, proscar Acute on Chronic respiratory failure COPD Pulmonary congestion DuoNeb, diuretics as able BiPAP PRN monitor Wean off oxygen as able May need 2 step prior to discharge HTN stable continue current meds monitor B Cell Lymphoma Recently diagnosed Follow with oncology Dr. Ashley further work up as outpatient Appreciate Oncology Input Depression Continue Lexapro Stable VIC: CPAP QHS DVT px: Heparin SQ CODE Status: Full code Disposition Monitor in Tele PROCEDURES: CT chest: 1. Progressive mediastinal hilar and axillary lymphadenopathy 2. Mild splenomegaly 3. Left lower lobe point consolidation with air bronchograms suspicious for pneumonia 4. Groundglass opacities within both upper lobes and the right lower lobe. Diagnostic considerations include infectious processes, acute alveolar disease, chronic interstitial disease, or drug reaction. ECHO: No significant change in wall motion or systolic function compared to previous studies. * Normal LV chamber size with moderate concentric LVH. * Normal LV systolic function, EF 60-65%. * No segmental left ventricular wall motion abnormalities are noted. Cardiac Cath: Summary: 1. Severe multivessel coronary artery disease - LCX 80-90 percent proximal, 80 percent OM2 - LAD 50-60 percent mid - RCA with chronic total occlusion and distal vessel filling via left to right collaterals 2. Elevated intracardiac filling pressure. LVEDP 31 3. Moderate aortic stenosis. Aortic valve peak to peak gradient 25 mmHg Recommendations: Patient with severe new circumflex disease in comparison to previously described disease from cardiac catheterization in 2016. At present has CARLYN 3 flow in both LAD and circumflex, chest pain free and no indication for emergent PCI. In the setting of acute heart failure along with patient's complex medical history and comorbidities recommend medical management at this time. PCI of circumflex could be considered later in hospitalization when better compensated from a heart failure standpoint. For now patient to be transferred to ICU for continued monitoring. Trend troponin until peaks. Echo obtained as an outpatient earlier this week. Continue IV diuresis, IV nitroglycerin and BiPAP as needed for respiratory insufficiency Resume heparin infusion following removal of TR band Continue home aspirin/Plavix, antihypertensives and statin Vital Signs: Date Time Temp Pulse Resp B/P (MAP) Pulse Ox O2 Delivery O2 Flow Rate FiO2 12/21/17 08:00 Nasal Cannula 2.0 12/21/17 07:09 36.7 81 22 115/68 (84) 92 Nasal Cannula 2.0 12/21/17 04:04 92 Room Air 2.0 12/21/17 03:33 37.2 81 18 109/61 (77) 92 Nasal Cannula 2.0 12/21/17 00:09 92 Room Air 2.0 12/20/17 23:33 36.7 90 17 115/60 (78) 96 Nasal Cannula 2.0 12/20/17 20:00 92 Room Air 2.0 12/20/17 19:06 36.9 60 20 114/69 (84) 92 Room Air 12/20/17 16:00 36.6 89 24 108/55 (72) 97 Nasal Cannula 2.0 12/20/17 16:00 Nasal Cannula 2.0 12/20/17 12:00 Nasal Cannula 3.0 12/20/17 12:00 37.0 75 21 103/56 (72) 95 Nasal Cannula 3.0 Lab Results: Results Past 24 Hours Test 12/20/17 11:10 12/20/17 16:20 12/20/17 20:53 12/21/17 06:20 Range/Units Bedside Glucose 132 110 120 70-99 mg/dl White Blood Count 9.87 4.8-10.8 K/uL Red Blood Count 4.27 4.7-6.1 M/uL Hemoglobin 12.5 14.0-18.0 g/dL Hematocrit 37.4 42-52 % Mean Corpuscular Volume 87.6 80-100 fL Mean Corpuscular Hemoglobin 29.3 25-34 pg Mean Corpuscular Hemoglobin Concent 33.4 32-36 g/dl Platelet Count 161 130-400 K/uL Mean Platelet Volume 10.1 7.4-10.4 fL Neutrophils (%) (Auto) 70.3 % Lymphocytes (%) (Auto) 13.7 % Monocytes (%) (Auto) 12.6 % Eosinophils (%) (Auto) 2.8 % Basophils (%) (Auto) 0.2 % Neutrophils # (Auto) 6.94 1.4-6.5 K/uL Lymphocytes # (Auto) 1.35 1.2-3.4 K/uL Monocytes # (Auto) 1.24 0.11-0.59 K/uL Eosinophils # (Auto) 0.28 0-0.5 K/uL Basophils # (Auto) 0.02 0-0.2 K/uL RDW Standard Deviation 48.0 36.4-46.3 fL RDW Coefficient of Variation 15.0 11.5-14.5 % Immature Granulocyte % (Auto) 0.4 % Immature Granulocyte # (Auto) 0.04 0.00-0.02 K/uL Activated Partial Thromboplast Time 37.7 21.0-31.0 SECONDS Partial Thromboplastin Ratio 1.5 Sodium Level 133 136-145 mmol/L Potassium Level 3.9 3.5-5.1 mmol/L Chloride Level 101 98-107 mmol/L Carbon Dioxide Level 24 21-32 mmol/L Anion Gap 8.0 3-11 mmol/L Blood Urea Nitrogen 22 7-18 mg/dl Creatinine 1.31 0.60-1.40 mg/dl Est Creatinine Clear Calc Drug Dose 42.8 ml/min Estimated GFR () 56.7 Estimated GFR (Non- 49.0 BUN/Creatinine Ratio 17.1 10-20 Random Glucose 178 70-99 mg/dl Calcium Level 8.3 8.5-10.1 mg/dl Magnesium Level 1.9 1.8-2.4 mg/dl Test 12/21/17 07:20 Range/Units Bedside Glucose 177 70-99 mg/dl
--- NOTE | 2017-12-21 10:33 | Pharmacy Progress Note ---
Pharmacy Glycemic Short Note 2 Date of Service December 21, 2017. OUTPATIENT ANTIDIABETIC REGIMEN: * Lantus 56 units SQ HS plus Novolog TIDM (per patient typically around 11 units ) ASSESSMENT: * Mr Benjamin is an 87 y/o M with a PMH of NV x 4, newly diagnosed lymphoma, VIC, HTN, HLD, PVD, depression, and well controlled type 2 diabetes who presents with ACS s/o stenting on 12/19/17. Yesterday, the patient's blood sugars were 100 -132-110-120 mg/dL. Fasting this morning was 177 mg/dL. Patient received 36 units of insulin yesterday (20 units of basal). * For Lantus, will increase to 30 units nightly ... start tonight's dose early at supper as patient did not receive much Lantus yesterday. Move towards once daily Lantus dosing for discharge. Blood sugars were most likely lower yesterday secondary to 70 units of Lantus given 12/18/17. * For Novolog, post-prandial blood sugars appear well controlled. As patient will receive all his Lantus tonight at dinner, will tighten Novolog for breakfast and lunch for extra coverage. Loosen at dinnertime. Estimate patient will require around 50 units/day. PLAN FOR INPATIENT GLYCEMIC CONTROL: * Basal insulin * Lantus 30 units SQ with dinner today then nightly * Bolus insulin * NovoLog per scale ACHS or Q6hrs while NPO * Goal Range: Low 110 mg/dL - High 140 mg/dL * Correction Factor: 20 mg/dL/unit then loosened to 25 mg/dL/unit with dinner * Nutritional / Prandial insulin per carb ratio of 1 unit per 7 grams CHO consumed then per 8 grams of CHO consumed with dinner PLAN FOR DISCHARGE: Patient's HbA1C indicates excellent control. Can continue regimen as long as patient does not have hypoglycemia at home.
[2017-12-21] MEDS: CLINDAMYCIN IV 600 MG in DEXTROSE 5% 50ML 50 ML IV SCH ×2 (10:51→17:28)
--- NOTE | 2017-12-21 11:19 | PULMONARY PROGRESS NOTE ---
DATE: 12/21/2017 SUBJECTIVE: The patient's hemoptysis has improved. He showed me a Kleenex with blood streaking and mucus on it but certainly not bright red blood and not to the extent that he had been admitted with. I know Sukh well having seen him in the past in consultation. He is an 87-year-old with COPD, ischemic cardiomyopathy, diabetes mellitus, and a recent diagnosis of large B cell lymphoma. He was admitted on 12/17/2017 with diastolic heart failure confirmed by catheterization, with PCI to the circumflex artery to be entertained later. On repeat catheterization, the patient elicited hypotension during the procedure requiring dopamine and norepinephrine. The patient became hypoxic and was diuresed and placed on BIPAP with high flow O2. He was also on IV heparin, and he had been producing large blood clots with this coughing. I refer you to the consultation note dictated by Geovanni Reid, our physician health information assistant. He has some mild dementia and has been treated by Dr. Whit Awan for this. Biopsy in November [address] 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 PET scanning was scheduled for December, and his oncologist is Dr. Ashley at [facility]. The patient also has sleep apnea. Bronchoscopy was not entertained given his cardiopulmonary situation or at least not entertained acutely. He seems to be improving at this point in time. PHYSICAL EXAMINATION: CURRENT VITAL SIGNS: Temperature 36.7, pulse 81 and regular, respiratory rate 22, blood pressure 115/68, and O2 saturation 92% on 2 L. SKIN: Warm and dry. HEENT: Atraumatic and normocephalic. PERRLA, EOMI. Conjunctivae pale. Sclerae are nonicteric. Fundi poorly visualized. NECK: Neck veins are not distended at 45 degrees. No lymphadenopathy in the supra or infraclavicular areas. LUNGS: Scattered rhonchi, distant P&A. CARDIAC: Regular rhythm. There is S3 gallop noted, with a grade 1/6 DIAZ heard at the low left sternal border. GASTROINTESTINAL: Abdomen is soft, protuberant, no evidence of hepatosplenomegaly. EXTREMITIES: No pedal edema, clubbing, or cyanosis. NEUROLOGICAL: Intact. IMAGING: Chest CT done yesterday shows progressive mediastinal, hilar, and axillary lymphadenopathy with splenomegaly, left lower lobe consolidation noted with air bronchograms and ground glass opacities within the upper lobes and right lower lobe. LABORATORY DATA: White count 9800, H and H 12.5 and 37.4. BUN 22, creatinine 1.3. OVERALL ASSESSMENT: An 87-year-old with a B cell lymphoma with worsening mediastinal or hilar adenopathy and pneumonitis noted with the patient presenting with a non-STEMI but diffuse underlying coronary artery disease, 90% left circumflex and OM2 lesions, status post successful DARYL placement to the left circumflex and POBA to the OM2. He has moderate to severe aortic stenosis, may be consideration of outpatient TAVR evaluation. He also has chronic renal disease. His hemoptysis has improved. The heparin has been discontinued, and he has been kept on 81 mg of aspirin and Plavix 75 mg daily. Certainly, we cannot rule out endobronchial or parenchymal involvement with large B cell lymphoma but suspect patient may have aspirated during this whole event or develop a community acquired pneumonia. In any event, the hemoptysis has improved, and I suspect that would be the case with the patient kept off systemic anticoagulation therapy. In review of his medications, I see the patient is on p.o. amoxicillin and the use of Ventolin inhaler. He is a diabetic, on insulin. I would obtain sputum for culture and place the patient on intravenous antibiotics with pulmonary toilet. HE HAS ALLERGIES TO CLAVULANIC ACID, IMIPENEM, PENICILLINS. I would consider a quinolone or additional coverage for community acquired pneumonitis. We will follow along with you.
[2017-12-21] MEDS: ALBUT/IPRATROP 3MG/0.5MG NEB 3 ML VIAL INH SCH ×4 (11:21→23:12)
--- NOTE | 2017-12-21 12:28 | Cardiology Follow-Up ---
Subjective Subjective Date of Service: December 21, 2017. Pt evaluation today including: conversation w/ patient, physical exam, chart review, lab review, review of studies, review of inpatient medication list Additional Details: Pt seen and examined, states that he's feeling well. Hemoptysis is improving, now only coughing up some brown tinged sputum. Denies cp, sob, palpitations, lightheadedness or dizziness. tele reviewed: sinus rhythm without arrhythmia or significant ectopy. Problem List Medical Problems: (1) Acute hypoxemic respiratory failure Status: Acute (2) Bacteremia Status: Acute (3) Cellulitis Status: Acute (4) Constipation Status: Acute (5) Hyponatremia Status: Acute (6) Knee pain Status: Acute (7) Precordial chest pain Status: Acute (8) Precordial chest pain Status: Acute (9) Septic joint Status: Acute Review of Systems Constitutional: No fever Eyes: No worsening of vision ENT: No hearing loss Respiratory: + cough, + sputum, + shortness of breath (Improved per patient), + hemoptysis Cardiac: No chest pain, No edema Abdomen: No pain Male : + problem reported (Catheter still in place) Neurologic: + memory loss (On Exelon patch), + weakness Psychiatric: + problem reported (History of depression on Lexapro) Endo: + fatigue Objective Vital Signs Last Vital Signs Documentation Date Time Temp Pulse Resp B/P (MAP) Pulse Ox O2 Delivery O2 Flow Rate FiO2 12/21/17 12:00 Nasal Cannula 2.0 12/21/17 11:26 36.7 78 20 97/56 (70) 98 12/19/17 16:00 40 Physical Exam: General Appearance: + mild distress (Improved shortness of breath with conversation) Eyes: bilateral eyes normal inspection, bilateral eyes PERRL, bilateral eyes EOMI ENT: hearing grossly normal Neck: supple Respiratory/Chest: + decreased breath sounds, + wheezing (On left) Cardiovascular: regular rate, rhythm, no edema Abdomen: non tender, soft Extremities: normal inspection, no pedal edema, no calf tenderness Neurologic/Psychiatric: alert Skin: warm/dry Lymphatic: no adenopathy Assessment and Plan 1. 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 Borderline severe conflicting reads and interpretations for outpatient TAVR eval most recently cardiac cath showed only moderate stenosis 3. CKD stage 3, stable 4. hemoptysis improving evaluated by pulmonary medicine 5. hypertension well controlled cont metoprolol ok to d/c to home with cardiac rehab from cardiac standpoint.
[2017-12-21] MEDS: INSULIN GLARGINE SOLOSTAR 100 UNITS/ML 3 ML PEN SC SCH (16:53)
[2017-12-21] MEDS: AMOXICILLIN 500 MG CAP PO SCH (19:38)
[2017-12-21] MEDS: ASPIRIN 81 MG ECTAB PO SCH (19:39)
[2017-12-21] MEDS: ROSUVASTATIN CALCIUM 20 MG TAB PO SCH (19:39)
[2017-12-21] MEDS: POTASSIUM CHLORIDE 10 MEQ TABCR PO SCH (19:40)
[2017-12-21] MEDS: CLOPIDOGREL BISULFATE 75 MG TAB PO SCH (19:42)
[2017-12-21] MEDS: FINASTERIDE 5 MG TAB PO SCH (19:43)
[2017-12-21] MEDS: ROPINIROLE HCL 0.25 MG TAB PO SCH (19:44)
[2017-12-21] MEDS: METOPROLOL SUCC 25MG EXT REL TAB PO SCH (19:44)
[2017-12-22] VITALS (13 sets, daily range): BP systolic 110–122; BP diastolic 58–67; PULSE 69–84; TEMP 36.3–37.6; O2SAT 90–96
[2017-12-22] MEDS: CLINDAMYCIN IV 600 MG in DEXTROSE 5% 50ML 50 ML IV SCH ×3 (01:12→16:53)
[2017-12-22] MEDS: ALBUT/IPRATROP 3MG/0.5MG NEB 3 ML VIAL INH SCH ×6 (03:24→23:19)
[2017-12-22] MEDS: HEPARIN SOD 5000 UNIT/0.5 ML CARP SQ SCH ×3 (05:23→20:56)
[2017-12-22 06:45] LABS: PTT PATIENT 36.1 SECONDS (21.0-31.0)
[2017-12-22 06:56] LABS: BASO % 0.3 %; BASO ABS # 0.03 K/uL (0-0.2); EOS % 5.3 %; EOS ABS # 0.48 K/uL (0-0.5); HEMOGLOBIN 12.1 g/dL (14.0-18.0); IG# 0.04 K/uL (0.00-0.02); LYMPH % 13.4 %; LYMPH ABS # 1.21 K/uL (1.2-3.4); MEAN CELL VOLUME 87.7 fL (80-100); MEAN CORPUSCULAR HEMOGLOBIN 30.3 pg (25-34); MEAN CORPUSCULAR HGB CONC 34.6 g/dl (32-36); MEAN PLATELET VOLUME 9.7 fL (7.4-10.4); MONO % 14.6 %; MONO ABS # 1.32 K/uL (0.11-0.59); NEUT ABS # 5.98 K/uL (1.4-6.5); PLATELET COUNT 180 K/uL (130-400); RED CELL DISTRIBUTION WIDTH SD 48.1 fL (36.4-46.3); WHITE BLOOD COUNT 9.06 K/uL (4.8-10.8)
[2017-12-22 07:00] LABS: CALCIUM 8.4 mg/dl (8.5-10.1); CREATININE 1.36 mg/dl (0.60-1.40); POTASSIUM 4.2 mmol/L (3.5-5.1)
[2017-12-22] MEDS: PANCREAZE (LIPASE 10,500U) CAP PO SCH ×3 (07:38→16:52)
[2017-12-22] MEDS: INSULIN ASPART 100 UNITS/ML 3 ML PEN SC SCH ×4 (07:38→20:55)
[2017-12-22] MEDS: PANTOprazole SOD 40 MG TAB PO SCH (07:38)
[2017-12-22] MEDS: GABAPENTIN 300 MG CAP PO SCH ×4 (07:38→20:33)
[2017-12-22] MEDS: ESCITALOPRAM OXALATE 10 MG TAB PO SCH (07:38)
[2017-12-22] MEDS: RANOLAZINE 500 MG ER TAB PO SCH ×2 (07:39→20:35)
[2017-12-22] MEDS: LOSARTAN POTASSIUM 25 MG TAB PO SCH (07:39)
[2017-12-22] MEDS: FUROSEMIDE 40 MG TAB PO SCH (07:39)
[2017-12-22] MEDS: RIVASTIGMINE TARTRATE 9.5 MG PATCH TD SCH (07:40)
[2017-12-22] MEDS: SPIRONOLACTONE 25 MG TAB PO SCH (07:40)
--- NOTE | 2017-12-22 08:53 | Progress Note ---
Internal Med Progress Note Date of Service: December 22, 2017. Provider Documentation: SUBJECTIVE: Seen and examined at bedside Hemoptysis resolved Has cough with minimal brownish expectoration Denies chest pain, dizziness, nausea, abd pain Dyspnea on exertion No other complaints Planned to get repeat CXR today OBJECTIVE: Vital Signs-as noted below Physical Exam: Vitals signs as noted above General Appearance:Moderately built and nourished, no apparent distress Head: normocephalic, Atraumatic Eyes: normal inspection, EOMI, PERRL Neck: supple, Trachea midline Respiratory/Chest: Decreased breath sounds, Scattered Rhonchi Cardiovascular: S1, S2, +systolic murmur Abdomen/GI:Soft, Non tender, Bowel sounds present Extremities/Musculoskelatal:normal inspection, Trace b/l pedal edema Neurologic/Psych:AAOX3, grossly no focal neurological deficits Skin: normal color, warm Lab data as noted below. 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 ECHO as below Continue Lasix increased to 40mg, spironolactone Continue current medications Pneumonitis: Acute on Chronic respiratory failure COPD Hemoptysis:resolved On Aspirin, Plavix: Can not Interrupt secondary to cardiac issues Monitor Hb: Stable CT chest as below Appreciate Pulmonology Input Continue IV Antibiotics Day # 2 Repeat CXR:pending Continue Nebs Pulmonary Toilet Off BiPAP Was on Chronic Amox as per recommendation May need 2 step prior to discharge DM II Most recent Hba1c 7.5 Continue ISS, basal Insulin Monitor BGs Pharmacy consulted for Glycemic management CKD III: Cr at baseline monitor renal function Avoid Nephrotoxic agents as able BPH Continue flomax, proscar HTN stable continue current meds monitor B Cell Lymphoma Recently diagnosed Follow with oncology Dr. Ashley further work up as outpatient Appreciate Oncology Input Depression Continue Lexapro Stable VIC: CPAP QHS DVT px: Heparin SQ CODE Status: Full code Disposition Monitor in Tele PROCEDURES: CT chest: 1. Progressive mediastinal hilar and axillary lymphadenopathy 2. Mild splenomegaly 3. Left lower lobe point consolidation with air bronchograms suspicious for pneumonia 4. Groundglass opacities within both upper lobes and the right lower lobe. Diagnostic considerations include infectious processes, acute alveolar disease, chronic interstitial disease, or drug reaction. ECHO: No significant change in wall motion or systolic function compared to previous studies. * Normal LV chamber size with moderate concentric LVH. * Normal LV systolic function, EF 60-65%. * No segmental left ventricular wall motion abnormalities are noted. Cardiac Cath: Summary: 1. Severe multivessel coronary artery disease - LCX 80-90 percent proximal, 80 percent OM2 - LAD 50-60 percent mid - RCA with chronic total occlusion and distal vessel filling via left to right collaterals 2. Elevated intracardiac filling pressure. LVEDP 31 3. Moderate aortic stenosis. Aortic valve peak to peak gradient 25 mmHg Recommendations: Patient with severe new circumflex disease in comparison to previously described disease from cardiac catheterization in 2016. At present has CARLYN 3 flow in both LAD and circumflex, chest pain free and no indication for emergent PCI. In the setting of acute heart failure along with patient's complex medical history and comorbidities recommend medical management at this time. PCI of circumflex could be considered later in hospitalization when better compensated from a heart failure standpoint. For now patient to be transferred to ICU for continued monitoring. Trend troponin until peaks. Echo obtained as an outpatient earlier this week. Continue IV diuresis, IV nitroglycerin and BiPAP as needed for respiratory insufficiency Resume heparin infusion following removal of TR band Continue home aspirin/Plavix, antihypertensives and statin Vital Signs: Date Time Temp Pulse Resp B/P (MAP) Pulse Ox O2 Delivery O2 Flow Rate FiO2 12/22/17 08:00 Nasal Cannula 2.0 12/22/17 07:44 36.7 80 18 114/58 (76) 90 Room Air 12/22/17 06:55 71 18 92 Room Air 12/22/17 04:18 92 Room Air 2.0 12/22/17 03:50 36.9 69 18 112/65 (81) 96 Nasal Cannula 2.0 12/22/17 00:47 92 Room Air 2.0 12/21/17 23:13 77 18 90 Nasal Cannula 2.0 12/21/17 23:10 36.9 75 20 103/64 (77) 92 Nasal Cannula 2.0 12/21/17 20:00 92 Room Air 2.0 12/21/17 19:35 36.7 82 20 108/65 (79) 94 Nasal Cannula 2.0 12/21/17 19:14 83 16 95 Nasal Cannula 2.0 12/21/17 16:00 Nasal Cannula 2.0 12/21/17 15:54 36.8 82 20 113/68 (83) 95 Room Air 12/21/17 14:48 80 16 95 Nasal Cannula 2.0 12/21/17 12:00 Nasal Cannula 2.0 12/21/17 11:26 36.7 78 20 97/56 (70) 98 Nasal Cannula 2.0 12/21/17 11:22 83 16 90 Nasal Cannula 2.0 Lab Results: Results Past 24 Hours Test 12/21/17 11:14 12/21/17 16:30 12/21/17 20:46 12/22/17 06:26 Range/Units Bedside Glucose 172 185 172 70-99 mg/dl White Blood Count 9.06 4.8-10.8 K/uL Red Blood Count 3.99 4.7-6.1 M/uL Hemoglobin 12.1 14.0-18.0 g/dL Hematocrit 35.0 42-52 % Mean Corpuscular Volume 87.7 80-100 fL Mean Corpuscular Hemoglobin 30.3 25-34 pg Mean Corpuscular Hemoglobin Concent 34.6 32-36 g/dl Platelet Count 180 130-400 K/uL Mean Platelet Volume 9.7 7.4-10.4 fL Neutrophils (%) (Auto) 66.0 % Lymphocytes (%) (Auto) 13.4 % Monocytes (%) (Auto) 14.6 % Eosinophils (%) (Auto) 5.3 % Basophils (%) (Auto) 0.3 % Neutrophils # (Auto) 5.98 1.4-6.5 K/uL Lymphocytes # (Auto) 1.21 1.2-3.4 K/uL Monocytes # (Auto) 1.32 0.11-0.59 K/uL Eosinophils # (Auto) 0.48 0-0.5 K/uL Basophils # (Auto) 0.03 0-0.2 K/uL RDW Standard Deviation 48.1 36.4-46.3 fL RDW Coefficient of Variation 15.0 11.5-14.5 % Immature Granulocyte % (Auto) 0.4 % Immature Granulocyte # (Auto) 0.04 0.00-0.02 K/uL Activated Partial Thromboplast Time 36.1 21.0-31.0 SECONDS Partial Thromboplastin Ratio 1.4 Sodium Level 136 136-145 mmol/L Potassium Level 4.2 3.5-5.1 mmol/L Chloride Level 102 98-107 mmol/L Carbon Dioxide Level 27 21-32 mmol/L Anion Gap 7.0 3-11 mmol/L Blood Urea Nitrogen 26 7-18 mg/dl Creatinine 1.36 0.60-1.40 mg/dl Est Creatinine Clear Calc Drug Dose 41.6 ml/min Estimated GFR () 54.2 Estimated GFR (Non- 46.8 BUN/Creatinine Ratio 19.3 10-20 Random Glucose 128 70-99 mg/dl Calcium Level 8.4 8.5-10.1 mg/dl Test 12/22/17 07:18 Range/Units Bedside Glucose 123 70-99 mg/dl
[2017-12-22] MEDS: COLESTIPOL HCL 1 GM TAB PO SCH (09:19)
--- NOTE | 2017-12-22 09:50 | DIAGNOSTIC IMAGING REPORT ---
CHEST 2 VIEWS ROUTINE HISTORY: Short of breath. chf/pneumonia COMPARISON: Chest 12/19/2017. FINDINGS: No pneumothorax. The heart remains borderline enlarged. Cervical spinal fusion hardware is noted. No pleural effusions. Pulmonary edema has improved. Right midlung zone and left mid to lower lung zone airspace opacities persist. IMPRESSION: Interval improvement in the pulmonary edema. Bilateral airspace opacities persist. Continued follow-up is recommended to ensure resolution. Electronically signed by: Navid Mota M.D. 12/22/2017 9:49 AM Dictated Date/Time: 12/22/2017 9:47 AM
--- NOTE | 2017-12-22 10:19 | PULMONARY PROGRESS NOTE ---
DATE: 12/22/2017 SUBJECTIVE: The patient feels better today, he is still producing some purulent phlegm with some blood streaking, but feels he is able to bring the mucus up and expectorate. He has not been started on chemotherapy or treatment for his lymphoma by Dr. Ashley and there is evidence for progression of his mediastinal or hilar lymphadenopathy on the CAT scan. He has complicating problems with moderate aortic stenosis and severe multivessel disease, status post recent PCI DARYL placement to the proximal circumflex. He is being diuresed aggressively and I added intravenous Cleocin to his regimen along with aerosolized bronchodilator because after looking at his CAT scan, I was concerned in addition to the findings clearly of progressive mediastinal and hilar lymphadenopathy and mild splenomegaly that there was an area of consolidation with air bronchograms involving the left lower lobe with the rest of the findings of ground-glass opacities perfectly compatible with the presence of pulmonary edema. ASSESSMENT AND PLAN: At this point in time, the patient remains on aspirin and Plavix. I will follow on a daily basis and may consider a bronchoscopic intervention if we see no significant improvement, especially at the left base and/or the hemoptysis persists.
--- NOTE | 2017-12-22 12:38 | Cardiology Follow-Up ---
Subjective Subjective Date of Service: December 22, 2017. Pt evaluation today including: conversation w/ patient, physical exam, chart review, lab review, review of studies, review of inpatient medication list Additional Details: Pt seen and examined, ambulating in hallway without difficulty. Denies cp, sob, palpitations, lightheadedness or dizziness. Productive cough somewhat improved. Problem List Medical Problems: (1) Acute hypoxemic respiratory failure Status: Acute (2) Bacteremia Status: Acute (3) Cellulitis Status: Acute (4) Constipation Status: Acute (5) Hyponatremia Status: Acute (6) Knee pain Status: Acute (7) Precordial chest pain Status: Acute (8) Precordial chest pain Status: Acute (9) Septic joint Status: Acute Review of Systems Constitutional: No fever Eyes: No worsening of vision ENT: No hearing loss Respiratory: + cough, + sputum, + shortness of breath (Improved per patient), + hemoptysis Cardiac: No chest pain, No edema Abdomen: No pain Male : + problem reported (Catheter still in place) Neurologic: + memory loss (On Exelon patch), + weakness Psychiatric: + problem reported (History of depression on Lexapro) Endo: + fatigue Objective Vital Signs Last Vital Signs Documentation Date Time Temp Pulse Resp B/P (MAP) Pulse Ox O2 Delivery O2 Flow Rate FiO2 12/22/17 12:00 Nasal Cannula 2.0 12/22/17 11:27 36.7 76 16 110/62 (78) 90 12/19/17 16:00 40 Physical Exam: General Appearance: + mild distress (Improved shortness of breath with conversation) Eyes: bilateral eyes normal inspection, bilateral eyes PERRL, bilateral eyes EOMI ENT: hearing grossly normal Neck: supple Respiratory/Chest: + decreased breath sounds, + wheezing (On left) Cardiovascular: regular rate, rhythm, no edema Abdomen: non tender, soft Extremities: normal inspection, no pedal edema, no calf tenderness Neurologic/Psychiatric: alert Skin: warm/dry Lymphatic: no adenopathy Assessment and Plan 1. 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 Borderline severe conflicting reads and interpretations for outpatient TAVR eval most recently cardiac cath showed only moderate stenosis 3. CKD stage 3, stable 4. hemoptysis improving evaluated by pulmonary medicine 5. hypertension well controlled cont metoprolol ok to d/c to home with cardiac rehab from cardiac standpoint.
[2017-12-22] MEDS: AMOXICILLIN 500 MG CAP PO SCH (20:30)
[2017-12-22] MEDS: ROSUVASTATIN CALCIUM 20 MG TAB PO SCH (20:31)
[2017-12-22] MEDS: POTASSIUM CHLORIDE 10 MEQ TABCR PO SCH (20:32)
[2017-12-22] MEDS: ASPIRIN 81 MG ECTAB PO SCH (20:32)
[2017-12-22] MEDS: CLOPIDOGREL BISULFATE 75 MG TAB PO SCH (20:33)
[2017-12-22] MEDS: FINASTERIDE 5 MG TAB PO SCH (20:34)
[2017-12-22] MEDS: ROPINIROLE HCL 0.25 MG TAB PO SCH (20:37)
[2017-12-22] MEDS: METOPROLOL SUCC 25MG EXT REL TAB PO SCH (20:38)
[2017-12-22] MEDS: INSULIN GLARGINE SOLOSTAR 100 UNITS/ML 3 ML PEN SC SCH (20:54)
[2017-12-23] VITALS (17 sets, daily range): BP systolic 105–134; BP diastolic 54–73; PULSE 67–99; TEMP 36.6–38.2; O2SAT 90–97
[2017-12-23] MEDS: CLINDAMYCIN IV 600 MG in DEXTROSE 5% 50ML 50 ML IV SCH ×3 (01:28→17:05)
[2017-12-23] MEDS: GUAIFENESIN SUGAR FREE 200 MG/10 ML UDC PO PRN ×4 (03:07→22:18)
[2017-12-23] MEDS: ALBUT/IPRATROP 3MG/0.5MG NEB 3 ML VIAL INH SCH ×6 (03:20→23:16)
[2017-12-23] MEDS: HEPARIN SOD 5000 UNIT/0.5 ML CARP SQ SCH ×3 (05:12→21:59)
[2017-12-23] MEDS: RIVASTIGMINE TARTRATE 9.5 MG PATCH TD SCH (07:36)
[2017-12-23] MEDS: PANCREAZE (LIPASE 10,500U) CAP PO SCH ×3 (07:37→17:04)
[2017-12-23] MEDS: SPIRONOLACTONE 25 MG TAB PO SCH (07:37)
[2017-12-23 07:38] LABS: BASO % 0.4 %; BASO ABS # 0.04 K/uL (0-0.2); EOS % 5.3 %; EOS ABS # 0.48 K/uL (0-0.5); HEMATOCRIT 36.9 % (42-52); HEMOGLOBIN 12.6 g/dL (14.0-18.0); IG# 0.07 K/uL (0.00-0.02); LYMPH % 13.1 %; LYMPH ABS # 1.19 K/uL (1.2-3.4); MEAN CELL VOLUME 86.8 fL (80-100); MEAN CORPUSCULAR HEMOGLOBIN 29.6 pg (25-34); MEAN CORPUSCULAR HGB CONC 34.1 g/dl (32-36); MEAN PLATELET VOLUME 9.8 fL (7.4-10.4); MONO % 12.3 %; MONO ABS # 1.12 K/uL (0.11-0.59); NEUT % 68.1 %; PLATELET COUNT 224 K/uL (130-400); RED CELL DISTRIBUTION WIDTH CV 15.1 % (11.5-14.5); RED CELL DISTRIBUTION WIDTH SD 48.2 fL (36.4-46.3)
[2017-12-23] MEDS: GABAPENTIN 300 MG CAP PO SCH ×4 (07:38→21:10)
[2017-12-23] MEDS: LOSARTAN POTASSIUM 25 MG TAB PO SCH (07:38)
[2017-12-23] MEDS: RANOLAZINE 500 MG ER TAB PO SCH ×2 (07:38→21:13)
[2017-12-23] MEDS: PANTOprazole SOD 40 MG TAB PO SCH (07:38)
[2017-12-23] MEDS: FUROSEMIDE 40 MG TAB PO SCH (07:38)
[2017-12-23] MEDS: ESCITALOPRAM OXALATE 10 MG TAB PO SCH (07:38)
[2017-12-23] MEDS: INSULIN ASPART 100 UNITS/ML 3 ML PEN SC SCH ×4 (07:44→21:00)
[2017-12-23 07:46] LABS: PTT PATIENT 35.7 SECONDS (21.0-31.0)
[2017-12-23 07:56] LABS: CALCIUM 8.6 mg/dl (8.5-10.1); CREATININE 1.33 mg/dl (0.60-1.40); POTASSIUM 4.2 mmol/L (3.5-5.1)
--- NOTE | 2017-12-23 09:31 | Progress Note ---
Internal Med Progress Note Date of Service: December 23, 2017. Provider Documentation: SUBJECTIVE: Seen and examined at bedside Still has significant cough with brownish expectoration Hemoptysis resolved Dyspnea on exertion Denies chest pain, dizziness, nausea, abd pain Saturating low 90s off oxygen OBJECTIVE: Vital Signs-as noted below Physical Exam: Vitals signs as noted above General Appearance:Moderately built and nourished, no apparent distress Head: normocephalic, Atraumatic Eyes: normal inspection, EOMI, PERRL Neck: supple, Trachea midline Respiratory/Chest: Coarse breath sounds, Scattered Rhonchi Cardiovascular: S1, S2, +systolic murmur Abdomen/GI:Soft, Non tender, Bowel sounds present Extremities/Musculoskelatal:normal inspection, Trace b/l pedal edema Neurologic/Psych:AAOX3, grossly no focal neurological deficits Skin: normal color, warm Lab data as noted below. 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 B/L airspace opacities persist. Pulmonology Plans to consider Bronchoscopy if no improvement of left basal opacity DM II Most recent Hba1c 7.5 Continue ISS, basal Insulin Monitor BGs Pharmacy consulted for Glycemic management CKD III: Cr at baseline monitor renal function Avoid Nephrotoxic agents as able BPH Continue Flomax, Proscar HTN stable continue current meds monitor B Cell Lymphoma Recently diagnosed Follow with oncology Dr. Ashley further work up as outpatient Appreciate Oncology Input Depression Continue Lexapro Stable VIC: CPAP QHS DVT px: Heparin SQ CODE Status: Full code Disposition Monitor in Tele PROCEDURES: CT chest: 1. Progressive mediastinal hilar and axillary lymphadenopathy 2. Mild splenomegaly 3. Left lower lobe point consolidation with air bronchograms suspicious for pneumonia 4. Groundglass opacities within both upper lobes and the right lower lobe. Diagnostic considerations include infectious processes, acute alveolar disease, chronic interstitial disease, or drug reaction. ECHO: No significant change in wall motion or systolic function compared to previous studies. * Normal LV chamber size with moderate concentric LVH. * Normal LV systolic function, EF 60-65%. * No segmental left ventricular wall motion abnormalities are noted. Cardiac Cath: Summary: 1. Severe multivessel coronary artery disease - LCX 80-90 percent proximal, 80 percent OM2 - LAD 50-60 percent mid - RCA with chronic total occlusion and distal vessel filling via left to right collaterals 2. Elevated intracardiac filling pressure. LVEDP 31 3. Moderate aortic stenosis. Aortic valve peak to peak gradient 25 mmHg Recommendations: Patient with severe new circumflex disease in comparison to previously described disease from cardiac catheterization in 2016. At present has CARLYN 3 flow in both LAD and circumflex, chest pain free and no indication for emergent PCI. In the setting of acute heart failure along with patient's complex medical history and comorbidities recommend medical management at this time. PCI of circumflex could be considered later in hospitalization when better compensated from a heart failure standpoint. For now patient to be transferred to ICU for continued monitoring. Trend troponin until peaks. Echo obtained as an outpatient earlier this week. Continue IV diuresis, IV nitroglycerin and BiPAP as needed for respiratory insufficiency Resume heparin infusion following removal of TR band Continue home aspirin/Plavix, antihypertensives and statin Vital Signs: Date Time Temp Pulse Resp B/P (MAP) Pulse Ox O2 Delivery O2 Flow Rate FiO2 12/23/17 07:06 67 18 92 Room Air 12/23/17 06:17 37.0 70 19 106/62 (77) 90 Room Air 12/23/17 04:47 92 Room Air 2.0 12/23/17 03:40 37.0 68 18 113/64 (80) 91 Room Air 12/23/17 00:25 92 Room Air 2.0 12/22/17 23:15 36.3 74 18 111/66 (81) 90 Room Air 12/22/17 20:00 92 Room Air 2.0 12/22/17 19:40 36.8 80 20 113/67 (82) 92 Room Air 12/22/17 19:11 82 18 91 Room Air 12/22/17 16:14 37.6 84 20 122/65 (84) 92 Room Air 12/22/17 16:00 Nasal Cannula 2.0 12/22/17 14:42 80 18 91 Room Air 12/22/17 12:00 Nasal Cannula 2.0 12/22/17 11:27 36.7 76 16 110/62 (78) 90 Room Air 12/22/17 11:07 76 18 91 Room Air Lab Results: Results Past 24 Hours Test 12/22/17 11:16 12/22/17 16:12 12/22/17 20:44 12/23/17 07:14 Range/Units Bedside Glucose 178 162 216 139 70-99 mg/dl Test 12/23/17 07:19 Range/Units White Blood Count 9.10 4.8-10.8 K/uL Red Blood Count 4.25 4.7-6.1 M/uL Hemoglobin 12.6 14.0-18.0 g/dL Hematocrit 36.9 42-52 % Mean Corpuscular Volume 86.8 80-100 fL Mean Corpuscular Hemoglobin 29.6 25-34 pg Mean Corpuscular Hemoglobin Concent 34.1 32-36 g/dl Platelet Count 224 130-400 K/uL Mean Platelet Volume 9.8 7.4-10.4 fL Neutrophils (%) (Auto) 68.1 % Lymphocytes (%) (Auto) 13.1 % Monocytes (%) (Auto) 12.3 % Eosinophils (%) (Auto) 5.3 % Basophils (%) (Auto) 0.4 % Neutrophils # (Auto) 6.20 1.4-6.5 K/uL Lymphocytes # (Auto) 1.19 1.2-3.4 K/uL Monocytes # (Auto) 1.12 0.11-0.59 K/uL Eosinophils # (Auto) 0.48 0-0.5 K/uL Basophils # (Auto) 0.04 0-0.2 K/uL RDW Standard Deviation 48.2 36.4-46.3 fL RDW Coefficient of Variation 15.1 11.5-14.5 % Immature Granulocyte % (Auto) 0.8 % Immature Granulocyte # (Auto) 0.07 0.00-0.02 K/uL Activated Partial Thromboplast Time 35.7 21.0-31.0 SECONDS Partial Thromboplastin Ratio 1.4 Sodium Level 135 136-145 mmol/L Potassium Level 4.2 3.5-5.1 mmol/L Chloride Level 103 98-107 mmol/L Carbon Dioxide Level 26 21-32 mmol/L Anion Gap 7.0 3-11 mmol/L Blood Urea Nitrogen 27 7-18 mg/dl Creatinine 1.33 0.60-1.40 mg/dl Est Creatinine Clear Calc Drug Dose 42.5 ml/min Estimated GFR () 55.7 Estimated GFR (Non- 48.1 BUN/Creatinine Ratio 20.2 10-20 Random Glucose 121 70-99 mg/dl Calcium Level 8.6 8.5-10.1 mg/dl
[2017-12-23] MEDS: COLESTIPOL HCL 1 GM TAB PO SCH (10:26)
--- NOTE | 2017-12-23 14:35 | PULMONARY PROGRESS NOTE ---
DATE: 12/23/2017 SUBJECTIVE: The patient seems worse today. He is more congested, definitely more dyspneic than I remember on yesterday's exam. Although the hemoptysis has cleared, he is bringing up brownish phlegm and he himself is complaining of the air hunger involved. PHYSICAL EXAMINATION: CURRENT VITAL SIGNS: Temperature 36.6, pulse 75 and regular, respiratory rate 18, blood pressure 105/54, O2 sat 94% on room air. SKIN: Without lesion. HEENT: Atraumatic, normocephalic. PERRLA. LUNGS: Coarse wheezes and rhonchi diffusely. CARDIAC EXAMINATION : Regular rhythm. No murmurs or gallops. ABDOMEN: Soft, protuberant. EXTREMITIES: Trace pedal edema. No clubbing. Peripheral cyanosis. NEUROLOGICAL: Intact. LABORATORY DATA: Chest x-ray from yesterday shows some improvement in the pulmonary edema. I do think the left lower lobe area of consolidation that is improved as well. White count 9100, H and H 12.6 and 36.9. Sodium 135, BUN 27, creatinine 1.3. The patient is 89.3 kg which is down approximately 4 kg since admission, but stable over the past 48 hours. 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 The patient clinically is worse than he was yesterday and I would be considering bronchoscopic intervention, but at this point, the patient appears way too short of breath to tolerate that procedure. I think we will need to continue aerosolized bronchodilator and continue his clindamycin, but at this point we would just place back on high-dose steroid therapy even given his glucose intolerance. We will consider bronchoscopic intervention on Saturday if the patient shows enough improvement to be able to tolerate the procedure.
[2017-12-23] MEDS: ROSUVASTATIN CALCIUM 20 MG TAB PO SCH (21:11)
[2017-12-23] MEDS: METOPROLOL SUCC 25MG EXT REL TAB PO SCH (21:11)
[2017-12-23] MEDS: TAMSULOSIN HCL 0.4 MG CAP PO SCH (21:12)
[2017-12-23] MEDS: POTASSIUM CHLORIDE 10 MEQ TABCR PO SCH (21:12)
[2017-12-23] MEDS: ASPIRIN 81 MG ECTAB PO SCH (21:12)
[2017-12-23] MEDS: FINASTERIDE 5 MG TAB PO SCH (21:13)
[2017-12-23] MEDS: AMOXICILLIN 500 MG CAP PO SCH (21:13)
[2017-12-23] MEDS: ROPINIROLE HCL 0.25 MG TAB PO SCH (21:14)
[2017-12-23] MEDS: CLOPIDOGREL BISULFATE 75 MG TAB PO SCH (21:14)
[2017-12-23] MEDS: INSULIN GLARGINE SOLOSTAR 100 UNITS/ML 3 ML PEN SC SCH (21:18)
[2017-12-24] VITALS (17 sets, daily range): BP systolic 103–109; BP diastolic 57–64; PULSE 66–79; TEMP 36.6–37.1; O2SAT 92–100
[2017-12-24] MEDS: CLINDAMYCIN IV 600 MG in DEXTROSE 5% 50ML 50 ML IV SCH ×3 (02:29→16:48)
[2017-12-24] MEDS: ALBUT/IPRATROP 3MG/0.5MG NEB 3 ML VIAL INH SCH ×6 (03:00→22:38)
[2017-12-24] MEDS: HEPARIN SOD 5000 UNIT/0.5 ML CARP SQ SCH ×3 (05:35→21:23)
[2017-12-24 07:59] LABS: PTT PATIENT 40.4 SECONDS (21.0-31.0)
[2017-12-24] MEDS: PANCREAZE (LIPASE 10,500U) CAP PO SCH ×3 (07:59→16:49)
[2017-12-24] MEDS: FUROSEMIDE 40 MG TAB PO SCH (07:59)
[2017-12-24] MEDS: SPIRONOLACTONE 25 MG TAB PO SCH (07:59)
[2017-12-24] MEDS: LOSARTAN POTASSIUM 25 MG TAB PO SCH (07:59)
[2017-12-24] MEDS: RANOLAZINE 500 MG ER TAB PO SCH ×2 (07:59→21:10)
[2017-12-24] MEDS: GABAPENTIN 300 MG CAP PO SCH ×4 (07:59→21:09)
[2017-12-24] MEDS: ESCITALOPRAM OXALATE 10 MG TAB PO SCH (07:59)
[2017-12-24] MEDS: PANTOprazole SOD 40 MG TAB PO SCH (07:59)
[2017-12-24] MEDS ORDERED: METHYLPREDNISOLONE IV 40 MG in SYRINGE 0 ML IV SCH (08:00)
[2017-12-24] MEDS: RIVASTIGMINE TARTRATE 9.5 MG PATCH TD SCH (08:04)
[2017-12-24] MEDS: INSULIN ASPART 100 UNITS/ML 3 ML PEN SC SCH ×4 (08:07→21:22)
[2017-12-24] MEDS: COLESTIPOL HCL 1 GM TAB PO SCH (09:30)
[2017-12-24] MEDS: INSULIN GLARGINE SOLOSTAR 100 UNITS/ML 3 ML PEN SC SCH ×2 (09:33→21:22)
--- NOTE | 2017-12-24 09:47 | Pharmacy Progress Note ---
Pharmacy Glycemic Short Note 2 Date of Service December 24, 2017. OUTPATIENT ANTIDIABETIC REGIMEN: * Lantus 56 units SQ qHS * Novolog TIDM (per patient, typically around 11 units) * HbA1c: 7.4% (12/18/17) ASSESSMENT: * Patient received 42 units of insulin yesterday, with BSGs ranging from 102- 145mg/dL. * SoluMedrol initiated on patient this morning (40mg IV q8h). * Lantus increased to BID dosing starting this morning in an attempt to prevent significant steroid-induced hyperglycemia. PLAN FOR INPATIENT GLYCEMIC CONTROL: * Basal insulin * Lantus 30 units SQ BID * Bolus insulin -- tighten parameters to provide additional coverage while on high-dose steroids * NovoLog per scale ACHS or Q6hrs while NPO, ADD checks at 0000,0400 * Goal Range: Low 110 mg/dL - High 140 mg/dL * Correction Factor: 15 mg/dL/unit with dinner * Nutritional / Prandial insulin per carb ratio of 1 unit per 6 grams CHO consumed then per 8 grams of CHO consumed with dinner PLAN FOR DISCHARGE: * Patient's HbA1C indicates excellent control for an 87yo with multiple comorbidities. * Expect that patient's outpt regimen may be resumed at discharge, as long as patient does not report having hypoglycemic episodes at home. * If patient will be discharged on steroids, will require adjustments to regimen to provide additional coverage.
--- NOTE | 2017-12-24 09:56 | Cardiology Follow-Up ---
Subjective General Date of Service: December 24, 2017. Chief Complaint: follow up shortness of breath Pt evaluation today including: conversation w/ patient, physical exam History of Present Illness The patient is a 87 year old male seen in cardiology follow up. Telemetry reveals SR in range of 60-80 bpm. Patient denies chest pain. Continues with shortness of breath, and cough productive of brown secretions. Most recent EKG reveals subtle improvement in the lateral ST depression noted on presentation. Allergies Coded Allergies: Clavulanic Acid (Verified Allergy, Intermediate, HIVES TO "BETA-LACTAMASE INHIBITORS", 12/17/17) Sulbactam (Verified Allergy, Intermediate, HIVES TO "BETA-LACTAMASE INHIBITORS", 12/17/17) Cilastatin (Verified Allergy, Mild, HIVES, 12/17/17) Imipenem (Verified Allergy, Mild, HIVES, 12/17/17) HAS HAD PENICILLIN W/O PROBLEM Adhesives (Verified Allergy, Unknown, BANDAIDS- SORE SKIN, 12/17/17) Cephalosporins (Verified Allergy, Unknown, HIVES, 12/17/17) Lovastatin (Verified Allergy, Unknown, hives, 12/17/17) Penicillins (Verified Allergy, Unknown, hives, 12/17/17) Morphine (Verified Adverse Reaction, Unknown, CONFUSED, 12/17/17) Social History Smoking Status: Former Smoker (Spelled 4 packs per day for 30-40 years. Quit 1982) Hx Tobacco Use In Past Year?: No Hx Alcohol Use - Type And Amou: No Hx Substance Use - Type And Am: No Problem List Medical Problems: (1) Acute hypoxemic respiratory failure Status: Acute (2) Bacteremia Status: Acute (3) Cellulitis Status: Acute (4) Constipation Status: Acute (5) Hyponatremia Status: Acute (6) Knee pain Status: Acute (7) Precordial chest pain Status: Acute (8) Precordial chest pain Status: Acute (9) Septic joint Status: Acute Physical Exam Vital Signs Last Vital Signs Documentation Date Time Temp Pulse Resp B/P (MAP) Pulse Ox O2 Delivery O2 Flow Rate FiO2 12/24/17 07:15 79 18 94 Nasal Cannula 2.0 12/24/17 06:53 36.6 106/61 (76) 12/23/17 20:00 40 Physical Exam Constitutional: Level of Distress: acutely ill, chronically ill ENMT: TMs normal Neck: supple Lungs: Auscultation: pertinent finding (coarse breat sounds bilaterally) Musculoskeletal: normal tone Extremities: no edema Neurologic: Gait & Station: pertinent finding (no focal deficits ) Assessment and Plan Assessment and Plan Impression: 1. Multifactorial shortness of breath. -s/p recent Cx territory DARYL, POBA to OM -moderate by invasive gradients, peak to peak gradient 25 mm Hg, consistent with moderate -preserved LVEF 2. Newly diagnosed B cell lymphoma 3. Possible superimposed pulmonary infection Plan: Had improvement with revascularization, bipap, and diuretics. Now on chronic oral dose. 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 Pulmonary input noted an appreciated. Stable from cardiac perspective for bronchoscopy if felt to be indicated, however, needs to remain on ASA and clopidogrel without interruption. Will continue to follow. Patient is 87 years old with multiple complex issues. Laboratory Results Last 24 Hours Test 12/23/17 11:30 12/23/17 16:06 12/23/17 20:34 12/24/17 03:17 Bedside Glucose 113 mg/dl 102 mg/dl 145 mg/dl 150 mg/dl Test 12/24/17 06:29 12/24/17 07:25 Activated Partial Thromboplast Time 40.4 SECONDS Partial Thromboplastin Ratio 1.6 Bedside Glucose 174 mg/dl
--- NOTE | 2017-12-24 12:18 | Progress Note ---
Internal Med Progress Note Date of Service: December 24, 2017. Provider Documentation: SUBJECTIVE: The patient was seen and examined in telemetry unit. He is status post NSTEMI complicated by COPD He was supposed to be discharged yesterday but due to increasing symptoms he remained for further care Denies any symptoms at rest OBJECTIVE: Vital Signs-as noted below Exam: General-minimal distress at rest Eyes-normal ENT-normal Neck-supple Lungs-decreased breath sounds all over with wheezing and Minimal bibasilar rales Heart-S1-S2 regular Abdomen-distended, soft, bowel sounds present Extremities-1+ edema bilaterally Neuro-alert,awake and oriented Generally weak Lab data as noted below. 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 Cardiology and Supervisor Cereal Input ECHO::No significant change in wall motion or systolic function compared to previous studies. * Normal LV chamber size with moderate concentric LVH. * Normal LV systolic function, EF 60-65%. * No segmental left ventricular wall motion abnormalities are noted. Continue Lasix increased to 40mg, spironolactone Continue current medications Stable as per Cardiology Pneumonitis: Acute on Chronic respiratory failure COPD Hemoptysis:resolved CT chest ::1. Progressive mediastinal hilar and axillary lymphadenopathy 2. Mild splenomegaly 3. Left lower lobe point consolidation with air bronchograms suspicious for pneumonia 4. Groundglass opacities within both upper lobes and the right lower lobe. Diagnostic considerations include infectious processes, acute alveolar disease, chronic interstitial disease, or drug reaction. Appreciate Pulmonology Input Continue IV Antibiotics Day # 4 Continue Nebs Pulmonary Toilet Was on Chronic Amox as per recommendation Appreciate Pulmonology Input Repeat CXR: Interval improvement in the pulmonary edema. B/L airspace opacities persist. Started on IV Solumedrol and plan for Bronchoscopy tomorrow DM II Most recent Hba1c 7.5 Continue ISS, basal Insulin Monitor BGs Pharmacy consulted for Glycemic management CKD III: Cr at baseline monitor renal function Avoid Nephrotoxic agents as able BPH Continue Flomax, Proscar HTN stable continue current meds monitor B Cell Lymphoma Recently diagnosed Follow with oncology Dr. Ashley further work up as outpatient Appreciate Oncology Input Depression Continue Lexapro Stable VIC: CPAP QHS DVT px: Heparin SQ CODE Status: Full code Disposition Monitor in Tele Vital Signs: Date Time Temp Pulse Resp B/P (MAP) Pulse Ox O2 Delivery O2 Flow Rate FiO2 12/24/17 11:40 79 18 94 Nasal Cannula 2.0 12/24/17 08:00 94 Nasal Cannula 2.0 12/24/17 07:15 79 18 94 Nasal Cannula 2.0 12/24/17 06:53 36.6 70 18 106/61 (76) 92 Room Air 12/24/17 04:00 94 Room Air 2.0 12/24/17 03:18 37.1 75 18 104/62 (76) 94 Room Air 12/24/17 03:00 74 18 96 Nasal Cannula 2.0 12/24/17 00:01 97 Room Air 2.0 12/23/17 23:22 36.8 87 19 121/73 (89) 96 Room Air 12/23/17 23:17 76 18 97 BiPAP/CPAP 2.0 12/23/17 20:35 38.2 99 20 113/69 (84) 92 Nasal Cannula 2.0 12/23/17 20:00 97 Nasal Cannula 2.0 40 12/23/17 19:07 93 18 97 Nasal Cannula 2.0 12/23/17 16:12 92 Room Air 12/23/17 16:03 37.6 91 20 134/73 (93) 97 Room Air 12/23/17 14:40 73 18 94 Room Air 12/23/17 12:17 36.6 75 18 105/54 (71) 94 Room Air 12/23/17 12:11 92 Room Air Lab Results: Results Past 24 Hours Test 12/23/17 16:06 12/23/17 20:34 12/24/17 03:17 12/24/17 06:29 Range/Units Bedside Glucose 102 145 150 70-99 mg/dl Activated Partial Thromboplast Time 40.4 21.0-31.0 SECONDS Partial Thromboplastin Ratio 1.6 Test 12/24/17 07:25 12/24/17 11:27 Range/Units Bedside Glucose 174 205 70-99 mg/dl
--- NOTE | 2017-12-24 12:25 | PULMONARY PROGRESS NOTE ---
DATE: 12/24/2017 SUBJECTIVE: The patient is slightly better than yesterday, having started IV Solu-Medrol to treat his bronchospasm, but he is still having great difficulty expectorating phlegm. The secretions are brown when he does and no further hemoptysis noted. He has no chest pain. He was seen by Dr. Lemus this morning. An EKG revealed subtle improvement in the lateral ST depression seen on presentation. PLAN: He has remained on aspirin and Plavix; will proceed with bronchoscopic intervention tomorrow. I believe we can do so safely without getting into any bleeding issues as no biopsies will be entertained.
--- NOTE | 2017-12-24 15:48 | Palliative Care Progress Note ---
Palliative Care Progress Note Date of Service December 24, 2017. Subjective Pt evaluation today including: conversation w/ patient, conversation w/ family , physical exam, chart review, lab review, review of studies Pain: Only pain is due to harsh cough PO Intake: Good Voiding: no voiding problems Patient seen in his room, at bedside. Patient sitting up in a chair. Feels that his endurance due to his heart disease has improved however has increasing shortness of breath due to frequent cough. Patient is planned for bronchoscopy tomorrow Review of Systems Constitutional: No fever, No chills ENT: No hearing loss Respiratory: + cough, + sputum, + shortness of breath Cardiac: No edema Abdomen: No pain Male : No dysuria Neurologic: No memory loss Psychiatric: No anxiety Endo: + fatigue Objective Vital Signs Date Time Temp Pulse Resp B/P (MAP) Pulse Ox O2 Delivery O2 Flow Rate FiO2 12/24/17 15:29 66 18 97 Nasal Cannula 2.0 12/24/17 12:00 94 Nasal Cannula 2.0 12/24/17 11:40 79 18 94 Nasal Cannula 2.0 12/24/17 11:25 36.6 75 22 108/64 (79) 94 Room Air 12/24/17 08:00 94 Nasal Cannula 2.0 12/24/17 07:15 79 18 94 Nasal Cannula 2.0 12/24/17 06:53 36.6 70 18 106/61 (76) 92 Room Air 12/24/17 04:00 94 Room Air 2.0 12/24/17 03:18 37.1 75 18 104/62 (76) 94 Room Air 12/24/17 03:00 74 18 96 Nasal Cannula 2.0 12/24/17 00:01 97 Room Air 2.0 12/23/17 23:22 36.8 87 19 121/73 (89) 96 Room Air 12/23/17 23:17 76 18 97 BiPAP/CPAP 2.0 12/23/17 20:35 38.2 99 20 113/69 (84) 92 Nasal Cannula 2.0 12/23/17 20:00 97 Nasal Cannula 2.0 40 12/23/17 19:07 93 18 97 Nasal Cannula 2.0 12/23/17 16:12 92 Room Air 12/23/17 16:03 37.6 91 20 134/73 (93) 97 Room Air Physical Exam General Appearance: + mild distress (Due to frequent coughing) Eyes: EOMI ENT: hearing grossly normal Neck: supple Respiratory/Chest: + pertinent finding (Coarse rhonchi bilaterally right greater than left) Cardiovascular: regular rate, rhythm, no edema Abdomen: soft Extremities: no pedal edema Neurologic/Psychiatric: alert Skin: warm/dry Laboratory Results Last 24 Hours Test 12/23/17 16:06 12/23/17 20:34 12/24/17 03:17 12/24/17 06:29 Bedside Glucose 102 mg/dl 145 mg/dl 150 mg/dl Activated Partial Thromboplast Time 40.4 SECONDS Partial Thromboplastin Ratio 1.6 Test 12/24/17 07:25 12/24/17 11:27 Bedside Glucose 174 mg/dl 205 mg/dl Assessment and Plan (1) Lymphoma Status: Acute Assessment & Plan: Patient to follow-up with oncology as an outpatient to discuss further treatment (2) Palliative care encounter Assessment & Plan: Following along with patient, to be available if condition would change. (3) CAD (coronary artery disease) Status: Chronic Assessment & Plan: Patient feels his endurance has improved after cardiac stent placed (4) Acute hypoxemic respiratory failure Status: Acute Assessment & Plan: Patient still requiring O2, plan for bronchoscopy tomorrow by Dr. Torres Spoke briefly with patient regarding goals of care, will need to return when his is present to to full consult. Palliative Performance Scale: 40 % Discharge planning: home Counseling and Coordination Total time spent 25 minutes with greater than 50% of the time spent at bedside evaluating patient and providing support to patient and .
[2017-12-24] MEDS: METHYLPREDNISOLONE IV 40 MG in SYRINGE 0 ML IV SCH (16:49)
[2017-12-24] MEDS: AMOXICILLIN 500 MG CAP PO SCH (21:09)
[2017-12-24] MEDS: METOPROLOL SUCC 25MG EXT REL TAB PO SCH (21:10)
[2017-12-24] MEDS: FINASTERIDE 5 MG TAB PO SCH (21:10)
[2017-12-24] MEDS: CLOPIDOGREL BISULFATE 75 MG TAB PO SCH (21:10)
[2017-12-24] MEDS: ASPIRIN 81 MG ECTAB PO SCH (21:10)
[2017-12-24] MEDS: ROPINIROLE HCL 0.25 MG TAB PO SCH (21:10)
[2017-12-24] MEDS: ROSUVASTATIN CALCIUM 20 MG TAB PO SCH (21:10)
[2017-12-24] MEDS: POTASSIUM CHLORIDE 10 MEQ TABCR PO SCH (21:11)
[2017-12-25] VITALS (20 sets, daily range): BP systolic 97–139; BP diastolic 53–74; PULSE 64–88; TEMP 36.5–36.7; O2SAT 90–98
[2017-12-25] MEDS: METHYLPREDNISOLONE IV 40 MG in SYRINGE 0 ML IV SCH ×3 (00:02→17:21)
[2017-12-25] MEDS: INSULIN ASPART 100 UNITS/ML 3 ML PEN SC SCH ×6 (00:03→21:50)
[2017-12-25] MEDS: CLINDAMYCIN IV 600 MG in DEXTROSE 5% 50ML 50 ML IV SCH ×3 (02:21→17:21)
[2017-12-25] MEDS: ALBUT/IPRATROP 3MG/0.5MG NEB 3 ML VIAL INH SCH ×5 (03:23→22:36)
[2017-12-25 06:19] LABS: HEMATOCRIT 34.8 % (42-52); MEAN CELL VOLUME 85.5 fL (80-100); MEAN CORPUSCULAR HEMOGLOBIN 29.5 pg (25-34); MEAN CORPUSCULAR HGB CONC 34.5 g/dl (32-36); MEAN PLATELET VOLUME 9.2 fL (7.4-10.4); PLATELET COUNT 269 K/uL (130-400); RED CELL DISTRIBUTION WIDTH CV 14.9 % (11.5-14.5); RED CELL DISTRIBUTION WIDTH SD 46.6 fL (36.4-46.3); WHITE BLOOD COUNT 10.06 K/uL (4.8-10.8)
[2017-12-25] MEDS: HEPARIN SOD 5000 UNIT/0.5 ML CARP SQ SCH ×3 (06:21→21:52)
[2017-12-25 06:49] LABS: CALCIUM 8.6 mg/dl (8.5-10.1); CREATININE 1.3 mg/dl (0.60-1.40); POTASSIUM 4.1 mmol/L (3.5-5.1)
[2017-12-25] MEDS: PANCREAZE (LIPASE 10,500U) CAP PO SCH ×3 (07:30→17:21)
[2017-12-25] MEDS: GABAPENTIN 300 MG CAP PO SCH ×4 (09:00→20:42)
[2017-12-25] MEDS ORDERED: NURSING VERBAL MED ORDER ONE (09:30)
[2017-12-25] MEDS ORDERED: INSULIN GLARGINE SOLOSTAR 100 UNITS/ML 3 ML PEN SC STA (09:41)
[2017-12-25] MEDS: INSULIN GLARGINE SOLOSTAR 100 UNITS/ML 3 ML PEN SC SCH ×2 (09:43→21:51)
[2017-12-25] MEDS: COLESTIPOL HCL 1 GM TAB PO SCH (10:00)
[2017-12-25] MEDS: RIVASTIGMINE TARTRATE 9.5 MG PATCH TD SCH (10:02)
--- NOTE | 2017-12-25 10:26 | Cardiology Follow-Up ---
Subjective General Date of Service: December 25, 2017. Chief Complaint: follow up shortness of breath Pt evaluation today including: conversation w/ patient, conversation w/ family , physical exam History of Present Illness The patient is a 87 year old male seen in follow up. OOB in chair. Still having difficulty clearing secretions. Denies chest pain. Telemetry reveals stable SR with occasional PVCs. Allergies Coded Allergies: Clavulanic Acid (Verified Allergy, Intermediate, HIVES TO "BETA-LACTAMASE INHIBITORS", 12/17/17) Sulbactam (Verified Allergy, Intermediate, HIVES TO "BETA-LACTAMASE INHIBITORS", 12/17/17) Cilastatin (Verified Allergy, Mild, HIVES, 12/17/17) Imipenem (Verified Allergy, Mild, HIVES, 12/17/17) HAS HAD PENICILLIN W/O PROBLEM Adhesives (Verified Allergy, Unknown, BANDAIDS- SORE SKIN, 12/17/17) Cephalosporins (Verified Allergy, Unknown, HIVES, 12/17/17) Lovastatin (Verified Allergy, Unknown, hives, 12/17/17) Penicillins (Verified Allergy, Unknown, hives, 12/17/17) Morphine (Verified Adverse Reaction, Unknown, CONFUSED, 12/17/17) Social History Smoking Status: Former Smoker (Spelled 4 packs per day for 30-40 years. Quit 1982) Hx Tobacco Use In Past Year?: No Hx Alcohol Use - Type And Amou: No Hx Substance Use - Type And Am: No Problem List Medical Problems: (1) Acute hypoxemic respiratory failure Status: Acute (2) Bacteremia Status: Acute (3) Cellulitis Status: Acute (4) Constipation Status: Acute (5) Hyponatremia Status: Acute (6) Knee pain Status: Acute (7) Precordial chest pain Status: Acute (8) Precordial chest pain Status: Acute (9) Septic joint Status: Acute Physical Exam Vital Signs Last Vital Signs Documentation Date Time Temp Pulse Resp B/P (MAP) Pulse Ox O2 Delivery O2 Flow Rate FiO2 12/25/17 07:17 75 18 96 Room Air 12/25/17 06:52 36.5 129/70 (89) 12/25/17 03:24 2.0 12/23/17 20:00 40 Physical Exam Constitutional: Level of Distress: acutely ill, chronically ill ENMT: TMs normal Neck: supple Lungs: Auscultation: pertinent finding (coarse breat sounds bilaterally) Musculoskeletal: normal tone Extremities: no edema Neurologic: Gait & Station: pertinent finding (no focal deficits ) Assessment and Plan Assessment and Plan Impression: 1. Multifactorial shortness of breath. -s/p recent Cx territory DARYL, POBA to OM -moderate by invasive gradients, peak to peak gradient 25 mm Hg, consistent with moderate -preserved LVEF 2. Newly diagnosed B cell lymphoma 3. Possible superimposed pulmonary infection Plan: Continue cardiac medications. Patient stable from my standpoint to proceed with bronchoscopy on uninterrupted ASA and clopidogrel. Laboratory Results Last 24 Hours Test 12/24/17 11:27 12/24/17 16:21 12/24/17 20:51 12/24/17 23:58 Bedside Glucose 205 mg/dl 255 mg/dl 293 mg/dl 277 mg/dl Test 12/25/17 04:10 12/25/17 06:11 12/25/17 07:12 Bedside Glucose 235 mg/dl 188 mg/dl White Blood Count 10.06 K/uL Red Blood Count 4.07 M/uL Hemoglobin 12.0 g/dL Hematocrit 34.8 % Mean Corpuscular Volume 85.5 fL Mean Corpuscular Hemoglobin 29.5 pg Mean Corpuscular Hemoglobin Concent 34.5 g/dl RDW Standard Deviation 46.6 fL RDW Coefficient of Variation 14.9 % Platelet Count 269 K/uL Mean Platelet Volume 9.2 fL Sodium Level 133 mmol/L Potassium Level 4.1 mmol/L Chloride Level 100 mmol/L Carbon Dioxide Level 25 mmol/L Anion Gap 8.0 mmol/L Blood Urea Nitrogen 30 mg/dl Creatinine 1.30 mg/dl Est Creatinine Clear Calc Drug Dose 43.6 ml/min Estimated GFR () 57.3 Estimated GFR (Non- 49.4 BUN/Creatinine Ratio 22.8 Random Glucose 193 mg/dl Calcium Level 8.6 mg/dl
[2017-12-25] MEDS ORDERED: OXYMETAZOLINE HCL 0.05% NA SPR 15 ML BTL ONE (11:10)
[2017-12-25] MEDS ORDERED: LIDOCAINE 4% INH SOLN 4 ML BTL INH ONE (11:10)
[2017-12-25] MEDS ORDERED: MIDAZOLAM HCL 5 MG/ML 1 ML VIAL IV ONE (11:21)
[2017-12-25] MEDS ORDERED: LIDOCAINE HCL 2% LOCAL 50ML VIAL INSTIL ONE (11:25)
[2017-12-25] MEDS ORDERED: LEVALBUTEROL 1.25MG/3ML NEB INH ONE (11:30)
--- NOTE | 2017-12-25 11:35 | [facility] Operative Report ---
Operative Report Operative Date December 25, 2017. Pre-Operative Diagnosis LLL pneumonia Post-Operative Diagnosis Same Procedure(s) Performed FOB w BAL Surgeon Dr Torres Findings Chronic Mucopurulent Bronchitis Specimens LLL bronchial wash Complication(s) None Disposition I attest to the content of the Intraoperative Record and any orders documented therein. Any exceptions are noted below.
--- NOTE | 2017-12-25 11:36 | Post Sedation Assessment ---
Post Sedation Assessment General Date of Sedation December 25, 2017. Vital Signs: Vital Signs Past 12 Hours Date Time Temp Pulse Resp B/P (MAP) Pulse Ox O2 Delivery O2 Flow Rate FiO2 12/25/17 11:26 36.7 69 19 112/68 (83) 92 Room Air 12/25/17 11:25 86 20 192/96 98 Oxymask 8 12/25/17 11:20 73 16 119/70 93 Oxymask 8 12/25/17 11:15 75 20 143/65 94 Oxymask 6 12/25/17 11:10 70 20 134/74 97 Oxymask 6 12/25/17 11:05 71 16 124/73 94 Room Air 12/25/17 07:17 75 18 96 Room Air 12/25/17 06:52 36.5 64 18 129/70 (89) 95 CPAP 12/25/17 04:00 Nasal Cannula 12/25/17 03:24 64 18 96 BiPAP/CPAP 2.0 12/25/17 03:05 36.7 65 19 107/58 (74) 97 CPAP 12/25/17 00:39 73 97 2.0 12/25/17 00:01 Nasal Cannula Post Procedure Recovery Score Activity: (2) Moves 4 extremities * Respiration: (2) Deep breath/cough Circulation: (1) +/-20-49% PreAnes Noemí Consciousness: (1) Arouseable (by name) Oxygen Saturation: (1) O2 needed for >90% Post Anesthesia Score: 7 Discharge Sedation Level of Care: Fast Track Phase II Post Sedation Plan On clinical assessment, the patient appears to have tolerated the sedation without complications. Patient is recovering as anticipated. Patient will continue to be monitored by nursing and may be discharged when sedation discharge criteria are met per below protocol. Upon Completions of procedure and additional 15 minutes continue every 5 minute vital signs and the P.A.R. score; then discharge to a Phase I or Fast Track to Phase II per the following guidelines: * Discharge Patient to appropriate Phase II area if PAR is 8 or greater or return to pre- procedure baseline. The post - procedure orders will be as directed. * If PAR score is less than 8 or not return to pre-procedure baseline then patient will follow Phase I monitoring till PAR is reached for Phase II. The Phase I may be done in procedure room or may call to secure a Phase I area. * If naloxone or flumazenil are used for reversal, hold in Phase I for an additional 60 -120 minutes before discharge to Phase II. Please call the Sedation Physician to re-evaluate and complete post-note for discharge to Phase II area. Do NOT discharge from procedure sedation or Phase 1 until post- sedation evaluation note is complete by procedure /sedation MD Sedation Discharge Instructions to be given to the patient at discharge to home.
--- NOTE | 2017-12-25 12:32 | OPERATIVE REPORT ---
DATE OF OPERATION: 12/25/2017 PROCEDURE: Fiberoptic bronchoscopy bronchoalveolar lavage. INDICATIONS: Left lower lobe pneumonia, persistent, mucus plugging with chest congestion. ANESTHESIA PREOPERATIVELY: None. ANESTHESIA DURING PROCEDURE: 4 mg IV Versed, 20 mL 2% Xylocaine spray above and below the cords, 4% viscous Xylocaine intranasally. DESCRIPTION OF PROCEDURE: Fiberoptic bronchoscope was inserted through right naris with minimal difficulty and passed to the level of true vocal cords. The cords appear to approximate normally with phonation without evidence for lesions or paralysis. A large amount of mucoviscous secretion was seen pooling in the supraglottic region. The cords were anesthetized and the scope was then introduced in the trachea and right and left tracheobronchial tree. Right main stem bronchus was found to be free of endobronchial lesions. A large amount of mucoviscous secretion was seen adherent to the posterior wall of the bronchus intermedius and lavaged until clear. The right upper lobe, the apical posterior and anterior segments, bronchus intermedius, right middle lobe, the medial lateral segments and all basilar segments, right lower lobe were found to be free of endobronchial lesions. Left tracheobronchial tree was explored and the left mainstem bronchus showed a copious amount of mucopurulent secretion and the left lower lobe bronchus was totally occluded with mucoviscous and mucopurulent secretion that was hemorrhagic. This area was copiously lavaged with normosol and the aspirate sent for appropriate studies. The mucosa appeared to be hemorrhagic with no active bleeding. No obvious endobronchial lesion was seen. The basilar segments of the left lower lobe were all copiously lavaged with normosol and then found to be patent after the secretions were lavaged and aspirated. Left upper lobe, lingual subdivision were free of endobronchial lesions. The procedure was terminated. The patient was given a nebulizer treatment with Xopenex 1.25 mg and then transferred back to the medical floor, hemodynamically stable. No further signs of respiratory compromise. Will await microbiological and cytologic examination of the bronchial washings. I attest to the content of the Intraoperative Record and any orders documented therein. Any exception s are noted below.
[2017-12-25] MEDS: RANOLAZINE 500 MG ER TAB PO SCH ×2 (13:26→20:43)
[2017-12-25] MEDS: LOSARTAN POTASSIUM 25 MG TAB PO SCH (13:27)
[2017-12-25] MEDS: FUROSEMIDE 40 MG TAB PO SCH (13:27)
[2017-12-25] MEDS: PANTOprazole SOD 40 MG TAB PO SCH (13:27)
[2017-12-25] MEDS: SPIRONOLACTONE 25 MG TAB PO SCH (13:27)
[2017-12-25] MEDS: ESCITALOPRAM OXALATE 10 MG TAB PO SCH (13:30)
--- NOTE | 2017-12-25 15:09 | Progress Note ---
Internal Med Progress Note Date of Service: December 25, 2017. Provider Documentation: SUBJECTIVE: The patient was seen and examined in telemetry unit. He is status post NSTEMI complicated by COPD He was supposed to be discharged yesterday but due to increasing symptoms he remained for further care Denies any symptoms at rest 12/25: Remains stable at rest Bronchoscopy today OBJECTIVE: Vital Signs-as noted below Exam: General-minimal distress at rest Eyes-normal ENT-normal Neck-supple Lungs-decreased breath sounds all over with wheezing and Minimal bibasilar rales Heart-S1-S2 regular Abdomen-distended, soft, bowel sounds present Extremities-1+ edema bilaterally Neuro-alert,awake and oriented Generally weak Lab data as noted below. ASSESSMENT & PLAN: SOB on Minimal Exertion Profuse secretions with wheezing -not been able to bring it up Acute on Chronic respiratory failure ,COPD Bronchoscopy today NSTEMI: Moderate Aortic Stenosis: S/P cardiac cath: Severe multivessel disease S/P PCI DARYL to proximal circumflex Off Nitro ggt, Off Heparin ggt Continue Aspirin, Plavix, Statins, Losartan, Metoprolol, Imdur Appreciate Cardiology and Coatings Inspector Input ECHO::No significant change in wall motion or systolic function compared to previous studies. * Normal LV chamber size with moderate concentric LVH. * Normal LV systolic function, EF 60-65%. * No segmental left ventricular wall motion abnormalities are noted. Continue Lasix increased to 40mg, spironolactone Continue current medications Stable as per Cardiology Pneumonitis: Acute on Chronic respiratory failure COPD Hemoptysis:resolved CT chest ::1. Progressive mediastinal hilar and axillary lymphadenopathy 2. Mild splenomegaly 3. Left lower lobe point consolidation with air bronchograms suspicious for pneumonia 4. Groundglass opacities within both upper lobes and the right lower lobe. Diagnostic considerations include infectious processes, acute alveolar disease, chronic interstitial disease, or drug reaction. Appreciate Pulmonology Input Continue IV Antibiotics Day # 5 Continue Nebs,Pulmonary Toilet Was on Chronic Amox as per recommendation Appreciate Pulmonology Input Repeat CXR: Interval improvement in the pulmonary edema. B/L airspace opacities persist. Started on IV Solumedrol and plan for Bronchoscopy tomorrow Bronchoscopy today 12/25/17 DM II Most recent Hba1c 7.5 Continue ISS, basal Insulin Monitor BGs Pharmacy consulted for Glycemic management CKD III: Cr at baseline monitor renal function Avoid Nephrotoxic agents as able BPH Continue Flomax, Proscar HTN stable continue current meds monitor B Cell Lymphoma Recently diagnosed Follow with oncology Dr. Ashley further work up as outpatient Appreciate Oncology Input Depression Continue Lexapro Stable VIC: CPAP QHS DVT px: Heparin SQ CODE Status: Full code Disposition Likely discharge in a day or two Vital Signs: Date Time Temp Pulse Resp B/P (MAP) Pulse Ox O2 Delivery O2 Flow Rate FiO2 12/25/17 11:48 Oxymask 12/25/17 11:45 77 24 119/68 95 Nasal Cannula 4 12/25/17 11:40 78 24 131/72 95 Nasal Cannula 4 12/25/17 11:35 81 20 148/79 97 Nasal Cannula 4 12/25/17 11:30 82 20 176/93 99 Oxymask 8 12/25/17 11:26 36.7 69 19 112/68 (83) 92 Room Air 12/25/17 11:25 86 20 192/96 98 Oxymask 8 12/25/17 11:20 73 16 119/70 93 Oxymask 8 12/25/17 11:15 75 20 143/65 94 Oxymask 6 12/25/17 11:10 70 20 134/74 97 Oxymask 6 12/25/17 11:05 71 16 124/73 94 Room Air 12/25/17 07:17 75 18 96 Room Air 12/25/17 06:52 36.5 64 18 129/70 (89) 95 CPAP 12/25/17 04:00 Nasal Cannula 12/25/17 03:24 64 18 96 BiPAP/CPAP 2.0 12/25/17 03:05 36.7 65 19 107/58 (74) 97 CPAP 12/25/17 00:39 73 97 2.0 12/25/17 00:01 Nasal Cannula 12/24/17 23:20 37.0 74 19 109/63 (78) 96 CPAP 12/24/17 22:40 67 19 93 BiPAP/CPAP 2.0 12/24/17 20:00 Nasal Cannula 12/24/17 19:25 68 24 103/57 (72) 100 Nasal Cannula 3.0 12/24/17 19:16 71 18 97 Nasal Cannula 2.0 12/24/17 16:07 36.6 71 20 104/63 (77) 94 Nasal Cannula 2.0 12/24/17 16:00 94 Nasal Cannula 2.0 12/24/17 15:29 66 18 97 Nasal Cannula 2.0 Lab Results: Results Past 24 Hours Test 12/24/17 16:21 12/24/17 20:51 12/24/17 23:58 12/25/17 04:10 Range/Units Bedside Glucose 255 293 277 235 70-99 mg/dl Test 12/25/17 06:11 12/25/17 07:12 12/25/17 10:24 12/25/17 12:41 Range/Units White Blood Count 10.06 4.8-10.8 K/uL Red Blood Count 4.07 4.7-6.1 M/uL Hemoglobin 12.0 14.0-18.0 g/dL Hematocrit 34.8 42-52 % Mean Corpuscular Volume 85.5 80-100 fL Mean Corpuscular Hemoglobin 29.5 25-34 pg Mean Corpuscular Hemoglobin Concent 34.5 32-36 g/dl RDW Standard Deviation 46.6 36.4-46.3 fL RDW Coefficient of Variation 14.9 11.5-14.5 % Platelet Count 269 130-400 K/uL Mean Platelet Volume 9.2 7.4-10.4 fL Sodium Level 133 136-145 mmol/L Potassium Level 4.1 3.5-5.1 mmol/L Chloride Level 100 98-107 mmol/L Carbon Dioxide Level 25 21-32 mmol/L Anion Gap 8.0 3-11 mmol/L Blood Urea Nitrogen 30 7-18 mg/dl Creatinine 1.30 0.60-1.40 mg/dl Est Creatinine Clear Calc Drug Dose 43.6 ml/min Estimated GFR () 57.3 Estimated GFR (Non- 49.4 BUN/Creatinine Ratio 22.8 10-20 Random Glucose 193 70-99 mg/dl Calcium Level 8.6 8.5-10.1 mg/dl Bedside Glucose 188 182 70-99 mg/dl Microbiology Results 12/25/17 Fungal Smear, Received Pending 12/25/17 Fungal Culture, Received Pending 12/25/17 Acid Fast Stain, Received Pending 12/25/17 Mycobacterial Culture, Received Pending 12/25/17 Gram Stain - Final, Resulted 12/25/17 Bronchoalveolar Lavage Culture, Resulted Pending
[2017-12-25] MEDS: NITROGLYCERIN 0.4 MG SL PER TAB CHARGE SL PRN (17:51)
[2017-12-25] MEDS: AMOXICILLIN 500 MG CAP PO SCH (20:40)
[2017-12-25] MEDS: ASPIRIN 81 MG ECTAB PO SCH (20:41)
[2017-12-25] MEDS: TAMSULOSIN HCL 0.4 MG CAP PO SCH (20:41)
[2017-12-25] MEDS: ROSUVASTATIN CALCIUM 20 MG TAB PO SCH (20:41)
[2017-12-25] MEDS: FINASTERIDE 5 MG TAB PO SCH (20:42)
[2017-12-25] MEDS: POTASSIUM CHLORIDE 10 MEQ TABCR PO SCH (20:42)
[2017-12-25] MEDS: CLOPIDOGREL BISULFATE 75 MG TAB PO SCH (20:42)
[2017-12-25] MEDS: ROPINIROLE HCL 0.25 MG TAB PO SCH (20:43)
[2017-12-25] MEDS: METOPROLOL SUCC 25MG EXT REL TAB PO SCH (20:44)
[2017-12-26] VITALS (15 sets, daily range): BP systolic 94–113; BP diastolic 54–65; PULSE 54–74; TEMP 36.3–36.8; O2SAT 94–100
[2017-12-26] MEDS: METHYLPREDNISOLONE IV 40 MG in SYRINGE 0 ML IV SCH ×2 (00:18→08:08)
[2017-12-26] MEDS: INSULIN ASPART 100 UNITS/ML 3 ML PEN SC SCH ×7 (00:24→23:26)
[2017-12-26] MEDS: CLINDAMYCIN IV 600 MG in DEXTROSE 5% 50ML 50 ML IV SCH ×2 (01:59→08:21)
[2017-12-26] MEDS: ALBUT/IPRATROP 3MG/0.5MG NEB 3 ML VIAL INH SCH ×6 (03:42→23:09)
[2017-12-26] MEDS: HEPARIN SOD 5000 UNIT/0.5 ML CARP SQ SCH ×3 (06:47→22:00)
[2017-12-26 07:05] LABS: HEMATOCRIT 38.1 % (42-52); HEMOGLOBIN 13.1 g/dL (14.0-18.0); MEAN CORPUSCULAR HEMOGLOBIN 29.9 pg (25-34); MEAN CORPUSCULAR HGB CONC 34.4 g/dl (32-36); MEAN PLATELET VOLUME 9.8 fL (7.4-10.4); PLATELET COUNT 348 K/uL (130-400); RED CELL DISTRIBUTION WIDTH CV 14.9 % (11.5-14.5); RED CELL DISTRIBUTION WIDTH SD 48.2 fL (36.4-46.3)
[2017-12-26] MEDS: PANCREAZE (LIPASE 10,500U) CAP PO SCH ×3 (08:08→16:45)
[2017-12-26] MEDS: LOSARTAN POTASSIUM 25 MG TAB PO SCH (08:09)
[2017-12-26] MEDS: GABAPENTIN 300 MG CAP PO SCH ×4 (08:09→21:00)
[2017-12-26] MEDS: ESCITALOPRAM OXALATE 10 MG TAB PO SCH (08:09)
[2017-12-26] MEDS: SPIRONOLACTONE 25 MG TAB PO SCH (08:10)
[2017-12-26] MEDS: RANOLAZINE 500 MG ER TAB PO SCH ×2 (08:10→21:01)
[2017-12-26] MEDS: PANTOprazole SOD 40 MG TAB PO SCH (08:11)
[2017-12-26] MEDS: FUROSEMIDE 40 MG TAB PO SCH (08:12)
[2017-12-26] MEDS: RIVASTIGMINE TARTRATE 9.5 MG PATCH TD SCH (08:14)
[2017-12-26] MEDS: INSULIN GLARGINE SOLOSTAR 100 UNITS/ML 3 ML PEN SC SCH (08:19)
--- NOTE | 2017-12-26 08:33 | Pharmacy Progress Note ---
Pharmacy Glycemic Short Note 2 Date of Service December 26, 2017. OUTPATIENT ANTIDIABETIC REGIMEN: * Lantus 56 units SQ qHS * Novolog TIDM (per patient, typically around 11 units) * HbA1c: 7.4% (12/18/17) ASSESSMENT: * Patient's insulin orders were reduced yesterday morning, per provider, in anticipation for bronch yesterday. * Patient became significantly hyperglycemic last evening. * Previous orders resumed this morning. Patient continues to be extremely hyperglycemic (pre-lunch BSG [id number]). PLAN FOR INPATIENT GLYCEMIC CONTROL: * Basal insulin * Lantus 30 units SQ BID * Bolus insulin -- tighten parameters to provide additional coverage while on high-dose steroids * NovoLog per scale ACHS or Q6hrs while NPO, ADD checks at 0000,[id number] * Goal Range: Low 110 mg/dL - High 140 mg/dL * Correction Factor: 10 mg/dL/unit with dinner * Nutritional / Prandial insulin per carb ratio of 1 unit per 3 grams CHO consumed * Recommend consideration of initiating insulin infusion if patient's BSGs remain unstable. PLAN FOR DISCHARGE: * Patient's HbA1C indicates excellent control for an 87yo with multiple comorbidities. * Expect that patient's outpt regimen may be resumed at discharge, as long as patient does not report having hypoglycemic episodes at home. * If patient will be discharged on steroids, will require adjustments to regimen to provide additional coverage.
--- NOTE | 2017-12-26 10:05 | Cardiology Follow-Up ---
Subjective General Date of Service: December 26, 2017. Chief Complaint: follow up shortness of breath Pt evaluation today including: conversation w/ patient, physical exam History of Present Illness The patient is a 87 year old male seen in follow up. Patient tolerated bronchoscopy well yesterday with lavage of copious secretions. He still has shortness of breath, but feels significant interval improvement. Allergies Coded Allergies: Clavulanic Acid (Verified Allergy, Intermediate, HIVES TO "BETA-LACTAMASE INHIBITORS", 12/17/17) Sulbactam (Verified Allergy, Intermediate, HIVES TO "BETA-LACTAMASE INHIBITORS", 12/17/17) Cilastatin (Verified Allergy, Mild, HIVES, 12/17/17) Imipenem (Verified Allergy, Mild, HIVES, 12/17/17) HAS HAD PENICILLIN W/O PROBLEM Adhesives (Verified Allergy, Unknown, BANDAIDS- SORE SKIN, 12/17/17) Cephalosporins (Verified Allergy, Unknown, HIVES, 12/17/17) Lovastatin (Verified Allergy, Unknown, hives, 12/17/17) Penicillins (Verified Allergy, Unknown, hives, 12/17/17) Morphine (Verified Adverse Reaction, Unknown, CONFUSED, 12/17/17) Social History Smoking Status: Former Smoker (Spelled 4 packs per day for 30-40 years. Quit 1982) Hx Tobacco Use In Past Year?: No Hx Alcohol Use - Type And Amou: No Hx Substance Use - Type And Am: No Problem List Medical Problems: (1) Acute hypoxemic respiratory failure Status: Acute (2) Bacteremia Status: Acute (3) Cellulitis Status: Acute (4) Constipation Status: Acute (5) Hyponatremia Status: Acute (6) Knee pain Status: Acute (7) Precordial chest pain Status: Acute (8) Precordial chest pain Status: Acute (9) Septic joint Status: Acute Physical Exam Vital Signs Last Vital Signs Documentation Date Time Temp Pulse Resp B/P (MAP) Pulse Ox O2 Delivery O2 Flow Rate FiO2 12/26/17 08:00 Room Air 12/26/17 07:12 36.6 54 17 94/55 (68) 98 12/26/17 03:45 2.0 12/23/17 20:00 40 Physical Exam Constitutional: Level of Distress: acutely ill, chronically ill ENMT: TMs normal Neck: supple Lungs: Auscultation: pertinent finding (coarse breat sounds bilaterally) Musculoskeletal: normal tone Extremities: no edema Neurologic: Gait & Station: pertinent finding (no focal deficits ) Assessment and Plan Assessment and Plan Impression: 1. Multifactorial shortness of breath. -s/p recent Cx territory DARYL, POBA to OM -moderate by invasive gradients, peak to peak gradient 25 mm Hg, consistent with moderate -preserved LVEF 2. Newly diagnosed B cell lymphoma 3. Possible superimposed pulmonary infection Plan: Continue cardiac medications. Stable from cardiac perspective. I am going to cancel patient's valve clinic appointment as outpatient as based on cath data, is only moderate. Would allow patient to recovery briefly prior to chemo. Continue ASA and clopidogrel. Laboratory Results Last 24 Hours Test 12/25/17 10:24 12/25/17 12:41 12/25/17 16:49 12/25/17 21:01 Bedside Glucose 182 mg/dl 319 mg/dl 250 mg/dl Test 12/26/17 00:21 12/26/17 04:33 12/26/17 06:44 12/26/17 07:33 Bedside Glucose 237 mg/dl 232 mg/dl 263 mg/dl White Blood Count 15.20 K/uL Red Blood Count 4.38 M/uL Hemoglobin 13.1 g/dL Hematocrit 38.1 % Mean Corpuscular Volume 87.0 fL Mean Corpuscular Hemoglobin 29.9 pg Mean Corpuscular Hemoglobin Concent 34.4 g/dl RDW Standard Deviation 48.2 fL RDW Coefficient of Variation 14.9 % Platelet Count 348 K/uL Mean Platelet Volume 9.8 fL
[2017-12-26] MEDS: COLESTIPOL HCL 1 GM TAB PO SCH (10:25)
--- NOTE | 2017-12-26 12:24 | PULMONARY PROGRESS NOTE ---
DATE: 12/26/2017 SUBJECTIVE: Much improved since bronchoscopy with lavage. We suctioned out copious secretion especially from the takeoff of the left lower lobe bronchus. The patient is much less symptomatic. Cultures so far growing out normal sherry. I would simplify him to oral antibiotics and mobilize him for possible discharge tomorrow.
--- NOTE | 2017-12-26 15:20 | Progress Note ---
Internal Med Progress Note Date of Service: December 26, 2017. Provider Documentation: SUBJECTIVE: The patient was seen and examined in telemetry unit. He is status post NSTEMI complicated by COPD He was supposed to be discharged yesterday but due to increasing symptoms he remained for further care Denies any symptoms at rest 12/25: Remains stable at rest Bronchoscopy today 12/26 Clinically a lot better Ambulating Wants to go home OBJECTIVE: Vital Signs-as noted below Exam: General-minimal distress at rest Eyes-normal ENT-normal Neck-supple Lungs-decreased breath sounds all over Wheezing -improved a lot Minimal bibasilar rales Heart-S1-S2 regular Abdomen-distended, soft, bowel sounds present Extremities-1+ edema bilaterally Neuro-alert,awake and oriented Generally weak Lab data as noted below. ASSESSMENT & PLAN: SOB on Minimal Exertion Profuse secretions with wheezing -not been able to bring it up Acute on Chronic respiratory failure ,COPD S/P Bronchoscopy 12/25 Clinically a lot better today Less SOB Ambulating and likely to be discharged tomorrow NSTEMI: Moderate Aortic Stenosis: S/P cardiac cath: Severe multivessel disease S/P PCI DARYL to proximal circumflex Off Nitro ggt, Off Heparin ggt Continue Aspirin, Plavix, Statins, Losartan, Metoprolol, Imdur Appreciate Cardiology and Chief Green Officer Input ECHO::No significant change in wall motion or systolic function compared to previous studies. * Normal LV chamber size with moderate concentric LVH. * Normal LV systolic function, EF 60-65%. * No segmental left ventricular wall motion abnormalities are noted. Continue Lasix increased to 40mg, spironolactone Continue current medications Stable as per Cardiology Pneumonitis: Acute on Chronic respiratory failure COPD Hemoptysis:resolved CT chest ::1. Progressive mediastinal hilar and axillary lymphadenopathy 2. Mild splenomegaly 3. Left lower lobe point consolidation with air bronchograms suspicious for pneumonia 4. Groundglass opacities within both upper lobes and the right lower lobe. Diagnostic considerations include infectious processes, acute alveolar disease, chronic interstitial disease, or drug reaction. Appreciate Pulmonology Input Continue IV Antibiotics Day # 6 Continue Nebs,Pulmonary Toilet Was on Chronic Amox as per recommendation Appreciate Pulmonology Input Repeat CXR: Interval improvement in the pulmonary edema. B/L airspace opacities persist. Started on IV Solumedrol and plan for Bronchoscopy tomorrow Bronchoscopy today 12/25/17 Will change Antibiotic to Oral Clindamycin DM II Most recent Hba1c 7.5 Continue ISS, basal Insulin Monitor BGs Pharmacy consulted for Glycemic management Will decrease the Dose of Steroid CKD III: Cr at baseline monitor renal function Avoid Nephrotoxic agents as able BPH Continue Flomax, Proscar HTN stable continue current meds monitor B Cell Lymphoma Recently diagnosed Follow with oncology Dr. Ashley further work up as outpatient Appreciate Oncology Input Depression Continue Lexapro Stable VIC: CPAP QHS DVT px: Heparin SQ CODE Status: Full code Disposition Likely discharge in a day or two PT/OT - Likely discharge tomorrow Vital Signs: Date Time Temp Pulse Resp B/P (MAP) Pulse Ox O2 Delivery O2 Flow Rate FiO2 12/26/17 15:08 61 16 95 Room Air 12/26/17 14:55 36.7 57 20 100/61 (74) 97 Room Air 12/26/17 12:00 Room Air 12/26/17 11:54 36.3 57 16 95/54 (68) 97 12/26/17 11:23 63 16 96 Room Air 12/26/17 08:00 Room Air 12/26/17 07:12 36.6 54 17 94/55 (68) 98 Room Air 12/26/17 07:10 54 16 98 Room Air 12/26/17 04:00 Room Air 12/26/17 03:45 56 16 96 BiPAP/CPAP 2.0 12/26/17 03:44 56 96 2.0 12/26/17 03:40 36.8 57 17 113/64 (80) 96 CPAP 2.0 12/26/17 00:01 Room Air 12/25/17 23:15 36.7 78 19 102/59 (73) 97 CPAP 12/25/17 22:38 74 95 2.0 12/25/17 22:36 82 18 95 Room Air 12/25/17 20:36 36.6 76 18 126/74 (91) 95 Room Air 12/25/17 20:00 Room Air 12/25/17 19:18 82 18 95 Room Air 12/25/17 17:56 83 20 97/57 (70) 95 Room Air 12/25/17 17:51 85 22 139/71 (93) 12/25/17 16:14 36.6 78 24 100/62 (75) 94 Room Air 12/25/17 16:00 Room Air Lab Results: Results Past 24 Hours Test 12/25/17 16:49 12/25/17 21:01 12/26/17 00:21 12/26/17 04:33 Range/Units Bedside Glucose 319 250 237 232 70-99 mg/dl Test 12/26/17 06:44 12/26/17 07:33 12/26/17 11:11 Range/Units White Blood Count 15.20 4.8-10.8 K/uL Red Blood Count 4.38 4.7-6.1 M/uL Hemoglobin 13.1 14.0-18.0 g/dL Hematocrit 38.1 42-52 % Mean Corpuscular Volume 87.0 80-100 fL Mean Corpuscular Hemoglobin 29.9 25-34 pg Mean Corpuscular Hemoglobin Concent 34.4 32-36 g/dl RDW Standard Deviation 48.2 36.4-46.3 fL RDW Coefficient of Variation 14.9 11.5-14.5 % Platelet Count 348 130-400 K/uL Mean Platelet Volume 9.8 7.4-10.4 fL Bedside Glucose 263 367 70-99 mg/dl
[2017-12-26] MEDS: CLINDAMYCIN HCL 150 MG CAP PO SCH ×2 (16:43→22:22)
[2017-12-26] MEDS: ROSUVASTATIN CALCIUM 20 MG TAB PO SCH (21:00)
[2017-12-26] MEDS ORDERED: INSULIN GLARGINE SOLOSTAR 100 UNITS/ML 3 ML PEN SC SCH (21:00)
[2017-12-26] MEDS: AMOXICILLIN 500 MG CAP PO SCH (21:01)
[2017-12-26] MEDS: FINASTERIDE 5 MG TAB PO SCH (21:01)
[2017-12-26] MEDS: METOPROLOL SUCC 25MG EXT REL TAB PO SCH (21:01)
[2017-12-26] MEDS: CLOPIDOGREL BISULFATE 75 MG TAB PO SCH (21:02)
[2017-12-26] MEDS: ROPINIROLE HCL 0.25 MG TAB PO SCH (21:02)
[2017-12-26] MEDS: ASPIRIN 81 MG ECTAB PO SCH (21:02)
[2017-12-26] MEDS: POTASSIUM CHLORIDE 10 MEQ TABCR PO SCH (21:03)
[2017-12-27] VITALS (9 sets, daily range): BP systolic 104–121; BP diastolic 65–84; PULSE 54–75; TEMP 36.4–36.7; O2SAT 95–99
[2017-12-27] MEDS: ALBUT/IPRATROP 3MG/0.5MG NEB 3 ML VIAL INH SCH ×4 (03:42→15:18)
[2017-12-27] MEDS: INSULIN ASPART 100 UNITS/ML 3 ML PEN SC SCH ×5 (05:00→16:33)
[2017-12-27] MEDS: HEPARIN SOD 5000 UNIT/0.5 ML CARP SQ SCH ×2 (05:03→14:00)
[2017-12-27 08:49] LABS: BASO % 0.1 %; BASO ABS # 0.01 K/uL (0-0.2); EOS % 0.3 %; EOS ABS # 0.03 K/uL (0-0.5); HEMATOCRIT 37.8 % (42-52); HEMOGLOBIN 12.9 g/dL (14.0-18.0); IG# 0.06 K/uL (0.00-0.02); LYMPH % 12.6 %; LYMPH ABS # 1.22 K/uL (1.2-3.4); MEAN CELL VOLUME 86.3 fL (80-100); MEAN CORPUSCULAR HEMOGLOBIN 29.5 pg (25-34); MEAN CORPUSCULAR HGB CONC 34.1 g/dl (32-36); MEAN PLATELET VOLUME 9.3 fL (7.4-10.4); MONO % 8.1 %; MONO ABS # 0.78 K/uL (0.11-0.59); NEUT % 78.3 %; NEUT ABS # 7.58 K/uL (1.4-6.5); PLATELET COUNT 318 K/uL (130-400); RED CELL DISTRIBUTION WIDTH CV 15.1 % (11.5-14.5); RED CELL DISTRIBUTION WIDTH SD 48.2 fL (36.4-46.3); WHITE BLOOD COUNT 9.68 K/uL (4.8-10.8)
[2017-12-27] MEDS: PANCREAZE (LIPASE 10,500U) CAP PO SCH ×3 (09:15→16:28)
[2017-12-27] MEDS: COLESTIPOL HCL 1 GM TAB PO SCH (09:15)
[2017-12-27] MEDS: GABAPENTIN 300 MG CAP PO SCH ×3 (09:16→16:28)
[2017-12-27] MEDS: RANOLAZINE 500 MG ER TAB PO SCH (09:16)
[2017-12-27] MEDS: CLINDAMYCIN HCL 150 MG CAP PO SCH ×2 (09:16→14:18)
[2017-12-27] MEDS: LOSARTAN POTASSIUM 25 MG TAB PO SCH (09:17)
[2017-12-27] MEDS: PANTOprazole SOD 40 MG TAB PO SCH (09:17)
[2017-12-27] MEDS: SPIRONOLACTONE 25 MG TAB PO SCH (09:19)
[2017-12-27] MEDS: ESCITALOPRAM OXALATE 10 MG TAB PO SCH (09:19)
[2017-12-27] MEDS: RIVASTIGMINE TARTRATE 9.5 MG PATCH TD SCH (09:20)
[2017-12-27 09:24] LABS: CALCIUM 8.5 mg/dl (8.5-10.1); CREATININE 1.42 mg/dl (0.60-1.40); PHOSPHORUS 3.1 mg/dl (2.5-4.9)
[2017-12-27] MEDS: FUROSEMIDE 40 MG TAB PO SCH (10:35)
--- NOTE | 2017-12-27 10:39 | Cardiology Follow-Up ---
Subjective General Date of Service: December 27, 2017. Chief Complaint: follow up shortness of breath Pt evaluation today including: conversation w/ patient, physical exam History of Present Illness The patient is a 87 year old male seen in followup. States his cough, secretions worse again today. Telemetry reveals stable SR in the 50-60 bmp with occasional PVCs. Completed 2 step earlier today. Allergies Coded Allergies: Clavulanic Acid (Verified Allergy, Intermediate, HIVES TO "BETA-LACTAMASE INHIBITORS", 12/17/17) Sulbactam (Verified Allergy, Intermediate, HIVES TO "BETA-LACTAMASE INHIBITORS", 12/17/17) Cilastatin (Verified Allergy, Mild, HIVES, 12/17/17) Imipenem (Verified Allergy, Mild, HIVES, 12/17/17) HAS HAD PENICILLIN W/O PROBLEM Adhesives (Verified Allergy, Unknown, BANDAIDS- SORE SKIN, 12/17/17) Cephalosporins (Verified Allergy, Unknown, HIVES, 12/17/17) Lovastatin (Verified Allergy, Unknown, hives, 12/17/17) Penicillins (Verified Allergy, Unknown, hives, 12/17/17) Morphine (Verified Adverse Reaction, Unknown, CONFUSED, 12/17/17) Social History Smoking Status: Former Smoker (Spelled 4 packs per day for 30-40 years. Quit 1982) Hx Tobacco Use In Past Year?: No Hx Alcohol Use - Type And Amou: No Hx Substance Use - Type And Am: No Problem List Medical Problems: (1) Acute hypoxemic respiratory failure Status: Acute (2) Bacteremia Status: Acute (3) Cellulitis Status: Acute (4) Constipation Status: Acute (5) Hyponatremia Status: Acute (6) Knee pain Status: Acute (7) Precordial chest pain Status: Acute (8) Precordial chest pain Status: Acute (9) Septic joint Status: Acute Physical Exam Vital Signs Last Vital Signs Documentation Date Time Temp Pulse Resp B/P (MAP) Pulse Ox O2 Delivery O2 Flow Rate FiO2 12/27/17 08:00 CPAP 2.0 12/27/17 07:10 60 16 96 12/27/17 06:08 36.7 114/74 (87) 12/27/17 03:43 21 Physical Exam Constitutional: Level of Distress: acutely ill, chronically ill ENMT: TMs normal Neck: supple Lungs: Auscultation: pertinent finding (coarse breat sounds bilaterally) Cardiovascular: Heart Auscultation: RRR, II/ DIAZ Musculoskeletal: normal tone Extremities: no edema Neurologic: Gait & Station: pertinent finding (no focal deficits ) Assessment and Plan Assessment and Plan Impression: 1. Multifactorial shortness of breath. -s/p recent Cx territory DARYL, POBA to OM -moderate by invasive gradients, peak to peak gradient 25 mm Hg, consistent with moderate -preserved LVEF 2. Newly diagnosed B cell lymphoma 3. Possible superimposed pulmonary infection Plan: Continue cardiac medications. Stable from cardiac perspective. I canceled patient's valve clinic appointment as outpatient as based on cath data, is only moderate. Patient had outpatient visit with Dr Roman scheduled for today, 12/27/17, this is in process of being rescheduled, hopefully for next week. Would allow patient to recovery briefly prior to chemo. Continue ASA and clopidogrel. Laboratory Results Last 24 Hours Test 12/26/17 11:11 12/26/17 16:10 12/26/17 20:02 12/26/17 23:10 Bedside Glucose 367 mg/dl 121 mg/dl 207 mg/dl 233 mg/dl Test 12/27/17 04:54 12/27/17 07:25 12/27/17 08:39 Bedside Glucose 76 mg/dl 65 mg/dl White Blood Count 9.68 K/uL Red Blood Count 4.38 M/uL Hemoglobin 12.9 g/dL Hematocrit 37.8 % Mean Corpuscular Volume 86.3 fL Mean Corpuscular Hemoglobin 29.5 pg Mean Corpuscular Hemoglobin Concent 34.1 g/dl Platelet Count 318 K/uL Mean Platelet Volume 9.3 fL Neutrophils (%) (Auto) 78.3 % Lymphocytes (%) (Auto) 12.6 % Monocytes (%) (Auto) 8.1 % Eosinophils (%) (Auto) 0.3 % Basophils (%) (Auto) 0.1 % Neutrophils # (Auto) 7.58 K/uL Lymphocytes # (Auto) 1.22 K/uL Monocytes # (Auto) 0.78 K/uL Eosinophils # (Auto) 0.03 K/uL Basophils # (Auto) 0.01 K/uL RDW Standard Deviation 48.2 fL RDW Coefficient of Variation 15.1 % Immature Granulocyte % (Auto) 0.6 % Immature Granulocyte # (Auto) 0.06 K/uL Sodium Level 134 mmol/L Potassium Level 4.0 mmol/L Chloride Level 101 mmol/L Carbon Dioxide Level 25 mmol/L Anion Gap 7.0 mmol/L Blood Urea Nitrogen 36 mg/dl Creatinine 1.42 mg/dl Est Creatinine Clear Calc Drug Dose 39.5 ml/min Estimated GFR () 51.5 Estimated GFR (Non- 44.4 BUN/Creatinine Ratio 25.1 Random Glucose 106 mg/dl Calcium Level 8.5 mg/dl Phosphorus Level 3.1 mg/dl Magnesium Level 2.2 mg/dl
[2017-12-27 10:58] LABS: HERPES SIMPLEX VIRUS CULT NOT ISOLATED (NOT ISOLATED)
[2017-12-27] MEDS ORDERED: FUROSEMIDE INJ 20 MG in SYRINGE 0 ML IV ONE (13:00)
--- NOTE | 2017-12-27 13:10 | Progress Note ---
Internal Med Progress Note Date of Service: December 27, 2017. Provider Documentation: SUBJECTIVE: The patient was seen and examined in telemetry unit. He is status post NSTEMI complicated by COPD He was supposed to be discharged yesterday but due to increasing symptoms he remained for further care Denies any symptoms at rest 12/25: Remains stable at rest Bronchoscopy today 12/26 Clinically a lot better Ambulating Wants to go home 12/27 A little worse today More SOB and secretions Still likes to go home OBJECTIVE: Vital Signs-as noted below Exam: General-minimal distress at rest Eyes-normal ENT-normal Neck-supple Lungs-decreased breath sounds all over Wheezing -improved a lot Not any worse Heart-S1-S2 regular Abdomen-distended, soft, bowel sounds present Extremities-1+ edema bilaterally Neuro-alert,awake and oriented Generally weak Lab data as noted below. ASSESSMENT & PLAN: SOB on Minimal Exertion Profuse secretions with wheezing -not been able to bring it up Acute on Chronic respiratory failure ,COPD S/P Bronchoscopy 12/25 Clinically a lot better A little more SOB -12/27 Ambulating and likely to be discharged today Will give 20 mg Lasix IV 2 steps before discharge NSTEMI: Moderate Aortic Stenosis: S/P cardiac cath: Severe multivessel disease S/P PCI DARYL to proximal circumflex Off Nitro ggt, Off Heparin ggt Continue Aspirin, Plavix, Statins, Losartan, Metoprolol, Imdur Appreciate Cardiology and Social Work Lecturer Input ECHO::No significant change in wall motion or systolic function compared to previous studies. * Normal LV chamber size with moderate concentric LVH. * Normal LV systolic function, EF 60-65%. * No segmental left ventricular wall motion abnormalities are noted. Continue Lasix increased to 40mg, spironolactone Continue current medications Stable as per Cardiology Pneumonitis: Acute on Chronic respiratory failure COPD Hemoptysis:resolved CT chest ::1. Progressive mediastinal hilar and axillary lymphadenopathy 2. Mild splenomegaly 3. Left lower lobe point consolidation with air bronchograms suspicious for pneumonia 4. Groundglass opacities within both upper lobes and the right lower lobe. Diagnostic considerations include infectious processes, acute alveolar disease, chronic interstitial disease, or drug reaction. Appreciate Pulmonology Input Continue IV Antibiotics Day # 6 Continue Nebs,Pulmonary Toilet Was on Chronic Amox as per recommendation Appreciate Pulmonology Input Repeat CXR: Interval improvement in the pulmonary edema. B/L airspace opacities persist. Started on IV Solumedrol and plan for Bronchoscopy tomorrow Bronchoscopy today 12/25/17 Will change Antibiotic to Oral Clindamycin for 7 days in total DM II Most recent Hba1c 7.5 Continue ISS, basal Insulin Monitor BGs Pharmacy consulted for Glycemic management Will decrease the Dose of Steroid CKD III: Cr at baseline monitor renal function Avoid Nephrotoxic agents as able BPH Continue Flomax, Proscar HTN stable continue current meds monitor B Cell Lymphoma Recently diagnosed Follow with oncology Dr. Ashley further work up as outpatient Appreciate Oncology Input Depression Continue Lexapro Stable VIC: CPAP QHS DVT px: Heparin SQ CODE Status: Full code Disposition Likely discharge in a day or two PT/OT - Likely discharge tomorrow Vital Signs: Date Time Temp Pulse Resp B/P (MAP) Pulse Ox O2 Delivery O2 Flow Rate FiO2 12/27/17 12:00 Nasal Cannula 2.0 12/27/17 11:14 65 16 97 Room Air 12/27/17 11:11 36.4 60 18 104/65 (78) 96 Room Air 12/27/17 08:00 CPAP 2.0 12/27/17 07:10 60 16 96 Room Air 12/27/17 06:08 36.7 54 19 114/74 (87) 99 BiPAP 2.0 12/27/17 05:08 36.6 55 18 110/84 (93) 98 BiPAP 2.0 12/27/17 04:00 CPAP 2.0 12/27/17 03:43 62 16 98 Room Air 21 12/27/17 00:01 CPAP 2.0 12/26/17 23:47 36.4 58 18 106/64 (78) 100 BiPAP 2.0 12/26/17 23:10 66 16 96 BiPAP/CPAP 21 12/26/17 22:57 74 96 12/26/17 20:00 Room Air 12/26/17 19:11 36.7 70 20 101/62 (75) 95 Room Air 12/26/17 18:58 66 16 94 Room Air 12/26/17 16:00 Room Air 12/26/17 15:08 61 16 95 Room Air 12/26/17 15:01 58 98 12/26/17 14:55 36.7 57 20 100/61 (74) 97 Room Air Lab Results: Results Past 24 Hours Test 12/26/17 16:10 12/26/17 20:02 12/26/17 23:10 12/27/17 04:54 Range/Units Bedside Glucose 121 207 233 76 70-99 mg/dl Test 12/27/17 07:25 12/27/17 08:19 12/27/17 08:39 12/27/17 11:26 Range/Units Bedside Glucose 65 108 98 70-99 mg/dl White Blood Count 9.68 4.8-10.8 K/uL Red Blood Count 4.38 4.7-6.1 M/uL Hemoglobin 12.9 14.0-18.0 g/dL Hematocrit 37.8 42-52 % Mean Corpuscular Volume 86.3 80-100 fL Mean Corpuscular Hemoglobin 29.5 25-34 pg Mean Corpuscular Hemoglobin Concent 34.1 32-36 g/dl Platelet Count 318 130-400 K/uL Mean Platelet Volume 9.3 7.4-10.4 fL Neutrophils (%) (Auto) 78.3 % Lymphocytes (%) (Auto) 12.6 % Monocytes (%) (Auto) 8.1 % Eosinophils (%) (Auto) 0.3 % Basophils (%) (Auto) 0.1 % Neutrophils # (Auto) 7.58 1.4-6.5 K/uL Lymphocytes # (Auto) 1.22 1.2-3.4 K/uL Monocytes # (Auto) 0.78 0.11-0.59 K/uL Eosinophils # (Auto) 0.03 0-0.5 K/uL Basophils # (Auto) 0.01 0-0.2 K/uL RDW Standard Deviation 48.2 36.4-46.3 fL RDW Coefficient of Variation 15.1 11.5-14.5 % Immature Granulocyte % (Auto) 0.6 % Immature Granulocyte # (Auto) 0.06 0.00-0.02 K/uL Sodium Level 134 136-145 mmol/L Potassium Level 4.0 3.5-5.1 mmol/L Chloride Level 101 98-107 mmol/L Carbon Dioxide Level 25 21-32 mmol/L Anion Gap 7.0 3-11 mmol/L Blood Urea Nitrogen 36 7-18 mg/dl Creatinine 1.42 0.60-1.40 mg/dl Est Creatinine Clear Calc Drug Dose 39.5 ml/min Estimated GFR () 51.5 Estimated GFR (Non- 44.4 BUN/Creatinine Ratio 25.1 10-20 Random Glucose 106 70-99 mg/dl Calcium Level 8.5 8.5-10.1 mg/dl Phosphorus Level 3.1 2.5-4.9 mg/dl Magnesium Level 2.2 1.8-2.4 mg/dl
--- NOTE | 2017-12-27 15:30 | Pharmacy Progress Note ---
Pharmacy Glycemic Short Note 2 Date of Service December 27, 2017. OUTPATIENT ANTIDIABETIC REGIMEN: * Lantus 56 units SQ qHS * Novolog TIDM (per patient, typically around 11 units) * HbA1c: 7.4% (12/18/17) ASSESSMENT: 12/27/17 * Patient was slightly hypoglycemic this morning, likely d/t large insulin doses rec'd yesterday and insulin stacking. * AM Lantus order held. Novolog parameters were loosened last evening. 12/26/17 * Patient's insulin orders were reduced yesterday morning, per provider, in anticipation for bronch yesterday. * Patient became significantly hyperglycemic last evening. * Previous orders resumed this morning. Patient continues to be extremely hyperglycemic (pre-lunch BSG 367). * Provider prefers not to do IV insulin infusion. PLAN FOR INPATIENT GLYCEMIC CONTROL: * Basal insulin * Lantus -- dose held this AM, dosing this PM per BSG: - if BSG less than 120mg/dL: give 0 units - if BSG 120-180mg/dL: give 15 units - if BSG greater than 180mg/dL: give 30 units * Bolus insulin * NovoLog per scale ACHS or Q6hrs while NPO * Goal Range: Low 110 mg/dL - High 140 mg/dL * Correction Factor: 20 mg/dL/unit with dinner * Nutritional / Prandial insulin per carb ratio of 1 unit per 8 grams CHO consumed * Recommend consideration of initiating insulin infusion if patient's BSGs remain unstable. PLAN FOR DISCHARGE: * Patient's HbA1C indicates excellent control for an 87yo with multiple comorbidities. * Expect that patient's outpt regimen may be resumed at discharge, as long as patient does not report having hypoglycemic episodes at home. * If patient will be discharged on steroids, may require adjustments to regimen to provide additional coverage.
[2017-12-27] MEDS ORDERED: LCTX PO (17:12)
[2017-12-27] MEDS ORDERED: PRED10TA PO (17:12)
[2017-12-27] MEDS ORDERED: CLC150 PO (17:12)
--- NOTE | 2017-12-27 17:17 | Discharge Instructions ---
Discharge Instructions Date of Service December 27, 2017. Admission Reason for Admission: ACS Discharge Discharge Diagnosis / Problem: NSTEMI,COPD,Pneumonia,DM Discharge Goals Goal(s): Prevent Disease Progression Activity Recommendations Activity Limitations: resume your previous activity . Instructions / Follow-Up Instructions / Follow-Up Dr Tavera on 12/30/17 at 9:45 AM.Please make an appointment with Pulmonology at [facility] with Dr Bach# [phone] Current Hospital Diet Patient's current hospital diet: AHA Diet (Heart Healthy), Diabetes Type 2 Diet Discharge Diet Recommended Diet: AHA Diet (Heart Healthy), Diabetes Type 2 Diet Fluid Restriction: 1500 ml (6 cups) Procedures Procedures Performed: Bronchoscopy Pending Studies Studies pending at discharge: no Laboratory Results Hemoglobin A1c Test 12/18/17 04:10 Range/Units Estimated Average Glucose 166 mg/dl Hemoglobin A1c 7.4 H 4.5-5.6 % Medical Emergencies . Who to Call and When: Medical Emergencies: If at any time you feel your situation is an emergency, please call 911 immediately. . Non-Emergent Contact Non-Emergency issues call your: Primary Care Provider . Past History Medical & Surgical History: (1) COPD (chronic obstructive pulmonary disease) (2) Lymphoma (3) BPH (benign prostatic hyperplasia) (4) Chronic pancreatitis (5) Diabetes mellitus (6) HTN (hypertension) (7) Depression (8) PVD (peripheral vascular disease) (9) VIC on CPAP (10) CAD (coronary artery disease) (11) History of fusion of cervical spine (12) H/O rotator cuff surgery (13) S/P tonsillectomy and adenoidectomy (14) S/P TURP (15) History of carpal tunnel surgery (16) S/P right knee arthroscopy (17) Pneumonia . "Provider Documentation" section prepared by Torin Johnson. .
[2017-12-27] MEDS ORDERED: INSULIN GLARGINE SOLOSTAR 100 UNITS/ML 3 ML PEN SC ONE (21:00)
--- NOTE | 2017-12-28 08:06 | Discharge Summary ---
Discharge Summary Date of Service December 28, 2017. Discharge Summary Admission Date: December 18, 2017 at 00:59 Discharge Date: December 27, 2017 Discharge Disposition: Home with services Principal Diagnosis: NSTEMI,COPD,Pneumonia,DM Secondary Diagnoses/Problems: Please see H&P and Hospital Progress note Consultations: Cardiology and Pulmonology Medication Reconciliation New Medications: Lactobacillus Acidophilus (Lactinex) Tab 2 TAB PO BID, #30 TAB Prednisone Tab (Prednisone) 10 Mg Tab 10 MG PO UD, #18 TAB 3 tabs po daily for 3 dasy,2 po daily for 3 days and the 1 opo daily for 3 days Clindamycin HCl (Clindamycin HCl) 150 Mg Cap 300 MG PO TID for 5 Days, #30 CAP Continued Medications: Albuterol Hfa (Ventolin Hfa) 200 Puffs/99601 Mcg Aers 2 PUFFS INH Q6H PRN for PRN, #1 INHALER Amoxicillin (Amoxil) 500 Mg Cap 500 MG PO HS for 42 Days, CAP RESIDENTIAL DUE TO INFECTION IN KNEE Aspirin (Aspirin Ec) 81 Mg Tab 81 MG PO QPM Azelastine Hcl-Fluticasone Pro (Dymista) 1 Spr Spr 1 SPRY BRANDIE QAM, #23 GM 3 Refills Cilostazol (Pletal) 100 Mg Tab 100 MG PO BID Clopidogrel Bisulfate (Clopidogrel) 75 Mg Tab 75 MG PO QPM Colestipol Hcl (Colestid) 1 Gm Tab 1 GM PO QAM, TAB Cyclosporine (Ophth) (Restasis) 0.05 % Emu 1 DROPS OP BID for 90 Days, #180 VIAL 3 Refills Escitalopram (Lexapro) 10 Mg Tab 10 MG PO QAM Finasteride (Proscar) 5 Mg Tab 5 MG PO QPM, TAB Furosemide (Lasix) 20 Mg Tab 40 MG PO QAM, TAB Gabapentin (Neurontin) 300 Mg Cap 300 MG PO QID, CAP TAKE 300 MG WITH BREAKFAST AND SUPPER AND BEDTIME Insulin Aspart (Novolog Flexpen) 100 Units/Ml Inj INJ TIDM SLIDING SCALE Insulin Glargine (Lantus) 100 Unit/Ml Inj 56 UNITS SC HS, VIAL Isosorbide Mononitrate Ext Rel (Imdur Ext Rel) 120 Mg Ertab 120 MG PO QAM, TAB Losartan Potassium (Cozaar) 25 Mg Tab 25 MG PO QAM, TAB Metoprolol Succ (Toprol Xl) (Toprol-Xl) 50 Mg Tabcr 75 MG PO QPM, #30 TAB Montelukast Sodium (Singulair) 10 Mg Tab 1 TAB PO HS for 90 Days, TAB 1 Refill Nitroglycerin (Nitrostat) 0.4 Mg Tab 0.4 MG UT UD PRN for Chest Pain For pancreatitis symptoms Pancrelipase (Lipase-Protease- (Creon) 1 Cap Cap 1 CAP PO TID TAKE ONE CAP THREE TIMES A DAY WITH BREAKFAST AND SUPPER AND ONE CAP AT BEDTIME Pantoprazole (Protonix) 40 Mg Tab 40 MG PO QAM, #30 TAB Potassium Chloride (Micro-K Ext Rel) 10 Meq Capcr 10 MEQ PO QPM, CAP Ranolazine (Ranexa) 500 Mg Tab 1 TAB PO BID for 90 Days, #180 TAB 3 Refills Rivastigmine Tartrate (Exelon) 9.5 Mg Tdsy 1 PATCH TOP QAM for 90 Days, #90 PATCH 3 Refills LEAVE ON 24 HRS Ropinirole HCl (Ropinirole HCl) 0.25 Mg Tab 0.25 MG PO HS Rosuvastatin Calcium (Crestor) 40 Mg Tab 40 MG PO HS, TAB Silodosin (Rapaflo) 4 Mg Cap 4 MG PO QPM Spironolactone (Aldactone) 25 Mg Tab 25 MG PO DAILY, TAB Tacrolimus (Topical) (Protopic) 0.1 % Oin 1 APPLN TOP BID PRN for LEGS for 30 Days, #60 GM Tamsulosin Hcl (Flomax) 0.4 Mg Cap 0.4 MG PO 3XWEEK, CAP Saturday PM Tiotropium Tsaile-Olodaterol (Stiolto Respimat 2.5-2.5 Mcg/Act) 1 Aer Aer 2 PUFFS INH QAM Discontinued Medications: Amlodipine (Norvasc) 2.5 Mg Tab 2.5 MG PO HS, TAB Admission Information HPI (per Admitting provider): 87 year old male with PMH CAD, Dyslipidemia, type 2 DM, CKD stage 3, Aortic Valve stenosis, COPD, BPH, Stage 3 lymphoma presents to the Emergency Room with complaints of with substernal chest pain. Pt said that chest pain started few hours before coming to the ER. Described pain as a pressure like, 10/10 on severity and radiating to both shoulder. Received nitro in the ER with minimal help. Pt saw at his PCP office today for persistent cough associated with exertional SOB yesterday. He was given Azithromax and prednisone. He saw cardiology last week for worsening SOB. EKG in the ER showed new lateral ST depression. Heart alert was called and had urgent cardiac cath by Dr. Otero. During cardiac cath pt SOB got worst and was placed on 15L oxygen and lasix was given. Currently pt is in the ICU and denies any chest pain, palpitation, dizziness, fever. Past Medical/Surgical History Medical Problems: (1) ACS (acute coronary syndrome) (2) Bacteremia (3) BPH (benign prostatic hyperplasia) (4) CAD (coronary artery disease) (5) Cellulitis (6) Chest pain (7) Chronic pancreatitis (8) Constipation (9) COPD (chronic obstructive pulmonary disease) (10) Depression (11) Diabetes mellitus (12) Diabetic neuropathy (13) DM (diabetes mellitus), type 2, uncontrolled (14) Dyslipidemia (15) HTN (hypertension) (16) Hyperglycemia (17) Hyponatremia (18) Knee pain (19) VIC on CPAP (20) Pancreatitis (21) Peptic ulcer (22) Precordial chest pain (23) PVD (peripheral vascular disease) (24) Sepsis (25) Septic joint Surgical Problems: (1) H/O rotator cuff surgery (2) History of carpal tunnel surgery (3) History of fusion of cervical spine (4) S/P right knee arthroscopy (5) S/P tonsillectomy and adenoidectomy (6) S/P TURP Family History Diabetes mellitus Social History Smoking Status: Former Smoker Drug Use: none Marital Status: Housing status: lives with family Occupational Status: retired Immunizations History of Influenza Vaccine: Yes History of Tetanus Vaccine?: Yes History of Pneumococcal: Yes History of Hepatitis B Vaccine: No Allergies Coded Allergies: Clavulanic Acid (Verified Allergy, Intermediate, HIVES TO "BETA-LACTAMASE INHIBITORS", 12/17/17) Sulbactam (Verified Allergy, Intermediate, HIVES TO "BETA-LACTAMASE INHIBITORS", 12/17/17) Cilastatin (Verified Allergy, Mild, HIVES, 12/17/17) Imipenem (Verified Allergy, Mild, HIVES, 12/17/17) HAS HAD PENICILLIN W/O PROBLEM Adhesives (Verified Allergy, Unknown, BANDAIDS- SORE SKIN, 12/17/17) Cephalosporins (Verified Allergy, Unknown, HIVES, 12/17/17) Lovastatin (Verified Allergy, Unknown, hives, 12/17/17) Penicillins (Verified Allergy, Unknown, hives, 12/17/17) Morphine (Verified Adverse Reaction, Unknown, CONFUSED, 12/17/17) Home Medications Scheduled Amlodipine (Norvasc), 2.5 MG PO HS Amoxicillin (Amoxil), 500 MG PO HS Aspirin (Aspirin Ec), 81 MG PO QPM Azelastine Hcl-Fluticasone Pro (Dymista), 1 SPRY BRANDIE QAM Cilostazol (Pletal), 100 MG PO BID Clopidogrel Bisulfate (Clopidogrel), 75 MG PO QPM Colestipol Hcl (Colestid), 1 GM PO QAM Cyclosporine (Ophth) (Restasis), 1 DROPS OP BID Escitalopram (Lexapro), 10 MG PO QAM Finasteride (Proscar), 5 MG PO QPM Furosemide (Lasix), 20 MG PO QAM Gabapentin (Neurontin), 300 MG PO QID Insulin Aspart (Novolog Flexpen), INJ TIDM Insulin Glargine (Lantus), 56 UNITS SC HS Isosorbide Mononitrate Ext Rel (Imdur Ext Rel), 120 MG PO QAM Losartan Potassium (Cozaar), 25 MG PO QAM Metoprolol Succ (Toprol Xl) (Toprol-Xl), 75 MG PO QPM Montelukast Sodium (Singulair), 1 TAB PO HS Pancrelipase (Lipase-Protease- (Creon), 1 CAP PO TID Pantoprazole (Protonix), 40 MG PO QAM Potassium Chloride (Micro-K Ext Rel), 10 MEQ PO QPM Ranolazine (Ranexa), 1 TAB PO BID Rivastigmine Tartrate (Exelon), 1 PATCH TOP QAM Ropinirole HCl (Ropinirole HCl), 0.25 MG PO HS Rosuvastatin Calcium (Crestor), 40 MG PO HS Silodosin (Rapaflo), 4 MG PO QPM Spironolactone (Aldactone), 25 MG PO DAILY Tamsulosin Hcl (Flomax), 0.4 MG PO 3XWEEK Tiotropium Tsaile-Olodaterol (Stiolto Respimat 2.5-2.5 Mcg/Act), 2 PUFFS INH QAM Scheduled PRN Albuterol Hfa (Ventolin Hfa), 2 PUFFS INH Q6H PRN for PRN Nitroglycerin (Nitrostat), 0.4 MG UT UD PRN for Chest Pain Tacrolimus (Topical) (Protopic), 1 APPLN TOP BID PRN for LEGS Review of Systems Constitutional: No fever, No chills Eyes: No eye pain, No discharge ENT: No sore throat, No trouble swallowing Respiratory: + cough, + dyspnea on exertion Cardiovascular: + chest pain, No claudication, No palpitations Abdomen: No pain, No vomiting, No diarrhea Musculoskeletal: No calf pain Genitourinary - Male: + urinary retention Neurologic: No memory loss, No vertigo Psychiatric: No substance abuse Endocrine: No excessive thirst Hematologic / Lymphatic: No abnormal bleeding/bruising Integumentary: No rash, No itch Physical Exam H&P v2 Physical Exam Vital Signs Date Time Temp Pulse Resp B/P (MAP) Pulse Ox O2 Delivery O2 Flow Rate FiO2 12/18/17 00:40 102 94 40 12/17/17 23:55 99 20 120/67 (84) 93 Oxymask 10 12/17/17 23:50 101 20 137/79 (98) 91 Oxymask 15 12/17/17 23:45 106 20 112/63 (79) 91 Oxymask 15 12/17/17 22:55 125/69 96 Room Air 12/17/17 22:50 118/73 12/17/17 22:46 139/75 12/17/17 22:45 97 26 95 Room Air 12/17/17 22:38 98 151/83 12/17/17 22:19 101 135/73 12/17/17 21:58 94 Room Air 12/17/17 21:55 103 12/17/17 21:51 94 Room Air 12/17/17 21:51 36.8 103 25 135/73 94 Room Air General Appearance: + mild distress Head: normocephalic, atraumatic Eyes: normal inspection, EOMI ENT: hearing grossly normal Neck: no JVD, trachea midline Respiratory/Chest: no accessory muscle use, + pertinent finding (coarse BS) Cardiovascular: regular rate, rhythm, no JVD, + systolic murmur Abdomen/GI: normal bowel sounds, non tender Back: no CVA tenderness Extremities/Musculoskelatal: no calf tenderness, + swelling Neurologic/Psych: alert, normal mood/affect, oriented x 3 Skin: no rash Diagnostics H&P v2 Diagnostics Laboratory Results Results Past 24 Hours Test 12/17/17 21:50 12/17/17 23:04 12/18/17 00:49 12/18/17 01:01 Range/Units White Blood Count 6.11 4.8-10.8 K/uL Red Blood Count 4.33 4.7-6.1 M/uL Hemoglobin 12.9 14.0-18.0 g/dL Hematocrit 38.3 42-52 % Mean Corpuscular Volume 88.5 80-100 fL Mean Corpuscular Hemoglobin 29.8 25-34 pg Mean Corpuscular Hemoglobin Concent 33.7 32-36 g/dl RDW Standard Deviation 49.9 36.4-46.3 fL RDW Coefficient of Variation 15.4 11.5-14.5 % Platelet Count 150 130-400 K/uL Mean Platelet Volume 9.9 7.4-10.4 fL Prothrombin Time 13.9 9.0-12.0 SECONDS Prothromb Time International Ratio 1.3 0.9-1.1 Activated Partial Thromboplast Time 35.7 21.0-31.0 SECONDS Partial Thromboplastin Ratio 1.4 Sodium Level 134 136-145 mmol/L Potassium Level 4.0 3.5-5.1 mmol/L Chloride Level 102 98-107 mmol/L Carbon Dioxide Level 23 21-32 mmol/L Anion Gap 9.0 20.0 16-25 mmol/L Blood Urea Nitrogen 19 7-18 mg/dl Creatinine 1.39 0.60-1.40 mg/dl Est Creatinine Clear Calc Drug Dose 42.7 ml/min Estimated GFR () 52.8 Estimated GFR (Non- 45.6 BUN/Creatinine Ratio 13.7 10-20 Random Glucose 345 70-99 mg/dl Calcium Level 8.7 8.5-10.1 mg/dl Magnesium Level 1.7 1.8-2.4 mg/dl Total Bilirubin 0.6 0.2-1 mg/dl Aspartate Amino Transf (AST/SGOT) 29 15-37 U/L Alanine Aminotransferase (ALT/SGPT) 20 12-78 U/L Alkaline Phosphatase 80 45-117 U/L Troponin I < 0.015 0-0.045 ng/ml Total Protein 7.5 6.4-8.2 gm/dl Albumin 3.3 3.4-5.0 gm/dl Globulin 4.2 2.5-4.0 gm/dl Albumin/Globulin Ratio 0.8 0.9-2 Beta-Hydroxybutyric Acid 2.02 0.2-2.81 mg/dL Bedside Hemoglobin 11.9 14.0-18.0 g/dl Bedside Hematocrit 35 42-52 % Bedside Sodium 137 135-144 mEq/L Bedside Potassium 4.1 3.3-5.0 mEq/L Bedside Chloride 100 101-112 mEq/L Bedside Total CO2 22 24-31 mEq/l Bedside Blood Urea Nitrogen 22 7-18 mg/dl Bedside Creatinine 1.2 0.6-1.3 mg/dl Bedside Glucose (other) 391 70-99 mg/dl Bedside Ionized Calcium (Roger) 1.12 1.12-1.32 mmol/l Bedside Glucose 405 70-99 mg/dl Diagnostic Radiology CHEST ONE VIEW PORTABLE CLINICAL HISTORY: Atypical chest pain COMPARISON STUDY: 04/12/2017 FINDINGS: The heart remains enlarged. There is mediastinal widening. There is no lobar consolidation. Mild pulmonary vascular congestion is suspected. There are no significant pleural effusions. There are postsurgical changes within the cervical spine.[ IMPRESSION: 1. Mild cardiomegaly 2. Mediastinal widening suspicious for adenopathy 3. No evidence of focal pulmonary consolidation 4. Suspected mild pulmonary vascular congestion Electronically signed by: Gonzalo Rivera M.D. 12/17/2017 10:39 PM Dictated Date/Time: 12/17/2017 10:33 PM Impression H&P v2 Impression Assessment and Plan Chest pain EKG on admission showed ST depression Troponin negative on admission Received IV nitro S/p urgent cardiac cath performed by Dr. Otero No emergent PCI Cardiac cath showed - Severe multivessel coronary artery disease - LCX 80-90 percent proximal, 80 percent OM2 - LAD 50-60 percent mid - RCA with chronic total occlusion and distal vessel filling via left to right collateral Recently had an echo done last week Case discussed with Dr. Otero recommended to continue IV nitro Starting heparin drip after the removal TR band Continue home aspirin/Plavix,, beta jane and statin check troponin and repeat EKG Consult cardiology Continue monitor in the ICU for now ECHO on 12/16/17 The examination is adequate to evaluate the referral indication. The qualitative LV ejection fraction is 6569% (normal). The LV wall thickness is mildly increased (concentric). The left ventricular diastolic function is mildly abnormal (grade I). The aortic valve is moderately calcified. Moderate aortic valve stenosis is present. Mild mitral regurgitation is present. Compared to prior study of 09/30/2017, there is no significant change. Moderate Aortic Stenosis Plan to see interventional cardio at [facility] for eval DM type 2 Most recent Hba1c 7.5 On lantus 56 unit daily at home Will put on insulin sliding scale Monitor BS closely CKD stage 3 Creatine stable BPH Continue flomax and proscar Cough COPD Seen PCP yesterday Was starting on Zithromax and prednisone Will hold prednisone for now due to ACS Will start on duoneb SOB Possible related to acute CHF Received IV lasix Continue lasix for now and Bipap HTN BP in the low side Monitor BP closely If BP stays low, will hold HTN med such as amlodipine and losartan B Cell Lymphoma Recently diagnosed Follow with oncology Dr. Ashley Depression Continue Lexapro Stable DVT px on Heparin drip CODE Status Full code Disposition Monitor in the ICU Resuscitation Status VTE Prophylaxis Will order VTE Prophylaxis: Yes Physical Exam (per Admitting): General Appearance: + mild distress Head: normocephalic, atraumatic Eyes: normal inspection, EOMI ENT: hearing grossly normal Neck: no JVD, trachea midline Respiratory/Chest: no accessory muscle use, + pertinent finding (coarse BS) Cardiovascular: regular rate, rhythm, no JVD, + systolic murmur Abdomen/GI: normal bowel sounds, non tender Back: no CVA tenderness Extremities/Musculoskelatal: no calf tenderness, + swelling Neurologic/Psych: alert, normal mood/affect, oriented x 3 Skin: no rash Hospital Course SOB on Minimal Exertion Profuse secretions with wheezing -not been able to bring it up Acute on Chronic respiratory failure ,COPD S/P Bronchoscopy 12/25 Clinically a lot better A little more SOB -12/27 Ambulating and likely to be discharged today Will give 20 mg Lasix IV 2 steps before discharge NSTEMI: Moderate Aortic Stenosis: S/P cardiac cath: Severe multivessel disease S/P PCI DARYL to proximal circumflex Off Nitro ggt, Off Heparin ggt Continue Aspirin, Plavix, Statins, Losartan, Metoprolol, Imdur Appreciate Cardiology and Water Pollution Specialist Input ECHO::No significant change in wall motion or systolic function compared to previous studies. * Normal LV chamber size with moderate concentric LVH. * Normal LV systolic function, EF 60-65%. * No segmental left ventricular wall motion abnormalities are noted. Continue Lasix increased to 40mg, spironolactone Continue current medications Stable as per Cardiology Pneumonitis: Acute on Chronic respiratory failure COPD Hemoptysis:resolved CT chest ::1. Progressive mediastinal hilar and axillary lymphadenopathy 2. Mild splenomegaly 3. Left lower lobe point consolidation with air bronchograms suspicious for pneumonia 4. Groundglass opacities within both upper lobes and the right lower lobe. Diagnostic considerations include infectious processes, acute alveolar disease, chronic interstitial disease, or drug reaction. Appreciate Pulmonology Input Continue IV Antibiotics Day # 6 Continue Nebs,Pulmonary Toilet Was on Chronic Amox as per recommendation Appreciate Pulmonology Input Repeat CXR: Interval improvement in the pulmonary edema. B/L airspace opacities persist. Started on IV Solumedrol and plan for Bronchoscopy tomorrow Bronchoscopy today 12/25/17 Will change Antibiotic to Oral Clindamycin for 7 days in total DM II Most recent Hba1c 7.5 Continue ISS, basal Insulin Monitor BGs Pharmacy consulted for Glycemic management Will decrease the Dose of Steroid CKD III: Cr at baseline monitor renal function Avoid Nephrotoxic agents as able BPH Continue Flomax, Proscar HTN stable continue current meds monitor B Cell Lymphoma Recently diagnosed Follow with oncology Dr. Ashley further work up as outpatient Appreciate Oncology Input Depression Continue Lexapro Stable VIC: CPAP QHS DVT px: Heparin SQ CODE Status: Full code Disposition Likely discharge in a day or two PT/OT - Likely discharge tomorrow Total time spent on discharge = 35 minutes This includes examination of the patient, discharge planning, medication reconciliation, and communication with other providers. Discharge Instructions Date of Service December 27, 2017. Admission Reason for Admission: ACS Discharge Discharge Diagnosis / Problem: NSTEMI,COPD,Pneumonia,DM Discharge Goals Goal(s): Prevent Disease Progression Activity Recommendations Activity Limitations: resume your previous activity . Instructions / Follow-Up Instructions / Follow-Up Dr Tavera on 12/30/17 at 9:45 AM.Please make an appointment with Pulmonology at [facility] Clinic with Dr Bach# [phone] Current Hospital Diet Patient's current hospital diet: AHA Diet (Heart Healthy), Diabetes Type 2 Diet Discharge Diet Recommended Diet: AHA Diet (Heart Healthy), Diabetes Type 2 Diet Fluid Restriction: 1500 ml (6 cups) Procedures Procedures Performed: Bronchoscopy Pending Studies Studies pending at discharge: no Laboratory Results Hemoglobin A1c Test 12/18/17 04:10 Range/Units Estimated Average Glucose 166 mg/dl Hemoglobin A1c 7.4 H 4.5-5.6 % Medical Emergencies . Who to Call and When: Medical Emergencies: If at any time you feel your situation is an emergency, please call 911 immediately. . Non-Emergent Contact Non-Emergency issues call your: Primary Care Provider . Past History Medical & Surgical History: (1) COPD (chronic obstructive pulmonary disease) (2) Lymphoma (3) BPH (benign prostatic hyperplasia) (4) Chronic pancreatitis (5) Diabetes mellitus (6) HTN (hypertension) (7) Depression (8) PVD (peripheral vascular disease) (9) VIC on CPAP (10) CAD (coronary artery disease) (11) History of fusion of cervical spine (12) H/O rotator cuff surgery (13) S/P tonsillectomy and adenoidectomy (14) S/P TURP (15) History of carpal tunnel surgery (16) S/P right knee arthroscopy (17) Pneumonia . "Provider Documentation" section prepared by Torin Johnson. . <Electronically signed by Torin Johnson M.D.> Signed: 12/27/17 [id number] Additional Copies To Gen Tavera D.O.
== END 2017-12-27 17:54 | disposition home or self-care (01) | DRG 246 ==
LOC: EDBD 21:40 → C.EDC 21:44 → C.MSICU 12-18 00:20 → UNDOADMIN 12-18 00:20 → C.MSICU 12-18 00:59 → C.2T 12-20 17:39
PROVIDERS: ADMIT Internal Medicine Interventional Cardiology; ATTEND Internal Medicine
PROC: 4A023N7 Measurement of Cardiac Sampling and Pressure, Left Heart, Percutaneous Approach (ICD-10-PCS; principal; 2017-12-18)
PROC: B211YZZ Fluoroscopy of Multiple Coronary Arteries using Other Contrast (ICD-10-PCS; principal; 2017-12-18)
PROC: 027034Z Dilation of Coronary Artery, One Artery with Drug-eluting Intraluminal Device, Percutaneous Approach (ICD-10-PCS; 2017-12-19)
PROC: 5A09457 Assistance with Respiratory Ventilation, 24-96 Consecutive Hours, Continuous Positive Airway Pressure (ICD-10-PCS; 2017-12-19)
PROC: 0B9J3ZX Drainage of Left Lower Lung Lobe, Percutaneous Approach, Diagnostic (ICD-10-PCS; 2017-12-25)
DX: I21.4 Non-ST elevation (NSTEMI) myocardial infarction (principal); J96.21 Acute and chronic respiratory failure with hypoxia; J18.9 Pneumonia, unspecified organism; K86.1 Other chronic pancreatitis; C83.30 Diffuse large B-cell lymphoma, unspecified site; I25.10 Atherosclerotic heart disease of native coronary artery without angina pectoris; J44.9 Chronic obstructive pulmonary disease, unspecified; I12.9 Hypertensive chronic kidney disease with stage 1 through stage 4 chronic kidney disease, or unspecified chronic kidney disease; F32.9 Major depressive disorder, single episode, unspecified; E78.5 Hyperlipidemia, unspecified; G47.33 Obstructive sleep apnea (adult) (pediatric); I73.9 Peripheral vascular disease, unspecified; I24.9 Acute ischemic heart disease, unspecified; E11.22 Type 2 diabetes mellitus with diabetic chronic kidney disease; N18.3 Chronic kidney disease, stage 3 (moderate); E11.42 Type 2 diabetes mellitus with diabetic polyneuropathy; I35.0 Nonrheumatic aortic (valve) stenosis; Z96.651 Presence of right artificial knee joint; F02.80 Dementia in other diseases classified elsewhere, unspecified severity, without behavioral disturbance, psychotic disturbance, mood disturbance, and anxiety; G30.9 Alzheimer's disease, unspecified; Z87.891 Personal history of nicotine dependence; Z79.4 Long term (current) use of insulin; Z79.02 Long term (current) use of antithrombotics/antiplatelets; I25.2 Old myocardial infarction; Z88.5 Allergy status to narcotic agent; Z90.49 Acquired absence of other specified parts of digestive tract; Z88.0 Allergy status to penicillin; Z79.82 Long term (current) use of aspirin; Z87.11 Personal history of peptic ulcer disease; Z83.3 Family history of diabetes mellitus

== ENCOUNTER 2018-03-21 22:53 | Inpatient (IN) | payer OTHER ==
[~2018-03-21] VITALS: Ht 170.2 cm; Wt 85.2 kg
[~2018-03-21 22:53] MED LIST changes: -AMLO2.5T PO; -COLE1TAB PO; +COLE1TAB4 PO; +CZR25 PO; -ESCI10TA17 PO; -FINA5TAB PO; -FURO-85 PO; -GABA-113 PO; +GABA-1219 PO; -GUAI1TAB69 PO; -INSDGI SC; +INSDGIPEN SC; +LCTX PO; -LOSA1TAB PO; +LSX20 PO; +LXP10 PO; -MONT1TAB3 PO; -NVLGI/PEN INJ; +NVLGI/PEN SC; -NYSS/ PO; +OXYC-737 PO; -PANT40TA PO; +PANT40TA2 PO; +PRS5 PO; -ROSU40TA PO; +ROSU40TA19 PO; +SNG10 PO; +SPIR25TA6 PO; -TACR0.1O TOP; -TAMS0.4C38 PO
[2018-03-21 23:53] LABS: HEMATOCRIT 37.7 % (42-52); HEMOGLOBIN 12.6 g/dL (14.0-18.0); MEAN CELL VOLUME 87.1 fL (80-100); MEAN CORPUSCULAR HEMOGLOBIN 29.1 pg (25-34); MEAN CORPUSCULAR HGB CONC 33.4 g/dl (32-36); MEAN PLATELET VOLUME 9.3 fL (7.4-10.4); PLATELET COUNT 330 K/uL (130-400); RED CELL DISTRIBUTION WIDTH CV 19.8 % (11.5-14.5); RED CELL DISTRIBUTION WIDTH SD 62.5 fL (36.4-46.3); WHITE BLOOD COUNT 42.41 K/uL (4.8-10.8)
[2018-03-21 23:56] LABS: ALBUMIN 3.4 gm/dl (3.4-5.0); ALKALINE PHOSPHATASE 102 U/L (45-117); ALT/SGPT 23 U/L (12-78); AST/SGOT 13 U/L (15-37); BASO ABS # 0.02 K/uL (0-0.2); BLOOD UREA NITROGEN 23 mg/dl (7-18); CALCIUM 8.4 mg/dl (8.5-10.1); CARBON DIOXIDE 23 mmol/L (21-32); CKMB 1.9 ng/ml (0.5-3.6); CREATININE 1.41 mg/dl (0.60-1.40); EOS ABS # 0.01 K/uL (0-0.5); GLUCOSE 368 mg/dl (70-99); IG# 2.17 K/uL (0.00-0.02); LIPASE 171 U/L (73-393); LYMPH % 1.9 %; LYMPH ABS # 0.82 K/uL (1.2-3.4); MONO ABS # 2.13 K/uL (0.11-0.59); NEUT ABS # 37.26 K/uL (1.4-6.5); POTASSIUM 3.8 mmol/L (3.5-5.1); SODIUM 135 mmol/L (136-145)
[2018-03-22] VITALS (9 sets, daily range): BP systolic 81–128; BP diastolic 48–77; PULSE 63–98; TEMP 36.5–37.2; O2SAT 92–97; Ht 170.2 cm; Wt 85.2 kg
[2018-03-22] MEDS ORDERED: ALBU1.257 NEB (00:09)
[2018-03-22] MEDS ORDERED: CRD30 PO (00:11)
[2018-03-22] MEDS ORDERED: TENO300T7 PO (00:12)
[2018-03-22] MEDS ORDERED: PRED20TA PO (00:17)
[2018-03-22] MEDS ORDERED: ZVR400 PO (00:17)
[2018-03-22] MEDS ORDERED: SODIUM CHLORIDE 0.9% 500ML 500 ML IV STA (00:18)
[2018-03-22] MEDS ORDERED: INSULIN HUMAN REGULAR SC STA (00:18)
[2018-03-22] MEDS ORDERED: NYSS/ PO (00:19)
[2018-03-22] MEDS ORDERED: ONDA-170 PO (00:44)
[2018-03-22] MEDS ORDERED: ALLO300T2 PO (00:44)
[2018-03-22] MEDS ORDERED: POLY335019 PO (00:44)
[2018-03-22] MEDS ORDERED: PROC10TA PO (00:45)
[2018-03-22] MEDS ORDERED: FLUT0.15 NAE (00:46)
[2018-03-22] MEDS ORDERED: NovoLIN-R INSULIN PER UNIT CHARGE ONE (00:46)
--- NOTE | 2018-03-22 01:27 | EMERGENCY ROOM VISIT NOTE ---
History Report prepared by [place]: Mandy Humphrey Under the Supervision of: Dr. Nirav Helms M.D. First contact with patient: 23:08 Chief Complaint: CHEST PAIN Stated Complaint: CHEST PAIN History of Present Illness The patient is a 87 year old male who presents to the Emergency Room with complaints of an episode of chest pain that onset after dinner time. 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 The patient states that he did not think an ED visit was necessary at the time. The patient notes that his pain onset while he was eating dinner. He states that the pain felt like gas at first and then turned into chest pain. The patient states that he took 6 tablets of Nitro at home over the course of an hour. He states that he was given 4 baby Aspirin per EMS. He states that he is currently pain free. The patient denies abdominal pain. The patient states that he has a history of lymphoma and "a weak heart". He notes that he has chemotherapy once every three weeks and that he is currently on his second full dose. Source of History: patient Onset: Today after dinner time Position: chest Quality: other (gassy) Timing: resolved Modifying Factors (Relieving): other (baby asprin) Associated Symptoms: No abdominal pain Review of Systems See HPI for pertinent positives & negatives. A total of 10 systems reviewed and were otherwise negative. Past Medical & Surgical Medical Problems: (1) Aortic stenosis (2) BPH (benign prostatic hyperplasia) (3) CAD (coronary artery disease) (4) Carotid arterial disease (5) CHF (congestive heart failure) (6) Chronic pancreatitis (7) CKD (chronic kidney disease), stage III (8) COPD (chronic obstructive pulmonary disease) (9) Dementia (10) Depression (11) Diabetes mellitus, type 2 (12) Diabetic neuropathy (13) Dyslipidemia (14) History of septic arthritis (15) Hyperglycemia (16) Hypertension (17) Lymphoma (18) Peptic ulcer (19) PVD (peripheral vascular disease) (20) Sleep apnea Surgical Problems: (1) H/O rotator cuff surgery (2) History of carpal tunnel surgery (3) History of fusion of cervical spine (4) S/P right knee arthroscopy (5) S/P tonsillectomy and adenoidectomy (6) S/P TURP (7) Status post cardiac catheterization (8) Status post cholecystectomy (9) Status post coronary artery stent placement Family History Coronary artery disease FATHER MOTHER BROTHER SISTER Diabetes mellitus MOTHER Social History Smoking Status: Never Smoker Alcohol Use: none Drug Use: none Marital Status: Housing Status: lives with family Occupation Status: retired Current/Historical Medications Scheduled Allopurinol (Zyloprim), 300 MG PO DAILY Aspirin (Aspirin Ec), 81 MG PO QPM Azelastine Hcl-Fluticasone Pro (Dymista), 1 SPRY BRANDIE QAM Cilostazol (Pletal), 100 MG PO BID Clopidogrel Bisulfate (Clopidogrel), 75 MG PO QPM Diltiazem HCl (Diltiazem HCl), 30 MG PO BID Escitalopram Oxalate (Escitalopram Oxalate), 10 MG PO QAM Finasteride (Finasteride), 5 MG PO QPM Fluticasone Propionate (Nasal) (Flonase Allergy Relief), 2 SPRAYS BRANDIE HS Furosemide (Furosemide), 40 MG PO QAM Gabapentin (Gabapentin), 300 MG PO TID Insulin Aspart (Novolog Flexpen), 14 UNITS SC PC Insulin Glargine (Lantus Solostar), 48 UNITS SC HS Isosorbide Mononitrate Ext Rel (Imdur Ext Rel), 120 MG PO QAM Metoprolol Succ (Toprol Xl) (Toprol-Xl), 150 MG PO DAILY Montelukast Sod (Montelukast Sodium), 10 MG PO HS Pancrelipase (Lipase-Protease- (Creon), 1 CAP PO TID Pantoprazole (Pantoprazole Sodium), 40 MG PO QAM Prednisone (Prednisone), 100 MG PO UD Ranolazine (Ranexa), 500 MG PO BID Rivastigmine Tartrate (Exelon), 1 PATCH TOP QAM Ropinirole HCl (Ropinirole HCl), 0.25 MG PO HS Rosuvastatin Calcium (Rosuvastatin Calcium), 40 MG PO HS Silodosin (Rapaflo), 4 MG PO QPM Tamsulosin Hcl (Flomax), 0.4 MG PO HS Tenofovir Disoproxil Fumarate (Tenofovir Disoproxil Fuma), 300 MG PO DAILY Tiotropium [place]-Olodaterol (Stiolto Respimat 2.5-2.5 Mcg/Act), 2 PUFFS INH QAM Scheduled PRN Albuterol Hfa (Ventolin Hfa), 2 PUFFS INH Q6H PRN for SOB/Wheezing Albuterol Sulfate (Albuterol Sulfate), 1 DOSE NEB UD PRN for SOB/Wheezing Nitroglycerin (Nitrostat), 0.4 MG UT UD PRN for Chest Pain Nystatin (Nystatin Suspension), 1 DOSE PO UD PRN for thrush Ondansetron Hcl (Zofran), 8 MG PO Q8 PRN for Nausea Polyethylene Glycol 3350 (Miralax), 17 GM PO DAILY PRN for Constipation Prochlorperazine Maleate (Compazine), 10 MG PO Q6H PRN for Nausea or Vomiting Allergies Coded Allergies: Clavulanic Acid (Verified Allergy, Intermediate, HIVES TO "BETA-LACTAMASE INHIBITORS", 12/17/17) Sulbactam (Verified Allergy, Intermediate, HIVES TO "BETA-LACTAMASE INHIBITORS", 12/17/17) Cilastatin (Verified Allergy, Mild, HIVES, 12/17/17) Imipenem (Verified Allergy, Mild, HIVES, 12/17/17) HAS HAD PENICILLIN W/O PROBLEM Adhesives (Verified Allergy, Unknown, BANDAIDS- SORE SKIN, 12/17/17) Cephalosporins (Verified Allergy, Unknown, HIVES, 12/17/17) Lovastatin (Verified Allergy, Unknown, hives, 12/17/17) Penicillins (Verified Allergy, Unknown, hives, 12/17/17) Morphine (Verified Adverse Reaction, Unknown, CONFUSED, 12/17/17) Physical Exam Vital Signs Date Time Temp Pulse Resp B/P (MAP) Pulse Ox O2 Delivery O2 Flow Rate FiO2 03/22/18 01:30 86 22 93 03/22/18 01:00 86 19 93 03/22/18 00:54 86 25 108/59 94 Room Air 03/21/18 23:15 92 Room Air 03/21/18 23:15 92 Room Air 03/21/18 23:05 Room Air 03/21/18 23:04 94 03/21/18 23:02 36.5 91 36 108/59 95 Room Air Physical Exam GENERAL: Awake, alert, well-appearing, in no acute distress HENT: Normocephalic, atraumatic. Oropharynx unremarkable. EYES: Normal conjunctiva. Sclera non-icteric. NECK: Supple. No nuchal rigidity. FROM. No JVD. RESPIRATORY: Clear to auscultation. CARDIAC: Regular rate, normal rhythm. Extremities warm and well perfused. Pulses equal. ABDOMEN: Soft, non-distended. No tenderness to palpation. No rebound or guarding. No masses. RECTAL: Deferred. MUSCULOSKELETAL: Chest examination reveals no tenderness. The back is symmetrical on inspection without obvious abnormality. There is no CVA tenderness to palpation. No joint edema. LOWER EXTREMITIES: Calves are equal size bilaterally and non-tender. No edema. No discoloration. NEURO: Normal sensorium. No sensory or motor deficits noted. SKIN: No rash or jaundice noted. Medical Decision & Procedures ER Provider Diagnostic Interpretation: Radiology results as stated below per my review and radiologist interpretation: 1 View Chest X-Ray Shows no evidence of pneumonia, congestion, or pneumothorax. Laboratory Results Test 03/21/18 23:10 Dohle Bodies 1+ Total Bilirubin 0.4 mg/dl (0.2-1) Direct Bilirubin 0.1 mg/dl (0-0.2) Aspartate Amino Transf (AST/SGOT) 13 U/L (15-37) Alanine Aminotransferase (ALT/SGPT) 23 U/L (12-78) Alkaline Phosphatase 102 U/L (45-117) Total Creatine Kinase 47 U/L (39-308) Creatine Kinase MB 1.9 ng/ml (0.5-3.6) Creatine Kinase MB Ratio 4.0 (0-3.0) Total Protein 7.0 gm/dl (6.4-8.2) Albumin 3.4 gm/dl (3.4-5.0) Lipase 171 U/L (73-393) Beta-Hydroxybutyric Acid 1.44 mg/dL (0.2-2.81) Labs reviewed by ED physician. Medications Administered Medications (Trade) Dose Ordered Sig/Francine Route Start Time Stop Time Status Last Admin Dose Admin Sodium Chloride 500 ml @ 999 mls/hr Q31M STAT IV 03/22/18 00:18 03/22/18 00:48 DC 03/22/18 00:51 999 MLS/HR Insulin Human Regular (novoLIN-R U-100 PER UNIT) 10 units STK-MED ONCE .ROUTE 03/22/18 00:46 03/22/18 00:47 DC 03/22/18 00:51 10 UNITS Nitroglycerin (Nitrostat Tab) 0.4 mg UD PRN SL 03/22/18 01:30 04/21/18 01:29 03/22/18 04:50 0.4 MG ECG Per My Interpretation Indication: chest pain Rate (beats per minute): 90 Rhythm: other (sinus rhythm with PVC) Findings: other (No ST segment elevation or depression) ED Course 231: Past medical records reviewed. The patient was evaluated in room B11B. A complete history and physical examination was performed. 0012: I discussed the patient's case with Dr. Valarie Fan, he has agreed to evaluate the patient for further management and care. Medical Decision Differential diagnosis: Etiologies such as cardiac ischemia, aortic dissection, pulmonary embolism, pneumonia, pneumothorax, musculoskeletal, infections, pericarditis, myocarditis , esophageal rupture, gastrointestinal, as well as others were entertained. This is an 87-year-old male whose terrazzo polisher helper wanted him admitted to the hospital yesterday who now shows up to the emergency department complaining of chest pain. The patient's chest pain is relieved with multiple doses of nitro. I will note the patient's white blood cell count is grossly elevated however he is on chemotherapy. His blood sugar is also elevated therefore the patient was given subcu insulin. He was then given normal saline bolus. Based on the patient's past medical history I did discuss the case with the hospitalist service who agreed to admit the patient. Patient was in agreement with the treatment plan. Medication Reconcilliation Current Medication List: was personally reviewed by me Blood Pressure Screening Patient's blood pressure: Normal blood pressure Consults Time Called: 2017 Consulting Physician: Dr. Anaya Returned Call: [phone] I discussed the patient's case with Dr. Valarie Fan, he has agreed to evaluate the patient for further management and care. Impression Primary Impression: Chest pain Scribe Attestation The scribe's documentation has been prepared under my direction and personally reviewed by me in its entirety. I confirm that the note above accurately reflects all work, treatment, procedures, and medical decision making performed by me. Departure Information Dispostion Being Evaluated By Hospitalist Prescriptions Metoprolol Succ (Toprol Xl) (Toprol-Xl) 50 Mg Tabcr 150 MG PO DAILY, #30 TAB Prov: Carlos Ventura MD 03/22/18 Tamsulosin Hcl (FLOMAX) 0.4 Mg Cap 0.4 MG PO HS, #30 CAP Prov: Carlos Ventura MD 03/22/18 Referrals Gen Tavera D.O. (PCP) Patient Instructions [facility] Problem Qualifiers Primary Impression: Chest pain Ischemic chest pain type: unspecified angina pectoris type
[2018-03-22] MEDS ORDERED: PROCHLORPERAZINE MALEATE 10 MG TAB PO PRN (01:30)
[2018-03-22] MEDS ORDERED: POLYETHYLENE (MIRALAX) 17 GM PACK PO PRN (01:30)
[2018-03-22] MEDS ORDERED: ACETAMINOPHEN 325 MG TAB PO PRN (01:30)
[2018-03-22] MEDS ORDERED: MoRPHine SULFATE 2 MG/ML CARP IV PRN (01:30)
[2018-03-22] MEDS ORDERED: ALBUTEROL HFA 8 GM INHALER INH PRN (01:30)
[2018-03-22] MEDS ORDERED: NITROGLYCERIN 0.4 MG SL PER TAB CHARGE UT PRN (01:30)
[2018-03-22] MEDS ORDERED: ONDANSETRON 8 MG TAB PO PRN (01:30)
[2018-03-22] MEDS ORDERED: ALUMINUM/MAGNESIUM/SIMETH (MAALOX MAX) 30 ML UDC PO PRN (01:30)
[2018-03-22] MEDS ORDERED: ONDANSETRON INJ 2 MG/ML 2 ML VIAL IV PRN (01:30)
[2018-03-22] MEDS ORDERED: ALBUTEROL 0.083% NEBU SOLN 3 ML VIAL INH PRN (01:30)
[2018-03-22] MEDS ORDERED: TAMS0.4C38 PO (01:37)
[2018-03-22] MEDS ORDERED: METO50TA8 PO (01:39)
[2018-03-22] MEDS ORDERED: GLUCOSE 40% GEL 15 GM TUBE PO PRN (02:00)
[2018-03-22] MEDS ORDERED: GLUCOSE 10 TABS/TUBE PO PRN (02:00)
[2018-03-22] MEDS ORDERED: DEXTROSE 50% 50 ML SYR IV PRN (02:00)
[2018-03-22] MEDS ORDERED: CARBOHYDRATES FOR HYPOGLYCEMIA PO PRN (02:00)
[2018-03-22] MEDS ORDERED: GLUCAGON FOR INJ 1 MG VIAL IM PRN (02:00)
[2018-03-22] MEDS: NITROGLYCERIN 0.4 MG SL PER TAB CHARGE SL PRN ×2 (02:07→04:50)
[2018-03-22] MEDS ORDERED: NITROGLYCERIN 2% OINTMENT 30GM TUBE EXT ONE (02:48)
[2018-03-22] MEDS ORDERED: NITROGLYCERIN 2% OINTMENT 30GM TUBE EXT SCH (02:48)
--- NOTE | 2018-03-22 05:33 | HISTORY & PHYSICAL EXAMINATION ---
DATE OF ADMISSION: 03/22/2018 CHIEF COMPLAINT: Chest pain. 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 ischemic heart disease status post multiple myocardial infarctions initially in 1971, status post PCI in 2005, and again he had cardiac catheterization in December 2017 that revealed multiple coronary artery disease including chronic right coronary artery occlusion, stable [id number] LAD stenosis and new 80% to 90% left circumflex stenosis status post drug-eluting stents and balloon angioplasty of the second obtuse marginal branch, moderate atrial stenosis, history of septic right knee joint, peripheral vascular disease, carotid occlusive disease, type 2 diabetes, chronic pancreatitis, peptic ulcer disease, COPD, obstructive sleep apnea on BiPAP therapy, hypertension, hyperlipidemia, vertigo, BPH, arthritis, Presents with chest pain. The patient saw the sql manager yesterday and advised to come to the hospital for his anginal symptoms, but patient declined. Today again later in the day he had chest pain, left side, radiating to his both arms, 8/10 to 9/10 in severity, constant pain, and he took about 6 Nitro, but the pain was coming back, so he came to the ER. Currently in the ER, the patient is resting comfortably and hemodynamically stable and denies any chest pain currently. His sugars are running high at home. Denies any headaches, no blurred vision. He has chronic cough with whitish phlegm. Has some sob on exertion.No earache, no runny nose, no sore throat or difficulty swallowing. No sweating, no nausea, no vomiting, no abdominal pain. Normal bowel and bladder movements. Appetite is okay. Ambulates at home okay. He is having lower extremity edema. ALLERGIES: CEPHALOSPORINS, CISPLATIN, IMIPENEM, MEVACOR. PAST MEDICAL HISTORY: As mentioned above. PAST SURGICAL HISTORY: Right total knee arthroplasty; carpal tunnel surgery, bilateral; left heart catheterization; colonoscopy with biopsy; cystoscopy; EGD with biopsy; cataract surgery; CAD status post stent placement; prostate biopsy; biopsy of the lymph node on the right neck; sinus surgery; cholecystectomy; tonsillectomy; lumbar spinal fusion surgery. MEDICATIONS: The patient is on Cardizem 30 mg p.o. b.i.d., Imdur 120 mg p.o. daily, gabapentin 300 mg p.o. t.i.d., insulin NovoLog 40 units under skin 3 times a day with meals, Lexapro 10 mg p.o. daily, Exelon 2.5 mg 24-hour patch on the skin daily, allopurinol 300 mg p.o. daily, prednisone as directed before chemo, tenofovir 300 mg p.o. daily, nystatin 72911 units per mL 4 times a day, insulin Lantus 40 units p.o. daily, MiraLax 17 g p.o. daily p.r.n., Compazine 10 mg p.o. q. 6 hours p.r.n., albuterol sulfate nebulization inhalation 4 times a day, Creon 1 capsule 3 times a day before meals, Toprol-XL 150 mg p.o. daily, Lasix 40 mg p.o. daily, Plavix 75 mg p.o. daily, Flonase daily, Requip 0.25 mg p.o. daily at bedtime, Ranexa 500 mg p.o. b.i.d., Proscar 5 mg p.o. daily, Stiolto Respimat inhaled 2 doses daily for chronic obstructive pulmonary disease, Colestid 1 gram p.o. daily, Crestor 40 mg p.o. daily, Pletal 100 mg p.o. b.i.d., Azelastine 0.1% nasal spray each nostril twice a day, Nitrostat 0.4 mg sublingual p.r.n., Singulair 10 mg p.o. at bedtime, Protonix 40 mg p.o. daily, Rapaflo 4 mg p.o. daily, Flomax 0.4 mg p.o. daily, albuterol 2 puffs every 4 hours p.r.n., aspirin 81 mg p.o. daily, Zofran 8 mg p.o. q. 8 hours p.r.n. FAMILY HISTORY: Significant for brother with CABG, sister has DC, mother at age of 84 with CHF, DC, diabetes. Father had DC. SOCIAL HISTORY: Former smoker, quit in 1982, smoked 4 packs a day for 20 years. No alcohol use. No drug use. . REVIEW OF SYMPTOMS: As per HPI. Rest of review of symptoms negative. PHYSICAL EXAMINATION: GENERAL: The patient is of moderate build, not in distress. VITAL SIGNS: Temperature 36.5, pulse 86, respiratory rate 25, blood pressure 108/59, oxygen 94% room air. HEENT: No pallor, no icterus. Pupils equal, round, and reactive to light. NECK: No JVD, no neck masses, no carotid bruits. CARDIOVASCULAR: S1, S2, regular rate and rhythm, no murmur, no gallop. RESPIRATORY SYSTEM: Normal AP diameter. No accessory muscle use. No wheezing, no crackles. ABDOMEN: Soft, bowel sounds present, somewhat distended . No guarding, No rigidity. CENTRAL NERVOUS SYSTEM: Cranial nerves II-XII grossly nonfocal. EXTREMITIES: Pedal edema present. LABORATORY DATA: WBC 42.4, hemoglobin 12.6, hematocrit 37.7, platelets 1330. Sodium 135, potassium 3.8, chloride 100, bicarbonate 23, BUN 23, creatinine 1.4, serum glucose 368, calcium 8.4, total bilirubin 0.4, direct bilirubin 0.1, AST 13, ALT 26, alkaline phosphatase 102, total creatinine kinase 47, troponin I less than 0.015, lipase 171, beta hydroxybutyrate is 1.44. Chest x-ray positive for mild congestion. EKG: Sinus rhythm with PVCs, rate of 90, no acute ST changes seen. ASSESSMENT AND PLAN: This 87-year-old male presents with chest pain. 1. Chest pain . angina symptoms. Nitro paste. Troponin is negative. We will follow serial cardiac enzymes, repeat EKG. Consult cardiology for further recommendation in the a.m. 2. Possible diastolic congestive heart failure. Hold p.o. Lasix, placed on IV Lasix 40mg daily. Follow echocardiogram, follow daily weights, I's and O's. 3. Diabetes, continue Lantus insulin sliding scale. Will follow his blood sugar, follow HbA1c levels. Blood sugars were high in the ER and he was given a dose of IV insulin. Will monitor blood sugars. 4. Hypertension. Continue Cardizem, Imdur, Toprol-XL. Will monitor the blood pressure. 5. Coronary artery disease status post stent. Continue beta jane, statin, aspirin, Plavix. 6. Chronic obstructive pulmonary disease, moderate. Continue home inhalers and nebs p.r.n. 7. History of diffuse large B-cell lymphoma, getting chemo as per hematology/oncology. 8. Sleep apnea, continue to use BiPAP. 9. History of chronic pancreatitis, continue pancreatic enzymes. 10. Chronic kidney disease stage III. At baseline creatinine 1.4, follow labs. 12. Hyperlipidemia. Continue statin. 13. Benign prostatic hyperplasia. Continue , Proscar, Flomax. 14. History of septic arthritis,s/p treatment. 15. History of dementia, on Exelon patch. 16. Deep venous thrombosis prophylaxis, heparin subcutaneous. 17. Disposition, admit to tele floor. Expect to discharge home and follow with family doctor. Level 1 full code. MTDD
[2018-03-22] MEDS: ISOSORBIDE MONONITRATE 60 MG TABCR PO SCH (07:52)
[2018-03-22] MEDS: CILOSTAZOL 100 MG TAB PO SCH ×2 (07:52→21:01)
[2018-03-22] MEDS: NYSTATIN SUSP 500,000 U/5 ML UDC PO SCH ×4 (07:53→20:57)
[2018-03-22] MEDS: ESCITALOPRAM OXALATE 10 MG TAB PO SCH (07:53)
[2018-03-22] MEDS: RANOLAZINE 500 MG ER TAB PO SCH ×2 (07:53→21:00)
[2018-03-22] MEDS: PANTOprazole SOD 40 MG TAB PO SCH (07:53)
[2018-03-22] MEDS: GABAPENTIN 300 MG CAP PO SCH ×3 (07:54→20:57)
[2018-03-22] MEDS: PANCREAZE (LIPASE 10,500U) CAP PO SCH ×3 (07:54→16:45)
[2018-03-22] MEDS: ALLOPURINOL 300 MG TAB PO SCH (07:55)
[2018-03-22] MEDS ORDERED: EXELON PATCH~ORDER AWAITING ACTION SCH (08:00)
[2018-03-22] MEDS ORDERED: RAPAFLO~ORDER AWAITING ACTION SCH (08:00)
[2018-03-22] MEDS ORDERED: STIOLTO~ORDER AWAITING ACTION SCH (08:00)
[2018-03-22 08:06] LABS: CALCIUM 8.5 mg/dl (8.5-10.1); CREATININE 1.07 mg/dl (0.60-1.40); POTASSIUM 3.3 mmol/L (3.5-5.1)
[2018-03-22] MEDS: INSULIN ASPART 100 UNITS/ML 3 ML PEN SC SCH ×4 (08:06→20:55)
[2018-03-22] MEDS: NITROGLYCERIN 2% OINTMENT 30GM TUBE EXT SCH ×2 (08:06→13:51)
[2018-03-22 08:18] LABS: HEMATOCRIT 32.4 % (42-52); MEAN CELL VOLUME 86.4 fL (80-100); MEAN CORPUSCULAR HEMOGLOBIN 29.3 pg (25-34); MEAN PLATELET VOLUME 9.3 fL (7.4-10.4); PLATELET COUNT 275 K/uL (130-400); RED CELL DISTRIBUTION WIDTH CV 19.7 % (11.5-14.5); RED CELL DISTRIBUTION WIDTH SD 61.9 fL (36.4-46.3); WHITE BLOOD COUNT 35.74 K/uL (4.8-10.8)
[2018-03-22 08:21] LABS: BASO % 0.1 %; BASO ABS # 0.05 K/uL (0-0.2); EOS ABS # 0.01 K/uL (0-0.5); IG# 2.95 K/uL (0.00-0.02); LYMPH % 2.5 %; LYMPH ABS # 0.88 K/uL (1.2-3.4); MONO % 4.4 %; MONO ABS # 1.56 K/uL (0.11-0.59); NEUT % 84.7 %; NEUT ABS # 30.29 K/uL (1.4-6.5)
[2018-03-22] MEDS: DYMISTA~ORDER AWAITING ACTION SCH ×3 (08:39→22:55)
--- NOTE | 2018-03-22 08:44 | DIAGNOSTIC IMAGING REPORT ---
SINGLE VIEW CHEST CLINICAL HISTORY: Atypical chest pain. FINDINGS: An AP, portable, upright chest radiograph is compared to study dated 01/16/2018. The examination is degraded by portable technique and patient rotation. The heart is enlarged and there is atherosclerotic calcification of the thoracic aorta. The pulmonary vasculature is noncongested. Chronic interstitial thickening is similar to previous. There is no airspace consolidation or large pleural effusion. Scattered calcified granulomas are unchanged. No pneumothorax is seen. The skeletal structures are osteopenic. The bony thorax is grossly intact. Fusion hardware is noted in the lower cervical spine. Arthritic change is seen in the shoulders. IMPRESSION: Cardiomegaly with no acute cardiopulmonary abnormality. Electronically signed by: Axel Grider M.D. 03/22/2018 8:42 AM Dictated Date/Time: 03/22/2018 8:41 AM
[2018-03-22] MEDS ORDERED: METOPROLOL SUCC 50MG EXT REL TAB PO SCH (09:00)
[2018-03-22] MEDS ORDERED: FUROSEMIDE INJ 40 MG in SYRINGE 0 ML IV SCH (09:00)
[2018-03-22] MEDS ORDERED: DILTIAZEM HCL 30 MG TAB PO SCH (09:00)
[2018-03-22] MEDS: HEPARIN SOD 5000 UNIT/0.5 ML CARP SQ SCH ×2 (09:38→21:04)
[2018-03-22] MEDS ORDERED: COLESTIPOL HCL 1 GM TAB PO SCH (10:00)
[2018-03-22] MEDS ORDERED: POTASSIUM CHLORIDE 20 MEQ TABCR PO STA (12:43)
--- NOTE | 2018-03-22 13:55 | CARDIOLOGY CONSULTATION ---
DATE OF CONSULTATION: 03/22/2018 REFERRING PHYSICIAN: Carlos Ventura MD INDICATIONS: Shortness of breath, chest pain. HISTORY OF PRESENT ILLNESS: Patient is a very complex 87-year-old male with past recent hospitalizations. His underlying history is notable for atherosclerotic coronary artery disease, complex, with prior myocardial infarctions dating back to 1971. Most recent diagnostic cardiac catheterization in 12/2017 demonstrating multivessel disease including chronic right coronary artery occlusion, diffusely diseased left anterior descending, and 80%-90% left circumflex, which underwent drug-eluting stenting, history of moderate aortic stenosis, atherosclerotic peripheral vascular disease with claudication, atherosclerotic carotid disease, type 2 diabetes mellitus, hyperlipidemia, history of past peptic ulcer disease and pancreatitis, obstructive sleep apnea, past history of septic knee. Most recent history is notable for diagnosis of a large B cell lymphoma. Patient currently undergoing chemotherapy for aggressive disease. Patient presents now noting difficulties with pain and chest discomfort as well as abdominal fullness and bloating since chemotherapy on 03/19/2018. Symptoms are partially relieved by nitroglycerin. He has noted some increase in abdominal girth, attributes at least in part to some food intake as well with an increased indigestion as well. On reviewing chemotherapies received, patient received in addition to chemotherapeutic drugs substantial dosing of corticosteroids, moderate amount of IV fluid resuscitation. Patient was seen in the outpatient setting on 03/20/2018 with chest discomfort. He declined hospitalization at that time. He does note some exertional dyspnea, notes no syncope or near syncope. He has been using nitroglycerin for exertional symptoms. On presentation on 03/20/2018, he noted increasing lower extremity edema and fluid. Last evening due to persistent pressure pain, he presented to the Emergency Room for further evaluation. Since admission, he has received 1 dose of IV furosemide and topical nitrates. He is referred now for additional assistance in medical therapies. REVIEW OF SYSTEMS: Patient denies fevers, chills, or productive cough though did have "cold chills" after chemotherapy administration. Notes no melena, hematochezia, dysuria, or hematuria. Weight is up approximately 2-3 kg per review of records. Notes no headache or visual changes. He is under extensive complication of medical therapies. ALLERGIES: CEPHALOSPORINS, SIMVASTATIN, IMIPENEM, AND MEVACOR. MEDICATIONS: Prior to hospitalization per records and review with patient were notable for albuterol inhaler and nebulizer, allopurinol 300 mg p.o. daily, aspirin 81 mg per day, Dymista spray, Pletal 100 mg b.i.d., clopidogrel 75 mg p.o. q.p.m., diltiazem 30 mg b.i.d. as a new drug, citalopram 10 mg q.a.m., finasteride 5 mg q.p.m., furosemide 40 mg q.a.m., gabapentin 300 mg t.i.d., NovoLog and Lantus insulin, Imdur 120 mg p.o. daily, metoprolol succinate 150 mg q.a.m., Singulair 10 mg q.a.m., Zofran p.r.n., pancrelipase 1 capsule t.i.d., pantoprazole 40 mg q.a.m., MiraLax, prednisone 100 mg daily x5 days, Ranexa 500 mg b.i.d., Exelon patch, ropinirole 0.25 at bedtime, rosuvastatin 40 mg at bedtime, Rapaflo 4 mg q.4 p.m., Flomax 0.5 mg at bedtime, tenofovir, Stiolto. PAST SURGICAL HISTORY: Notable for transurethral prostatectomy, spinal fusion, sinus surgery, cholecystectomy, tonsillectomy, carpal tunnel surgery, cardiac catheterization with most recent intervention in 12/2017. FAMILY HISTORY: Noncontributory. SOCIAL HISTORY: Patient is a nonsmoker since 1982. Uses no significant alcoholic beverages since 2008. PHYSICAL EXAMINATION: VITAL SIGNS: Heart rate 63, blood pressure is 102/58. Telemetry reveals heart rates of 65-85 recent as high as 90s in the morning. HEENT: Normocephalic and atraumatic. NECK: Thick. There is no distinct jugular venous distention. RESPIRATORY: Lungs reveal mildly diminished breath sounds but are clear. CARDIOVASCULAR: Regular, with a grade 2/6 systolic murmur. There is no diastolic murmur. GASTROINTESTINAL: Abdomen is soft, with moderate distention. MUSCULOSKELETAL: Extremities reveal 1 to 2+ lower extremity edema. NEUROLOGIC: Patient is alert and answering questions. LABORATORY DATA: On presentation, white cell count is 42,000, hemoglobin of 12.6, sodium is 135, potassium is 3.8, chloride is 100, bicarbonate 23, BUN is 23, creatinine is 1.4, glucose was 368. AST and ALT are normal. Troponins were less than 0.15, 0.04, and 0.05. DATA: EKG on presentation demonstrated sinus and sinus tachycardia. EKG this morning reveals sinus rhythm, with first degree AV block at a rate of 89 with incomplete right bundle-branch block, left ventricular hypertrophy, nonspecific ST flattening. IMPRESSION: Complex 87-year-old male with known vascular disease including ischemic heart disease, carotid disease, and peripheral vascular disease, on underlying multiple medical regimens, and history as outlined above, most recent issue is aggressive B cell lymphoma, undergoing current chemotherapy. He presents now with abdominal pressure and chest pressure beginning shortly after initiating chemotherapy on 03/19/2018. Concerns were raised regarding possible progression of angina though symptoms appeared atypical. Troponin was minimally elevated, though his current findings suggested probable nonischemic origin of complaints, though volume overload and likely exacerbation by multiple medications including high dose corticosteroids are noted. RECOMMENDATIONS: Will attempt to simplify medical regimen. Will discontinue diltiazem, increase Toprol-XL to 100 mg twice per day. I agree with furosemide given this morning. We will give an additional 20 mg IV this evening. We will attempt to reduce medical therapies; if unnecessary, will discontinue or if concerning. Specifically would discontinue Requip. Will hold colestipol for time being. Supplement potassium. Will follow patient in the hospital. Continue topical nitrates for for blood pressure management. Will continue to review patient's multiple medical regimens in attempt to simplify therapies given anticipated complicated course requiring chemotherapy and treatments. MTDD
[2018-03-22] MEDS ORDERED: NURSING VERBAL MED ORDER ONE (16:00)
--- NOTE | 2018-03-22 16:29 | Progress Note ---
Internal Med Progress Note Date of Service: Mar 22, 2018. Provider Documentation: SUBJECTIVE: No complaint of chest pain or shortness of breath No dyspnea on exertion No hypoxia, adequate oxygenation in room air OBJECTIVE: Vital Signs-as noted below Exam: General-no sinus distress, comfortable Eyes-sclera nonicteric pupils bilateral equal reactive to light ENT-moist oral mucosa Neck-no JVD, neck supple, no thyromegaly Lungs-clear to auscultate no wheeze or rales Heart-regular S1-S2 Abdomen-soft nontender active bowel sounds no organomegaly Extremities-trace bilateral lower extremity edema right more than left Neuro-no focal neurological deficit, alert awake oriented 3 Lab data as noted below. ASSESSMENT & PLAN: CHEST PAIN/SHORTNESS OF BREATH possible secondary to vol overload /decompensated CHF no evidence of cardiac ischemia or acute AL symptom resolved after diuresis no further episode of chest heaviness or SOB appreciate input form Cardiology CORONARY ARTERY DISEASE hx of CAD s/p PTCA no acute coronary event appreciate cardiology eval Toprol XL dose increased to 100 mg BID ECHO shows no new wall motion abnormality HX OF CHF WITH DIASTOLIC DYSFUNCTION : possible due to large steroid dose after chemo ECHO : The left ventricle is normal in size. There is moderate concentric left ventricular hypertrophy. Left ventricular systolic function is normal. Ejection Fraction = 55-60%. There is moderate calcification aortic valve with restricted valve leaflet mobility. Moderate aortic stenosis is present There is trace mitral regurgitation. There is trace tricuspid regurgitation. No regional wall motion abnormalities noted. 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 Dr Cannon at [facility] /Dr Ashley at [facility] last chemo was on Saturday03/19/18 receives oral Prednisone 100 mg daily X5 days after chemo tx marked leukocytosis possible due to recent high dose steroid tx HYPOKALEMIA due to diuresis replaced follow lytes HYPERTENSION : cont out pt meds pt requiring aggressive diuresis and high dose beta jane ( Toprol XL 100 mg BID ) for CHF /angina symptom BP remains borderline low D/c Flomax TYPE 2 DM : Outpatient Anti-diabetic Regimen: * Lantus 48 units qHS * Novolog 14 units w/ meals BSG elevated due to steroids baseline well controlled DM as per recent HbA1c 7.5 on 12/2017 cont basal Lantus insulin SSI HX OF BPH on Proscar /Flomax Flomax d/edin for hypotensive episodes CODE STATUS: Full code DVT PROPHYLAXIS Subcu heparin DISPOSITION Discharge home possibly tomorrow Medicine follow-up with Dr. Gen Tavera at [facility] Cardiology follow-up with Dr. Lemus Vital Signs: Date Time Temp Pulse Resp B/P (MAP) Pulse Ox O2 Delivery O2 Flow Rate FiO2 03/23/18 17:49 36.1 80 18 94 Room Air 03/23/18 15:38 36.1 80 18 97/50 (66) 94 Room Air 03/23/18 12:33 106/60 (75) 03/23/18 12:28 36.7 81 18 90/52 (65) 95 Room Air 03/23/18 08:00 Nasal Cannula 2.0 03/23/18 06:42 36.4 85 20 115/62 (79) 95 Room Air 03/23/18 04:04 36.8 84 20 106/69 (81) 92 Room Air Lab Results: Results Past 24 Hours Test 03/23/18 05:18 03/23/18 07:24 03/23/18 11:16 03/23/18 15:14 Range/Units White Blood Count 33.60 4.8-10.8 K/uL Red Blood Count 4.16 4.7-6.1 M/uL Hemoglobin 12.2 14.0-18.0 g/dL Hematocrit 36.1 42-52 % Mean Corpuscular Volume 86.8 80-100 fL Mean Corpuscular Hemoglobin 29.3 25-34 pg Mean Corpuscular Hemoglobin Concent 33.8 32-36 g/dl Platelet Count 258 130-400 K/uL Mean Platelet Volume 9.5 7.4-10.4 fL RDW Standard Deviation 61.3 36.4-46.3 fL RDW Coefficient of Variation 19.4 11.5-14.5 % Neutrophils % (Manual) 97.3 % Lymphocytes % (Manual) 0.9 % Monocytes % (Manual) 0.9 % Metamyelocytes % 0.9 % Neutrophils # (Manual) 32.69 1.4-6.5 K/uL Total Absolute Neutrophils 32.69 1.4-6.5 K/uL Lymphocytes # (Manual) 0.30 1.2-3.4 K/uL Total Absolute Lymphocytes 0.30 1.2-3.4 K/uL Monocytes # (Manual) 0.30 0.11-0.59 K/uL Metamyelocytes # 0.30 0-0 K/uL Dohle Bodies 1+ Platelet Estimate NORMAL Sodium Level 136 136-145 mmol/L Potassium Level 3.8 3.5-5.1 mmol/L Chloride Level 100 98-107 mmol/L Carbon Dioxide Level 26 21-32 mmol/L Anion Gap 10.0 3-11 mmol/L Blood Urea Nitrogen 23 7-18 mg/dl Creatinine 1.18 0.60-1.40 mg/dl Est Creatinine Clear Calc Drug Dose 46.9 ml/min Estimated GFR () 64.4 Estimated GFR (Non- 55.5 BUN/Creatinine Ratio 19.1 10-20 Random Glucose 304 70-99 mg/dl Calcium Level 8.6 8.5-10.1 mg/dl Magnesium Level 1.9 1.8-2.4 mg/dl Beta-Hydroxybutyric Acid 1.38 0.2-2.81 mg/dL Bedside Glucose 297 341 333 70-99 mg/dl Test 03/23/18 15:15 03/23/18 16:35 Range/Units Bedside Glucose 295 228 70-99 mg/dl
[2018-03-22] MEDS ORDERED: FUROSEMIDE INJ 20 MG in SYRINGE 0 ML IV ONE (16:30)
[2018-03-22 20:02] LABS: POTASSIUM 3.7 mmol/L (3.5-5.1)
[2018-03-22] MEDS: METOPROLOL SUCC 50MG EXT REL TAB PO SCH (20:57)
[2018-03-22] MEDS: MAGNESIUM OXIDE 400 MG TAB PO SCH (20:59)
[2018-03-22] MEDS ORDERED: CLOPIDOGREL BISULFATE 75 MG TAB PO SCH (21:00)
[2018-03-22] MEDS ORDERED: MONTELUKAST SOD 10 MG TAB PO SCH (21:00)
[2018-03-22] MEDS ORDERED: INSULIN GLARGINE SOLOSTAR 100 UNITS/ML 3 ML PEN SC SCH (21:00)
[2018-03-22] MEDS ORDERED: FLUTICASONE PROPIONATE NA SPR 16 GM BTL NAE SCH (21:00)
[2018-03-22] MEDS ORDERED: TAMSULOSIN HCL 0.4 MG CAP PO SCH (21:00)
[2018-03-22] MEDS ORDERED: ROPINIROLE HCL 0.25 MG TAB PO SCH (21:00)
[2018-03-22] MEDS ORDERED: ASPIRIN 81 MG ECTAB PO SCH (21:00)
[2018-03-22] MEDS ORDERED: FINASTERIDE 5 MG TAB PO SCH (21:00)
[2018-03-22] MEDS ORDERED: ROSUVASTATIN CALCIUM 20 MG TAB PO SCH (21:00)
[2018-03-23 04:04] VITALS: BP 106/69; PULSE 84; TEMP 36.8; O2SAT 92
[2018-03-23 06:28] LABS: HEMATOCRIT 36.1 % (42-52); HEMOGLOBIN 12.2 g/dL (14.0-18.0); MEAN CELL VOLUME 86.8 fL (80-100); MEAN CORPUSCULAR HEMOGLOBIN 29.3 pg (25-34); MEAN CORPUSCULAR HGB CONC 33.8 g/dl (32-36); MEAN PLATELET VOLUME 9.5 fL (7.4-10.4); PLATELET COUNT 258 K/uL (130-400); RED CELL DISTRIBUTION WIDTH CV 19.4 % (11.5-14.5); RED CELL DISTRIBUTION WIDTH SD 61.3 fL (36.4-46.3)
[2018-03-23 06:31] LABS: CALCIUM 8.6 mg/dl (8.5-10.1); CREATININE 1.18 mg/dl (0.60-1.40); POTASSIUM 3.8 mmol/L (3.5-5.1)
[2018-03-23 06:42] VITALS: BP 115/62; PULSE 85; TEMP 36.4; O2SAT 95
[2018-03-23] MEDS: PANTOprazole SOD 40 MG TAB PO SCH (07:45)
[2018-03-23] MEDS: MAGNESIUM OXIDE 400 MG TAB PO SCH (07:46)
[2018-03-23] MEDS: ESCITALOPRAM OXALATE 10 MG TAB PO SCH (07:46)
[2018-03-23] MEDS: CILOSTAZOL 100 MG TAB PO SCH (07:46)
[2018-03-23] MEDS: RANOLAZINE 500 MG ER TAB PO SCH (07:46)
[2018-03-23] MEDS: NYSTATIN SUSP 500,000 U/5 ML UDC PO SCH ×3 (07:47→17:04)
[2018-03-23] MEDS: METOPROLOL SUCC 50MG EXT REL TAB PO SCH (07:47)
[2018-03-23] MEDS: ISOSORBIDE MONONITRATE 60 MG TABCR PO SCH (07:48)
[2018-03-23] MEDS: PANCREAZE (LIPASE 10,500U) CAP PO SCH ×3 (07:48→16:42)
[2018-03-23] MEDS: DYMISTA~ORDER AWAITING ACTION SCH ×2 (07:51→16:00)
[2018-03-23] MEDS: GABAPENTIN 300 MG CAP PO SCH ×2 (07:51→13:57)
[2018-03-23] MEDS: ALLOPURINOL 300 MG TAB PO SCH (07:54)
[2018-03-23] MEDS: HEPARIN SOD 5000 UNIT/0.5 ML CARP SQ SCH (08:01)
[2018-03-23] MEDS: INSULIN ASPART 100 UNITS/ML 3 ML PEN SC SCH ×2 (08:01→12:34)
[2018-03-23] MEDS ORDERED: TENOFOVIR 300 MG PO SCH (09:00)
[2018-03-23] MEDS ORDERED: RAPAFLO PO SCH ×2 (09:00→21:00)
[2018-03-23] MEDS ORDERED: TIOTROPIUM BROMIDE-OLODATEROL 2.5-2.5MCG/ACT INH SCH ×2 (09:00)
[2018-03-23] MEDS ORDERED: RIVASTIGMINE TARTRATE 9.5 MG PATCH TD SCH (09:00)
--- NOTE | 2018-03-23 09:39 | ECHOCARDIOGRAM REPORT ---
*NOTICE TO RECEIVING DEMOCRAT AGENCY This information is strictly Confidential and protected under [place] law. [place] law prohibits you from making any further disclosure of this information unless further disclosure is expressly permitted by the written consent of the person to whom it pertains or is authorized by law. A general authorization for the release of medical or other information is not sufficient for this purpose. Hospital accepts no responsibility if the information is made available to any other person, INCLUDING THE PATIENT. Interpretation Summary * Name: CODIE DUMONT Study Date: 03/22/2018 11:14 AM BP: 81/48 mmHg * Patient Location: [facility] HR: 89 * : 1930 (M/d/yyyy) Gender: Male Height: 67 in * Age: 87 yrs Ethnicity: [place] Weight: 199 lb * Ordering Physician: Carlos Ventura * Referring Physician: Self, Referred * Performed By: Loyda Weir RDCS * * Reason For Study: Chest pain * BSA: 2.0 m2 * -- Conclusions -- * The left ventricle is normal in size. * There is moderate concentric left ventricular hypertrophy. * Left ventricular systolic function is normal. * Ejection Fraction = 55-60%. * There is moderate calcification aortic valve with restricted valve leaflet mobility. * Moderate aortic stenosis is present * There is trace mitral regurgitation. * There is trace tricuspid regurgitation. * No regional wall motion abnormalities noted. * There is no pericardial effusion. Procedure Details * A two-dimensional transthoracic echocardiogram, with color flow Doppler was performed. * A two-dimensional transthoracic echocardiogram with pulsed and continuous Doppler was performed. * A complete two-dimensional transthoracic echocardiogram was performed (2D, M-mode, Doppler and color flow Doppler). Left Ventricle * The left ventricle is normal in size. * There is moderate concentric left ventricular hypertrophy. * Ejection Fraction = 55-60%. * Left ventricular systolic function is normal. * No regional wall motion abnormalities noted. Right Ventricle * The right ventricle is normal in size and function. Atria * The left atrium is moderately dilated. * Right atrial size is normal. * No ASD detected; PFO is not assessed. Mitral Valve * The mitral valve anatomy is normal. * There is no mitral valve stenosis. * There is trace mitral regurgitation. Tricuspid Valve * The tricuspid valve anatomy is normal. * There is no tricuspid stenosis. * There is trace tricuspid regurgitation. Aortic Valve * The aortic valve is trileaflet. * There is moderate calcification aortic valve with restricted valve leaflet mobility. Moderate aortic stenosis is present * Moderate valvular aortic stenosis. * No aortic regurgitation is present. Pulmonic Valve * The pulmonic valve is not well visualized. Great Vessels * The aortic root is normal size. Pericardium/Pleural * There is no pericardial effusion. Great Vessels * Normal inferior vena cava diameter and respiratory variation suggests normal central venous pressure. MMode 2D Measurements and Calculations IVSd 1.0 cm LVIDd 3.6 cm LVIDs 2.5 cm LVPWd 1.3 cm IVS/LVPW 0.79 FS 29.0 % EDV(Teich) 53.9 ml ESV(Teich) 23.3 ml EF(Teich) 56.7 % EDV(cubed) 46.1 ml ESV(cubed) 16.5 ml EF(cubed) 64.3 % LV mass(C)d 137.0 grams LV mass(C)dI 67.9 grams/m\S\2 SV(Teich) 30.6 ml SI(Teich) 15.2 ml/m\S\2 SV(cubed) 29.6 ml SI(cubed) 14.7 ml/m\S\2 LA dimension 4.4 cm LVAd ap4 26.7 cm\S\2 LVLd ap4 8.2 cm EDV(MOD-sp4) 69.8 ml EDV(sp4-el) 73.9 ml LVAs ap4 16.4 cm\S\2 LVLs ap4 7.5 cm ESV(MOD-sp4) 31.3 ml ESV(sp4-el) 30.4 ml EF(MOD-sp4) 55.1 % EF(sp4-el) 58.9 % LVAd ap2 22.5 cm\S\2 LVLd ap2 8.1 cm EDV(MOD-sp2) 50.8 ml EDV(sp2-el) 53.0 ml LVAs ap2 15.1 cm\S\2 LVLs ap2 7.5 cm ESV(MOD-sp2) 26.2 ml ESV(sp2-el) 25.7 ml EF(MOD-sp2) 48.4 % EF(sp2-el) 51.5 % LVLd %diff -1.08 % EDV(MOD-bp) 59.6 ml LVLs %diff 0.53 % ESV(MOD-bp) 28.9 ml EF(MOD-bp) 51.5 % SV(MOD-sp4) 38.5 ml SI(MOD-sp4) 19.1 ml/m\S\2 SV(MOD-sp2) 24.6 ml SI(MOD-sp2) 12.2 ml/m\S\2 SV(MOD-bp) 30.7 ml SI(MOD-bp) 15.2 ml/m\S\2 SV(sp4-el) 43.5 ml SI(sp4-el) 21.6 ml/m\S\2 SV(sp2-el) 27.3 ml SI(sp2-el) 13.5 ml/m\S\2 Doppler Measurements and Calculations Ao V2 max 286.9 cm/sec Ao max PG 32.9 mmHg Ao max PG (full) 30.5 mmHg Ao V2 mean 181.6 cm/sec Ao mean PG 15.4 mmHg Ao V2 VTI 62.2 cm LV V1 max PG 2.4 mmHg LV V1 max 77.5 cm/sec PA V2 max 100.2 cm/sec PA max PG 4.0 mmHg PA acc slope 578.7 cm/sec\S\2 PA acc time 0.15 sec PI max live 156.7 cm/sec PI max PG 9.8 mmHg PI dec slope 161.8 cm/sec\S\2 PI P1/2t 283.6 msec TR max live 127.7 cm/sec PA pr(Accel) 12.3 mmHg
--- NOTE | 2018-03-23 12:08 | PROGRESS NOTE ---
DATE: 03/23/2018 The patient seen and examined. Chart, medications, telemetry reviewed. SUBJECTIVE: Feels well this morning. Notes no chest pain or discomfort. Notes no tachypalpitations. Notes no dizziness or lightheadedness. Has been ambulatory in room and issa with good tolerance. OBJECTIVE: VITAL SIGNS: Heart rate is 80, blood pressure is 115/62. I's and O's are notably negative for approximately 1 liter overnight. Weight down 2-3 kilograms by measurement. HEENT: Normocephalic, atraumatic. NECK: Thin. There is no jugular venous distention at 30 degrees. LUNGS: Clear. CARDIOVASCULAR: Regular with a grade 2-3/6 systolic murmur heard best at the right upper sternal border. There is no diastolic murmur. ABDOMEN: Soft, nontender. There is no palpable hepatosplenomegaly. There is no hepatojugular reflux. EXTREMITIES: Without cyanosis or clubbing. There is improved peripheral edema. LABORATORY STUDIES: Sodium is 136, potassium is 3.8, chloride is 100, bicarbonate is 26, BUN is 23, creatinine is 1.18. White cell count is 33.6, hemoglobin is 12.2. IMPRESSION: An 87-year-old male with very complex medical history including underlying history of ischemic heart disease with recent catheter-based revascularization in 12/2017, presented with signs and symptoms of acute clinical decline, likely multifactorial in association with recent chemotherapy, corticosteroid usage, mild volume overload. He has underlying history of moderate aortic stenosis confirmed by echocardiogram though with preserved ventricular systolic function. RECOMMENDATIONS: Would continue change in medications as done during in-hospital stay including increased dosing of Toprol at a 100 mg twice per day. Continue prehospital medications with discontinuation of diltiazem and Requip. Would recommend adding low-dose diuretic at 20 mg 3 days per week given for tendency for fluid retention. The patient has likelihood of having similar events with doses of chemotherapy and will need to be followed closely as outpatient followup exam with Karsten Martinez. No signs or symptoms of acute coronary syndrome currently. The patient wishes to be discharged to home and process being arranged at this time.
[2018-03-23 12:28] VITALS: BP 90/52; PULSE 81; TEMP 36.7; O2SAT 95
[2018-03-23 12:33] VITALS: BP 106/60
[2018-03-23] MEDS ORDERED: MGNO400 PO ×2 (12:36→12:51)
[2018-03-23] MEDS ORDERED: TPRSR50 PO (12:36)
[2018-03-23] MEDS ORDERED: LSX20 PO (12:49)
--- NOTE | 2018-03-23 12:52 | Discharge Instructions ---
Discharge Instructions Date of Service Mar 23, 2018. 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 Instructions / Follow-Up Instructions / Follow-Up HOSPITAL FOLLOW UP 03/31/2018 11:[address] Gen Tavera, DO General Internal Medicine [facility] CARDIOLOGY FOLLOW UP : 04/10/2018 10:[address] Dontae Lemus, Cardiology, [facility] PULMONOLOGY FOLLOW UP : 03/26/2018 9:00 AM SHIKHA Gonzales Pulmonary Medicine, [facility] HEMATOLOGY ONCOLOGY FOLLOW UP : 03/27/2018 8:[address] Libia Ashley MD Hematology/Oncology [facility] 04/09/2018 10:[address] Gabriela Cannon MD Hematology Oncology [facility] MEDICATION CHANGES : TAKE LASIX 40 MG DAILY ( TAKE EXTRA 40 MG TAB ON EVERY SATURDAY ( TOTAL 80MG ON SATURDAY ) DO NOT TAKE CARDIZEM AND REQUIP DO NOT TAKE FLOMAX TOPROL XL DOSE INCREASED TO 100 MG TWICE DAILY ( WAS ON 150 MG DAILY ) Current Hospital Diet Patient's current hospital diet: Diabetes Type 2 Diet, AHA Diet (Heart Healthy) Discharge Diet Recommended Diet: AHA Diet (Heart Healthy), Diabetes Type 2 Diet Pending Studies Studies pending at discharge: no Laboratory Results Hemoglobin A1c Test 01/17/18 07:15 Range/Units Estimated Average Glucose 157 mg/dl Hemoglobin A1c 7.1 H 4.5-5.6 % Lipid Panel Test 01/17/18 07:15 Range/Units Triglycerides Level 105 0-150 mg/dl Cholesterol Level 110 0-200 mg/dl HDL Cholesterol 37 mg/dl Cholesterol/HDL Ratio 3.0 LDL Cholesterol, Calculated 52 mg/dl Medical Emergencies . Who to Call and When: Medical Emergencies: If at any time you feel your situation is an emergency, please call 911 immediately. . Non-Emergent Contact Non-Emergency issues call your: Primary Care Provider . . "Provider Documentation" section prepared by Yoly Jurado. .
--- NOTE | 2018-03-23 13:37 | Discharge Summary ---
Discharge Summary Date of Service Mar 23, 2018. 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 There is moderate concentric left ventricular hypertrophy. Left ventricular systolic function is normal. Ejection Fraction = 55-60%. There is moderate calcification aortic valve with restricted valve leaflet mobility. Moderate aortic stenosis is present There is trace mitral regurgitation. There is trace tricuspid regurgitation. No regional wall motion abnormalities noted. There is no pericardial effusion. Consultations: [facility] Medication Reconciliation New Medications: Magnesium Oxide (Magnesium-Oxide) 400 Mg Tab 400 MG PO DAILY for 30 Days, #30 TAB Metoprolol Succinate (Metoprolol Succinate ER) 50 Mg Tabcr 100 MG PO BID for 30 Days, #120 TABS 2 Refills Changed Medications: Furosemide (Furosemide) 20 Mg Tab 40 MG PO QAM for 30 Days, #70 TABS 3 Refills (Changed from: Refills: ) take extra 40 mg tab once a week /total 80 mg once a week Continued Medications: Albuterol Hfa (Ventolin Hfa) 200 Puffs/31212 Mcg Aers 2 PUFFS INH Q6H PRN for SOB/Wheezing, INHALER Albuterol Sulfate (Albuterol Sulfate) 1.25 Mg/3 Ml Neb 1 DOSE NEB UD PRN for SOB/Wheezing Allopurinol (Zyloprim) 300 Mg Tab 300 MG PO DAILY, TAB Aspirin (Aspirin Ec) 81 Mg Tab 81 MG PO QPM Azelastine Hcl-Fluticasone Pro (Dymista) 1 Spr Spr 1 SPRY BRANDIE QAM, GM Cilostazol (Pletal) 100 Mg Tab 100 MG PO BID Clopidogrel Bisulfate (Clopidogrel) 75 Mg Tab 75 MG PO QPM Escitalopram Oxalate (Escitalopram Oxalate) 10 Mg Tab 10 MG PO QAM Finasteride (Finasteride) 5 Mg Tab 5 MG PO QPM Fluticasone Propionate (Nasal) (Flonase Allergy Relief) 50 Mcg/Act Spr 2 SPRAYS BRANDIE HS Gabapentin (Gabapentin) 300 Mg Cap 300 MG PO TID Insulin Aspart (Novolog Flexpen) 100 Units/Ml Inj 14 UNITS SC PC Insulin Glargine (Lantus Solostar) 100 Unit/Ml Inj 48 UNITS SC HS Isosorbide Mononitrate Ext Rel (Imdur Ext Rel) 120 Mg Ertab 120 MG PO QAM, TAB Montelukast Sod (Montelukast Sodium) 10 Mg Tab 10 MG PO HS Nitroglycerin (Nitrostat) 0.4 Mg Tab 0.4 MG UT UD PRN for Chest Pain Nystatin (Nystatin Suspension) 1 Ml Susp 1 DOSE PO UD PRN for thrush Ondansetron Hcl (Zofran) 8 Mg Tab 8 MG PO Q8 PRN for Nausea, TAB Pancrelipase (Lipase-Protease- (Creon) 1 Cap Cap 1 [place] T[place] 28866 UNITS Pantoprazole (Pantoprazole Sodium) 40 Mg Tab 40 MG PO QAM Polyethylene Glycol 3350 (Miralax) 1 Pow Pow 17 GM PO DAILY PRN for Constipation, #255 GM Prednisone (Prednisone) 20 Mg Tab 100 MG PO UD for 5 days following chemo Prochlorperazine Maleate (Compazine) 10 Mg Tab 10 MG PO Q6H PRN for Nausea or Vomiting, TAB Ranolazine (Ranexa) 500 Mg Tab 500 MG PO BID, TAB Rivastigmine Tartrate (Exelon) 9.5 Mg Tdsy 1 PATCH TOP QAM, PATCH LEAVE ON 24 HRS Rosuvastatin Calcium (Rosuvastatin Calcium) 40 Mg Tab 40 MG PO HS Silodosin (Rapaflo) 4 Mg Cap 4 MG PO QPM Tamsulosin Hcl (Flomax) 0.4 Mg Cap 0.4 MG PO HS, #30 CAP Tenofovir Disoproxil Fumarate (Tenofovir Disoproxil Fuma) 300 Mg Tab 300 MG PO DAILY Tiotropium Hamilton-Olodaterol (Stiolto Respimat 2.5-2.5 Mcg/Act) 1 Aer Aer 2 PUFFS INH QAM Discontinued Medications: Diltiazem HCl (Diltiazem HCl) 30 Mg Tab 30 MG PO BID Metoprolol Succ (Toprol Xl) (Toprol-Xl) 50 Mg Tabcr 150 MG PO DAILY, #30 TAB Ropinirole HCl (Ropinirole HCl) 0.25 Mg Tab 0.25 MG PO HS Referrals At Discharge Follow up Referrals: Manager Integrated Referral - 04/10/18 with Dontae Lemus D.O. Oncology/Hematology Referral - 03/27/18 with Libia Ashley MD Physician Referral - 03/31/18 with Gen Tavera D.O. Admission Information HPI (per Admitting provider): DATE OF ADMISSION: 03/22/2018 CHIEF COMPLAINT: Chest pain. 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 ischemic heart disease status post multiple myocardial infarctions initially in 1971, status post PCI in 2005, and again he had cardiac catheterization in December 2017 that revealed multiple coronary artery disease including chronic right coronary artery occlusion, stable [id number] LAD stenosis and new 80% to 90% left circumflex stenosis status post drug-eluting stents and balloon angioplasty of the second obtuse marginal branch, moderate atrial stenosis, history of septic right knee joint, peripheral vascular disease, carotid occlusive disease, type 2 diabetes, chronic pancreatitis, peptic ulcer disease, COPD, obstructive sleep apnea on BiPAP therapy, hypertension, hyperlipidemia, vertigo, BPH, arthritis, Presents with chest pain. The patient saw the raw material planner yesterday and advised to come to the hospital for his anginal symptoms, but patient declined. Today again later in the day he had chest pain, left side, radiating to his both arms, 8/10 to 9/10 in severity, constant pain, and he took about 6 Nitro, but the pain was coming back, so he came to the ER. Currently in the ER, the patient is resting comfortably and hemodynamically stable and denies any chest pain currently. His sugars are running high at home. Denies any headaches, no blurred vision. He has chronic cough with whitish phlegm. Has some sob on exertion.No earache, no runny nose, no sore throat or difficulty swallowing. No sweating, no nausea, no vomiting, no abdominal pain. Normal bowel and bladder movements. Appetite is okay. Ambulates at home okay. He is having lower extremity edema. Physical Exam (per Admitting): PHYSICAL EXAMINATION: GENERAL: The patient is of moderate build, not in distress. VITAL SIGNS: Temperature 36.5, pulse 86, respiratory rate 25, blood pressure 108/59, oxygen 94% room air. HEENT: No pallor, no icterus. Pupils equal, round, and reactive to light. NECK: No JVD, no neck masses, no carotid bruits. CARDIOVASCULAR: S1, S2, regular rate and rhythm, no murmur, no gallop. RESPIRATORY SYSTEM: Normal AP diameter. No accessory muscle use. No wheezing, no crackles. ABDOMEN: Soft, bowel sounds present, somewhat distended . No guarding, No rigidity. CENTRAL NERVOUS SYSTEM: Cranial nerves II-XII grossly nonfocal. EXTREMITIES: Pedal edema present. Hospital Course No complain of chest pain or SOB no orthopnea or DIAZ, ambulating independently in room evaluated by Cardiology stable to be discharged home PHYSICAL EXAM : General-no sinus distress, comfortable Eyes-sclera nonicteric pupils bilateral equal reactive to light ENT-moist oral mucosa Neck-no JVD, neck supple, no thyromegaly Lungs-clear to auscultate no wheeze or rales Heart-regular S1-S2 Abdomen-soft nontender active bowel sounds no organomegaly Extremities-trace bilateral lower extremity edema right more than left Neuro-no focal neurological deficit, alert awake oriented 3 ASSESSMENT AND PLAN CHEST PAIN/SHORTNESS OF BREATH possible secondary to vol overload /decompensated CHF no evidence of cardiac ischemia or acute RI symptom resolved after diuresis no further episode of chest heaviness or SOB appreciate input form Cardiology Pt will continue to take Lasix 40 mg daily with additional 40 mg ( total 80 mg ) once a week CORONARY ARTERY DISEASE hx of CAD s/p PTCA no acute coronary event appreciate cardiology eval Toprol XL dose increased to 100 mg BID ECHO shows no new wall motion abnormality HX OF CHF WITH DIASTOLIC DYSFUNCTION : possible vol overload due to large steroid dose after chemo pt is getting Oral Prednisone 100 mg daily x5 days post each chemo tx ECHO : The left ventricle is normal in size. There is moderate concentric left ventricular hypertrophy. Left ventricular systolic function is normal. Ejection Fraction = 55-60%. There is moderate calcification aortic valve with restricted valve leaflet mobility. Moderate aortic stenosis is present There is trace mitral regurgitation. There is trace tricuspid regurgitation. No regional wall motion abnormalities noted. pt is diuresed with IV Lasix 40 mg BID with improved clinical out come Chest heaviness , DIAZ resolved pt was on Lasix 40 mg daily Pt will continue to take Lasix 40 mg daily with additional 40 mg ( total 80 mg ) once a week LARGE B-CELL LYMPHOMA on chemo tx follows with Hematology Dr Cannon at [facility] /Dr Ashley at [facility] last chemo was on Saturday03/19/18 receives oral Prednisone 100 mg daily X5 days after chemo tx marked leukocytosis possible due to recent high dose steroid tx HYPOKALEMIA due to diuresis replaced follow lytes HYPERTENSION : cont out pt meds pt requiring aggressive diuresis and high dose beta jane ( Toprol XL 100 mg BID ) for CHF /angina symptom BP remains borderline low D/c Flomax TYPE 2 DM : episodes of hyperglycemia due to prednisone appreciate input form Pharmacy for glycemic management insulin SSI adjusted Outpatient Anti-diabetic Regimen: * Lantus 48 units qHS * Novolog 14 units w/ meals baseline well controlled DM as per recent HbA1c 7.5 on 12/2017 out pt Insulin regimen will be resumed on discharge HX OF BPH no urinary symptom at present on Proscar /Flomax Flomax d/edin for hypotensive episodes CODE STATUS: Full code DVT PROPHYLAXIS Subcu heparin DISPOSITION stable to be discharged home today Medicine follow-up with Dr. Gen Tavera at [facility] Cardiology follow-up with Dr. Lemus CODE STATUS : FULL CODE DVT PROPHYLAXIS SUB Q HEPARIN DISPOSITION stable to be discharge home today Medicine follow up with Dr Tavera Cardiology follow up with Dr Lemus Hematology /Oncology follow up with Dr Tidwell at [facility] /Dr Cannon at [facility] Total time spent on discharge = 40 mins This includes examination of the patient, discharge planning, medication reconciliation, and communication with other providers. Discharge Instructions Discharge Instructions Date of Service Mar 23, 2018. 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 Instructions / Follow-Up Instructions / Follow-Up HOSPITAL FOLLOW UP 03/31/2018 11:[address] Gen Tavera, General Internal Medicine [facility] CARDIOLOGY FOLLOW UP : 04/10/2018 10:[address] Dontae Lemus, Cardiology, [facility] PULMONOLOGY FOLLOW UP : 03/26/2018 9:00 AM SHIKHA Gonzales Pulmonary Medicine, [facility] HEMATOLOGY ONCOLOGY FOLLOW UP : 03/27/2018 8:[address] Libia Ashley MD Hematology/Oncology [facility] 04/09/2018 10:[address] Gabriela Cannon MD Hematology Oncology [facility] MEDICATION CHANGES : TAKE LASIX 40 MG DAILY ( TAKE EXTRA 40 MG TAB ON EVERY SATURDAY ( TOTAL 80MG ON SATURDAY ) DO NOT TAKE CARDIZEM AND REQUIP TOPROL XL DOSE INCREASED TO 100 MG TWICE DAILY ( WAS ON 150 MG DAILY ) Current Hospital Diet Patient's current hospital diet: Diabetes Type 2 Diet, AHA Diet (Heart Healthy) Discharge Diet Recommended Diet: AHA Diet (Heart Healthy), Diabetes Type 2 Diet Pending Studies Studies pending at discharge: no Laboratory Results Hemoglobin A1c Test 01/17/18 07:15 Range/Units Estimated Average Glucose 157 mg/dl Hemoglobin A1c 7.1 H 4.5-5.6 % Lipid Panel Test 01/17/18 07:15 Range/Units Triglycerides Level 105 0-150 mg/dl Cholesterol Level 110 0-200 mg/dl HDL Cholesterol 37 mg/dl Cholesterol/HDL Ratio 3.0 LDL Cholesterol, Calculated 52 mg/dl Medical Emergencies . Who to Call and When: Medical Emergencies: If at any time you feel your situation is an emergency, please call 911 immediately. . Non-Emergent Contact Non-Emergency issues call your: Primary Care Provider . . "Provider Documentation" section prepared by Yoly Jurado. . Additional Copies To Gen Tavera D.O. Dontae Lemus D.O.
[2018-03-23] MEDS ORDERED: NURSING VERBAL MED ORDER ONE (13:45)
[2018-03-23] MEDS ORDERED: PHARMACY GLYCEMIC MGMT CONSULT PRN (13:52)
--- NOTE | 2018-03-23 14:09 | Pharmacy Progress Note ---
Glycemic Control Intl Consult Date of Service Mar 23, 2018. Scope Glycemic Pharmacist consulted by Dr Jurado on 03/23/18 for glycemic control (to aid with control of BSGs prior to discharge today) and to write orders per [facility] inpatient glycemic control protocol Objective Weight (Kilograms): 85.200 Accuchecks BSG (last 24hrs): Test 03/22/18 16:22 03/22/18 20:15 03/22/18 20:17 03/22/18 20:34 Bedside Glucose 157 mg/dl (70-99) 310 mg/dl (70-99) 285 mg/dl (70-99) 292 mg/dl (70-99) Test 03/23/18 05:18 03/23/18 07:24 03/23/18 11:16 Random Glucose 304 mg/dl (70-99) Bedside Glucose 297 mg/dl (70-99) 341 mg/dl (70-99) Laboratory Data (last 24hrs) Test 03/22/18 19:29 03/23/18 05:18 Potassium Level 3.7 mmol/L 3.8 mmol/L Anion Gap 10.0 mmol/L BUN/Creatinine Ratio 19.1 Blood Urea Nitrogen 23 mg/dl Creatinine 1.18 mg/dl Sodium Level 136 mmol/L White Blood Count 33.60 K/uL Red Blood Count 4.16 M/uL Hemoglobin 12.2 g/dL Hematocrit 36.1 % Mean Corpuscular Volume 86.8 fL Mean Corpuscular Hemoglobin 29.3 pg Mean Corpuscular Hemoglobin Concent 33.8 g/dl Platelet Count 258 K/uL Mean Platelet Volume 9.5 fL Recent Pertinent Medications Outpatient Anti-diabetic Regimen: * Lantus 48 units qHS * Novolog 14 units w/ meals The patient is currently receiving: * Basal insulin: Lantus 48 units every 24 hours * Correctional Insulin: Novolog Correction per scale ACHS Goal Range: Low 110 mg/dL - High 140 mg/dL Correction Factor: 30 mg/dL/unit * Prandial insulin: Per carb ratio of 1 unit per 7 grams CHO consumed Risk Factors for Insulin Resistance: * Steroids: prednisone 100 mg qAM - no more doses after today Assessment & Plan ASSESSMENT: * 87 y/o male with history of well controlled diabetes, as per recent A1c. Dr. Jurado consulting pharmacy today to aid with BSG improvement prior to discharge. BSGs significantly elevated 2/2 high dose prednisone s/p chemo. * Patient is maintained on basal/bolus insulin as an outpatient. Will plan to adjust Novolog parameters based on insulin calculator estimates using patient's total daily outpatient dose and stress level of 3. * IV insulin will be used now to augment SQ PLAN FOR INPATIENT GLYCEMIC CONTROL: * Regular IV insulin 10 units x 1 now (~1 unit/kg) * Will recheck BSG 1 hour after bolus * Basal insulin - no change * Lantus 48 units qHS * Correctional Insulin with NOVOLOG per scale ACHS or Q6hrs while NPO - tighten parameters * Goal Range: Low 110 mg/dL - High 140 mg/dL * Correction Factor: 10 mg/dL/unit * Nutritional / Prandial insulin per carb ratio of 1 unit per 3 grams CHO consumed * Please note that the plan above was derived based on current level of insulin resistance and hospital stress. These recommendations are appropriate for inpatient admission only. Plan of care upon discharge will need to be reassessed to avoid potential outpatient hypo/hyperglycemia. Thank you.
[2018-03-23] MEDS ORDERED: INSULIN HUMAN REGULAR PER UNIT 10 UNITS in SYRINGE 9.9 ML IV SCH ×2 (14:15→15:30)
[2018-03-23] MEDS ORDERED: INSULIN ASPART 100 UNITS/ML 3 ML PEN SC ONE (15:30)
[2018-03-23 15:38] VITALS: BP 97/50; PULSE 80; TEMP 36.1; O2SAT 94
[2018-03-23] MEDS ORDERED: INSULIN ASPART 100 UNITS/ML 3 ML PEN SC SCH (16:15)
[2018-03-23 17:49] VITALS: BP 97/50; PULSE 80; TEMP 36.1; O2SAT 94
== END 2018-03-23 18:33 | disposition home or self-care (01) | DRG 291 ==
LOC: EDBD 22:53 → C.EDB 22:54 → C.2T 03-22 01:36 → ENRESERV 03-22 02:11
PROVIDERS: ADMIT Internal Medicine; ATTEND Hospitalist
DX: I13.0 Hypertensive heart and chronic kidney disease with heart failure and stage 1 through stage 4 chronic kidney disease, or unspecified chronic kidney disease (principal); I50.33 Acute on chronic diastolic (congestive) heart failure; C83.30 Diffuse large B-cell lymphoma, unspecified site; I35.0 Nonrheumatic aortic (valve) stenosis; T38.0X5A Adverse effect of glucocorticoids and synthetic analogues, initial encounter; N40.0 Benign prostatic hyperplasia without lower urinary tract symptoms; I25.10 Atherosclerotic heart disease of native coronary artery without angina pectoris; I50.9 Heart failure, unspecified; N18.3 Chronic kidney disease, stage 3 (moderate); J44.9 Chronic obstructive pulmonary disease, unspecified; F32.9 Major depressive disorder, single episode, unspecified; E11.21 Type 2 diabetes mellitus with diabetic nephropathy; E11.40 Type 2 diabetes mellitus with diabetic neuropathy, unspecified; E78.5 Hyperlipidemia, unspecified; Z98.1 Arthrodesis status; E11.51 Type 2 diabetes mellitus with diabetic peripheral angiopathy without gangrene; Z87.891 Personal history of nicotine dependence; Z95.5 Presence of coronary angioplasty implant and graft; G47.30 Sleep apnea, unspecified; E87.6 Hypokalemia; Y92.009 Unspecified place in unspecified non-institutional (private) residence as the place of occurrence of the external cause